=== PATIENT | female | born 1960 | race Caucasian/White ===

== ENCOUNTER 2018-08-01 09:07 | Outpatient (CLI) | payer OTHER, SELFPAY ==
--- NOTE | 2018-08-01 09:07 | W.PM.HP.N ---
Assessment and Plan (1) Degenerative joint disease of right knee: Current visit: Yes Status: Acute Reviewed surgery and relevant anatomy with patient in detail. Patient had opportunity to have questions answered to her satisfaction. Patient is planning on having her daughter live with her for several weeks post-operatively to assist her. Reviewed risks of surgery with patient in detail including but not limited to infection, damage to soft tissues, blood vessels and nerves. Patient will continue with her pre-operative visits for her scheduled right TKA on 08/07/18. Ms. Lowe is a 58 yo female who presents to clinic for her pre-operative visit for her scheduled right TKA on 08/07/[address] Blake. Patient was first seen in orthopedic clinic on 06/09/17 for bilateral knee pain. Since that appointment patient has had regular follow-up with orthopedic clinic for bilateral knee pain which has been diagnosed as bilateral knee DJD. Patient reports that her pain is aggravated by prolonged walking and with any stairs, especially downstairs. She has failed conservative treatments including OTC NSAIDs, Celebrix, ice and corticosteroid injections. Patient had her left knee injected in clinic on 06/09/17 and her right knee injected on 10/25/17 with minimal relief that lasted a few weeks. Patient reports that her right knee has been more painful than her left knee for the last several months. Her pain is now prohibiting her from activities like hiking and being able to walk her dogs daily. She denies any knee injury or instability. Patient reports she was diagnosed with chronic lymphocytic leukemia in 2014. She has scheduled follow up with Dr. Leticia Buckley at [facility] every 6 months. She states she has been stable since diagnosis and is not receiving any treatment at this time. PMH: Denies stroke, cardiac issues, angina, asthma, COPD, sleep apnea, renal/ issues, liver issues, hepatitis, GI issues, gastric ulcer, hyperlipidemia, bleeding disorder, seizures, migraines, diabetes or thyroid disease. History of Present Illness Chief Complaint: Here for my pre-operative visit for my right knee replacement Review of Systems Constitutional Denies fever(s) and Denies headache(s) Eyes Patient Denies change in vision, denies and Denies eye pain ENT Denies ear discharge, Denies otalgia, Denies headache(s), Denies nasal congestion, Denies nasal discharge, Denies nose pain and Denies sore throat Comments: Denies loose teeth Cardiovascular Denies chest pain, Denies rapid heart rate, Denies irregular heart rhythm, Denies dyspnea, Denies dyspnea on exertion, Denies orthopnea, Denies paroxysmal nocturnal dyspnea and Denies slow heart rate Respiratory Denies cough (Denies productive cough), Denies dyspnea, Denies dyspnea on exertion and Denies wheezing Gastrointestinal Denies abdominal pain, Denies melena, Denies hematochezia, Denies constipation, Denies diarrhea, Denies nausea and Denies vomiting Genitourinary Denies hematuria, Denies dysuria and Denies urinary urgency Musculoskeletal Denies joint swelling, Denies muscle weakness and Denies numbness Comments: Right knee aching sensation, right knee pain Neurologic Denies headache(s) and Denies numbness Psychiatric Reports depression (Well controlled on venlafaxine ER) Hematologic/Lymphatic Reports lymphadenopathy (Enlarged non-tender occipital - posterior cervical lymph node on right side - reports unchanged since diagnosis of CLL ) Allergic/Immunologic Denies wheezing PFSH Family History Mother Hypertension Osteoarthritis Father Alcohol abuse Brother Diabetes Other CAD (coronary artery disease) Myocardial infarction Medical History Depression (Chronic) Hypertension (Chronic) Chronic lymphocytic leukemia (Acute) Social History marital status: current occupation: - [employer] Smoking/Tobacco Use Status: Former Tobacco Use pack-years: 1 how long ago did patient quit smoking: Reports smoking in college; denies tobacco products since graduation alcohol intake: current alcohol intake frequency: a few times a week Alcohol type: wine substance use type: does not use Surgical History Cholecystectomy Meds Home Medications Medication Instructions Recorded Confirmed Type venlafaxine 150 mg PO DAILY tab-cap 06/09/17 08/01/18 History losartan-hydrochlorothiazide 1 tab PO DAILY 08/01/18 08/01/18 History Allergies Allergy/AdvReac Type Severity Reaction Status Date / Time No Known Drug Allergies Allergy Unverified 08/01/18 09:29 Exam Const General: cooperative, no acute distress and well developed Nutritional Appearance: well nourished [facility] Head: normal to inspection, normocephalic and atraumatic Ears: external ears normal (No tenderness) General nose exam: nares normal and no nasal discharge Face and sinus: face symmetric Mouth: lip normal, tongue normal and moist mucous membranes Teeth and gingiva: dentition normal Throat: uvula midline Eyes General: appearance normal, both eyes and all related structures Conjunctivae: conjunctivae normal Sclera: sclerae normal Pupils: PERRL EOM: EOM intact bilaterally Neck Neck: lymphadenopathy right occipital nontender Resp Effort & Inspection: normal respiratory effort and able to speak in complete sentences Auscultation: clear to auscultation bilaterally, no rales, no rhonchi and no wheezes Cardio Rate: regular rate Heart Sounds: S1 normal, S2 normal, no gallops, no murmurs and no rubs Pulses: radial pulses present on the left (HR 64) 2+ GI Palpation: soft and no hepatosplenomegaly Auscultation: normal bowel sounds Extrem General: normal to inspection Right lower extremity: normal to inspection and knee Details: normal to inspection, knee ligament exam normal Details: valgus stress test normal and varus stress test normal and other (Active ROM has flexion of 120 degrees and full extension without pain elicited. Passive ROM has flexion of 130 degrees with pain on the medial aspect of the joint line and full extension without pain. Muscle strength was 5/5. ); no tenderness Results Imaging Imaging Studies: Long leg x-ray from 06/08/18 - Bilateral Knee DJD noted, Decreased joint space bilaterally but is noted to be significantly worse on the on the medial aspect of the right knee. Osteophytes noted on both aspects of the right joint, left side has spurs noted specifically on the lateral aspect. Labs : 08/01/18 10:22 08/01/18 10:22
[2018-08-01 10:46] LABS: HCT 40.4 % (36.0-46.0); HGB 13.4 g/dL (12.0-15.5); Mean Corp. HGB Concentration 33.2 g/dL (32.0-36.0); Mean Corpuscular Hemoglobin 29.5 pg (27.0-33.0); Platelet Count 173 x1000/uL (130-400); RBC 4.54 m/cumm (4.00-5.20); RBC Distribution Width 13.5 % (11.7-14.6)
[2018-08-01 11:51] LABS: Anion Gap 4.8 mmol/L (3-11); BUN 16 mg/dL (7-18); CO2 27.2 mmol/L (21.0-32.0); CREATININE 0.84 mg/dL (0.55-1.02); Calcium 9.1 mg/dL (8.5-10.1); Chloride 105 mmol/L (98-107); Glucose 120 mg/dL (70-100); Potassium 4.1 mmol/L (3.5-5.1); Sodium 137 mmol/L (136-145)
== END 2018-08-01 09:27 ==
PROVIDERS: PCP Family Medicine; Visit Provider Student in an Organized Health Care Education/Training Program
DX: M25.561 Pain in right knee (principal); M17.11 Unilateral primary osteoarthritis, right knee; Z01.818 Encounter for other preprocedural examination
CPT/HCPCS: 36415; 80048; 85027; NC

== ENCOUNTER 2018-08-07 08:21 | Inpatient (IN) | payer OTHER, SELFPAY ==
--- NOTE | 2018-08-01 10:29 | PDOC.CMPRO ---
- If Service Date Differs Date of service: 08/01/18 Time of Service: 10:29 Care Management Progress Note Request by Day Surgery for CM to meet with Hilary prior to her right knee surgery with Dr. Blake on 08/07. Hilary resides alone in [facility] and reports that her adult daughter will be staying with her to assist following surgery. She has two steps up into her home and a bathroom on the first floor. 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 She is independent with her ADLS and transportation and utilizes no services in the community. Hilary will need a walker upon discharge. Hilary will transport via private vehicle with her daughter, Eun.
--- NOTE | 2018-08-01 10:38 | CMPROGNOTE_ITS ---
- If Service Date Differs Date of service: 08/01/18 Time of Service: 10:29 Care Management Progress Note Request by Day Surgery for CM to meet with Hilary prior to her right knee surgery with Dr. Blake on 08/07. Hilary resides alone in [facility] and reports that her adult daughter will be staying with her to assist following surgery. She has two steps up into her home and a bathroom on the first floor. 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 She is independent with her ADLS and transportation and utilizes no services in the community. Hilary will need a walker upon discharge. Hilary will transport via private vehicle with her daughter, uEn.
[2018-08-07] VITALS (9 sets, daily range): BP systolic 104–186; BP diastolic 65–110; PULSE 63–85; RESP 11–19; TEMP 36.4–37.4; O2SAT 95–98
[2018-08-07] MEDS: Lactated Ringers 1,000 ML 80 ML IV ×3 (09:13→13:42)
[2018-08-07] MEDS: Celecoxib 200 MG CAP 400 MG PO (09:20)
[2018-08-07] MEDS: oxyCODONE-CR 10 MG TABCR PO (09:20)
[2018-08-07] MEDS: Acetaminophen 500 MG TAB 1000 MG PO ×3 (09:20→19:49)
[2018-08-07] MEDS: Gabapentin 300 MG CAP PO ×2 (09:20→21:46)
[2018-08-07] MEDS: Ketorolac 30 MG/ML VIAL (11:46)
[2018-08-07] MEDS: Bupivacaine LIPOSOME/PF 133 MG/10 ML VIAL IJ (11:46)
[2018-08-07] MEDS: Bupivacaine 0.25% Pres-Free 30 ML VIAL 60 ML (11:46)
[2018-08-07] MEDS: oxyCODONE 5 MG TAB PO ×2 (13:41→22:29)
--- NOTE | 2018-08-07 15:37 | PT.INIE ---
PT Notes Inpatient Physical Therapy Evaluation Date: 08/07/18 Referring Doctor: Mark Blake PT Orders: PT CONSULT: s/p R TKA Precautions: WBAT R LE Patient Profile/Admitting Diagnosis: Pt is a 58yr old female s/p right total knee arthroplasty by Dr. Blake 08/07/18 PMHX: degenerative joint disease bilateral knees, depression, hypertension, lymphocytic leukemia Social History/Home Situation: Lives in 2 story house, 2 steps no railing to enter can hold post, flight of steps with railing to second floor bedrooms. She plans on staying on first level of home initially until she can use the stairs. Baseline mobility independent gait with no device, independent with ADLS Equipment Owned/DME: none Subjective: Pt lying in bed, agreeable to PT Consult. Objective: General Observation: IV R UE, matta catheter Mental Status: A&O x3 Pain: no c/o pain Bed Mobility/Transfers: Supine-sit: HOB 30 degrees, independent Sit-stand: SBA with FWW Stand-sit: SBA Sit-supine: HOB flat, independent Gait: SBA wtih FWW 30ftx2 WBAT R LE, slow step through gait pattern. Pt returned to bed after session completed. THEREX: Pt has issued home exercise program. Initiated ankle pumps, quad sets and glute sets x 20 reps Balance: Static Sitting: normal Dynamic Sitting: normal Static Standing: fair Dynamic Standing: fair Special Tests: Mobility Limitations Standardized Measure [facility] AM-PAC 6 clicks Basic Mobility Inpatient Short Form: Raw Score: 18 Standardized Score: 43.63 CMS Score: 46.58% CMS Modifier: CK Informed Consent/Education: Patient instructed in purpose of PT consult and plan of care. Assessment: Pt is a 58yr old female s/p right total knee arthroplasty by Dr. Blake 08/07/18 in setting of degenerative joint disease bilateral knees. Patient presents with clinical signs and symptoms consistent with post op TKA, as demonstrated by the following impairment level findings: weakness right quad, decreased ROM R knee, decreased strength and mobility with standing transfers, gait requiring FWW for stability to prevent falls due to decreased static and dynamic standing balance. Pt will benefit from short term therapy intervention prior to return to home setting. Impairments are contributing to the following functional limitations: AMPAC score CMS Score: 46.58% Patient is assessed as * Moderate 69828 complexity based on the following: History: see above Examination: see above Presentation: evolving Decision Making: AMPAC score CMS Score: 46.58% Goals: Goals X1 week 1. Supine-Sit independent 2. Sit-Supine independent 3. Sit-Stand supervision with FWW 4. Stand-Sit supervision with FWW 5. Bed-Chair supervision with FWW 6. Chair-Bed supervision with FWW 7. Gait supervision with FWW 75ftx2 WBAT R LE Plan of Care/Treatment Plan: 1-2x/day, 7 days/week x 1 week. Plan of care has been reviewed with the BLACK STUDIES PROFESSOR providing the service under Physical Therapy direction. Initiate Physical Therapy intervention for strengthening, bed mobility, transfers, gait, stairs, balance training, use of assistive device. DISCHARGE RECOMMENDATIONS: Home, will need FWW for gait stability post operatively TREATMENT CODE/TIME: 25min IE 1400 G Codes in the area mobility of walking and moving around: current status [id number] projected status GP [id number]. Discharge status (if discharging) GP [id number] CK based on AMPA score CMS Score: 46.58% Analy Márquez PT Intake Vital Signs 08/07/18 08:59 08/07/18 09:03 08/07/18 12:38 08/07/18 12:43 08/07/18 12:48 08/07/18 13:03 Height 5 ft 9 in 5 ft 9 in Weight 107.501 kg 107.501 kg BP 186/104 H 186/104 H 143/79 H 128/110 H 127/70 140/75 Respiration 18 18 16 14 11 L 12 Pulse 85 85 72 67 70 67 Temp 37.4 C 37.4 C 36.6 C 36.6 C 36.5 C 36.4 C L Pulse Oximetry (%) 97 97 96 95 98 98 Oxygen Flow Rate 0 0 0 0 0
--- NOTE | 2018-08-07 15:43 | IN_ITS ---
PT Notes Inpatient Physical Therapy Evaluation Date: 08/07/18 Referring Doctor: Mark Blake PT Orders: PT CONSULT: s/p R TKA Precautions: WBAT R LE Patient Profile/Admitting Diagnosis: Pt is a 58yr old female s/p right total knee arthroplasty by Dr. Blake 08/07/18 PMHX: degenerative joint disease bilateral knees, depression, hypertension, lymphocytic leukemia Social History/Home Situation: Lives in 2 story house, 2 steps no railing to enter can hold post, flight of steps with railing to second floor bedrooms. She plans on staying on first level of home initially until she can use the stairs. Baseline mobility independent gait with no device, independent with ADLS Equipment Owned/DME: none Subjective: Pt lying in bed, agreeable to PT Consult. Objective: General Observation: IV R UE, matta catheter Mental Status: A&O x3 Pain: no c/o pain Bed Mobility/Transfers: Supine-sit: HOB 30 degrees, independent Sit-stand: SBA with FWW Stand-sit: SBA Sit-supine: HOB flat, independent Gait: SBA wtih FWW 30ftx2 WBAT R LE, slow step through gait pattern. Pt returned to bed after session completed. THEREX: Pt has issued home exercise program. Initiated ankle pumps, quad sets and glute sets x 20 reps Balance: Static Sitting: normal Dynamic Sitting: normal Static Standing: fair Dynamic Standing: fair Special Tests: Mobility Limitations Standardized Measure [facility] AM-PAC 6 clicks Basic Mobility Inpatient Short Form: Raw Score: 18 Standardized Score: 43.63 CMS Score: 46.58% CMS Modifier: CK Informed Consent/Education: Patient instructed in purpose of PT consult and plan of care. Assessment: Pt is a 58yr old female s/p right total knee arthroplasty by Dr. Blake 08/07/18 in setting of degenerative joint disease bilateral knees. Patient presents with clinical signs and symptoms consistent with post op TKA, as demonstrated by the following impairment level findings: weakness right quad , decreased ROM R knee, decreased strength and mobility with standing transfers , gait requiring FWW for stability to prevent falls due to decreased static and dynamic standing balance. Pt will benefit from short term therapy intervention prior to return to home setting. Impairments are contributing to the following functional limitations: AMPAC score CMS Score: 46.58% Patient is assessed as * Moderate [id number] complexity based on the following: History: see above Examination: see above Presentation: evolving Decision Making: AMPAC score CMS Score: 46.58% Goals: Goals X1 week 1. Supine-Sit independent 2. Sit-Supine independent 3. Sit-Stand supervision with FWW 4. Stand-Sit supervision with FWW 5. Bed-Chair supervision with FWW 6. Chair-Bed supervision with FWW 7. Gait supervision with FWW 75ftx2 WBAT R LE Plan of Care/Treatment Plan: 1-2x/day, 7 days/week x 1 week. Plan of care has been reviewed with the TECHNOLOGY INFUSION SPECIALIST providing the service under Physical Therapy direction. Initiate Physical Therapy intervention for strengthening, bed mobility, transfers, gait, stairs, balance training, use of assistive device. DISCHARGE RECOMMENDATIONS: Home, will need FWW for gait stability post operatively TREATMENT CODE/TIME: 25min IE 1400 G Codes in the area mobility of walking and moving around: current status [id number] projected status GP [id number]. Discharge status (if discharging) GP [id number] CK based on AMPA score CMS Score: 46.58% Analy Márquez PT Intake Vital Signs 3 l l l l 08/07/18 08:59 l l 08/07/18 09:03 l l 08/07/18 12:38 l l 08/07/18 12:43 l l 08/07/18 12:48 l l 08/07/18 13:03 l l Height 5 ft 9 in 5 ft 9 in l l Weight 107.501 kg 107.501 kg l l BP 186/104 H 186/104 H 143/79 H 128/110 H 127/70 140/75 l l Respiration 18 18 16 14 11 L 12 l l Pulse 85 85 72 67 70 67 l l Temp 37.4 C 37.4 C 36.6 C 36.6 C 36.5 C 36.4 C L l l Pulse Oximetry (%) 97 97 96 95 98 98 l l Oxygen Flow Rate 0 0 0 0 0
--- NOTE | 2018-08-07 16:50 | ROE_ITS ---
Date of service: 08/07/18 Time of Service: 11:48 Operative Note Date of procedure: 08/07/18 Pre-op diagnosis: Right knee osteoarthritis Post-op diagnosis: same Procedure: Right Total Knee Replacement Surgeon: Mark Blake Bed And Breakfast Operator: Kiya Francois Anesthesia: regional and spinal Estimated blood loss (mL): 300 Pathology: none sent Tourniquet time (min): 31 Complications: None Patient was transported to: PACU Patient's condition: stable Implants: 1. Depuy Attune Posterior Stabilized Femoral Component, Size 6 narrow 2. Depuy Attune Fixed Platform Tibial Component, Size 4 3. Depuy Attune 6 x 6 mm fixed, Stabilized Poly 4. Depuy Attune Patellar Component, Size 35 mm Indications: I have seen Hilary in clinic for symptoms of RIGHT knee arthritis, confirmed with radiographic findings. Hilary has exhausted nonoperative methods and was having significant limitations in daily function and desired better function and less pain. I discussed the technical details of a knee replacement. I explained the risks of the procedure to include, but not limited to, bleeding, infection, pain, stiffness, fracture, damage to nerves and vessels, damage to muscles and tendons, loosening, need for repeat procedure , blood clot and cardiopulmonary demise. Despite these risks, she elected to proceed. Findings: There was significant signs of arthritis throughout the knee. This was focused medially but also seen in the patellofemoral joint as well as the lateral femur. Procedure Description: Hilary was greeted in the preoperative holding area where the correct side was identified and marked. The consent was reviewed with the patient and signed. The history and physical was updated. All questions were answered. Preoperative mediacations were administered: Acetaminophen 1000mg, Celebrex 400mg, Gabapentin 300mg, and Oxycontin 10mg. An adductor canal block was then administered by the anesthesia team in the PACU. Hilary was taken back to the operating room. A spinal anesthestic was then administered. The patient was placed into the supine position on the operating room table. A nonsterile tourniquet was placed high onto the leg but only used for cementing. Posts were placed for positioning during the procedure. All bony prominences were well padded. Prophylactic antibiotics in the form of Cefazolin were administered. 1g of Tranxemic Acid was given intravenously within 30 minutes of incision. The right leg was then prepped with Chloraprep and draped in a standard fashion with impervious stockinette and extremity drape with Iodine impregnated skin protection. A timeout to confirm correct identity, side and site, procedure, allergies, anesthesia, and medical concerns was performed. With the knee in some flexion, a midline incision was made overlying the knee. Full thickness skin flaps were raised once the extensor mechanism was encountered. These were raised medially and laterally. Any bleeding was controlled with electrocautery. Once the extensor mechanism was fully exposed, a medial parapatellar arthrotomy was performed in a flexed position. All bleeding from the arthrotomy and the geniculate arteries was coagulated. A medial subperiosteal peel was performed with electrocautery to the midcoronal plane. The fat pad was removed while keeping the patellar tendon protected. The anterior distal femur synovium was removed for later visualization. The ACL and PCL were resected and the anterior horn of the lateral meniscus was transected. The knee was then flexed with the patella everted. Large osteophytes from the tibia were removed. Using a step drill, and based on preoperative templating, the femoral canal was entered. This was done with a step drill without any difficulty. The intramedullary distal femoral cut guide was inserted, set to a 5 degree valgus cut and 9mm cut thickness. The distal femoral cut guide was then held in position and pinned. With the soft tissues protected, the distal cut was performed. This was passed over a few times to ensure a planar cut. I then turned attention to the tibia. The extramedullary guide was placed onto the leg. The distal aspect was slid medial to adjust for position of center of ankle and stay in line with shaft of the tibia. Approximately 3-5 degrees of posterior slope was kept in the proximal cutting guide. The center of the guide was aligned with the PCL. The stylus was used to assess cut thickness. The medial side, most involved side, was set for a 5mm cut. This was then held in position and pinned into place with 2 additional pins and a cross pin for stability. The medial and lateral collateral ligaments were protected and the cut was performed. With this completed, it was assessed and noted to be of appropriate dimensions. The guide was removed. A spacer block was inserted and the knee was brought into extension. The 6mm spacer block provided full extension, without hyperextension and with stability of both the medial and lateral collateral ligaments was assessed. The pins from the femur and the tibia were then removed. The distal femur was then sized. The anterior stylus was placed onto the lateral ridge of the anterior femur. This indicated a size 6 femur. The external rotation of the guide was adjusted to 3? to match the epicondylar axis , perpendicular to Monument?s line. The 4-in-1 cutting guide was the placed. The posterior medial femur cut was evaluated and appeared of good thickness. The spacer block was inserted underneath the cutting guide and stability was confirmed in 90 degrees of flexion. An asa wing was used to confirm appropriate position of the anterior cut to avoid notching. This cutting guide was ensured to be flush on the cut surface and then pinned into place with headed pins. While protecting the soft tissues, quad tendon, and collateral ligaments, the anterior and posterior cuts were performed with a saw. The central two pins were removed and the posterior and anterior chamfers were cut next. The notch-cutting guide was placed. This was pinned to lateralize the femoral component as much as possible while keeping it flush on the cut surface. This was then pinned into position. A reciprocating saw was used to make the notch cut. A rasp smoothed the cut surfaces. A trial posterior stabilized femoral component was then inserted, impacted down to the cut surfaces, and the lug holes were drilled. A provisional trial tibial component was placed and the knee was brought through range of motion. There was noted to be excellent extension and flexion. There was no significant instability. The patella was tracking without thumbs. The tibial cut surface was fully exposed. The medial and lateral menisci were removed. The tibia was then sized as a 4. The tibia had been previously marked during trialing to correspond to the center of the tibial component to help with rotation. The trial was aligned to this tramaine, approximately rotated to the medial 1/3rd of the tibial tubercle. The trial was pinned into place. The tibia was prepared with a reamer and a keel punch. The knee was then brought into extension and the patella was measured as 25 mm. Using the patellar clamp and cut guide, this was resected to a flat surface with at least 13mm of thickness remaining. The size 35 and patella fit the best. This was oriented and then clamped into position. The lugs were drilled. The trial components were removed. The final components, except for the polyethylene were opened on the back table. The periosteal and capsular tissues , especially posteriorly, around the knee were then systematically injected with a periarticular cocktail consisting of 50cc 0.25% Marcaine, 30mg Ketorolac , 20cc of Exparal and 50cc of injectable saline. The tourniquet was then inflated to 275mmHg. The knee was thoroughly irrigated with a pulse lavage and dried. On the back table, with the implants opened, the cement was mixed. 2 batches of antibiotic laden cement were prepared with vacuum assistance. After the cement was ready a small amount was placed on to the back side of the tibial component at the keel. A small amount was placed onto the posterior flange of the femur. Cement was manual pressurized and impregnated into the cut surface of the tibia. The tibial component was then inserted into the cut surface and impacted into position. Excess cement was removed and the component was reimpacted. Again, excess cement was removed and our attention was then turned to the femur. The femoral cut surface was once again dried and cement was manually impacted into the cut surface. The femoral component was lined with the lug holes and impacted. Excess cement was removed. It was ensured to be down against the cut surface. The trial polyethylene was then inserted and the leg was brought out into full extension for the duration of the cement curing process, approximately 15min. Cement was lastly manually impacted into the cut surface of the patella and the patellar button was clamped into position and held. During this process attention was turned to the gutters of the knee and for all interfaces for any excess cement. After the cement had finally cured, approximately 15min, the clamp was removed from the patella and the knee was taken through range of motion. A size 6mm polyethylene component provided the best range of motion and stability with less than 2mm gapping with medial and lateral stress and full extension without significant hyperextension. The patella was tracking with a no-thumbs technique. The trial poly was removed and once again the knee was checked for any loose, excess, or errant cement. The poly component was then inserted and impacted into position after cleaning and drying the tibial tray. The capsule was then reapproximated with a No. 1 Vicryl at multiple locations. The capsule was finally closed with a No. 2 Stratafix, barbed suture. The tourniquet was then released and the arthrotomy appeared watertight without significant bleeding. The second dosing of 1g TXA was started. Deep tissues were then reapproximated with 0 Vicryl and 2-0 Vicryl. The skin was closed with a running 3-0 Monocryl in a subcuticular fashion. This was reinforced with skin glue. A Mepilex silver dressing was applied along with a foot-to- thigh MIQUEL wrap. A CryoCuff was applied. Hilary was transferred to the hospital bed without difficulty an suffering no apparent complication. Hilary has a good prognosis. Physical therapy will start today and without restrictions, weight-bearing as tolerated. Aspirin 81mg BID will be used for DVT prophylaxis.
[2018-08-07] MEDS: Celecoxib 100 MG CAP 200 MG PO (19:49)
[2018-08-07] MEDS: Aspirin E.C. 81 MG TABEC PO (19:50)
[2018-08-08] MEDS: oxyCODONE 5 MG TAB PO ×2 (03:42→09:22)
[2018-08-08 04:07] VITALS: BP 143/82; PULSE 73; RESP 19; TEMP 36.7; O2SAT 98
--- NOTE | 2018-08-08 08:02 | PT.INDS ---
PT Notes Inpatient Physical Therapy Discharge Summary Date: 08/08/18 Dates of Service: 08/07/18-08/08/18 SUBJECTIVE: Pt lying in bed, states she was up several times last night to go to the bathroom, reports minimal pain. OBJECTIVE: Pain: 2/10 pain left quad Bed Mobility/Transfers: Supine-sit: independent Sit-stand: independent with FWW Bed-chair: independent with FWW Stand-sit: independent Gait: independent wtih FWW 200ft WBAT R LE, slow step through gait pattern. Pt reports some right knee buckling with loading when flexing right knee, pt instructed to maintain more extension in right knee at this time until post operative quad swelling reduces to allow for increased quad contraction and stability. Pt states this improved her gait stability. Pt returned to room and up in chair for breakfast. STAIRS Instructed in up/down 3 steps bilateral railings, independent Up/down 3 steps with left railing and single point cane, independent Pt plans to obtain a cane for 2 entry steps at home. THEREX: Pt has issued home exercise program. Performed ankle pumps, quad sets and glute sets x 20 reps Balance: Static Sitting: normal Dynamic Sitting: normal Static Standing: fair Dynamic Standing: fair Assessment: Pt is a 58yr old female s/p right total knee arthroplasty by Dr. Blake 08/07/18 in setting of degenerative joint disease bilateral knees. Patient has been seen for 2 PT visits. Progressed from SBA standing transfers to independent, from SBA gait with FWW 30ftx2 to independent gait with FWW 200ft, able to ascend/descend 3 steps with cane and railing independently. Pt has met therapy goals and is ready for discharge to home setting when medically cleared. Goals: Goals X1 week 1. Supine-Sit independent 2. Sit-Supine independent 3. Sit-Stand supervision with FWW 4. Stand-Sit supervision with FWW 5. Bed-Chair supervision with FWW 6. Chair-Bed supervision with FWW 7. Gait supervision with FWW 75ftx2 WBAT R LE Pt has met goals 1-7 DISCHARGE RECOMMENDATIONS: Home, will need FWW for gait stability post operatively TREATMENT CODE/TIME: 22min TAx1 TPx1 7:54 G Codes in the area mobility of walking and moving around: projected status GP [id number]. Discharge status (if discharging) GP [id number] CK Analy Márquez PT
--- NOTE | 2018-08-08 08:09 | INDS_ITS ---
PT Notes Inpatient Physical Therapy Discharge Summary Date: 08/08/18 Dates of Service: 08/07/18-08/08/18 SUBJECTIVE: Pt lying in bed, states she was up several times last night to go to the bathroom, reports minimal pain. OBJECTIVE: Pain: 2/10 pain left quad Bed Mobility/Transfers: Supine-sit: independent Sit-stand: independent with FWW Bed-chair: independent with FWW Stand-sit: independent Gait: independent wtih FWW 200ft WBAT R LE, slow step through gait pattern. Pt reports some right knee buckling with loading when flexing right knee, pt instructed to maintain more extension in right knee at this time until post operative quad swelling reduces to allow for increased quad contraction and stability. Pt states this improved her gait stability. Pt returned to room and up in chair for breakfast. STAIRS Instructed in up/down 3 steps bilateral railings, independent Up/down 3 steps with left railing and single point cane, independent Pt plans to obtain a cane for 2 entry steps at home. THEREX: Pt has issued home exercise program. Performed ankle pumps, quad sets and glute sets x 20 reps Balance: Static Sitting: normal Dynamic Sitting: normal Static Standing: fair Dynamic Standing: fair Assessment: Pt is a 58yr old female s/p right total knee arthroplasty by Dr. Blake 08/07/18 in setting of degenerative joint disease bilateral knees. Patient has been seen for 2 PT visits. Progressed from SBA standing transfers to independent, from SBA gait with FWW 30ftx2 to independent gait with FWW 200ft , able to ascend/descend 3 steps with cane and railing independently. Pt has met therapy goals and is ready for discharge to home setting when medically cleared. Goals: Goals X1 week 1. Supine-Sit independent 2. Sit-Supine independent 3. Sit-Stand supervision with FWW 4. Stand-Sit supervision with FWW 5. Bed-Chair supervision with FWW 6. Chair-Bed supervision with FWW 7. Gait supervision with FWW 75ftx2 WBAT R LE Pt has met goals 1-7 DISCHARGE RECOMMENDATIONS: Home, will need FWW for gait stability post operatively TREATMENT CODE/TIME: 22min TAx1 TPx1 7:54 G Codes in the area mobility of walking and moving around: projected status GP [id number]. Discharge status (if discharging) GP [id number] CK Analy Márquez PT
[2018-08-08 08:10] VITALS: BP 132/86; PULSE 70; RESP 16; TEMP 37.1; O2SAT 98
--- NOTE | 2018-08-08 08:22 | PDOC.CMIN ---
- If Service Date Differs Date of service: 08/08/18 Time of Service: 08:22 Care Management Initial Assess REASON FOR HOSPITALIZATION:: Right knee DJD. PAST MEDICAL HISTORY/PAST SURGICAL HISTORY:: Lymphocytic leukemia, depression, hypertension, degenerative joint disease (right knee). Surgical hx: cholecystectomy. 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 She is independent with her ADLS and transportation and utilizes no services in the community. CURRENT FUNCTIONAL STATUS:: Hilary is sitting up in her recliner when CM visits this morning. She is engaged in conversation, makes good eye contact and is talkative. Hilary reports that her pain is minimal and she feels ready for discharge. Hilary's daughter, Eun, will be staying with her for as long as she needs assistance. Pt will need a walker upon discharge. CM informed Hilary that [facility] utilizes [employer] and [employer] for walkers, and Hilary elected to purchase a walker from [employer]. CM will supply the walker prior to discharge. ADVANCE DIRECTIVES:: None on file at [facility]. Has patient been provided with information about the portal?: Yes Did the patient sign up for the portal?: Yes CODE STATUS:: Full Code INSURANCE COVERAGE / FINANCIAL ISSUES:: GISC/[employer]. CURRENT HOME/COMMUNITY SERVICES/EQUIPMENT:: No current home or community services. Hilary will discharge with a FWW. PRIMARY CARE PHYSICIAN:: Precious Nixon. POTENTIAL DISCHARGE NEEDS:: Follow up appointment with MD and possible outpatient PT. PATIENT/FAMILY EDUCATION NEEDS:: Discharge education, any limitations and follow up plan of care. Ask Me Three discussion. ANTICIPATED BARRIERS TO DISCHARGE:: No anticipated barriers to discharge. TRANSPORTATION:: Hilary will transport via private vehicle with daughterEun. PLAN:: Hilary will discharge when medically ready per MD. Anticipate pt will follow up with MD and have outpatient PT services. CM will continue to provide support to patient, family and care team regarding discharge planning and disposition.
[2018-08-08] MEDS: Acetaminophen 500 MG TAB 1000 MG PO (08:32)
[2018-08-08] MEDS: Losartan 50 MG TAB 100 MG PO (08:32)
[2018-08-08] MEDS: Celecoxib 100 MG CAP 200 MG PO (08:32)
[2018-08-08] MEDS: Venlafaxine 150 MG CAPCR PO (08:33)
[2018-08-08] MEDS: Normal Saline Flush 10 ML SYR IV (08:33)
[2018-08-08] MEDS: Aspirin E.C. 81 MG TABEC PO (08:33)
[2018-08-08] MEDS: Hydrochlorothiazide 25 MG TAB PO (08:33)
--- NOTE | 2018-08-08 08:38 | DSE_ITS ---
Date of service: 08/08/18 Time of Service: 08:37 DS: Diagnosis Discharge Diagnosis (1) Degenerative joint disease of right knee: Start date: 08/08/18 Start time: 08:38 Status: Acute Discharge Plan Disposition Patient Disposition: HOME Condition: Good Discharge Details Reason For Visit: (R) KNEE DJD Admit Date/Time: 08/07/18 08:21 Admit Provider: Mark Blake Attending Provider: Mark Blake Primary Care Provider: Precious Nixon [facility] Course Hospital Course: Patient was admitted to the medical/surgical floor following the procedure. It was tolerated well without any notable medical, surgical, or anesthetic complications. Mobilization began postoperatively. The matta catheter was removed and voiding spontaneously. Vitals were stable. Physical therapy worked with the patient and was cleared for discharge home. No acute medical issues. Home Meds and New Rx's Prescriptions: New polyethylene glycol 3350 17 gram Powder In Packet 17 g PO BID PRN PRN (Reason: Constipation) Qty: 0 RF: 0 aspirin 81 mg Tablet,Delayed Release (Dr/Ec) 81 mg PO BID Qty: 80 RF: 0 acetaminophen [Mapap Extra Strength] 500 mg Tablet 1,000 mg PO TID Qty: 90 RF: 0 docusate sodium [Colace] 100 mg Capsule 100 mg PO BID PRN PRN (Reason: Constipation) Qty: 0 RF: 0 gabapentin 300 mg Capsule 300 mg PO HS Qty: 7 RF: 0 celecoxib [Celebrex] 100 mg Capsule 200 mg PO BID Qty: 60 RF: 3 oxycodone 5 mg Tablet 5 mg PO Q6H PRN PRN (Reason: Pain) Qty: 12 RF: 0 pantoprazole 40 mg tablet,delayed release (DR/EC) 40 mg PO DAILY Qty: 30 RF: 1 Continue venlafaxine 150 MG capsule,extended release 24hr 150 mg PO DAILY RF: 0 losartan-hydrochlorothiazide 100-25 mg Tablet 1 tab PO DAILY RF: 0 Discharge Instructions Additional Instructions: Dr. Blake?s Total Knee Discharge Instructions Activity: The most important activity is to walk. You should try to take short walks a few times a day. It is important that when resting you work on keeping the knee straight. Avoid putting a pillow behind the knee as this will encourage flexion. Work on range of motion exercises as provided by Physical Therapy. - Start outpatient physical therapy within 2 weeks. - You should wear the CATINA hose on both legs for 4 weeks. Dressing: Keep the surgical dressing in place for at least one week. After the first week it may be removed and replace with light gauze and tape or nothing. It may get wet after 3 days but avoid soaking the dressing. If it gets wet, just lightly pat dry. Medications: - You should take Tylenol and anti-inflammatory (Celebrex or Meloxicam) as your primary pain control medications - You have been prescribed a stronger pain medication (Oxycodone or Dilaudid) for breakthrough pain, take as needed as prescribed. - You will be taking Aspirin 81mg twice a day for DVT prevention unless instructed otherwise. - If you have constipation you should take Colace or Miralax (both over-the- counter). It takes most people 3-4 days to have a bowel movement. Follow-up: 2 weeks Stand Alone Forms: Nursing Discharge Form Referrals: Mark Blake MD [ [facility] STAFF PHYSICIAN] - Activity:: Activity as Tolerated Equipment/Supplies:: Walker Diet:: Regular Discharge Orders Discharge Orders: Discharge Order (Routine); Ordered 08/08/18 Ordered By: Mark Blake DS: Data Vitals/I&O Vitals and I&O: Vital Signs Temp 37.1 C 08/08/18 08:10 Pulse 70 08/08/18 08:10 Resp 16 08/08/18 08:10 BP 132/86 08/08/18 08:10 Pulse Ox 98 08/08/18 08:10 Intake & Output 08/07/18 08/07/18 08/08/18 11:59 23:59 11:59 Intake Total 306 / 306 1314 / 1314 150 / 150 Output Total 300 / 300 1550 / 1550 900 / 900 Balance 6 / 6 -236 / -236 -750 / -750 Weight 107.501 kg Intake: IV 306 / 306 1074 / 1074 50 / 50 Oral 240 / 240 100 / 100 Output: Urine 1550 / 1550 900 / 900 Estimated Blood Loss 300 / 300 Other: Urine Color Yellow Yellow Straw Urine Appearance Clear Clear Clear Urine Odor Normal Emesis Description None Voiding Methods Toilet Toilet
--- NOTE | 2018-08-08 08:47 | PHARADMIT ---
Admission Pharmacy Clinical Review (R) KNEE DJD Code Status Full Code Current Weight Wgt- 107.5 kg Renally Cleared and Narrow Therapeutic Index Meds CrCl~ 74.4 mL/min Meds-OK QTc Value / Action Taken na BP Control, Fever BP-132/86 Tmax- 37.1C Electrolytes reviewed na DVT Prophylaxis ASA Opiate Usage / Scheduled Bowel Regimen Ordered Yes Yes Plt/SCr for Heparin / Enoxaparin na INR for Warfarin na H/H stable, WBC/Bands na Antibiotic appropriateness Ancef Cultures and Sensitivities none Surgical ABX d/c within 24 hr Yes DM control / Insulin Dosing na Heart Failure (Check EF%) (MIQUEL's, B-Block, Diuretics) Losartan/HCTZ IV to PO Switch No Home Meds Reviewed Yes Home Meds Not Ordered Protonix Comments
[2018-08-08 08:55] VITALS: O2SAT 96
--- NOTE | 2018-08-08 09:15 | INITIAL_ITS ---
- If Service Date Differs Date of service: 08/08/18 Time of Service: 08:22 Care Management Initial Assess REASON FOR HOSPITALIZATION:: Right knee DJD. PAST MEDICAL HISTORY/PAST SURGICAL HISTORY:: Lymphocytic leukemia, depression, hypertension, degenerative joint disease (right knee). Surgical hx: cholecystectomy. 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. She is independent with her ADLS and transportation and utilizes no services in the community. CURRENT FUNCTIONAL STATUS:: Hilary is sitting up in her recliner when CM visits this morning. She is engaged in conversation, makes good eye contact and is talkative. Hilary reports that her pain is minimal and she feels ready for discharge. Hilary's daughter, Eun, will be staying with her for as long as she needs assistance. Pt will need a walker upon discharge. CM informed Hilary that [facility] utilizes [employer] and [employer] for walkers, and Hilary elected to purchase a walker from [employer]. CM will supply the walker prior to discharge. ADVANCE DIRECTIVES:: None on file at [facility]. Has patient been provided with information about the portal?: Yes Did the patient sign up for the portal?: Yes CODE STATUS:: Full Code INSURANCE COVERAGE / FINANCIAL ISSUES:: GISC/[employer]. CURRENT HOME/COMMUNITY SERVICES/EQUIPMENT:: No current home or community services. Hilary will discharge with a FWW. PRIMARY CARE PHYSICIAN:: Precious Nixon. POTENTIAL DISCHARGE NEEDS:: Follow up appointment with MD and possible outpatient PT. PATIENT/FAMILY EDUCATION NEEDS:: Discharge education, any limitations and follow up plan of care. Ask Me Three discussion. ANTICIPATED BARRIERS TO DISCHARGE:: No anticipated barriers to discharge. TRANSPORTATION:: Hilary will transport via private vehicle with daughterEun. PLAN:: Hilary will discharge when medically ready per MD. Anticipate pt will follow up with MD and have outpatient PT services. CM will continue to provide support to patient, family and care team regarding discharge planning and disposition.
--- NOTE | 2018-08-08 09:15 | PDOC.CMDIS ---
- If Service Date Differs Date of service: 08/08/18 Time of Service: 09:15 LACE Index Scoring Tool - Questions: Length of Stay (in days): 2 (Surgical patient) Acuity (Admit via E.D.?): No E.D. Visits: 0 - Answers: Total Score: 2 Risk of Readmission: Low Risk Care Management Discharge Reason for Hospitalization: Right knee DJD. Discharge Plan: Hilary will discharge when medically ready per MD. Anticipate pt will follow up with MD and outpatient PT. Hilary will discharge with a FWW and transport via private vehicle with her daughter, Eun. Patient/Family Education Needs: Discharge education, any limitations and follow up plan of care. Ask Me Three discussion.
--- NOTE | 2018-08-09 13:29 | IN_ITS ---
Date of service: 08/07/18 Time of Service: 14:00 PT Notes Inpatient Physical Therapy Evaluation Date: 08/07/18 Referring Doctor: Mark Blake PT Orders: PT CONSULT: s/p R TKA Precautions: WBAT R LE Patient Profile/Admitting Diagnosis: Pt is a 58yr old female s/p right total knee arthroplasty by Dr. Blake 08/07/18 PMHX: degenerative joint disease bilateral knees, depression, hypertension, lymphocytic leukemia Social History/Home Situation: Lives in 2 story house, 2 steps no railing to enter can hold post, flight of steps with railing to second floor bedrooms. She plans on staying on first level of home initially until she can use the stairs. Baseline mobility independent gait with no device, independent with ADLS Equipment Owned/DME: none Subjective: Pt lying in bed, agreeable to PT Consult. Objective: General Observation: IV R UE, matta catheter Mental Status: A&O x3 Pain: no c/o pain Bed Mobility/Transfers: Supine-sit: HOB 30 degrees, independent Sit-stand: SBA with FWW Stand-sit: SBA Sit-supine: HOB flat, independent Gait: SBA wtih FWW 30ftx2 WBAT R LE, slow step through gait pattern. Pt returned to bed after session completed. THEREX: Pt has issued home exercise program. Initiated ankle pumps, quad sets and glute sets x 20 reps Balance: Static Sitting: normal Dynamic Sitting: normal Static Standing: fair Dynamic Standing: fair Special Tests: Mobility Limitations Standardized Measure [facility] AM-PAC 6 clicks Basic Mobility Inpatient Short Form: Raw Score: 18 Standardized Score: 43.63 CMS Score: 46.58% CMS Modifier: CK Informed Consent/Education: Patient instructed in purpose of PT consult and plan of care. Assessment: Pt is a 58yr old female s/p right total knee arthroplasty by Dr. Blake 08/07/18 in setting of degenerative joint disease bilateral knees. Patient presents with clinical signs and symptoms consistent with post op TKA, as demonstrated by the following impairment level findings: weakness right quad , decreased ROM R knee, decreased strength and mobility with standing transfers , gait requiring FWW for stability to prevent falls due to decreased static and dynamic standing balance. Pt will benefit from short term therapy intervention prior to return to home setting. Impairments are contributing to the following functional limitations: AMPAC score CMS Score: 46.58% Patient is assessed as * Moderate 83753 complexity based on the following: History: see above Examination: see above Presentation: evolving Decision Making: AMPAC score CMS Score: 46.58% Goals: Goals X1 week 1. Supine-Sit independent 2. Sit-Supine independent 3. Sit-Stand supervision with FWW 4. Stand-Sit supervision with FWW 5. Bed-Chair supervision with FWW 6. Chair-Bed supervision with FWW 7. Gait supervision with FWW 75ftx2 WBAT R LE Plan of Care/Treatment Plan: 1-2x/day, 7 days/week x 1 week. Plan of care has been reviewed with the [employer] providing the service under Physical Therapy direction. Initiate Physical Therapy intervention for strengthening, bed mobility, transfers, gait, stairs, balance training, use of assistive device. DISCHARGE RECOMMENDATIONS: Home, will need FWW for gait stability post operatively TREATMENT CODE/TIME: 25min IE 1400 G Codes in the area mobility of walking and moving around: current status [id number] CK projected status GP [id number]. Discharge status (if discharging) GP [id number] CK based on AMPAC score CMS Score: 46.58% Analy Márquez PT
== END 2018-08-08 11:38 | disposition home or self-care (01) | DRG 470 ==
LOC: PDS 09:51 → MS 13:41
PROVIDERS: Admitting Provider Student in an Organized Health Care Education/Training Program; PCP Family Medicine; Visit Provider Student in an Organized Health Care Education/Training Program
PROC: 0SRC0J9 Replacement of Right Knee Joint with Synthetic Substitute, Cemented, Open Approach (ICD-10-PCS; CPT 27447; principal; 2018-08-07 10:00)
DX: M17.11 Unilateral primary osteoarthritis, right knee (principal); C91.11 Chronic lymphocytic leukemia of B-cell type in remission; Z96.651 Presence of right artificial knee joint
CPT/HCPCS: 27447; 97110; 97162; 97530; NC; J0690; J1100; J1885; J2250; J2405; J3010

== ENCOUNTER 2019-11-28 22:28 | Outpatient (REF) | payer OTHER, SELFPAY ==
[2019-11-28 19:11] LABS: Abs Immature Grans 0.06 k/cumm (0.0-0.09); Absolute Basophil Count 0.05 k/cumm (0.0-0.2); Absolute Lymphocyte Count 20.37 k/cumm (1.2-3.4); Basophils % 0.2; Eosinophils % 0.6; HCT 38.8 % (36.0-46.0); HGB 12.8 g/dL (12.0-15.5); Immature Grans % 0.2 %; Lymphocytes % 77.4; Mean Corpuscular Hemoglobin 29.3 pg (27.0-33.0); Mean Corpuscular Volume 88.8 fL (80-95); Mean Platelet Volume 9.1 fL (8.0-11.0); Monocytes % 2.8; Neutrophils % 18.8; Platelet Count 236 x1000/uL (130-400); RBC 4.37 m/cumm (4.00-5.20); RBC Distribution Width 14.1 % (11.7-14.6)
[2019-11-28 19:20] LABS: ALT 57 U/L (14-59); AST 25 U/L (15-37); Albumin 4.2 g/dL (3.4-5.0); Alkaline Phosphatase 103 U/L (46-116); Anion Gap 11.9 mmol/L (3-11); BUN 20 mg/dL (7-18); Bilirubin, Total 0.3 mg/dL (0.2-1.0); CO2 28.1 mmol/L (21.0-32.0); CREATININE 0.82 mg/dL (0.55-1.02); Calcium 9.7 mg/dL (8.5-10.1); Chloride 104 mmol/L (98-107); Glucose 105 mg/dL (74-106); Potassium 3.8 mmol/L (3.5-5.1); Sodium 144 mmol/L (136-145); Total Protein 6.9 g/dL (6.4-8.2)
[2019-11-28 19:46] LABS: Absolute Eosinophil Count 0.16 k/cumm (0.0-0.7); Absolute Monocyte Count 0.74 k/cumm (0.11-0.7); Absolute Neutrophil Count 4.95 k/cumm (1.2-6.7); White Blood Cell Count 26.32 k/cumm (4.4-10.8)
[2019-11-28 20:31] LABS: Diff Comment Agrees w/ Instrument
== END 2019-11-28 22:48 ==
LOC: NCHCN 22:28
PROVIDERS: PCP Family Medicine; Visit Provider Family Medicine
DX: C91.00 Acute lymphoblastic leukemia not having achieved remission (principal)
CPT/HCPCS: 80053; 83605; 85025

== ENCOUNTER 2020-06-24 18:20 | Outpatient (REF) | payer OTHER, SELFPAY ==
[2020-06-25 08:54] LABS: LDH 165 U/L (81-234)
[2020-06-26 10:13] LABS: IgA 84 mg/dL (85-499); IgG 634 mg/dL (610-1,616); IgM 39 mg/dL (35-242)
== END 2020-06-24 18:40 ==
LOC: NCHCN 18:20
PROVIDERS: PCP Family Medicine; Visit Provider Family Medicine
DX: C91.00 Acute lymphoblastic leukemia not having achieved remission (principal)
CPT/HCPCS: 82784; 83615

== ENCOUNTER 2020-06-30 10:49 | Outpatient (CLI) | payer OTHER, SELFPAY ==
[2020-06-30 13:17] LABS: Abs Immature Grans 0.04 10^3/uL (0.0-0.06); HCT 43.7 % (36.0-46.0); HGB 14.5 g/dL (11.2-15.7); MCH 29.1 pg (27.0-33.0); MCHC 33.2 % (32.0-36.0); MCV 87.6 fL (80-95); MPV 8.8 fL (8.0-11.0); Nucleated RBC 0 %; Platelet Count 217 10^3/uL (130-400); RBC 4.99 10^6/uL (3.93-5.22); RDW 13.3 % (11.7-14.6); RDW-SD 42.7 fL; WBC 22.93 10^3/uL (4.4-10.8)
[2020-06-30 13:31] LABS: ALT 89 U/L (14-59); AST 43 U/L (15-37); Alkaline Phosphatase 104 U/L (46-116); Anion Gap 11.4 mmol/L (3-11); BUN 13 mg/dL (7-18); Bilirubin, Total 0.5 mg/dL (0.2-1.0); CO2 26.6 mmol/L (21.0-32.0); CREATININE 0.85 mg/dL (0.55-1.02); Calcium 9.4 mg/dL (8.5-10.1); Chloride 102 mmol/L (98-107); Glucose 120 mg/dL (74-106); Sodium 140 mmol/L (136-145); Total Protein 7.7 g/dL (6.4-8.2)
[2020-06-30 13:41] LABS: Absolute Lymphocyte Count 16.05 10^3/uL (1.2-3.4); Absolute Neutrophil Count 6.19 10^3/uL (1.2-6.7); Bands % 2
[2020-06-30 13:44] LABS: Absolute Monocyte Count 0.69 10^3/uL (0.1-0.8); Diff Comment Manual Differential; RBC Morphology Normal
== END 2020-06-30 11:09 ==
PROVIDERS: PCP Family Medicine; Visit Provider Internal Medicine Hematology & Oncology
DX: C91.10 Chronic lymphocytic leukemia of B-cell type not having achieved remission (principal)
CPT/HCPCS: 36415; 80053; 85025

== ENCOUNTER 2020-07-10 13:44 | Outpatient (REF) | payer SELFPAY ==
[2020-07-13 00:59] LABS: SARS-CoV-2 RNA Undetected (Undetected); SARS-CoV-2 Specimen Source Nasopharynx
== END 2020-07-10 14:04 ==
LOC: NCHCN 13:44
PROVIDERS: PCP Family Medicine; Visit Provider Family Medicine
DX: Z20.828 Contact with and (suspected) exposure to other viral communicable diseases (principal)
CPT/HCPCS: U0003

== ENCOUNTER 2021-01-11 02:08 | Outpatient (CLI) | payer OTHER, SELFPAY ==
[2021-01-11 13:15] LABS: Abs Immature Grans 0.05 10^3/uL (0.0-0.06); Absolute Basophil Count 0.08 10^3/uL (0.0-0.2); Absolute Eosinophil Count 0.25 10^3/uL (0.0-0.7); Absolute Lymphocyte Count 14.53 10^3/uL (1.2-3.4); Absolute Monocyte Count 0.47 10^3/uL (0.1-0.8); Absolute Neutrophil Count 4.17 10^3/uL (1.2-6.7); Basophils % 0.4; Eosinophils % 1.3; HCT 40.4 % (36.0-46.0); HGB 13.3 g/dL (11.2-15.7); Immature Grans % 0.3; Lymphocytes % 74.3; MCH 28.6 pg (27.0-33.0); MCHC 32.9 % (32.0-36.0); MCV 86.9 fL (80-95); MPV 8.8 fL (8.0-11.0); Monocytes % 2.4; Neutrophils % 21.3; Nucleated RBC 0 %; Platelet Count 197 10^3/uL (130-400); RBC 4.65 10^6/uL (3.93-5.22); RDW 13.8 % (11.7-14.6); RDW-SD 43.1 fL; WBC 19.56 10^3/uL (4.4-10.8)
[2021-01-11 13:35] LABS: ALT 42 U/L (14-59); AST 15 U/L (15-37); Alkaline Phosphatase 111 U/L (46-116); Anion Gap 12.4 mmol/L (3-11); BUN 23 mg/dL (7-18); Bilirubin, Total 0.4 mg/dL (0.2-1.0); CO2 27.6 mmol/L (21.0-32.0); CREATININE 0.8 mg/dL (0.55-1.02); Calcium 9.3 mg/dL (8.5-10.1); Chloride 104 mmol/L (98-107); Glucose 112 mg/dL (74-106); LDH 148 U/L (81-234); Sodium 144 mmol/L (136-145); Total Protein 7.4 g/dL (6.4-8.2)
[2021-01-11 13:40] LABS: RBC Morphology Normal
[2021-01-11 13:41] LABS: Diff Comment Diff Reviewed
[2021-01-12 11:45] LABS: IgA 74 mg/dL (85-499); IgG 652 mg/dL (610-1,616); IgM 36 mg/dL (35-242)
== END 2021-01-11 02:09 | disposition home or self-care (01) ==
LOC: LBO 02:09
PROVIDERS: PCP Family Medicine; Visit Provider Internal Medicine Hematology & Oncology
DX: C91.10 Chronic lymphocytic leukemia of B-cell type not having achieved remission (principal)
CPT/HCPCS: 36415; 80053; 82784; 83615; 85025

== ENCOUNTER 2021-07-05 14:33 | Outpatient (CLI) | payer OTHER, SELFPAY ==
[2021-07-05 13:35] LABS: HCT 40.5 % (36.0-46.0); HGB 13.4 g/dL (11.2-15.7); MCH 28.7 pg (27.0-33.0); MCHC 33.1 % (32.0-36.0); MCV 86.7 fL (80-95); MPV 8.5 fL (8.0-11.0); Nucleated RBC 0 %; Platelet Count 186 10^3/uL (130-400); RBC 4.67 10^6/uL (3.93-5.22); RDW 13.3 % (11.7-14.6); RDW-SD 41.7 fL; WBC 18.09 10^3/uL (4.4-10.8)
[2021-07-05 14:14] LABS: Absolute Lymphocyte Count 12.48 10^3/uL (1.2-3.4); Absolute Monocyte Count 0.36 10^3/uL (0.1-0.8); Absolute Neutrophil Count 5.25 10^3/uL (1.2-6.7); Atypical Lymphocytes % 14; Diff Comment Manual Differential; RBC Morphology Normal
[2021-07-05 14:17] LABS: ALT 36 U/L (14-59); AST 16 U/L (15-37); Alkaline Phosphatase 111 U/L (46-116); Anion Gap 9.8 mmol/L (3-11); BUN 21 mg/dL (7-18); Bilirubin, Total 0.4 mg/dL (0.2-1.0); CO2 26.2 mmol/L (21.0-32.0); CREATININE 0.9 mg/dL (0.55-1.02); Calcium 9.2 mg/dL (8.5-10.1); Chloride 104 mmol/L (98-107); Glucose 137 mg/dL (74-106); LDH 158 U/L (81-234); Potassium 3.5 mmol/L (3.5-5.1); Sodium 140 mmol/L (136-145); Total Protein 7.5 g/dL (6.4-8.2)
[2021-07-06 09:59] LABS: IgA 87 mg/dL (85-499); IgG 695 mg/dL (610-1,616); IgM 46 mg/dL (35-242)
== END 2021-07-05 14:34 | disposition home or self-care (01) ==
LOC: LBO 14:34
PROVIDERS: PCP Family Medicine; Visit Provider Internal Medicine Hematology & Oncology
DX: C91.10 Chronic lymphocytic leukemia of B-cell type not having achieved remission (principal)
CPT/HCPCS: 36415; 80053; 82784; 83615; 85025

== ENCOUNTER 2021-07-12 14:42 | Outpatient (CLI) | payer OTHER, SELFPAY ==
--- NOTE | 2021-07-12 10:56 | DI.RAD_ITS ---
Exam(s) XR KNEE LT 3V AP,LAT,JORGE EXAM: XR KNEE LT 3V AP,LAT,JORGE CLINICAL HISTORY: L knee pain. TECHNIQUE: 2D digital imaging was performed. COMPARISON: CR XR standing alignment from 08/24/2018 CR XR knee RT 1V from 08/24/2018 CR XR standing alignment from 08/24/2018 FINDINGS: Compared to October 28 [id number] there is been further increase in amount of degenerative change in the left knee all 3 compartments but most prominent in the medial patellofemoral compartments. There is also a loose intra-articular calcific body noted anteriorly which measures approximately 9 x 8 millim eters. No obvious joint effusion. No osseous lesions. IMPRESSION: DATA REPOSITORY: RADIATION DOSE DELIVERED:
== END 2021-07-12 14:43 | disposition home or self-care (01) ==
LOC: DIORS 14:42
PROVIDERS: PCP Family Medicine; Referring Provider Family Medicine; Visit Provider Physician Assistant
DX: M17.12 Unilateral primary osteoarthritis, left knee (principal); M23.42 Loose body in knee, left knee
CPT/HCPCS: 73562

== ENCOUNTER 2021-09-06 10:50 | Outpatient (CLI) | payer OTHER, SELFPAY ==
--- NOTE | 2021-09-06 10:15 | DI.RAD_ITS ---
Exam(s) XR KNEE LT 1V XR STANDING ALIGNMENT EXAM: XR STANDING ALIGNMENT CLINICAL HISTORY: PRE OP L TKA TECHNIQUE: COMPARISON: CR XR standing alignment from 08/24/2018 CR XR KNEE LT 1V from 09/06/2021 CR XR KNEE LT 1V from 09/06/2021 FINDINGS: Standing AP views of both lower extremities and a lateral view of the left knee are in interpreted in conjunction. The AP views of lower extremities were obtained for leg length determination. There a re mild hypertrophic degenerative changes of both acetabula E. There is a total knee joint replacemen t position on the right. There are moderate degenerative changes of the left knee with moderate narr owing of medial tibiofemoral cartilaginous joint space and patellofemoral cartilaginous joint space. There are prominent marginal osteophytes involving all 3 joints of the left knee. IMPRESSION: TKR right knee, moderate to severe DJD left knee. RADIATION DOSE DELIVERED: Total DLP
== END 2021-09-06 10:51 | disposition home or self-care (01) ==
LOC: DIORS 10:50
PROVIDERS: PCP Family Medicine; Referring Provider Family Medicine; Visit Provider Physician Assistant
DX: M25.562 Pain in left knee (principal); M17.12 Unilateral primary osteoarthritis, left knee; Z96.651 Presence of right artificial knee joint
CPT/HCPCS: 73560; 77073

== ENCOUNTER 2021-09-13 02:46 | Outpatient (CLI) | payer OTHER, SELFPAY ==
[2021-09-13 09:15] LABS: HCT 38.7 % (36.0-46.0); HGB 12.6 g/dL (11.2-15.7); MCH 27.8 pg (27.0-33.0); MCHC 32.6 % (32.0-36.0); MCV 85.2 fL (80-95); MPV 8.4 fL (8.0-11.0); Platelet Count 175 10^3/uL (130-400); RBC 4.54 10^6/uL (3.93-5.22); RDW 13.3 % (11.7-14.6); RDW-SD 41.6 fL; WBC 16.67 10^3/uL (4.4-10.8)
[2021-09-13 10:19] LABS: Anion Gap 9.8 mmol/L (3-11); BUN 15 mg/dL (7-18); CO2 30.2 mmol/L (21.0-32.0); CREATININE 0.9 mg/dL (0.55-1.02); Calcium 8.7 mg/dL (8.5-10.1); Chloride 99 mmol/L (98-107); Glucose 174 mg/dL (74-106); Potassium 3.5 mmol/L (3.5-5.1); Sodium 139 mmol/L (136-145)
[2021-09-13 11:16] LABS: Source Nasal/Nares
[2021-09-13 14:00] LABS: COVID-19 PCR Negative (Negative)
== END 2021-09-13 02:47 | disposition home or self-care (01) ==
LOC: LBO 02:47
PROVIDERS: PCP Family Medicine; Visit Provider Student in an Organized Health Care Education/Training Program
DX: M25.562 Pain in left knee (principal); M17.12 Unilateral primary osteoarthritis, left knee; Z20.822 Contact with and (suspected) exposure to COVID-19; Z01.818 Encounter for other preprocedural examination; Z01.812 Encounter for preprocedural laboratory examination
CPT/HCPCS: 36415; 80048; 85027; 87635

== ENCOUNTER 2021-09-15 08:28 | Day surgery (SDC) | payer OTHER, SELFPAY ==
[2021-09-15] VITALS (8 sets, daily range): BP systolic 117–158; BP diastolic 66–91; PULSE 57–85; RESP 14–21; TEMP 36–36.8; O2SAT 93–98; BMI 36.0
--- NOTE | 2021-09-15 06:28 | W.ANESPRE ---
General Info Height: 5 ft 9 in Weight: 111.584 kg Body Mass Index (BMI): 36.3 Surgical Procedure: Operation Date: 09/15/21 10:25 Proposed Procedures Side Surgeon p Knee Total Arthroplasty (L) Left Mark Blake MD Meds Allergies and Home Medications Allergies Allergy/AdvReac Type Severity Reaction Status Date / Time No Known Drug Allergies Allergy Unverified 09/15/21 08:54 Home Medication Medication Instructions Recorded venlafaxine 150 mg PO DAILY tab-cap 06/09/17 losartan-hydrochlorothiazide 1 tab PO DAILY 08/01/18 amlodipine 5 mg tablet 10 mg PO DAILY tab 07/12/21 acetaminophen [Tylenol Extra 500 mg PO Q6H PRN #90 tab 09/15/21 Strength] aspirin 81 mg PO BID #60 tab 09/15/21 celecoxib [Celebrex] 200 mg PO BID #60 cap 09/15/21 gabapentin 300 mg PO QHS #14 cap 09/15/21 oxycodone 5 mg PO Q4H PRN #18 tab 09/15/21 pantoprazole [Protonix] 40 mg PO DAILY #30 tab 09/15/21 Current Visit Medications: Current Medications Generic Name Dose Route Start Last Admin Trade Name Freq PRN Reason Stop Dose Admin Acetaminophen 1,000 mg 09/15/21 06:00 Acetaminophen 500 Mg Tab PO 09/15/21 16:00 PREOP PROMISE Celecoxib 400 mg 09/15/21 06:00 Celecoxib 200 Mg Cap PO 09/15/21 16:00 PREOP PROMISE Gabapentin 300 mg 09/15/21 06:00 Gabapentin 300 Mg Cap PO 09/15/21 16:00 PREOP PROMISE Tranexamic Acid 1,000 mg/ 60 mls @ 360 mls/hr 09/15/21 06:00 Sodium Chloride IVPB 09/15/21 16:00 PREOP PROMISE Tranexamic Acid 1,000 mg/ 60 mls @ 360 mls/hr 09/15/21 06:00 Sodium Chloride IVPB 09/15/21 16:00 DIRECTED PROMISE Ringer's Solution 1,000 mls @ 80 mls/hr 09/15/21 06:00 IV 10/14/21 23:59 INFUSION PROMISE Cefazolin Sodium/Dextrose 2 gm in 50 mls @ 100 mls/hr 09/15/21 06:00 Ancef Duplex IVPB 10/14/21 23:59 PREOP PROMISE IV Miscellaneous Supplies 1 each 09/15/21 06:00 Iv Access IV 10/14/21 23:59 DIRECTED PROMISE Sodium Chloride 0 ml 09/15/21 06:00 Normal Saline Flush 10 Ml Syr IV 10/14/21 23:59 PRN PRN Sodium Chloride 0 ml 09/15/21 06:00 Normal Saline 10 Ml Vial IJ 10/14/21 23:59 DIRECTED PRN Sterile Water 0 ml 09/15/21 06:00 Water,Injection,Sterile 10 Ml Vial IJ 10/14/21 23:59 DIRECTED PRN PFSH Active Problems Active Problems: Problem Status Onset Code Unilateral primary osteoarthritis, left knee M17.12 Hyperglycemia R73.9 Perimenopausal N95.1 H/O dysmenorrhea Z87.42 Uterine fibroid D25.9 Depression F32.9 Hypertension I10 Chronic lymphocytic leukemia C91.90 Medical History Medical History Chronic lymphocytic leukemia Stage 0, dx 5-6 years ago and per pt. has had no progression since that time. Colon cancer screening Depression H/O dysmenorrhea Hair loss Pt. denies this Hypertension Perimenopausal Preventative health care Screening for hyperlipidemia Uterine fibroid Pt. denies this. Surgical History Surgical History Cholecystectomy Denies complications from surgery or anesthesia History of total right knee replacement (TKR) Tobacco Smoking/Tobacco Use Status: Never Alcohol Alcohol Intake: current Alcohol intake frequency: 0-2 drinks per day Alcohol type: wine Substance Use Substance use: Never Substance use type: does not use Vital Signs and Lab Results Vital Signs Most Recent Vital Signs in EMR: Temp Pulse Resp BP Pulse Ox 36.5 C 85 20 158/91 H 98 09/15/21 08:47 09/15/21 08:47 09/15/21 08:47 09/15/21 08:47 09/15/21 08:47 Lab Results Blood Type / Crossmatch: No Data to Display Complete Blood Count: White Blood Count 16.67 10^3/uL (4.4-10.8) H 09/13/21 09:04 09/13/21 Red Blood Count 4.54 10^6/uL (3.93-5.22) 09/13/21 09:04 09/13/21 Hemoglobin 12.6 g/dL (11.2-15.7) 09/13/21 09:04 09/13/21 Hematocrit 38.7 % (36.0-46.0) 09/13/21 09:04 09/13/21 Platelet Count 175 10^3/uL (130-400) 09/13/21 09:04 09/13/21 Complete Metabolic Panel: Sodium Level 139 mmol/L (136-145) 09/13/21 09:04 09/13/21 Potassium Level 3.5 mmol/L (3.5-5.1) 09/13/21 09:04 09/13/21 Chloride Level 99 mmol/L (98-107) 09/13/21 09:04 09/13/21 Carbon Dioxide Level 30.2 mmol/L (21.0-32.0) 09/13/21 09:04 09/13/21 Blood Urea Nitrogen 15 mg/dL (7-18) 09/13/21 09:04 09/13/21 Creatinine 0.9 mg/dL (0.55-1.02) 09/13/21 09:04 09/13/21 Estimated GFR/1.73 m2 >= 60.00 (mL/min/1.73m2) 09/13/21 09:04 09/13/21 Calcium Level 8.7 mg/dL (8.5-10.1) 09/13/21 09:04 09/13/21 Glucose Level 174 mg/dL (74-106) H 09/13/21 09:04 09/13/21 Liver Function Panel: No Data to Display Coagulation Panel: No Data to Display Cardiac Panel: No Data to Display Arterial Blood Gas: No Data to Display Venous Blood Gas: No Data to Display Pancreas Panel: No Data to Display Thyroid Panel: No Data to Display Infectious Disease: Coronavirus (COVID-19)(PCR) Negative (Negative) 09/13/21 09:20 09/13/21 Coronavirus 2019 Source Nasal/Nares 09/13/21 09:20 09/13/21 Blood Cultures: No Data to Display Toxicology Panel: No Data to Display Anesthesia Assessment and Plan Anesthesia History Personal History: No History of Anesthesia Complications Family History: No Family History of Anesthesia Complications Exercise Tolerance Exercise Tolerance: Metabolic Equivalents>4 Anesthesia Plan Resuscitation Status: Full Code Anesthesia Technique: Spinal Anesthesia Airway Planned: Natural Airway Pain Management: Surgeon and patient request nerve block Monitors Used: Standard Monitors Preoperative Comments:: 61 yo female for left TKA. Sig PMHx: CLL (dx 2014, never needed treatment, stable), HTN (losartan/HCTZ/amlodopine). Previous Anes: last TKA 2 mg midaz/fent for block, spinal 1.7 mL 0.75% heavy, did require vasopressor up front.
--- NOTE | 2021-09-15 07:37 | PDOC.DSDIS_ITS ---
Documented by User: RAJAN Bhatti 09/15/21 07:41 Discharge Plan Disposition Patient Disposition: HOME Condition: Stable Discharge Details Reason For Visit: Left TKA Attending Provider: Mark Blake Primary Care Provider: Precious Nixon Home Meds and New Rx's Prescriptions: New celecoxib [Celebrex] 200 mg capsule 200 mg PO BID Qty: 60 RF: 0 aspirin 81 mg tablet,delayed release (DR/EC) 81 mg PO BID Qty: 60 RF: 0 acetaminophen [Tylenol Extra Strength] 500 mg tablet 500 mg PO Q6H PRNQty: 90 RF: 0 pantoprazole [Protonix] 40 mg tablet,delayed release (DR/EC) 40 mg PO DAILY Qty: 30 RF: 0 gabapentin 300 mg capsule 300 mg PO QHS Qty: 14 RF: 0 oxycodone 5 mg tablet 5 mg PO Q4H PRNQty: 18 RF: 0 doxycycline hyclate 100 mg tablet 100 mg PO BID Qty: 20 RF: 0 Continued amlodipine 5 mg tablet 10 mg PO DAILY RF: 0 venlafaxine 150 MG capsule,extended release 24hr 150 mg PO DAILY RF: 0 losartan-hydrochlorothiazide 100-25 mg Tablet 1 tab PO DAILY RF: 0 Discontinued acetaminophen [Mapap Extra Strength] 500 mg Tablet 1,000 mg PO TID Qty: 90 RF: 0 Discharge Instructions Additional Instructions: Total Knee Discharge Instructions Activity: The most important activity is to walk. You should try to take short walks a few times a day. It is important that when resting you work on keeping the knee straight. Avoid putting a pillow behind the knee as this will encourage flexion. Work on range of motion exercises as provided by Physical Therapy. If you have the [employer] bike coming, this will be your primary tool for exercise after the knee replacement. You should use it and follow the directions for the knee. Utilize the other exercises sparingly based on your symptoms. - Start outpatient physical therapy within 2 weeks. - You should wear the CATINA hose on both legs for 2 weeks. You may remove these at night. You may also use any compression sock in place of the CATINA hose. - Utilize [employer] to review exercises, see videos on exercises and obtain basic information pertaining to your surgery and your recovery. Dressing: Remove the Fidel wrap by 2 days after your surgery and put on the CATINA stocking given to you from the hospital. Keep the surgical dressing (underneath the FIDEL wrap) in place for at least one week. After the first week it may be removed and replaced with light gauze and tape or nothing. The wound and dressing may get wet after 3 days but avoid soaking the dressing or otherwise it will need to be changed. Many people prefer covering the dressing with cling wrap (saran wrap) to minimize it from getting soaked. If it gets wet, just pat dry. If it starts to peel off then it will need to be changed. Medications: - You should take Tylenol and anti-inflammatory Celebrex as your primary pain control medications. Take in place of Ibuprofen, do not take together. If the Celebrex is too expensive or not covered, please call the office for another alternative (Advil/Ibuprofen or Naproxen/Aleve) - You have been prescribed a stronger pain medication Oxycodone for breakthrough pain, take as needed as prescribed. - You have also been prescribed a stomach acid reduction agent Pantoprozole to help reduce stomach acid and reflux. - You have been prescribed Gabapentin to take at night for restlessness and nerve pain. - You will be taking Aspirin 81mg twice a day for DVT prevention unless instructed otherwise. - You have also been prescribed Doxycycline for treatment and prophylaxis of the tick bite. You will take 100mg for 10 days. - If you have constipation you should take Colace or Miralax (both [id number]-cab-ctracis). It takes most people 3-4 days to have a bowel movement. Follow-up: 2 weeks If you have any acute concerns or questions, please do not hesitate to contact the office at [phone]. You may contact Dr. Blake with any questions after hours through the hospital at [phone] or on his cell phone at [phone]. Referrals: Mark Blake MD [ [facility] STAFF PHYSICIAN] - Equipment/Supplies: Walker Activity:: Activity as Tolerated Remove Dressings/Wound Care:: Do Not Remove Shower/Bathe:: 72 hours Diet:: As Tolerated Discharge Orders Discharge Orders: Discharge Order (Routine); Ordered 09/15/21 Ordered By: Mark Blake DS: Diagnosis Discharge Diagnosis (1) Unilateral primary osteoarthritis, left knee: Status: Chronic Documented by User: Mark Blake MD 09/15/21 10:17 Discharge Plan Disposition Patient Disposition: HOME Condition: Stable Discharge Details Reason For Visit: Left TKA Attending Provider: Mark Blake Primary Care Provider: Precious Nixon Home Meds and New Rx's Prescriptions: New celecoxib [Celebrex] 200 mg capsule 200 mg PO BID Qty: 60 RF: 0 aspirin 81 mg tablet,delayed release (DR/EC) 81 mg PO BID Qty: 60 RF: 0 acetaminophen [Tylenol Extra Strength] 500 mg tablet 500 mg PO Q6H PRNQty: 90 RF: 0 pantoprazole [Protonix] 40 mg tablet,delayed release (DR/EC) 40 mg PO DAILY Qty: 30 RF: 0 gabapentin 300 mg capsule 300 mg PO QHS Qty: 14 RF: 0 oxycodone 5 mg tablet 5 mg PO Q4H PRNQty: 18 RF: 0 doxycycline hyclate 100 mg tablet 100 mg PO BID Qty: 20 RF: 0 Continued amlodipine 5 mg tablet 10 mg PO DAILY RF: 0 venlafaxine 150 MG capsule,extended release 24hr 150 mg PO DAILY RF: 0 losartan-hydrochlorothiazide 100-25 mg Tablet 1 tab PO DAILY RF: 0 Discontinued acetaminophen [Mapap Extra Strength] 500 mg Tablet 1,000 mg PO TID Qty: 90 RF: 0 Discharge Instructions Additional Instructions: Total Knee Discharge Instructions Activity: The most important activity is to walk. You should try to take short walks a few times a day. It is important that when resting you work on keeping the knee straight. Avoid putting a pillow behind the knee as this will encourage flexion. Work on range of motion exercises as provided by Physical Therapy. If you have the [employer] bike coming, this will be your primary tool for exercise after the knee replacement. You should use it and follow the directions for the knee. Utilize the other exercises sparingly based on your symptoms. - Start outpatient physical therapy within 2 weeks. - You should wear the CATINA hose on both legs for 2 weeks. You may remove these at night. You may also use any compression sock in place of the CATINA hose. - Utilize [employer] to review exercises, see videos on exercises and obtain basic information pertaining to your surgery and your recovery. Dressing: Remove the Fidel wrap by 2 days after your surgery and put on the CATINA stocking given to you from the hospital. Keep the surgical dressing (underneath the FIDEL wrap) in place for at least one week. After the first week it may be removed and replaced with light gauze and tape or nothing. The wound and dressing may get wet after 3 days but avoid soaking the dressing or otherwise it will need to be changed. Many people prefer covering the dressing with cling wrap (saran wrap) to minimize it from getting soaked. If it gets wet, just pat dry. If it starts to peel off then it will need to be changed. Medications: - You should take Tylenol and anti-inflammatory Celebrex as your primary pain control medications. Take in place of Ibuprofen, do not take together. If the Celebrex is too expensive or not covered, please call the office for another alternative (Advil/Ibuprofen or Naproxen/Aleve) - You have been prescribed a stronger pain medication Oxycodone for breakthrough pain, take as needed as prescribed. - You have also been prescribed a stomach acid reduction agent Pantoprozole to help reduce stomach acid and reflux. - You have been prescribed Gabapentin to take at night for restlessness and nerve pain. - You will be taking Aspirin 81mg twice a day for DVT prevention unless instructed otherwise. - You have also been prescribed Doxycycline for treatment and prophylaxis of the tick bite. You will take 100mg for 10 days. - If you have constipation you should take Colace or Miralax (both [id number]-gib-[id number]). It takes most people 3-4 days to have a bowel movement. Follow-up: 2 weeks If you have any acute concerns or questions, please do not hesitate to contact the office at [phone]. You may contact Dr. Blake with any questions after hours through the hospital at [phone] or on his cell phone at [phone]. Referrals: Mark Blake MD [ [facility] STAFF PHYSICIAN] - Equipment/Supplies: Walker Activity:: Activity as Tolerated Remove Dressings/Wound Care:: Do Not Remove Shower/Bathe:: 72 hours Diet:: As Tolerated Discharge Orders Discharge Orders: Discharge Order (Routine); Ordered 09/15/21 Ordered By: Mark Blake
[2021-09-15] MEDS: Gabapentin 300 MG CAP PO (09:20)
[2021-09-15] MEDS: Acetaminophen 500 MG TAB 1000 MG PO (09:20)
[2021-09-15] MEDS: Celecoxib 200 MG CAP 400 MG PO (09:20)
[2021-09-15] MEDS: Lactated Ringers 1,000 ML 80 ML IV (09:30)
--- NOTE | 2021-09-15 09:39 | W.ANESPRE ---
General Info Date of Service Date Performed: 09/15/21 Height: 5 ft 9 in Weight: 110.7 kg Body Mass Index (BMI): 36.0 Surgical Procedure: Operation Date: 09/15/21 10:25 Proposed Procedures Side Surgeon p Knee Total Arthroplasty (L) Left Mark Blake MD Meds Allergies and Home Medications Allergies Allergy/AdvReac Type Severity Reaction Status Date / Time No Known Drug Allergies Allergy Unverified 09/15/21 08:54 Home Medication Medication Instructions Recorded venlafaxine 150 mg PO DAILY tab-cap 06/09/17 losartan-hydrochlorothiazide 1 tab PO DAILY 08/01/18 amlodipine 5 mg tablet 10 mg PO DAILY tab 07/12/21 acetaminophen [Tylenol Extra 500 mg PO Q6H PRN #90 tab 09/15/21 Strength] aspirin 81 mg PO BID #60 tab 09/15/21 celecoxib [Celebrex] 200 mg PO BID #60 cap 09/15/21 gabapentin 300 mg PO QHS #14 cap 09/15/21 oxycodone 5 mg PO Q4H PRN #18 tab 09/15/21 pantoprazole [Protonix] 40 mg PO DAILY #30 tab 09/15/21 Current Visit Medications: Current Medications Generic Name Dose Route Start Last Admin Trade Name Freq PRN Reason Stop Dose Admin Acetaminophen 1,000 mg 09/15/21 06:00 09/15/21 09:20 Acetaminophen 500 Mg Tab PO 09/15/21 16:00 1,000 mg PREOP PROMISE Administration Acetaminophen 1,000 mg 09/15/21 14:00 Acetaminophen 500 Mg Tab PO TID PROMISE Aspirin 81 mg 09/15/21 20:00 Aspirin E.C. 81 Mg Tabec PO BID PROMISE Celecoxib 400 mg 09/15/21 06:00 09/15/21 09:20 Celecoxib 200 Mg Cap PO 09/15/21 16:00 400 mg PREOP PROMISE Administration Celecoxib 200 mg 09/15/21 20:00 Celecoxib 200 Mg Cap PO BID PROMISE Docusate Sodium 100 mg 09/15/21 07:36 Docusate Sodium 100 Mg Cap PO BID PRN PRN Constipation Gabapentin 300 mg 09/15/21 06:00 09/15/21 09:20 Gabapentin 300 Mg Cap PO 09/15/21 16:00 300 mg PREOP PROMISE Administration Gabapentin 300 mg 09/15/21 22:00 Gabapentin 300 Mg Cap PO HS PROMISE Hydromorphone HCl 0.5 mg 09/15/21 07:36 Hydromorphone 2 Mg/Ml Vial IVP Q2H PRN PRN Tranexamic Acid 1,000 mg/ 60 mls @ 360 mls/hr 09/15/21 06:00 Sodium Chloride IVPB 09/15/21 16:00 PREOP PROMISE Tranexamic Acid 1,000 mg/ 60 mls @ 360 mls/hr 09/15/21 06:00 Sodium Chloride IVPB 09/15/21 16:00 DIRECTED PROMISE Ringer's Solution 1,000 mls @ 80 mls/hr 09/15/21 06:00 09/15/21 09:30 IV 10/14/21 23:59 80 mls/hr INFUSION PROMISE Administration Cefazolin Sodium/Dextrose 2 gm in 50 mls @ 100 mls/hr 09/15/21 06:00 Ancef Duplex IVPB 10/14/21 23:59 PREOP PROMISE Cefazolin Sodium/Dextrose 1 gm in 50 mls @ 100 mls/hr 09/15/21 20:00 Ancef Duplex IVPB 09/16/21 12:29 Q8H PROMISE IV Miscellaneous Supplies 1 each 09/15/21 06:00 Iv Access IV 10/14/21 23:59 DIRECTED PROMISE Ondansetron HCl 4 mg 09/15/21 07:36 Ondansetron 4 Mg/2 Ml Vial IVP Q6H PRN PRN Nausea Oxycodone HCl 0 mg 09/15/21 07:36 Oxycodone 5 Mg Tab PO Q3H PRN PRN Pain Pantoprazole Sodium 40 mg 09/16/21 07:30 Pantoprazole 40 Mg Tabcr PO DAILY@0730 PROMISE Sodium Chloride 0 ml 09/15/21 06:00 Normal Saline Flush 10 Ml Syr IV 10/14/21 23:59 PRN PRN Sodium Chloride 0 ml 09/15/21 06:00 Normal Saline 10 Ml Vial IJ 10/14/21 23:59 DIRECTED PRN Sterile Water 0 ml 09/15/21 06:00 Water,Injection,Sterile 10 Ml Vial IJ 10/14/21 23:59 DIRECTED PRN PFSH Active Problems Active Problems: Problem Status Onset Code Unilateral primary osteoarthritis, left knee M17.12 Hyperglycemia R73.9 Perimenopausal N95.1 H/O dysmenorrhea Z87.42 Uterine fibroid D25.9 Depression F32.9 Hypertension I10 Chronic lymphocytic leukemia C91.90 Medical History Medical History Chronic lymphocytic leukemia Stage 0, dx 5-6 years ago and per pt. has had no progression since that time. Colon cancer screening Depression H/O dysmenorrhea Hair loss Pt. denies this Hypertension Perimenopausal Preventative health care Screening for hyperlipidemia Uterine fibroid Pt. denies this. Surgical History Surgical History Cholecystectomy Denies complications from surgery or anesthesia History of total right knee replacement (TKR) Tobacco Smoking/Tobacco Use Status: Never Alcohol Alcohol Intake: current Alcohol intake frequency: 0-2 drinks per day Alcohol type: wine Substance Use Substance use: Occasionally Substance use type: marijuana Vital Signs and Lab Results Vital Signs Most Recent Vital Signs in EMR: Most Recent Vital Signs Temp Pulse Resp BP Pulse Ox 36.5 C 85 20 158/91 H 98 09/15/21 08:47 09/15/21 08:47 09/15/21 08:47 09/15/21 08:47 09/15/21 08:47 Lab Results Blood Type / Crossmatch: No Data to Display Complete Blood Count: White Blood Count 16.67 10^3/uL (4.4-10.8) H 09/13/21 09:04 09/13/21 Red Blood Count 4.54 10^6/uL (3.93-5.22) 09/13/21 09:04 09/13/21 Hemoglobin 12.6 g/dL (11.2-15.7) 09/13/21 09:04 09/13/21 Hematocrit 38.7 % (36.0-46.0) 09/13/21 09:04 09/13/21 Platelet Count 175 10^3/uL (130-400) 09/13/21 09:04 09/13/21 Complete Metabolic Panel: Sodium Level 139 mmol/L (136-145) 09/13/21 09:04 09/13/21 Potassium Level 3.5 mmol/L (3.5-5.1) 09/13/21 09:04 09/13/21 Chloride Level 99 mmol/L (98-107) 09/13/21 09:04 09/13/21 Carbon Dioxide Level 30.2 mmol/L (21.0-32.0) 09/13/21 09:04 09/13/21 Blood Urea Nitrogen 15 mg/dL (7-18) 09/13/21 09:04 09/13/21 Creatinine 0.9 mg/dL (0.55-1.02) 09/13/21 09:04 09/13/21 Estimated GFR/1.73 m2 >= 60.00 (mL/min/1.73m2) 09/13/21 09:04 09/13/21 Calcium Level 8.7 mg/dL (8.5-10.1) 09/13/21 09:04 09/13/21 Glucose Level 174 mg/dL (74-106) H 09/13/21 09:04 09/13/21 Liver Function Panel: No Data to Display Coagulation Panel: No Data to Display Cardiac Panel: No Data to Display Arterial Blood Gas: No Data to Display Venous Blood Gas: No Data to Display Pancreas Panel: No Data to Display Thyroid Panel: No Data to Display Infectious Disease: Coronavirus (COVID-19)(PCR) Negative (Negative) 09/13/21 09:20 09/13/21 Coronavirus 2019 Source Nasal/Nares 09/13/21 09:20 09/13/21 Blood Cultures: No Data to Display Toxicology Panel: No Data to Display Anesthesia Assessment and Plan Anesthesia History Personal History: No History of Anesthesia Complications Family History: No Family History of Anesthesia Complications Exercise Tolerance Exercise Tolerance: Metabolic Equivalents>4 Pertinent Negatives Pertinent Negatives: No Symptoms of GERD, No Major Cardiovascular Symptoms or Complaints, No Major Pulmonary Symptoms or Complaints and No History of CVA/TIA Cardiac & Pulmonary Exam Cardiac Exam: Normal S1/S2 Heart Sounds Pulmonary Exam: Clear Bilateral Breath Sounds Airway Exam Known Difficult Airway: No Mallampati Class: 1 Mouth Opening: Normal (> 3cm) Thyromental Distance: Greater than 3 cm Neck Range of Motion: Full ROM Neck Circumference: Normal Teeth Condition: Normal Dentition ASA Classification ASA Score: ASA 2 Emergency Case?: No NPO Status NPO Status: NPO Clears >2 hours, Solids >8 hours Anesthesia Plan Resuscitation Status: Full Code Anesthesia Technique: Spinal Anesthesia Airway Planned: Natural Airway Pain Management: Surgeon and patient request nerve block Monitors Used: Standard Monitors Preoperative Comments:: 61 yo female for left TKA. Sig PMHx: CLL (dx 2014, never needed treatment, stable), HTN (losartan/HCTZ/amlodopine). Previous Anes: last TKA 2 mg midaz/fent for block, spinal 1.7 mL 0.75% heavy, did require vasopressor up front. Plan: spinal/ACB
--- NOTE | 2021-09-15 10:20 | W.ANESNERVE ---
Nerve Block Single Injection Procedure Date and Time Date Performed: 09/15/21 Procedure Start: 10:02 Location Where Procedure Performed Procedure Location: Day Surgery Unit Reason Performed: Postoperative Analgesia Requesting Provider: Mark Blake Timeout Performed Timeout Performed: Yes Monitoring Used ECG, Blood Pressure, SpO2 and See EMR for corresponding vital signs Sterility Sterility: Hand Hygiene, Surgical Cap, Surgical Mask and Chlorhexidine Sedation Given During Procedure Sedation Given (Indicate Dose Given): No Sedation given Patient Mental Status Patient Mental Status: Awake Nerve Block 1st Nerve Block: Laterality: Left Block Type: Adductor Canal Needle / Catheter Used: 100mm SonoPlex II Local Anesthetic Bolus (Indicate Dose Given): Lidocaine used for local infiltration of skin, Injected in 3-5ml increments after negative blood aspiration and Bupivacaine 0.375% Dose:: 10 ml Additives (Indicate Dose Given): None Ultrasound: Sterile probe cover and gel used Ultrasound Image Saved?: Yes Nerve Stimulator: Not Used Paresthesia: None Procedure Tolerated: No Complications Procedure Outcome: Successful Performed By: Shawn Gagnon Supervised By: Mannie Rosales
--- NOTE | 2021-09-15 10:21 | NUR.NOTE ---
Nursing Note: Block observed by this RN and Galina Hoover RN. VSS: 1018a: HR77, SPO2: 98% on RA, R18, BP130/88, T36.5. Pt tolerated well.HE
[2021-09-15] MEDS: ceFAZolin 2 GM/50 ML BAG IVPB (10:40)
[2021-09-15] MEDS: Bupivacaine 0.25% Pres-Free 30 ML VIAL (11:38)
[2021-09-15] MEDS: Normal Saline 20 ML VIAL (11:38)
[2021-09-15] MEDS: Ketorolac 30 MG/ML VIAL (11:38)
--- NOTE | 2021-09-15 12:16 | ROE_ITS ---
Date of service: 09/15/21 Time of Service: 12:16 Operative Note Operative Note DATE OF PROCEDURE: 09/15/21 PRE-OP DIAGNOSIS: Left Knee Osteoarthritis POST-OP DIAGNOSIS: same PROCEDURE: Left Total Knee Replacement SURGEON: Mark Blake [employer] BUSINESS ANALYST: Marika López ANESTHESIA TYPE: Spinal Refer to Anesthesia Record ESTIMATED BLOOD LOSS: 200 PATHOLOGY: none sent TOURNIQUET TIME: 0 COMPLICATIONS: None Patient was transported to: PACU Patient's condition: stable Implants: 1. Depuy Attune Cementless Cruciate Retaining Femoral Component, Size 6 Narrow 2. Depuy Attune Cementless Rotating Platform Tibial Component, Size 4 3. Depuy Attune 6x6 CR/RP Poly 4. Depuy Attune Patellar Component, Size 35 Indications: I have seen Hilary in clinic for symptoms of knee arthritis, confirmed with radiographic findings. She has exhausted nonoperative methods and was having significant limitations in daily function and desired better function and less pain. She had a successful knee replacement on the right side. I discussed the technical details of a knee replacement. I explained the risks of the procedure to include, but not limited to, bleeding, infection, pain, stiffness, fracture, damage to nerves and vessels, damage to muscles and tendons, loosening, need for repeat procedure, blood clot and cardiopulmonary demise. Despite these risks, [NAME] elected to proceed. Findings: There was significant signs of arthritis throughout the knee involving all three compartments. Procedure Description: Hilary was greeted in the preoperative holding area where the correct side was identified and marked. The consent was reviewed with the patient and signed. The history and physical was updated. All questions were answered. Preoperative medications were administered: Acetaminophen 1000mg, Celebrex 400mg, and Gabapentin 300mg. An adductor canal block was then administered by the anesthesia team in the PACU. Hilary was taken back to the operating room. A spinal anesthestic was then administered. The patient was placed into the supine position on the operating room table. A nonsterile tourniquet was placed high onto the leg but only used for cementing. Posts were placed for positioning during the procedure. All bony prominences were well padded. Prophylactic antibiotics in the form of Cefazolin were administered. 1g of Tranxemic Acid was given intravenously within 30 minutes of incision. The left leg was then prepped with Chloraprep and draped in a standard fashion with impervious stockinette. A second prep with Chloraprep was performed prior to application of Iodine impregnated skin protection. A timeout to confirm correct identity, side and site, procedure, allergies, anesthesia, and medical concerns was performed. With the knee in some flexion, a midline incision was made overlying the knee. Full thickness skin flaps were raised once the extensor mechanism was encountered. These were raised medially and laterally. Any bleeding was controlled with electrocautery. Once the extensor mechanism was fully exposed, a medial parapatellar arthrotomy was performed in a flexed position. All bleeding from the arthrotomy and the geniculate arteries was coagulated. A medial subperiosteal peel was performed with electrocautery to the midcoronal plane. The fat pad was removed while keeping the patellar tendon protected. The anterior distal femur synovium was removed for later visualization. The ACL and PCL were resected and the anterior horn of the lateral meniscus was transected. The knee was then flexed with the patella everted. Large osteophytes from the tibia were removed. Large osteophytes from the femur were removed. Using a step drill, and based on preoperative templating, the femoral canal was entered. This was done with a step drill without any difficulty. The intramedullary distal femoral cut guide was inserted, set to a 5 degree valgus cut and 9mm cut thickness. There was some hypoplasia of the lateral femoral condyle and any remnant cartilage of the medial femoral condyle was removed for appropriate thickness. The distal femoral cut guide was then held in position and pinned. With the soft tissues protected, the distal cut was performed. This was passed over a few times to ensure a planar cut. I then turned attention to the tibia. The extramedullary guide was placed onto the leg. The distal aspect was slid medial to adjust for position of center of ankle and stay in line with shaft of the tibia. Approximately 3-5 degrees of posterior slope was kept in the pr oximal cutting guide. The center of the guide was aligned with the PCL. The stylus was used to assess cut thickness. The medial side, most involved side, was set for a 5mm cut, corresponding to 7mm laterally. This was then held in position and pinned into place with 2 additional pins and a cross pin for stability. The medial and lateral collateral ligaments were protected and the cut was performed. With this completed, it was assessed and noted to be of appropriate dimensions. The guide was removed. A spacer block was inserted and the knee was brought into extension. The 6mm spacer block provided full extension, without hyperextension and with stability of both the medial and lateral collateral ligaments was assessed. The pins from the femur and the tibia were then removed. The distal femur was then sized. The anterior stylus was placed onto the lateral ridge of the anterior femur. This indicated a size 6 narrow femur. The external rotation of the guide was adjusted to 0 degrees to match the epicondylar axis, perpendicular to Sal?s line. The 4-in-1 cutting guide was the placed. The posterior medial femur cut was evaluated and appeared of good thickness. The spacer block was inserted underneath the cutting guide and stability was confirmed in 90 degrees of flexion. An asa wing was used to confirm appropriate position of the anterior cut to avoid notching. This cutting guide was ensured to be flush on the cut surface and then pinned into place with headed pins. While protecting the soft tissues, quad tendon, and collateral ligaments, the anterior and posterior cuts were performed with a saw. The central two pins were removed and the posterior and anterior chamfers were cut next. The notch-cutting guide was placed. This was pinned to lateralize the femoral component as much as possible while keeping it flush on the cut surface. This was then pinned into position. A reciprocating saw was used to make the notch cut. A rasp smoothed the cut surfaces. The medial and lateral menisci were removed. A trial femoral component was then inserted, impacted down to the cut surfaces, and the lug holes were drilled. A provisional trial tibial component was placed and the knee was brought through range of motion. There was noted to be excellent extension and flexion. There was no significant instability. The patella was tracking without thumbs. A size 6mm polyethylene component provided the best range of motion and stability with less than 2mm gapping with medial and lateral stress and full extension without significant hyperextension. The tibial cut surface was fully exposed. The tibia was then sized as a 4. The tibia had been previously marked during trialing to correspond to the center of the tibial component to help with rotation. The trial was aligned to this tramaine, approximately rotated to the medial 1/3rd of the tibial tubercle. The trial was pinned into place. The tibia was prepared with a reamer and a keel pu nch and lug holes. The knee was then brought into extension and the patella was measured as 25mm. Using the patellar clamp and cut guide, this was resected to a flat surface with at least 13mm of thickness remaining. The size 35 patella fit the best. This was oriented and then clamped into position. The lugs were drilled. The trial components were removed. The final components were opened on the back table. The periosteal and capsular tissues, especially posteriorly, around the knee were then systematically injected with a periarticular cocktail consisting of 50cc 0.25% Marcaine, 30mg Ketorolac, 20cc of Exparal and 50cc of injectable saline. The knee was thoroughly irrigated with a pulse lavage and dried. Irrisept was also used to irrigate the tissues. On the back table, with the implants opened, the cement was mixed. One batch of high viscosity cement was prepared with vacuum assistance. After the cement was ready a small amount was placed on the cut surface of the patella and the patellar button was clamped into position and held. While the cement was hardening, the cementless knee components were placed. Starting with the tibial component, the tibia was subluxed anteriorly and the lug holes of the component were lined up. The tibia was then impacted with an impactor and mallet until the tibial component was in contact with the tibia. The final polyethylene component was inserted. Then, the femoral component was inserted. The lug holes were aligned and the component was impacted into position. The knee was irrigated with Irrisept chlorhexadine solution. This was allowed to sit in the knee for 3 minutes. After the cement had finally cured, approximately 15min, the clamp was removed from the patella and the knee was taken through range of motion. The patella was tracking with a no-thumbs technique. The capsule was then reapproximated with a No. 1 Vicryl at multiple locations. The capsule was finally closed with a No. 2 Stratafix, barbed suture. The second dosing of 1g TXA was started. Deep tissues were then reapproximated with 0 Vicryl and 2-0 Vicryl. The skin was closed with a running 3-0 Monocryl in a subcuticular fashion. This was reinforced with skin glue. A Mepilex silver dressing was applied along with a [id number] MIQUEL wrap. A CryoCuff was applied. Hilary was transferred to the hospital bed without difficulty an ely ffering no apparent complication. Hilary has a good prognosis. Physical therapy will start today and without restrictions, weight-bearing as tolerated. Aspirin 81mg BID will be used for DVT prophylaxis.
[2021-09-15] MEDS: oxyCODONE 5 MG TAB PO (13:35)
--- NOTE | 2021-09-15 13:55 | IN_ITS ---
Date of service: 09/15/21 Time of Service: 13:55 PT Notes Visit Reasons: Left TKA Physical Therapy Day Surgery Initial Evaluation Date: 09/15/2021 Referring Doctor: RAJAN Bhatti PT Orders: PT CONSULT: Status post Ortho surgery Precautions: WBAT on left LE with AD. Patient Profile/Admitting Diagnosis: Hilary is a 61-year-old female with primary unilateral osteoarthritis of the left knee and is status post left total knee arthroplasty in postoperative day 0. PMHX: Medical History (Updated 09/06/21 @ 12:59 by Kiya Francois) Chronic lymphocytic leukemia Colon cancer screening Depression H/O dysmenorrhea Hair loss Hypertension Perimenopausal Preventative health care Screening for hyperlipidemia Uterine fibroid Surgical History (Updated 09/06/21 @ 10:25 by Kiya Francois) Cholecystectomy Denies complications from surgery or anesthesia History of total right knee replacement (TKR) Social History/Home Situation: Independent with all aspects of ADLs prior to surgery. 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. Equipment Owned/DME: [employer] Subjective: Agreeable to PT consult. Denies headache, chest pain, and dizziness throughout session. Hopeful that she able to as well as she did when she had her right knee done. Very satisfied with how much she is able to do hours after her surgery Objective: General Observation: MIQUEL wraps to the left LE. Cryo/Cuff to left knee. TEDS in R leg. Mental Status: Alert and oriented x4 Pain: 1/10 in the left knee ROM: Right Lower Extremity: Hip flexion WFL. Hip abduction WFL. Knee flexion WFL. Ankle dorsiflexion WFL. Ankle plantarflexion WFL. Left Lower Extremity: Hip flexion WFL. Hip abduction WFL. Knee flexion zero to about 95 degrees. Knee extension 95 degrees to zero. Ankle dorsiflexion WFL. Ankle plantarflexion WFL. Strength: Right Lower Extremity: Hip flexors 5/5. Hip abductors 5/5. Knee flexors 5/5. Knee extensors 5/5. Ankle dorsiflexors 5/5. Ankle plantarflexors 5/5. Left Lower Extremity:Hip flexors 5/5. Hip abductors 5/5. Knee flexors 3-/5. Knee extensors 3-/5. Ankle dorsiflexors 5/5. Ankle plantarflexors 5/5. Sensation: Intact as to pain and light pressure in bilateral lower extremities. Bed Mobility/Transfers: Supine to sit standby assist Sit to stand standby assist Stand to sit standby assist standby assist Bed to chair Gait: Instructed with level surface ambulation of up to 150 feet using front wh eeled walker with step-through gait pattern requiring only standby assist. Good left quad activation observed. No LOB. Denies headache, chest pain, and dizziness. Stairs: Up and down six 4 inch steps and four 6 inch steps while holding onto one rail with step to gait pattern without report of increased pain in the left knee. Minimal verbal cues required for correct technique. Standby assist only. Balance: Static Sitting: Normal Dynamic Sitting: Normal Static Standing: Fair Dynamic Standing: Fair Special Tests: Mobility Limitations Standardized Measure [facility] AM-PAC 6 clicks Basic Mobility Inpatient Short Form: Raw Score: 24 CMS Score: 0% deficit Informed Consent/Education: Patient instructed in purpose of PT consult. Packet containing TKA exercise protocol has been given to patient. Education and training on initial set of exercises that can be done at home have been completed with patient. Assessment: Hilary requires the use of front wheel walker to maximize independence and reduce fall risk at home. Good quad activation on the left knee. Patient presents with clinical signs and symptoms consistent with current/admitting diagnoses that have resulted to mobility limitations, gait instability, generalized weakness, and impairment of motor control as demonstrated by the following impairment level findings: 1. Decreased strength to left knee major muscle groups 2. Impaired standing balance 3. Limitation of joint range of motion in left knee Impairments are contributing to the following functional limitations: 1. Inability to safely ambulate without assistive device 2. Increase completion time for mobility ADL performance 3. Increased fall risk Patient is assessed as a 01786 moderate complexity based on the following: History: 61-year-old female with impairment level findings, functional limitations, and past medical history as indicated above Examination: Demonstrable impairment in strength, balance, and mobility level with underlying impairments and functional limitations as documented above Presentation: Evolving Decision Makin moderate complexity Goals: N/A. PT evaluation and 1-2 treatment sessions only for functional mobility training using recommended AD and for HEP instruction. Plan of Care/Treatment Plan: N/A. PT evaluation and 1-2 treatment session only for functional mobility training using recommended AD and for HEP instruction. DISCHARGE RECOMMENDATIONS: Home when medically cleared by orthopedic surgeon. Outpatient PT services in order to facilitate return to independent community ambulation without an assistive device and to vocational activities TREATMENT CODE/TIME: 87567 x 25 minutes, 22890 x 16 minutes beginning at 13:55 PM. Thank you for the opportunity to participate in the care of this patient. Kinjal Dominguez PT, DPT, CLT [facility] [place], [place]
--- NOTE | 2021-09-15 14:04 | W.ANESPOSTOP ---
Postoperative Evaluation Date, Time and Location Date Performed: 09/15/21 Time Performed: 14:04 Patient Location: Day Surgery Unit Vital Signs Most Recent Imported Vital Signs: Most Recent Vital Signs Temp Pulse Resp BP Pulse Ox 36.8 C 64 16 123/78 95 09/15/21 13:50 09/15/21 13:50 09/15/21 13:50 09/15/21 13:50 09/15/21 13:50 Pain Score Most Recent Pain Score: Most Recent Pain Score Pain Level 3 09/15/21 13:50 Assessment Mental Status: Awake (Alert & Oriented to Patient Baseline) Airway and Respiratory Function: Patent airway with normal (patient baseline) respiratory exam Cardiovascular Function: Hemodynamically Stable Hydration Status: Adequately Hydrated Nausea & Vomiting: No Nausea or Vomiting Pain: Pain is tolerable per patient Peripheral Nerve Block: Regional nerve block not resolved at time of post operative discharge
== END 2021-09-15 15:00 | disposition home or self-care (01) ==
LOC: SUR 08:28
PROVIDERS: PCP Family Medicine; Visit Provider Student in an Organized Health Care Education/Training Program
PROC: (CPT 27447; principal; 2021-09-15 10:15)
DX: M17.12 Unilateral primary osteoarthritis, left knee (principal); C91.90 Lymphoid leukemia, unspecified not having achieved remission; Z79.899 Other long term (current) drug therapy; I10 Essential (primary) hypertension
CPT/HCPCS: 27447; 97162; 97530; J0690; J1100; J1885; J2250; J2370; J2405

== ENCOUNTER 2021-09-30 15:11 | Outpatient (CLI) | payer OTHER, SELFPAY ==
--- NOTE | 2021-09-30 10:00 | DI.RAD_ITS ---
Exam(s) XR STANDING ALIGNMENT EXAM: XR STANDING ALIGNMENT CLINICAL HISTORY: 1ST POST OP L TKA. TECHNIQUE: 2D digital imaging was performed. COMPARISON: CR XR STANDING ALIGNMENT from 09/06/2021 FINDINGS: Been interval placement of a left knee prosthesis which appears in satisfactory position alignment. The prosthesis in the opposite-right knee also appears to be satisfactory position alignment. Hips appear unremarkable as do the ankles. No osseous lesions. Sacroiliac joints appear unremarkabl e. IMPRESSION: DATA REPOSITORY: RADIATION DOSE DELIVERED:
--- NOTE | 2021-09-30 10:00 | DI.RAD_ITS ---
Exam(s) XR KNEE LT 1V EXAM: XR KNEE LT 1V CLINICAL HISTORY: 1ST POST OP L TKA. TECHNIQUE: 2D digital imaging was performed. COMPARISON: CR XR KNEE LT 1V from 09/06/2021 FINDINGS: Single lateral view reveals satisfactory position alignment the components of recently placed prosthe sis. No fracture or loosening. IMPRESSION: DATA REPOSITORY: RADIATION DOSE DELIVERED:
== END 2021-09-30 15:12 | disposition home or self-care (01) ==
LOC: DIORS 15:11
PROVIDERS: PCP Family Medicine; Referring Provider Family Medicine; Visit Provider Physician Assistant Surgical
DX: Z96.652 Presence of left artificial knee joint (principal); Z47.1 Aftercare following joint replacement surgery
CPT/HCPCS: 73560; 77073

== ENCOUNTER 2021-10-11 12:45 | Outpatient (REF) | payer SELFPAY ==
--- NOTE | 2021-10-11 11:30 | ENDOMET_PTH ---
PATIENT: Hilary Lowe LOC: [facility] U#:[id number] AGE/SX: 61/F ROOM: RE10/11/[address]: Sonya Cuba MD : 1960 BED: DIS: 10/11/2021 SPEC #: [id number] RECD: 10/11/21 13:10 STATUS: SUMMER REQ #: [id number] FRANCISCO: 10/11/21 11:[address]: Sonya Cuba DEPT: Surgical Specimen RECD BY: Kim Costello ENTERED: 10/11/21 13:10 SP TYPE: Endomet OTHR DR: Precious Nixon Tissues: 1 - ENDOMETRIUM BX/ROBER Procedures: GROSS AND MICRO LEVEL 4 IMMUNOPEROXIDASE STAIN Comments: [id number] (PLEASE FOLEY)
== END 2021-10-11 12:46 | disposition home or self-care (01) ==
LOC: LBN 12:45
PROVIDERS: PCP Family Medicine; Visit Provider Obstetrics & Gynecology
DX: C54.1 Malignant neoplasm of endometrium (principal); N84.0 Polyp of corpus uteri
CPT/HCPCS: 88305; 88361

== ENCOUNTER 2022-03-09 03:03 | Outpatient (CLI) | payer OTHER, SELFPAY ==
[2022-03-09 13:21] LABS: Abs Immature Grans 0.02 10^3/uL (0.0-0.06); Absolute Basophil Count 0.04 10^3/uL (0.0-0.2); Absolute Lymphocyte Count 6.56 10^3/uL (1.2-3.4); Absolute Monocyte Count 0.29 10^3/uL (0.1-0.8); Absolute Neutrophil Count 3.95 10^3/uL (1.2-6.7); Basophils % 0.4; Eosinophils % 1.8; HCT 37.9 % (36.0-46.0); HGB 12.6 g/dL (11.2-15.7); Immature Grans % 0.2; Lymphocytes % 59.3; MCH 28.1 pg (27.0-33.0); MCHC 33.2 % (32.0-36.0); MCV 84.6 fL (80-95); MPV 8.6 fL (8.0-11.0); Monocytes % 2.6; Neutrophils % 35.7; Nucleated RBC 0 %; Platelet Count 191 10^3/uL (130-400); RBC 4.48 10^6/uL (3.93-5.22); RDW 14.2 % (11.7-14.6); RDW-SD 43.7 fL; WBC 11.06 10^3/uL (4.4-10.8)
[2022-03-09 13:35] LABS: Diff Comment Diff Reviewed; RBC Morphology Normal
[2022-03-09 13:36] LABS: ALT 53 U/L (14-59); AST 25 U/L (15-37); Albumin 3.9 g/dL (3.4-5.0); Alkaline Phosphatase 122 U/L (46-116); Anion Gap 11.1 mmol/L (3-11); BUN 18 mg/dL (7-18); Bilirubin, Total 0.4 mg/dL (0.2-1.0); CO2 26.9 mmol/L (21.0-32.0); Calcium 9.2 mg/dL (8.5-10.1); Chloride 103 mmol/L (98-107); Estimated GFR 55.82 (mL/min/1.73m2); Glucose 180 mg/dL (74-106); LDH 167 U/L (81-234); Potassium 3.1 mmol/L (3.5-5.1); Sodium 141 mmol/L (136-145); Total Protein 7.5 g/dL (6.4-8.2)
== END 2022-03-09 03:04 | disposition home or self-care (01) ==
LOC: LBO 03:03
PROVIDERS: PCP Family Medicine; Visit Provider Internal Medicine Hematology & Oncology
DX: C91.10 Chronic lymphocytic leukemia of B-cell type not having achieved remission (principal)
CPT/HCPCS: 36415; 80053; 83615; 85025

== ENCOUNTER 2022-03-18 09:00 | Outpatient (REF) | payer OTHER, SELFPAY ==
[2022-03-18 10:32] LABS: Bilirubin Negative (Negative); Blood Negative (Negative); Clarity Clear (Clear); Glucose Negative (Negative); Ketones Negative (Negative); Leukocyte Esterase Negative (Negative); Nitrite Negative (Negative); Urobilinogen 0.2 EU/dL (Up TO 0.2)
== END 2022-03-18 09:01 | disposition home or self-care (01) ==
LOC: LBN 09:00
PROVIDERS: PCP Family Medicine; Visit Provider Radiology Radiation Oncology
DX: N39.3 Stress incontinence (female) (male) (principal)
CPT/HCPCS: 81003

== ENCOUNTER 2022-09-14 02:25 | Outpatient (CLI) | payer OTHER, SELFPAY ==
[2022-09-14 12:14] LABS: HCT 40.1 % (36.0-46.0); HGB 13.4 g/dL (11.2-15.7); MCH 28.5 pg (27.0-33.0); MCHC 33.4 % (32.0-36.0); MCV 85 fL (80-95); MPV 8.4 fL (8.0-11.0); Platelet Count 171 10^3/uL (130-400); RDW 13.8 % (11.7-14.6); RDW-SD 42.7 fL; WBC 10.87 10^3/uL (4.4-10.8)
[2022-09-14 12:38] LABS: Absolute Neutrophil Count 5.65 10^3/uL (1.2-6.7)
[2022-09-14 12:39] LABS: Absolute Eosinophil Count 0.33 10^3/uL (0.0-0.7); Absolute Lymphocyte Count 4.24 10^3/uL (1.2-3.4); Absolute Monocyte Count 0.65 10^3/uL (0.1-0.8); Atypical Lymphocytes % 6; Diff Comment Manual Differential; RBC Morphology Normal
[2022-09-14 12:47] LABS: ALT 46 U/L (14-59); AST 27 U/L (15-37); Albumin 4.1 g/dL (3.4-5.0); Alkaline Phosphatase 115 U/L (46-116); Anion Gap 9.5 mmol/L (3-11); BUN 17 mg/dL (7-18); Bilirubin, Total 0.5 mg/dL (0.2-1.0); CO2 28.5 mmol/L (21.0-32.0); CREATININE 0.9 mg/dL (0.55-1.02); Calcium 9.4 mg/dL (8.5-10.1); Chloride 104 mmol/L (98-107); Estimated GFR 71.39 (mL/min/1.73m2); Glucose 129 mg/dL (74-106); LDH 152 U/L (81-234); Potassium 3.6 mmol/L (3.5-5.1); Sodium 142 mmol/L (136-145); Total Protein 7.8 g/dL (6.4-8.2)
== END 2022-09-14 02:26 | disposition home or self-care (01) ==
LOC: LBO 02:25
PROVIDERS: PCP Family Medicine; Visit Provider Internal Medicine Hematology & Oncology
DX: C91.10 Chronic lymphocytic leukemia of B-cell type not having achieved remission (principal); C54.1 Malignant neoplasm of endometrium
CPT/HCPCS: 36415; 80053; 83615; 85025

== ENCOUNTER 2022-12-28 12:18 | Outpatient (CLI) | payer BC, SELFPAY ==
--- NOTE | 2022-12-28 15:20 | DI.MAMMO_ITS ---
Exam(s) MAMMO SCREENING EXAM: MAMMO SCREENING CLINICAL HISTORY: SCREENING, Z12.31,WELL ADULT PREVENTATIVE CARE,Z00.00 TECHNIQUE: Mammograms were interpreted according to the usual protocol including computer analysis w [employer] CAD system, tomosynthesis and C-view imaging. COMPARISON: 2017 FINDINGS: The breasts are composed of mainly fatty density , Breast Density category A. No suspicious masses or suspicious microcalcifications are seen. No skin thickening or abnormal axillary lymph nodes are seen. There has been no significant change from prior exams. IMPRESSION: BI-RADS Category 1, Negative mammogram Yearly screening mammography is recommended. Breast Density - Category A, fatty density. A negative radiographic report should not delay biopsy if a dominant or clinically suspicious mass is present. Up to ten percent of cancers are not identified on mammography. A negative report may reinforce clinical impression. Adenosis and dense breasts may obscure an underlying neoplasm. False positive reports average 6 to 10%. Patient will receive a letter notifying them of these results.
== END 2022-12-28 12:38 ==
PROVIDERS: PCP Family Medicine; Visit Provider Family Medicine
DX: Z12.31 Encounter for screening mammogram for malignant neoplasm of breast (principal)
CPT/HCPCS: 77063; 77067

== ENCOUNTER 2023-04-26 11:19 | Outpatient (CLI) | payer BC, SELFPAY ==
[2023-04-26 11:46] LABS: Abs Immature Grans 0.03 10^3/uL (0.0-0.06); HCT 41.8 % (36.0-46.0); HGB 13.8 g/dL (11.2-15.7); MCH 28.7 pg (27.0-33.0); MCV 87 fL (80-95); MPV 8.5 fL (8.0-11.0); Platelet Count 173 10^3/uL (130-400); RBC 4.81 10^6/uL (3.93-5.22); RDW 14.9 % (11.7-14.6); RDW-SD 47.8 fL; WBC 17.45 10^3/uL (4.4-10.8)
[2023-04-26 12:02] LABS: Absolute Eosinophil Count 0.52 10^3/uL (0.0-0.7); Absolute Lymphocyte Count 12.22 10^3/uL (1.2-3.4); Absolute Neutrophil Count 4.01 10^3/uL (1.2-6.7); Atypical Lymphocytes % 1; Diff Comment Manual Differential; RBC Morphology Normal
[2023-04-26 12:10] LABS: ALT 53 U/L (14-59); AST 24 U/L (15-37); Albumin 3.8 g/dL (3.4-5.0); Alkaline Phosphatase 113 U/L (46-116); Anion Gap 10.5 mmol/L (3-11); BUN 18 mg/dL (7-18); Bilirubin, Total 0.5 mg/dL (0.2-1.0); CO2 27.5 mmol/L (21.0-32.0); Calcium 9.3 mg/dL (8.5-10.1); Chloride 104 mmol/L (98-107); Estimated GFR 62.52 (mL/min/1.73m2); Glucose 138 mg/dL (74-106); LDH 181 U/L (81-234); Potassium 3.7 mmol/L (3.5-5.1); Sodium 142 mmol/L (136-145); Total Protein 7.7 g/dL (6.4-8.2)
== END 2023-04-26 11:20 | disposition home or self-care (01) ==
LOC: LBO 11:20
PROVIDERS: PCP Family Medicine; Visit Provider Internal Medicine Hematology & Oncology
DX: C91.10 Chronic lymphocytic leukemia of B-cell type not having achieved remission (principal)
CPT/HCPCS: 36415; 80053; 83615; 85025

== ENCOUNTER 2023-11-15 11:29 | Outpatient (CLI) | payer MEDICARE, SELFPAY ==
[2023-11-15 11:41] LABS: Abs Immature Grans 0.02 10^3/uL (0.0-0.06); Absolute Eosinophil Count 0.15 10^3/uL (0.0-0.7); HCT 39.7 % (36.0-46.0); HGB 13.6 g/dL (11.2-15.7); MCHC 34.3 % (32.0-36.0); MCV 85 fL (80-95); MPV 8.2 fL (8.0-11.0); Platelet Count 185 10^3/uL (130-400); RBC 4.69 10^6/uL (3.93-5.22); RDW 13.2 % (11.7-14.6); RDW-SD 40.8 fL; WBC 14.83 10^3/uL (4.4-10.8)
[2023-11-15 12:01] LABS: ALT 73 U/L (14-59); AST 23 U/L (15-37); Alkaline Phosphatase 103 U/L (46-116); Anion Gap 10.1 mmol/L (3-11); BUN 19 mg/dL (7-18); Bilirubin, Total 0.4 mg/dL (0.2-1.0); CO2 27.9 mmol/L (21.0-32.0); CREATININE 1.1 mg/dL (0.55-1.02); Calcium 9.6 mg/dL (8.5-10.1); Chloride 102 mmol/L (98-107); Estimated GFR 55.76 (mL/min/1.73m2); Glucose 127 mg/dL (74-106); LDH 147 U/L (81-234); Potassium 3.5 mmol/L (3.5-5.1); Sodium 140 mmol/L (136-145); Total Protein 7.5 g/dL (6.4-8.2)
[2023-11-15 12:10] LABS: Absolute Basophil Count 0.15 10^3/uL (0.0-0.2); Absolute Lymphocyte Count 8.01 10^3/uL (1.2-3.4); Absolute Neutrophil Count 6.23 10^3/uL (1.2-6.7); Atypical Lymphocytes % 3; Bands % 0
[2023-11-15 12:11] LABS: Diff Comment Manual Differential; RBC Morphology Normal
== END 2023-11-15 11:30 | disposition home or self-care (01) ==
PROVIDERS: PCP Family Medicine; Visit Provider Nurse Practitioner Adult Health
DX: C91.10 Chronic lymphocytic leukemia of B-cell type not having achieved remission (principal)
CPT/HCPCS: 36415; 80053; 83615; 85025

== ENCOUNTER 2024-05-14 05:04 | Outpatient (CLI) | payer MEDICARE, SELFPAY ==
[2024-05-14 11:13] LABS: HCT 41.7 % (36.0-46.0); HGB 13.7 g/dL (11.2-15.7); MCH 30.2 pg (27.0-33.0); MCHC 32.9 % (32.0-36.0); MCV 92 fL (80-95); MPV 8.8 fL (8.0-11.0); Platelet Count 164 10^3/uL (130-400); RBC 4.54 10^6/uL (3.93-5.22); RDW 13.3 % (11.7-14.6); RDW-SD 45.3 fL; WBC 15.03 10^3/uL (4.4-10.8)
[2024-05-14 11:57] LABS: ALT 77 U/L (14-59); AST 40 U/L (15-37); Albumin 4.1 g/dL (3.4-5.0); Alkaline Phosphatase 103 U/L (46-116); BUN 16 mg/dL (7-18); Bilirubin, Total 0.5 mg/dL (0.2-1.0); CREATININE 0.9 mg/dL (0.55-1.02); Calcium 8.9 mg/dL (8.5-10.1); Chloride 102 mmol/L (98-107); Estimated GFR 70.51 (mL/min/1.73m2); Glucose 160 mg/dL (74-106); LDH 190 U/L (81-234); Potassium 3.8 mmol/L (3.5-5.1); Sodium 139 mmol/L (136-145); Total Protein 7.5 g/dL (6.4-8.2)
[2024-05-14 12:18] LABS: Absolute Eosinophil Count 0.15 10^3/uL (0.0-0.7); Absolute Lymphocyte Count 10.37 10^3/uL (1.2-3.4); Absolute Monocyte Count 0.15 10^3/uL (0.1-0.8); Absolute Neutrophil Count 4.36 10^3/uL (1.2-6.7); Atypical Lymphocytes % 3 %
[2024-05-14 12:19] LABS: Diff Comment Manual Differential; RBC Morphology Normal
[2024-05-15 08:19] LABS: IgG 670 mg/dL (610-1616)
== END 2024-05-14 05:05 | disposition home or self-care (01) ==
LOC: LBO 05:05
PROVIDERS: PCP Family Medicine; Visit Provider Nurse Practitioner Adult Health
DX: C91.10 Chronic lymphocytic leukemia of B-cell type not having achieved remission (principal)
CPT/HCPCS: 36415; 80053; 82784; 83615; 85025

== ENCOUNTER 2024-10-12 11:58 | Outpatient (CLI) | payer MEDICARE, SELFPAY ==
--- OUTSIDE RECORDS SUMMARY | 2024-10-12 12:01 | XMS_ITS | Encounter Summary ---
Author Organization [facility] [place] [address] Care Team Providers Care Rubber Tubing Backer Name Role Phone Precious Nixon MD Primary Care Provider [phone] Encounter Details Date Type Department Care Team (Late st Contact Info) Description 11/15/2023 12:00 PM EST Office Visit Hematology/Oncology at [address] [phone] Leticia Buckley MD [facility] [address] [place] [address] Mili Klein APRN [facility] [address] [place] [address] CLL (chronic lymphocytic leukemia) Social History Tobacco Use Types Packs/Day Years Used Date Smoking Tobacco: Never Smokeless Tobacco: Never Alcohol Use Standard Drinks/Week Comments Yes 0 (1 standard drink = 0.6 oz pur e alcohol) 7-10 per week Sex and Gender Information Value Date Recorded Sex Assigned at Not on file Gender Identity Not on file Sexual Orientation Not on file documented as of this encounter Last Filed Vital Signs Vital Sign Reading Time Taken Comments Blood Pressure 169/82 11/15/2023 11:57 AM EST Pulse 90 11/15/2023 11:57 AM EST Temperature 36.4 ??C (97.5 ??F) 11/15/2023 1 1:57 AM EST Respiratory Rate 16 11/15/2023 11:5 7 AM EST Oxygen Saturation 99% 11/15/2023 11: 57 AM EST Inhaled Oxygen Concentration - - Weight 111.4 kg (245 lb 9.6 oz) 023 11:57 AM EST Height 175.3 cm (5' 9.02) 11/15/2023 1 1:57 AM EST Body Mass Index 36.25 11/15/2023 11:57 AM EST documented in this encounter Progress Notes * Latoya Mili M, PASTER SUPERVISOR - 11/15/2023 12:00 PM EST Hematology Clinic [facility] [place] [address] HEMATOLOGY PATIENT EVALUATION PROBLEM LIST: Patient Active Problem List Diagnosis Endometrial cancer, grade I Obesity (BMI 35.0-39.9 without comorbidity) Hypertension Depression Anxiety disorder CLL (chronic lymphocytic leukemia) Diagnosed 2014, never needed treatment, currently being monitored No cytopenias. WBC about 20-25k. HISTORY OF PRESENT ILLNESS: Hilary Lowe is a 63 y.o. female being seen for evaluation of CLL. She was referred in consultaion from Dr. Elba Chi. 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 She previously received her carefor CLL by Dr. Alycia Rodriguez from [facility]. According to the patient, she has been in stable condition and denied any B-symptoms of fever, night sweats, or weight loss. The patient states she was diagnosed in 2014 with CLL after being noted to have a WBC count around 19,000 with lymphocytosis. Infection workup was negative and workup for CLL was positive. She did not require any therapyand has just been monitored every 6 months with blood work. Hilary developed abnormal vaginal bleeding and was ultimately diagnosed with endometrial cancer. She is status post hysterectomy and brachytherapy radiation completed January 2022. INTERIM HISTORY OF PRESENT ILLNESS: Hilary returns to clinic today in routine follow-up for her CLL. She was last seen in clinic ~ 6 months ago. Since last seen, Hilary denies changes to her baseline health. No fevers, chills, recurrent infections or intercurrent illnesses. She is up-to-date with COVID and influenza vaccinations. She denies drenching sweats, unintentional weight loss or palpable adenopathy. No new health-related concerns. She is looking forward to spending time with her granddaughter making holiday traditions. PMHX: Past Medical History: Diagnosis Date Anxiety disorder CLL (chronic lymphocytic leukemia) 2015 Diagnosed 2 years ago, never needed treatment, currently being monitored Depression Endometrial cancer, grade I 10/26/2021 Hypertension Obesity (BMI 35.0-39.9 without comorbidity) ROS Energy level: good, remains active Pain: No Appetite: good Fevers/chills/sweats: No Bruising/bleeding/melena: No Recent infections: No Headaches: No Vision: No visual changes Hearing: No hearing impairment Sinus: No sinus pain or congestion Seasonal Allergies: No Mouth sores: No mucositis, ulcerations Dentition: Good Swallowing: No dysphagia GERD: No Nausea/vomiting: No Diarrhea/constipation: No SOB/MINER/pulmonary sx: no chest pain:No sx: No hematuria, dysuria, no vaginal bleeding Change in adenopathy or other masses: No Unexpected weight loss or gain: No Skin rashes or petechiae: No Musculoskeletal complaints: chronic knee pain [unchanged] Extremities: Negative upper and lower bilaterally Neurologic symptoms: No Mental Status changes: No Mood: Normal Sleep: No difficulty sleeping MEDS: Current Outpatient Medications Medication Instructions amLODIPine (NORVASC) 10 mg, Oral, DAILY losartan-hydrochlorothiazide (HYZAAR) 100-25 mg Tablet 1 tablet, Oral, DAILY naproxen sodium (ANAPROX) 440 mg, Oral, DAILY PRN venlafaxine (EFFEXOR-XR) 150 mg Capsule, Sust. Release 24 hr TAKE ONE CAPSULE BY MOUTH EVERY DAY ALLERGIES: No Known Allergies FAMILY HISTORY: No changes Notable for heart disease in both paternal and maternal grandparents. Denies any family history of cancers. SOCIAL HISTORY: No changes Personal: live at home, by herself, has 4 children. 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 Emmanule, son, of OD. Daughters were in [facility] and [facility] - now all in [place]. Marion in [place] is expecting a child - this is Hilary's first grandchild. her from [facility] in 2018. He has not been able to get a visa here yet. 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 Has taken courses on the history of culture in [place] and loves it there. ETOH: 1-2 glasses of wine, 5 times a week Smoking: Never PHYSICAL EXAM BP 169/82 (Patient Position: Sitting) Pulse 90 Temp 36.4 ??C (97.5 ??F) (Temporal) Resp 16 Ht 175.3 cm (5' 9.02) Wt 111.4 kg (245 lb 9.6 oz) SpO2 99% BMI 36.25 kg/m?? GENERAL: Hilary Lowe is a well-developed, well-nourished, well-appearing 63 year old female in [facility] ENT: oropharynx clear without hyperemia, exudative plaques or lesions EYES: DELANO NECK: Supple without palpable masses or adenopathy AXILLARY: no adenopathy OTHER LYMPH: no adenopathy CARDIAC: sinus tachycardia without S3,S4 or murmurs. LUNGS: Clear to auscultation bilaterally ABDOMEN: Soft and non-tender without hepatosplenomegaly or palpable masses. NABS EXTREMITIES: No cyanosis, clubbing, edema or calf tenderness. SKIN: No bruises or petechiae. NEUROLOGICAL: Alert and oriented to person, place and time. MUSCULOSKELETAL: No spinal or chest wall tenderness. LABORATORY STUDIES Recent Results (from the past 72 hour(s)) Comprehensive metabolic panel (non-fasting) Result Value Ref Range Glucose Lvl 127 (H) BUN 19 (H) Creatinine 1.1 (H) Sodium 140 Potassium 3.5 Calcium 9.6 Total Protein 7.5 Albumin 4.0 Total Bilirubin 0.4 Alk Phos 103 AST 23 ALT 73 (H) LDH 147 CBC (with Diff) Result Value Ref Range WBC 14.83 (H) RBC 4.69 Hemoglobin 13.6 Hematocrit 39.7 Platelets 185 Neutr Abs (ANC) 6.23 RADIOLOGY STUDIES REVIEWED: No new images reviewed today ASSESSMENT/PLAN: Ms. Lowe is a pleasant 63 y.o. female w/ hx of stage 0 CLL, untreated to date. At the time of her diagnosis of endometrial cancer in 2020, abdominal adenopathy was noted the largest lymph node being about 4 cm. Lymph nodes excised at the time of [facility], showed no evidence of endometrial cancer. She did show signs of CLL, which is not surprising. The largest lymph node was 4 cm. I explained to her that this is not surprising in CLL, as most cases involve bone marrow, peripheral blood, and adenopathy. Current recommendations are to initiate treatment for CLL if the lymph nodes get greater than10 cm. However, now that we know she does have adenopathy, we will follow-up with repeat imaging for surveillance on an intermittent basis. No clinical or laboratory suggestion of disease progressionor indication for treatment. Given the indolent nature of her disease, we will continue to follow her every 6 months with labs and a visit. Endometrial cancer - cared for by Drs. Johnson and Esa. Status post hysterectomy and brachytherapy radiation completed January 2022. Minimal residual side effects of therapy Hypertension - . She reports some white coat syndrome but this is high. She will check at home. Sheis working with her PCP on this. Knee pain -status post right knee replacement. Needs left knee replacement Plan: RTC in 6 months with labs [cbc, cmp, ldh, IgG] and a visit Hilary Lowe knows that she can call us any time with questions or concerns. I discussed all of the above with the patient and all of her questions were answered. Support and counseling given as appropriate. Hilary Lowe knows that she can call us any time with questions or concerns. Mili Klein, MSN, PASTER SUPERVISOR Nurse Practitioner Section of Hematology [facility] Copy Precious Nixon MD . documented in this encounter Plan of Treatment Upcoming Encounters Date Type Department Care Team (Late st Contact Info) Description 12/18/2024 11:30 AM EST Office Visit Hematology/Oncology at [address] [phone] Leticia Buckley MD [facility] [place] [address] Mili Klein APRN [facility] HEMATOLOGY [place] [address] Scheduled Orders Name Type Priority Associated Diagnoses Orde r Schedule Lactate Dehydrogenase Lab STAT CLL (chronic lymphocytic leukemia) As Needed for 6 Occurrences starting 11/16/2023 until 11/16/2024 Comprehensive metabolic panel (non-fasting) Lab STAT CLL (chronic lymphocytic leukemia) As Needed for 6 Occurrences starting 11/16/2023 until 11/16/2024 CBC (with Diff) Lab STAT CLL (chronic lymphocytic leukemia) As Needed for 6 Occurrences starting 11/16/2023 until 11/16/2024 documented as of this encounter Procedures Procedure Name Priority Date/Time Associated Diagnosis Comments CBC (WITH DIFF) Routine 11/15/2023 COMPREHENSIVE METABOLIC PANEL Routine 11/15/2023 documented in this encounter Results * (ABNORMAL) CBC (with Diff) (11/15/2023) White Blood Cell 14.83(H) Red Blood Cell 4.69 Hemoglobin 13.6 Hematocrit 39.7 Platelet 185 Neutrophil Absolute (ANC) - Automated 6.23 Blood 11/15/2023 Historical Provider HEMATOLOGY ORDERA BLES * (ABNORMAL) Comprehensive metabolic panel (non-fasting) (11/15/2023) Glucose 127(H) Blood Urea Nitrogen 19(H) Creatinine 1.1(H) Sodium 140 Potassium 3.5 Calcium 9.6 Protein, Total 7.5 Albumin 4.0 Bilirubin, Total 0.4 Alkaline Phosphatase 103 Aspartate Aminotransferase 23 Alanine Aminotransferase 73(H) Lactate Dehydrogenase 147 Blood 11/15/2023 Historical Provider CHEMISTRY ORDERAB LES documented in this encounter Visit Diagnoses Diagnosis CLL (chronic lymphocytic leukemia) Chronic lymphoid leukemia, without mention of having achieved remission documented in this encounter Care Teams Rubber Tubing Backer Relationship Specialty Start Date End Date Precious Nixon MD [address] [place] [address] PCP - General Family Medicine 06/07/17 documented as of this encounter
--- OUTSIDE RECORDS SUMMARY | 2024-10-12 12:01 | XMS_ITS | Encounter Summary ---
Author Organization [facility] [place] [address] Care Team Providers Care Coremaker Bench Name Role Phone Precious Nixon MD Primary Care Provider [phone] Encounter Details Date Type Department Care Team (Latest Contact Info) Description 08/14/2023 Travel Social History Tobacco Use Types Packs/Day Years Used Date Smoking Tobacco: Never Smokeless Tobacco: Never Alcohol Use Standard Drinks/Week Comments Yes 0 (1 standard drink = 0.6 oz pur e alcohol) 7-10 per week Sex and Gender Information Value Date Recorded Sex Assigned at Not on file Gender Identity Not on file Sexual Orientation Not on file documented as of this encounter Plan of Treatment Upcoming Encounters Date Type Department Care Team (Late st Contact Info) Description 12/18/2024 11:30 AM EST Office Visit Hematology/Oncology at [address] [phone] Leticia Bucklye MD [facility] DR HEMATOLOGY [place] [address] Mili Klein, MANAGER FINE DINING [facility] HEMATOLOGY [place] [address] documented as of this encounter Visit Diagnoses Not on filedocumented in this encounter Care Teams Coremaker Bench Relationship Specialty Start Date End Date Precious Nixon MD [address] [place] [address] PCP - General Family Medicine 06/07/17 documented as of this encounter
--- OUTSIDE RECORDS SUMMARY | 2024-10-12 12:01 | XMS_ITS | Clinical Summary ---
Author Organization [facility] Address [facility] [place] [address] Care Team Providers Care Oil Pipe Inspector Helper Name Role Phone Precious Nixon MD Primary Care Provider [phone] Allergies No known active allergies Medications Medication Sig Dispensed Refills Start Date End Date Status venlafaxine (EFFEXOR-XR) 150 mg Capsule, Sust. Release 24 hrIndications:CLL (chronic lymphocytic leukemia) TAKE ONE CAPSULE BY MOUTH EVERY DAY 1 07/02/2017 Active losartan-hydrochloroth iazide (HYZAAR) 100-25 mg Tablet Take 1 tablet by mouth daily. Active naproxen sodium (ANAPROX) 220 mg Tablet Take 440 mg by mouth daily as needed. Active amLODIPine (NORVASC) 10 mg Tablet Take 10 mg by mouth daily. Active metoprolol succinate XL (Toprol-XL) 50 mg ER 24 hr tablet Take 50 mg by mouth daily. Active Active Problems Problem Noted Date Diagnosed Date Endometrial cancer, grade I 10/26/2021 Hypertension 07/17/2017 Depression 07/17/2017 Anxiety disorder 07/17/2017 CLL (chronic lymphocytic leukemia) 11/27/2014 Overview (12/04/2019): Diagnosed 2014, never needed treatment, currently being monitored No cytopenias. WBC about 20-25k. Obesity (BMI 35.0-39.9 without comorbidity) Family History Medical History Relation Comments Heart Disease Maternal Grandfather Heart Disease Maternal Grandmother Heart Disease Paternal Grandfather Heart Disease Paternal Grandmother Relation Status Comments Maternal Grandfather Maternal Grandmother Paternal Grandfather Paternal Grandmother Social History Tobacco Use Types Packs/Day Years Used Date Smoking Tobacco: Never Smokeless Tobacco: Never Alcohol Use Standard Drinks/Week Comments Yes 0 (1 standard drink = 0.6 oz pur e alcohol) 7-10 per week Sex and Gender Information Value Date Recorded Sex Assigned at Not on file Gender Identity Not on file Sexual Orientation Not on file Last Filed Vital Signs Vital Sign Reading Time Taken Comments Blood Pressure 169/72 05/15/2024 11:29 AM EDT Pulse 77 05/15/2024 11:29 AM EDT Temperature 36 ??C (96.8 ??F) 05/15/2024 11:29 AM EDT Respiratory Rate 16 05/15/2024 11:29 AM EDT Oxygen Saturation 98% 05/15/2024 11:29 AM EDT Inhaled Oxygen Concentration - - Weight 113.4 kg (250 lb) 05/15/2024 11:29 AM EDT Height 175.3 cm (5' 9.02) 11/15/2023 11:[address] Body Mass Index 36.9 11/15/2023 11:57 AM EST Plan of Treatment Upcoming Encounters Date Type Department Care Team (Late st Contact Info) Description 12/18/2024 11:30 AM EST Office Visit Hematology/Oncology at [address] [phone] Leticia Buckley MD [facility] DR HEMATOLOGY [place] [address] Mili Klein APRN [facility] [place] [address] Health Maintenance Due Date Last Done Comments CT Colonography 1958 Colonoscopy 1958 Colorectal Cancer Screening 1960 FIT DNA 1958 FIT 1958 Sigmoidoscopy (10 year) with FIT yearly 1958 Sigmoidoscopy 1960 Pneumoccocal Vaccine: 65+ (1 of 2 - PCV) 1964 Hepatitis C Screening 1976 Lipid Screening 1976 Tetanus/Diphtheria/Pertussis Vaccines (1 - Tdap) 1977 Zoster vaccine (1 of 2) 1977 HPV test 1988 PAP Smear 1988 Breast Cancer Share Decision Needed 1998 Breast Cancer screening 1998 Advance Directive 2013 Bone Density Scan 2023 Covid-19 Vaccine (1 - season) 2024 Influenza (Flu) vaccine (1 o f 1 - Influenza standard series) 07/28/2024 Diabetes Screening (HgbA1C o r Glucose) 11/15/2026 11/15/2023, 05/01/2018, 07/17/2017 Procedures Procedure Name Priority Date/Time Associated Diagnosis Comments COMPREHENSIVE METABOLIC PANEL Routine 11/15/2023 from Last 3 Months or Most Recently Relevant to Health Maintenance Results * (ABNORMAL) Comprehensive metabolic panel (non-fasting) (11/15/2023) Glucose 127(H) Blood Urea Nitrogen 19(H) Creatinine 1.1(H) Sodium 140 Potassium 3.5 Calcium 9.6 Protein, Total 7.5 Albumin 4.0 Bilirubin, Total 0.4 Alkaline Phosphatase 103 Aspartate Aminotransferase 23 Alanine Aminotransferase 73(H) Lactate Dehydrogenase 147 Blood 11/15/2023 Historical Provider CHEMISTRY ORDERAB LES from Last 3 Months or Most Recently Relevant to Health Maintenance Care Teams Oil Pipe Inspector Helper Relationship Specialty Start Date End Date Precious Nixon MD [address] [place] [address] PCP - General Family Medicine 06/07/17
--- OUTSIDE RECORDS SUMMARY | 2024-10-12 12:01 | XMS_ITS | Encounter Summary ---
Author Organization [facility] [place] [address] Care Team Providers Care Smog Technician Name Role Phone Precious Nixon MD Primary Care Provider [phone] Encounter Details Date Type Department Care Team (Late st Contact Info) Description 05/15/2024 11:30 AM EDT Office Visit Hematology/Oncology at [address] [phone] Leticia Buckley MD [facility] [address] [place] [address] Mili Klein, OVERHEAD CLEANER [facility] [address] [place] [address] CLL (chronic lymphocytic leukemia) Social History Tobacco [...] (250 lb) 05/15/2024 11:29 AM EDT Height - - Body Mass Index 36.9 11/15/2023 11:57 AM EST documented in this encounter Progress Notes * Leticia Buckley MD - 05/15/2024 11:30 AM EDT Hematology Clinic [place] [id number] HEMATOLOGY PATIENT EVALUATION PROBLEM LIST: Patient Active Problem List Diagnosis Endometrial cancer, grade I Obesity (BMI 35.0-39.9 without comorbidity) Hypertension Depression Anxiety disorder CLL (chronic lymphocytic leukemia) Diagnosed 2014, never needed treatment, currently being monitored No cytopenias. WBC about 20-25k. Patient prefers to be called: bong Spouse/Partner: Other support: children Enid, Eun, and Carolyn. HISTORY OF PRESENT ILLNESS: Bong Lowe is a 64 y.o. female being seen for evaluation of CLL. She was referred in consultaion from Dr. Elba Chi. 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 She previously received her carefor CLL by Dr. Alycia Rodriguez from [facility]. According to the patient, she has [...] monitored every 6 months with blood work. Bong developed abnormal vaginal bleeding and was ultimately diagnosed with endometrial cancer. She is status post hysterectomy and brachytherapy radiation completed January 2022. INTERIM HISTORY OF PRESENT ILLNESS: Bong returns to clinic today in routine follow-up for her CLL. She was last seen March 2023 - we intended q 6 mo follow up appts. She rescheduled a few times. Since last seen, Bong denies changes to her baseline health. No fevers, chills, recurrent infections or intercurrent illnesses. She is up-to-date with COVID and influenza vaccinations. No drenching sweats, unintentional weight loss or palpable adenopathy. s/p completion of brachytherapy for her endometrial cancer in 2020. No late effects oftherapy or recurrent bleeding. No new health-related concerns. Retired. Not doing much weaving. Knitting for grandchildren. Visited in [facility] for 10 weeks.She has one granddaughter Ana 4yo and expecting a grandson in Jun. Her youngest daughter Enid lives w/ her since Emmanuel . PMHX: Past Medical History: Diagnosis Date Anxiety disorder CLL (chronic lymphocytic leukemia) 2014 Diagnosed 2 years ago, never needed treatment, currently being monitored Depression Endometrial cancer, grade I 10/26/2021 Hypertension Obesity (BMI 35.0-39.9 without comorbidity) ROS Energy level: improved since assisted Pain: No Appetite: good Fevers/chills/sweats: No Bruising/bleeding/melena: No Recent infections: No Headaches: No Vision: No visual changes Hearing: No hearing impairment Sinus: No sinus pain or congestion Seasonal Allergies: No Mouth sores: No mucositis, ulcerations Dentition: Good Swallowing: No dysphagia GERD: No Nausea/vomiting: No Diarrhea/constipation: No SOB/MINER/pulmonary sx: no chest pain:No sx: No hematuria, dysuria Change in adenopathy or other masses: No Unexpected weight loss or gain: No Skin rashes or petechiae: No Musculoskeletal complaints: chronic knee pain Extremities: Negative upper and lower bilaterally Neurologic symptoms: No Mental Status changes: No Mood: Normal Sleep: No difficulty sleeping MEDS: Current Outpatient Medications Medication Instructions amLODIPine (NORVASC) 10 mg, Oral, DAILY losartan-hydrochlorothiazide (HYZAAR) 100-25 mg Tablet 1 tablet, Oral, DAILY metoprolol succinate XL (TOPROL-XL) 50 mg, Oral, DAILY naproxen sodium (ANAPROX) 440 mg, Oral, DAILY PRN venlafaxine (EFFEXOR-XR) 150 mg Capsule, Sust. Release 24 hr TAKE ONE CAPSULE BY MOUTH EVERY DAY Allergies: No Known Allergies FAMILY HISTORY: No changes Notable for heart disease in both paternal and maternal grandparents. Denies any family history of cancers. SOCIAL HISTORY: No changes Personal: live at home, by herself, has 4 children. 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 Emmanuel, son, of OD. Daughters were in [facility] and [facility] - now all in [place]. [place] in [place] is expecting a child - this is Bong's first grandchild. her from [facility] in 2018. He has not been able to get a visa here yet. 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 Has taken courses on the history of culture in [place] and loves it there. ETOH: 1-2 glasses of wine, 5 times a week Smoking: Never PHYSICAL EXAM BP 169/72 (Patient Position: Sitting) Pulse 77 Temp 36 ??C (96.8 ??F) (Temporal) Resp 16 Wt113.4 kg (250 lb) SpO2 98% BMI 36.90 kg/m?? GENERAL: Bong Lowe is a well-developed, well-nourished, well-appearing 62 year old female in [facility] E[facility]: oropharynx clear without hyperemia, exudative plaques or lesions EYES: DELANO NECK: Supple without palpable masses or adenopathy AXILLARY: no adenopathy OTHER LYMPH: no adenopathy CARDIAC: sinus tachycardia without S3,S4 or murmurs. LUNGS: Clear to auscultation/percussion ABDOMEN: Soft and non-tender without hepatosplenomegaly or palpable masses. NABS EXTREMITIES: No cyanosis, clubbing, edema or calf tenderness. SKIN: No bruises or petechiae. NEUROLOGICAL: Alert and oriented to person, place and time. MUSCULOSKELETAL: No spinal or chest wall tenderness. LABORATORY STUDIES Recent Results (from the past 72 hour(s)) CBC (with Diff) Result Value Ref Range WBC 15.03 Hemoglobin 13.7 Hematocrit 41.7 Platelets 164 Neutr Abs (ANC) 4.36 Comprehensive metabolic panel (non-fasting) Result Value Ref Range Creatinine 0.9 Potassium 3.8 Total Bilirubin 0.5 AST 40 ALT 77 LDH 190 RADIOLOGY STUDIES REVIEWED: No new images reviewed today ASSESSMENT/PLAN: Ms. Lowe is a pleasant 64 y.o. female w/ hx of stage 0 CLL, untreated today, who presents in routine follow-up. At the time of her diagnosis of endometrial cancer in 2020, abdominal adenopathy was noted the largest lymph node being about 4 cm. Lymph nodes excised at the time of [facility], showed no evidence of endometrial cancer. She did show signs of CLL, which is not surprising. The largest lymphnode was 4 cm. I explained to her that this is not surprising in CLL, as most cases involve bone marrow, peripheral blood, and adenopathy. Recommendations are to initiate treatment for CLL if the lymph nodes get greater than 10 cm. However, now that we know she does have adenopathy, we will follow-u p with repeat imaging for surveillance on an intermittent basis. No clinical or laboratory suggestion of disease progression or indication for treatment. Given the indolent nature of her disease, we will continue to follow her every 6 months with labs and a visit. Endometrial cancer - cared for by Drs. Johnson and Esa. Status post hysterectomy and brachytherapy radiation completed January 2022. Mild SFX. Some urinary leaking. Hypertension - . She reports some white coat syndrome but this is high. She will check at home. Sheis working with her PCP on this. Knee pain -status post right knee replacement. Needs left knee replacement Plan: RTC in 6 mos with cbc, cmp, ldh Bong Lowe knows that she can call us any time with questions or concerns. I discussed all of the above with the patient and all of her questions were answered. Support and counseling given as appropriate. Bong Lowe knows that she can call us any time with questions or concerns. Copy Precious Nixon MD . documented in this encounter Plan of Treatment Upcoming Encounters Date Type Department Care Team (Late st Contact Info) Description 12/18/2024 11:30 AM EST Office Visit Hematology/Oncology at [address] [phone] Leticia Buckley MD [facility] HEMATOLOGY [place] [address] Mili Klein APRN [facility] HEMATOLOGY [place] [address] Scheduled Orders Name Type Priority Associated Diagnoses Orde r Schedule CBC (with Diff) Lab STAT CLL (chronic lymphocytic leukemia) Every 12 Weeks for 4 Occurrences starting 05/15/2024 until 05/15/2025 Comprehensive metabolic panel (non-fasting) Lab STAT CLL (chronic lymphocytic leukemia) Every 12 Weeks for 4 Occurrences starting 05/15/2024 until 05/15/2025 Lactate Dehydrogenase Lab STAT CLL (chronic lymphocytic leukemia) Every 12 Weeks for 4 Occurrences starting 05/15/2024 until 05/15/2025 documented as of this encounter Procedures Procedure Name Priority Date/Time Associated Diagnosis Comments CBC (WITH DIFF) Routine 05/14/2024 COMPREHENSIVE METABOLIC PANEL Routine 05/14/2024 documented in this encounter Results * Comprehensive metabolic panel (non-fasting) (05/14/2024) Creatinine 0.9 Potassium 3.8 Bilirubin, Total 0.5 Aspartate Aminotransferase 40 Alanine Aminotransferase 77 Lactate Dehydrogenase 190 Blood 05/14/2024 Historical Provider CHEMISTRY ORDERAB LES * CBC (with Diff) (05/14/2024) White Blood Cell 15.03 Hemoglobin 13.7 Hematocrit 41.7 Platelet 164 Neutrophil Absolute (ANC) - Automated 4.36 Blood 05/14/2024 Historical Provider HEMATOLOGY ORDERA BLES documented in this encounter Visit Diagnoses Diagnosis CLL (chronic lymphocytic leukemia) Chronic lymphoid leukemia, without mention of having achieved remission documented in this encounter Care Teams Smog Technician Relationship Specialty Start Date End Date Precious Nixon MD [address] [place] [address] PCP - General Family Medicine 06/07/17 documented as of this encounter
--- OUTSIDE RECORDS SUMMARY | 2024-10-12 12:01 | XMS_ITS | Encounter Summary ---
Author Organization [facility] [place] [address] Care Team Providers Care Television Newscast Director Name Role Phone Precious Nixon MD Primary Care Provider [phone] Encounter Details Date Type Department Care Team (Late Contact Info) Description 08/09/2023 Telephone Radiation Oncology at [address] [phone] Neena Kruse Social History Tobacco Use Types Packs/Day Years Used Date Smoking Tobacco: Never Smokeless Tobacco: Never Alcohol Use Standard Drinks/Week Comments Yes 0 (1 standard drink = 0.6 oz pur e alcohol) 7-10 per week Sex and Gender Information Value Date Recorded Sex Assigned at Not on file Gender Identity Not on file Sexual Orientation Not on file documented as of this encounter Miscellaneous Notes * Telephone Encounter - Neena Kruse - 08/09/2023 9:46 AM EDT Called Hilary at number listed on chart and left message in response to her message about getting rescheduled to see Dr. Flores. I asked that she call back to reschedule with the two dates that I offered documented in this encounter Plan of Treatment Upcoming Encounters Date Type Department Care Team (Late Contact Info) Description 12/18/2024 11:30 AM EST Office Visit Hematology/Oncology at [address] [phone] Leticia Buckley MD [facility] [address] [place] [address] Mili Klein APRN [facility] [place] [address] documented as of this encounter Visit Diagnoses Not on filedocumented in this encounter Care Teams Television Newscast Director Relationship Specialty Start Date End Date Precious Nixon MD [address] [place] [address] PCP - General Family Medicine 06/07/17 documented as of this encounter
--- OUTSIDE RECORDS SUMMARY | 2024-10-12 12:01 | XMS_ITS | Encounter Summary ---
Author Organization [facility] [place] [address] Care Team Providers Care Lay Out Helper Name Role Phone Precious Nixon MD Primary Care Provider [phone] Reason for Visit * Reason Onset Date Comments Follow-up 03/23/2022 Encounter Details Date Type Department Care Team (Late st Contact Info) Description 03/23/2022 Telephone Hematology/Oncology at [address] [phone] Danielle Rendon RN Follow-up Social History Tobacco Use Types Packs/Day Years [...] encounter Miscellaneous Notes * Telephone Encounter - Danielle Rendon RN - 03/23/2022 9:16 AM EDT Called pt and left message to let her know covid antibody spike from 03/[address] Buckley. Pt does not need evushuld. If she still wants it she can call clinic and Dr. Buckley will order it . documented in this encounter Plan of Treatment Upcoming Encounters Date Type Department Care Team (Late st Contact Info) Description 12/18/2024 11:30 AM EST Office Visit Hematology/Oncology at [address] [phone] Leticia Buckley MD [facility] [place] [address] Mili Klein APRN [facility] [place] [address] documented as of this encounter Visit Diagnoses Not on filedocumented in this encounter Care Teams Lay Out Helper Relationship Specialty Start Date End Date Precious Nixon MD [address] [place] [address] PCP - General Family Medicine 06/07/17 documented as of this encounter
--- OUTSIDE RECORDS SUMMARY | 2024-10-12 12:01 | XMS_ITS | Encounter Summary ---
Author Organization [facility] [place] [address] Care Team Providers Care Boat Motor Mechanic Name Role Phone Precious Nixon MD Primary Care Provider [phone] Reason for Visit * Reason Comments Follow-up Encounter Details Date Type Department Care Team (Late st Contact Info) Description 08/14/2023 3:30 PM EDT Office Visit Radiation Oncology at [address] [phone] Brianna Flores MD [facility] [address] S/P radiotherapy Social History Tobacco Use Types Packs/Day Years [...] Sign Reading Time Taken Comments Blood Pressure 169/85 08/14/2023 3:44 PM EDT Pulse 93 08/14/2023 3:44 PM EDT Temperature 37 ??C (98.6 ??F) 08/14/2023 3:4 4 PM EDT Respiratory Rate 20 08/14/2023 3:44 PM EDT Oxygen Saturation 99% 08/14/2023 3:4 4 PM EDT Inhaled Oxygen Concentration - - Weight 114.2 kg (251 lb 12. 8 oz) 08/14/2023 3:44 PM EDT with shoes Height - - Body Mass Index 37.17 04/26/2023 1:00 PM EDT documented in this encounter Patient Instructions * Patient Instructions* Brianna Flores MD - 08/14/2023 3:30 PM EDT Your exam is without worrisome finding. Someone will contact you to schedule followup in 6 months. documented in this encounter Progress Notes * Brianna Flores MD - 08/14/2023 3:30 PM EDT Images from the original note were not included. CC: Sched'd followup s/p xrt completion. HPI: Hilary is a 63 y/o f who completed postop brachytherapy xrt to vaginal apex 1 yr., 6 mos ago (02/04/22) for endometrial ca, endometrioid type, FIGO gr1, s/p robotic assisted total laparoscopic hys-BSO w/SNB & pelvic lymphadenectomy, pT1b pN0(i+), tumor 5.2 cm, involves lower uterine segment. CLL dx'd 2014, not tx'd, followed. Subjective: No pain. No vag disch/bleeding. Less urinary incontinence compared to a yr ago; now characterized by urge urinary incontinence. Bowels a little loose this AM, but generally no bowel problem. Occasional swelling lower exts if on feet for prolonged time; goes down overnight. Not working @present. Energy level good; has been travelling to [facility] to see & to [place] to visit family. Not using vag dilator; no problem w/sexual intercourse w/. Past Medical History: Diagnosis Date Anxiety disorder CLL (chronic lymphocytic leukemia) 2014 Diagnosed 2 years ago, never needed treatment, currently being monitored Depression Endometrial cancer, grade I 10/26/2021 Hypertension Obesity (BMI 35.0-39.9 without comorbidity) No lupus/scleroderma. Past Surgical History: Procedure Laterality Date CHOLECYSTECTOMY PRO INTRAOP SENTINEL LYMPH ID W/DYE INJECTION N/A 11/09/2021 INTRAOPERATIVE ID (MAPPING) SENTINEL LYMPH NODE,INCLUDES INJECTION (WRVU 2.5) performed by Jazz Johnson MD at [facility] MAIN OR PRO LAP, PELVIC LYMPHADENECTOMY/BX N/A 11/09/2021 LAPAROSCOPY,W\BILATERAL TOTAL PELVIC LYMPHADENECTOMY, PERIAORTIC LYMPH NODE SAMPLING, ROBOTIC (WRVU15.6) performed by Jazz Johnson MD at [facility] MAIN OR PRO LAPAROSCOPY W TOT HYSTERECTUTERUS <=250 GRAM W TUBE/OVARY N/A 11/09/2021 LAPAROSCOPY,TOTAL HYST, UTERUS<250GM, REM TUBE &/OR OVARY, ROBOTIC ASSIST (WRVU 15) performed by Jazz Johnson MD at [facility] MAIN OR TOTAL KNEE ARTHROPLASTY Bilateral left was done 09/15/21 Your Medications Accurate as of August 14, 2023 4:08 PM. If you have any questions, ask your nurse or doctor. Continued medications, unchanged Dose Details amLODIPine 10 mg tablet Commonly known as: Norvasc Take 10 mg by mouth daily. 10 mg Refills: 0 losartan-hydroCHLOROthiazide 100-25 mg tablet Commonly known as: Hyzaar Take 1 tablet by mouth daily. 1 tablet Refills: 0 naproxen sodium 220 mg tablet Commonly known as: Anaprox Take 440 mg by mouth daily as needed. 440 mg Refills: 0 venlafaxine 150 mg ER 24 hr capsule Commonly known as: Effexor-XR TAKE ONE CAPSULE BY MOUTH EVERY DAY Refills: 1 Physical Exam Constitutional: General: She is not in acute distress. Comments: HENT: Head: Normocephalic. Eyes: General: No scleral icterus. Right eye: No discharge. Left eye: No discharge. Extraocular Movements: Extraocular movements intact. Conjunctiva/sclera: Conjunctivae normal. Pulmonary: Effort: Pulmonary effort is normal. No respiratory distress. Breath sounds: Normal breath sounds. No stridor. No wheezing, rhonchi or rales. Abdominal: General: There is no distension. Palpations: Abdomen is soft. There is no mass. Tenderness: There is no abdominal tenderness. There is no guarding or rebound. Genitourinary: General: Normal vulva. Vagina: No vaginal discharge. Rectum: Normal. Comments: Pelvic exam in dorsolithotomy position showed nl external genitalia. Speculum exam showednl urethra & vag vault well healed, w/o lesion/mass. Bimanual & rectovag exams w/o worrisome finding. Musculoskeletal: Cervical back: Normal range of motion and neck supple. No tenderness. Right lower leg: No edema. Left lower leg: No edema. Lymphadenopathy: Head: Right side of head: No submental, submandibular, preauricular, posterior auricular or occipital adenopathy. Left side of head: No submental, submandibular, preauricular, posterior auricular or occipital adenopathy. Cervical: No cervical adenopathy. Upper Body: Right upper body: No supraclavicular adenopathy. Left upper body: No supraclavicular adenopathy. Lower Body: No right inguinal adenopathy. No left inguinal adenopathy. Skin: General: Skin is warm and dry. Neurological: Mental Status: She is alert and oriented to person, place, and time. Coordination: Coordination normal. Gait: Gait normal. Psychiatric: Mood and Affect: Mood normal. Behavior: Behavior normal. Thought Content: Thought content normal. Judgment: Judgment normal. A: [place]. P: Rtc 6 mos. 20 mins encounter documented in this encounter Plan of Treatment Upcoming Encounters Date Type Department Care Team (Late st Contact Info) Description 12/18/2024 11:30 AM EST Office Visit Hematology/Oncology at [address] [phone] Leticia Buckley MD [facility] [address] [place] [address] Mili Klein APRN [facility] [place] [address] documented as of this encounter Visit Diagnoses Diagnosis S/P radiotherapy Convalescence following radiotherapy documented in this encounter Care Teams Boat Motor Mechanic Relationship Specialty Start Date End Date Precious Nixon MD [address] [place] [address] PCP - General Family Medicine 06/07/17 documented as of this encounter
--- OUTSIDE RECORDS SUMMARY | 2024-10-12 12:01 | XMS_ITS | Encounter Summary ---
Author Organization [facility] [place] [address] Care Team Providers Care Extension Educator Name Role Phone Precious Nixon MD Primary Care Provider [phone] Encounter Details Date Type Department Care Team (Latest Contact Info) Description 04/08/2024 Travel Social History Tobacco Use Types Packs/Day [...] 11:30 AM EST Office Visit Hematology/Oncology at [address] [phone] Leticia Buckley MD [facility] DR HEMATOLOGY [place] [address] Mili Klein, [employer]OVING [employer] [facility] [place]ATOLOG[place] [address] documented as of this encounter Visit Diagnoses Not on filedocumented in this encounter Care Teams Extension Educator Relationship Specialty Start Date End Date Precious Nixon MD [address] [place] [address] PCP - General Family Medicine 06/07/17 documented as of this encounter
--- OUTSIDE RECORDS SUMMARY | 2024-10-12 12:01 | XMS_ITS | Encounter Summary ---
Author Organization [facility] [place] [address] Care Team Providers Care Rat Culturist Name Role Phone Precious Nixon MD Primary Care Provider [phone] Encounter Details Date Type Department Care Team (Latest Contact Info) Description 05/15/2024 Travel Social History Tobacco Use Types Packs/Day [...] 11:30 AM EST Office Visit Hematology/Oncology at [address] [phone] Leticia Buckley MD [facility] DR HEMATOLOGY [place] [address] Mili Klein, [employer] [facility] HEMATOLOGY [place] [address] documented as of this encounter Visit Diagnoses Not on filedocumented in this encounter Care Teams Rat Culturist Relationship Specialty Start Date End Date Precious Nixon MD [address] [place] [address] PCP - General Family Medicine 06/07/17 documented as of this encounter
--- OUTSIDE RECORDS SUMMARY | 2024-10-12 12:01 | XMS_ITS | Encounter Summary ---
Author Organization [facility] [place] [address] Care Team Providers Care Railroad Detective Name Role Phone Precious Nixon MD Primary Care Provider [phone] Encounter Details Date Type Department Care Team (Late Contact Info) Description 03/28/2024 Orders Only Hematology [place] [phone] Mili Klein APRN [facility] [address] [place] [address] CLL (chronic lymphocytic leukemia) Social History Tobacco [...] 11:30 AM EST Office Visit Hematology/Oncology at [address] [phone] Leticia Buckley MD [facility] [address] [place] [address] Mili Klein APRN [facility] [address] [place] [address] Scheduled Orders Name Type Priority Associated Diagnoses Orde r Schedule IgG Lab STAT CLL (chronic lymphocytic leukemia) As Needed for 6 Occurrences starting 03/28/2024 until 03/28/2025 documented as of this encounter Visit Diagnoses Diagnosis CLL (chronic lymphocytic leukemia) Chronic lymphoid leukemia, without mention of having achieved remission documented in this encounter Care Teams Railroad Detective Relationship Specialty Start Date End Date Precious Nixon MD [address] [place] [address] PCP - General Family Medicine 06/07/17 documented as of this encounter
--- OUTSIDE RECORDS SUMMARY | 2024-10-12 12:01 | XMS_ITS | Encounter Summary ---
Author Organization [facility] [place] [address] Care Team Providers Care Hat Measurer Name Role Phone Precious Nixon MD Primary Care Provider [phone] Encounter Details Date Type Department Care Team (Late Contact Info) Description 04/25/2023 Orders Only Hematology/Oncology at [address] [phone] Mili Klein APRN [facility] [place] [address] CLL (chronic lymphocytic leukemia) Social History Tobacco [...] 11:30 AM EST Office Visit Hematology/Oncology at [address] [phone] Leticia Buckley MD [facility] [place] [address] Mili Klein APRN [facility] DR [place] [address] documented as of this encounter Visit Diagnoses Diagnosis CLL (chronic lymphocytic leukemia) Chronic lymphoid leukemia, without mention of having achieved remission documented in this encounter Care Teams Hat Measurer Relationship Specialty Start Date End Date Precious Nixon MD [address] [place] [id number] PCP - General Family Medicine 06/07/17 documented as of this encounter
--- OUTSIDE RECORDS SUMMARY | 2024-10-12 12:01 | XMS_ITS | Encounter Summary ---
Author Organization [facility] [place] [address] Care Team Providers Care Adventure Education Teacher Name Role Phone Precious Nixon MD Primary Care Provider [phone] Encounter Details Date Type Department Care Team (Latest Contact Info) Description 11/15/2023 Travel Social History Tobacco Use Types Packs/Day [...] 11:30 AM EST Office Visit Hematology/Oncology at [address] [phone] Leticia Buckley MD [facility] DR [place] [address] Mili Klein, TOOL PUSHER [facility] [place] [address] documented as of this encounter Visit Diagnoses Not on filedocumented in this encounter Care Teams Adventure Education Teacher Relationship Specialty Start Date End Date Precious Nixon MD [address] [place] [address] PCP - General Family Medicine 06/07/17 documented as of this encounter
--- OUTSIDE RECORDS SUMMARY | 2024-10-12 12:01 | XMS_ITS | Encounter Summary ---
Author Organization [facility] [place] [address] Care Team Providers Care Teaching Associate Name Role Phone Precious Nixon MD Primary Care Provider [phone] Encounter Details Date Type Department Care Team (Late st Contact Info) Description 09/15/2022 3:15 PM EDT Office Visit [place] [phone] Nury Regalado, [address] HEMATOLOGY AND ONCOLOGY [place], [place] [id number] S/P radiotherapy; Endometrial ca Social History Tobacco Use Types Packs/Day Years [...] Sign Reading Time Taken Comments Blood Pressure 167/84 09/15/2022 3:24 PM EDT Pulse 74 09/15/2022 3:24 PM EDT Temperature 35.9 ??C (96.6 ??F) 09/15/2022 3:24 PM ED T Respiratory Rate - - Oxygen Saturation 100% 09/15/2022 3:24 PM EDT Inhaled Oxygen Concentration - - Weight 117.4 kg (258 lb 13.1 oz) 09/15/2022 3:24 PM EDT Height - - Body Mass Index 38.2 09/14/2022 1:26 PM EDT documented in this encounter Progress Notes * Nury Regalado Mando, ORAL SURGERY PHYSICIAN - 09/15/2022 3:15 PM EDT Images from the original note were not included. CC: Sched'd followup s/p xrt completion. HPI: Hilary is a 62 y.o. f who completed postop brachytherapy xrt to vaginal apex 7 mos ago (02/04/22)for endometrial ca, endometrioid type, FIGO gr1, s/p robotic assisted total laparoscopic hys-BSO w/SNB & pelvic lymphadenectomy, pT1b pN0(i+), tumor 5.2 cm, involves lower uterine segment. CLL dx'd 2014, not tx'd, followed. Subjective: Feels well. Energy level improving over time since treatment. Urinary incontinence has improved notably (had been having some incontinence after surgery, lavelle at night, was wearing pads). No bleeding. Hasn't used dilator on a very regular basis, but had intercourse w/ a few monthsago when he was [place] ([place]) and while she was anxious re how it might feel, was pleasantly surprised that it felt fine, no pain/problems. No bowel issues. Stable mood, sees therapist. Nothoughts of self harm/SI. 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 4 children - 3 grown daughters, son ~ 2 yrs ago. 1 dtr and her family (incl 2.5 yr grandchild) live with Hilary. is from [place]; immigration issues have been challenging; hoping to see one another before Bul[place]. Past Medical History: Diagnosis Date ??? Anxiety disorder ??? CLL (chronic lymphocytic leukemia) 2014 Diagnosed 2 years ago, never needed treatment, currently being monitored ??? Depression ??? Endometrial cancer, grade I 10/26/2021 ??? Hypertension ??? Obesity (BMI 35.0-39.9 without comorbidity) No lupus/scleroderma. Past Surgical History: Procedure Laterality Date ??? CHOLECYSTECTOMY ??? PRO INTRAOP SENTINEL LYMPH ID W/DYE INJECTION N/A 11/09/2021 INTRAOPERATIVE ID (MAPPING) SENTINEL LYMPH NODE,INCLUDES INJECTION (WRVU 2.5) performed by Jazz Johnson MD at [facility] MAIN OR ??? PRO LAP, PELVIC LYMPHADENECTOMY/BX N/A 11/09/2021 LAPAROSCOPY,W\BILATERAL TOTAL PELVIC LYMPHADENECTOMY, PERIAORTIC LYMPH NODE SAMPLING, ROBOTIC (WRVU15.6) performed by Jazz Johnson MD at [facility] MAIN OR ? ? PRO LAPAROSCOPY W TOT HYSTERECTUTERUS <=250 GRAM W TUBE/OVARY N/A 11/09/2021 LAPAROSCOPY,TOTAL HYST, UTERUS<250GM, REM TUBE &/OR OVARY, ROBOTIC ASSIST (WRVU 15) performed by Jazz Johnson MD at [facility] MAIN OR ??? TOTAL KNEE ARTHROPLASTY Bilateral left was done 09/15/21 Your Medications Accurate as of September 15, 2022 4:48 PM. If you have any questions, ask your nurse or doctor. Continued medications, unchanged Dose Details amLODIPine 10 mg Tab Commonly known as: Norvasc Take 10 mg by mouth daily. 10 mg Refills: 0 ibuprofen 600 mg Tab Commonly known as: Advil Take 1 tablet by mouth every 6 hours as needed for Pain. 600 mg Quantity: 30 tablet Refills: 12 losartan-hydrochlorothiazide 100-25 mg Tab Commonly known as: HYZAAR Take 1 tablet by mouth daily. 1 tablet Refills: 0 naproxen sodium 220 mg Tab Commonly known as: ANAPROX Take 440 mg by mouth daily as needed. 440 mg Refills: 0 venlafaxine 150 mg Cp24 Commonly known as: EFFEXOR-XR TAKE ONE CAPSULE BY MOUTH EVERY DAY Refills: 1 Physical Exam Vitals reviewed. Constitutional: General: She is not in acute distress. Appearance: Normal appearance. Comments: BP 167/84 (Patient Position: Sitting) Pulse 74 Temp 35.9 ??C (96.6 ??F) (Tympanic) Wt 117.4 kg (258 lb 13.1 oz) SpO2 100% BMI 38.20 kg/m?? Wt Readings from Last 3 Encounters: 09/15/22 : 117.4 kg (258 lb 13.1 oz) 09/14/22 : 117.4 kg (258 lb 12.8 oz) 03/14/22 : 110 kg (242 lb 6.4 oz) HENT: Head: Normocephalic and atraumatic. Eyes: General: No scleral icterus. Conjunctiva/sclera: Conjunctivae normal. Pulmonary: Effort: Pulmonary effort is normal. Breath sounds: Normal breath sounds. Chest: Breasts: Right: No supraclavicular adenopathy. Left: No supraclavicular adenopathy. Abdominal: General: There is no distension. Palpations: Abdomen is soft. There is no mass. Tenderness: There is no abdominal tenderness. There is no guarding or rebound. Genitourinary: General: Normal vulva. Vagina: No vaginal discharge. Rectum: Normal. Comments: Pelvic exam in dorsolithotomy position showed nl external genitalia. Speculum exam showednl urethra & vag vault well healed, w/o lesion/mass. Bimanual exam w/o worrisome finding. Musculoskeletal: Cervical back: Normal [...] General: Skin is warm and dry. Neurological: General: No focal deficit present. Mental Status: She is alert and oriented to person, place, and time. Coordination: Coordination normal. Gait: Gait normal. Psychiatric: Mood and Affect: Mood normal. Behavior: Behavior normal. Thought Content: Thought content normal. Judgment: Judgment normal. A: Hilary has healed well s/p surgery and brachytherapy. No concerning symptoms or exam findings today. Encouraged regular use of dilator (2 x/week) to help prevent tightening r/t fibrosis. Follow-up: She is not currently scheduled for any bulk cooler installer f/u at this time (did not receive any f/u guidelines from bulk cooler installer/surgical/onc s/p surgery). I discussed with Dr. Flores who recommends f/u visits with our team every [address] Flores in [facility] and me here in [place]. Next visit: [address] Flores in [facility] Hilary knows to call in the interim with any new concerns. Nury Regalado APRN Radiation Oncology documented in this encounter Plan of Treatment Upcoming Encounters Date Type Department Care Team (Late st Contact Info) Description 12/18/2024 11:30 AM EST Office Visit Hematology/Oncology at [address] [phone] Leticia Buckley MD [facility] DR HEMATOLOGY [place] [address] Mili Klein APRN [facility] [address] HEMATOLOGY [place] [address] documented as of this encounter Visit Diagnoses Diagnosis S/P radiotherapy Convalescence following radiotherapy Endometrial ca Malignant neoplasm of corpus uteri, except isthmus documented in this encounter Care Teams Teaching Associate Relationship Specialty Start Date End Date Precious Nixon MD [address] [place] [address] PCP - General Family Medicine 06/07/17 documented as of this encounter
--- OUTSIDE RECORDS SUMMARY | 2024-10-12 12:01 | XMS_ITS | Encounter Summary ---
Author Organization [facility] [place] [address] Care Team Providers Care Aerial Sprayer Name Role Phone Precious Nixon MD Primary Care Provider Encounter Details Date Type Department Care Team (Latest Contact Info) Description 04/24/2023 Travel Social History Tobacco Use Types Packs/Day [...] AM EST Office Visit Hematology/Oncology at [address] [phone] Leticia Buckley MD [facility] DR [place] [address] Mili Klein, SPRAY DRY OPERATOR [facility] [place] [address] documented as of this encounter Visit Diagnoses Not on filedocumented in this encounter Care Teams Aerial Sprayer Relationship Specialty Start Date End Date Precious Nixon MD [address] [place] [address] PCP - General Family Medicine 06/07/17 documented as of this encounter
--- OUTSIDE RECORDS SUMMARY | 2024-10-12 12:01 | XMS_ITS | Encounter Summary ---
Author Organization [facility] [place] [address] Care Team Providers Care Therapy Site Coordinator Name Role Phone Precious Nixon MD Primary Care Provider [phone] Encounter Details Date Type Department Care Team (Late Contact Info) Description 04/08/2024 Telephone Radiation Oncology at [address] [phone] Francisca Stevens Social History Tobacco Use Types Packs/Day Years [...] encounter Miscellaneous Notes * Telephone Encounter - Francisca Stevens - 04/08/2024 12:11 PM EDT Hilary called because she is scheduled for an appointment today with Dr. Flores. She is currently outof state. Will be returning tomorrow and will call to reschedule then. documented in this encounter Plan of Treatment Upcoming Encounters Date Type Department Care Team (Late Contact Info) Description 12/18/2024 11:30 AM EST Office Visit Hematology/Oncology at [address] [phone] Leticia Buckley MD [facility] DR [place] [address] Mili Klein APRN [facility] [place] [address] documented as of this encounter Visit Diagnoses Not on filedocumented in this encounter Care Teams Therapy Site Coordinator Relationship Specialty Start Date End Date Precious Nixon MD [address] [place] [address] PCP - General Family Medicine 06/07/17 documented as of this encounter
--- OUTSIDE RECORDS SUMMARY | 2024-10-12 12:01 | XMS_ITS | Encounter Summary ---
Author Organization [facility] [place] [address] Care Team Providers Care Car Spotter Name Role Phone Precious Nixon MD Primary Care Provider [phone] Reason for Visit * Reason Comments Follow-up Encounter Details Date Type Department Care Team (Late st Contact Info) Description 09/14/2022 1:00 PM EDT Office Visit Hematology/Oncology at [address] [phone] Leticia Buckley MD [facility] [address] [place] [address] Mili Klein, KIMBERLI [facility] [place] [address] CLL (chronic lymphocytic leukemia); Endometrial cancer, grade I Social History Tobacco Use Types Packs/Day Years [...] Sign Reading Time Taken Comments Blood Pressure 155/77 09/14/2022 1:26 PM EDT Pulse 97 09/14/2022 1:26 PM EDT Temperature 36.4 ??C (97.5 ??F) 09/14/2022 1:26 PM ED T Respiratory Rate 18 09/14/2022 1:26 PM EDT Oxygen Saturation 99% 09/14/2022 1:26 PM EDT Inhaled Oxygen Concentration - - Weight 117.4 kg (258 lb 12.8 oz) 09/14/2022 1:26 PM EDT Height 175.3 cm (5' 9.02) 09/14/2022 1:26 PM ED T Body Mass Index 38.2 09/14/2022 1:26 PM EDT documented in this encounter Progress Notes * Mili Klein, WASTE MANAGEMENT ENGINEER - 09/14/2022 1:00 PM [place] [address] HEMATOLOGY PATIENT EVALUATION PROBLEM LIST: Patient Active Problem List Diagnosis ??? Endometrial cancer, grade I ??? Obesity (BMI 35.0-39.9 without comorbidity) ??? Hypertension ??? Depression ??? Anxiety disorder ??? CLL (chronic lymphocytic leukemia) Diagnosed 2014, never needed treatment, currently being monitored No cytopenias. WBC about 20-25k. HISTORY OF PRESENT ILLNESS: Hilary Lowe is a 62 y.o. female being seen for evaluation of CLL. She was referred in consultaion from Dr. Elba Chi. 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 She previously received her carefor CLL by Dr. Alycia Rodriguez from [facility]. According to the patient, she has [...] sweats, unintentional weight loss or palpable adenopathy. She continues to recover strength and stamina now ~ 6 months s/p completion of brachytherapy for her endometrial cancer. No late effectsof therapy or recurrent bleeding. No new health-related concerns. PMHX: Past Medical History: Diagnosis Date ??? Anxiety disorder ??? CLL (chronic lymphocytic leukemia) 2015 Diagnosed 2 years ago, never needed treatment, currently being monitored ??? Depression ??? Endometrial cancer, grade I 10/26/2021 ??? Hypertension ??? Obesity (BMI 35.0-39.9 without comorbidity) ROS Energy level: slowly improving though looking to reduce work hours slightly for better balance Pain: No Appetite: good Fevers/chills/sweats: No Bruising/bleeding/melena: [...] sleeping MEDS: Current Outpatient Medications Medication Instructions ??? amLODIPine (NORVASC) 10 mg, Oral, DAILY ??? ibuprofen (ADVIL) 600 mg, Oral, EVERY 6 HOURS PRN ??? losartan-hydrochlorothiazide (HYZAAR) 100-25 mg Tablet 1 tablet, Oral, DAILY ??? naproxen sodium (ANAPROX) 440 mg, Oral, DAILY PRN ??? venlafaxine (EFFEXOR-XR) 150 mg Capsule, Sust. Release [...] Emmanuel, son, of OD. Daughters were in [facility] and [facility] - now all in [place]. Marion in [place] is expecting a child - this is Hilary's first grandchild. 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 Has taken courses on the history of culture in [place] and loves it there. ETOH: 1-2 glasses of wine, 5 times a week Smoking: Never PHYSICAL EXAM BP 155/77 (Patient Position: Sitting) Pulse 97 Temp 36.4 ??C (97.5 ??F) (Temporal) Resp 18 Ht 175.3 cm (5' 9.02) Wt 117.4 kg (258 lb 12.8 oz) SpO2 99% BMI 38.20 kg/m?? GENERAL: Hilary Lowe is a well-developed, well-nourished, well-appearing 62 year old female in [facility] ENT: oropharynx clear without hyperemia, exudative plaques [...] spinal or chest wall tenderness. LABORATORY STUDIES 03/09/22 00:00 03/19/22 11:47 09/14/22 00:00 WBC 11.06 (E) 10.87 (E) Hemoglobin 12.6 (E) 13.4 (E) Hematocrit 37.9 (E) 40.1 (E) Platelets 191 (E) 171 (E) Neutr Abs (ANC) 3.95 (E) 5.65 (E) Sodium 142 (E) Potassium 3.6 (E) Chloride 104 (E) BUN 17 (E) Creatinine 1 (E) 0.9 (E) Calcium 9.4 (E) Total Protein 7.8 (E) Albumin 4.1 (E) Total Bilirubin 0.5 (E) Alk Phos 115 (E) AST 27 (E) ALT 46 (E) LDH 167 (E) 152 (E) SARS-CoV-2 Terence Ab Detected (E): External lab result RADIOLOGY STUDIES REVIEWED: No new images reviewed today ASSESSMENT/PLAN: Ms. Lowe is a pleasant 62 y.o. female w/ hx of stage 0 CLL, untreated today, who presents in routine follow-up. At the time of her diagnosis of endometrial cancer in 2020, abdominal adenopathy was noted the largest lymph node being about 4 cm. Lymph nodes excised at the time of [facility], showed no evidence of endometrial cancer. [...] knee replacement. Needs left knee replacement Plan: ?? Check covid spike ab at [facility] - if neg - recommend Evusheld and then 4th vaccine after evusheld ?? If covid spike ab is Positive then just 4th vaccine (no Evusheld) ?? RTC in 6 mos with cbc, cmp, ldh ?? Hilary Lowe knows that she can call us any time with questions or concerns. I discussed all of the above with the patient and all of her questions were answered. Support and counseling given as appropriate. Hilary Lowe knows that she can call us any time with questions or concerns. Mili Klein, MSN, WASTE MANAGEMENT ENGINEER Nurse practitioner Section of Hematology Copy Precious Nixon MD . documented in this encounter Plan of Treatment Upcoming Encounters Date Type Department Care Team (Late st Contact Info) Description 12/18/2024 11:30 AM EST Office Visit Hematology/Oncology at [address] [phone] Leticia Buckley MD [facility] [place] [address] Mili Klein APRN [facility] [place] [address] documented as of this encounter Procedures Procedure Name Priority Date/Time Associated Diagnosis Comments CBC (WITH DIFF) Routine 09/14/2022 LACTATE DEHYDROGENASE Routine 09/14/2022 COMPREHENSIVE METABOLIC PANEL Routine 09/14/2022 documented in this encounter Results * CBC (with Diff) (09/14/2022) White Blood Cell 10.87 [facility] Hemoglobin 13.4 [facility] Hematocrit 40.1 [facility] Platelet 171 [facility] Neutrophil Absolute (ANC) - Automated 5.65 [facility] Blood 09/14/2022 Historical Provider HEMATOLOGY ORDERPaula BLES [facility] [address] [place], [place] [address] [phone] * Comprehensive metabolic panel (non-fasting) (09/14/2022) Pathologist [facility] Blood Urea Nitrogen 17 [facility] Creatinine 0.9 [facility] Sodium 142 [facility] Potassium 3.6 [facility] Chloride 104 [facility] Calcium 9.4 [facility] Protein, Total 7.8 [facility] Albumin 4.1 [facility] Bilirubin, Total 0.5 [facility] Alkaline Phosphatase 115 [facility] Aspartate Aminotransferase [address] [facility] Alanine Aminotransferase [address] [facility] Blood 09/14/2022 Historical Provider CHEMISTRY ORDERAB LES [facility] [address] [facility] [address] [phone] * Lactate Dehydrogenase (09/14/2022) Lactate Dehydrogenase 152 Blood 09/14/2022 Historical Provider CHEMISTRY ORDERAB LES documented in this encounter Visit Diagnoses Diagnosis CLL (chronic lymphocytic leukemia) Chronic lymphoid leukemia, without mention of having achieved remission Endometrial cancer, grade I documented in this encounter Care Teams Car Spotter Relationship Specialty Start Date End Date Precious Nixon MD [address] [place] [address] PCP - General Family Medicine 06/07/17 documented as of this encounter
--- OUTSIDE RECORDS SUMMARY | 2024-10-12 12:01 | XMS_ITS | Encounter Summary ---
Author Organization [facility] [place] [address] Care Team Providers Care Lead Project Engineer Name Role Phone Precious Nixon MD Primary Care Provider [phone] Encounter Details Date Type Department Care Team (Late st Contact Info) Description 03/18/2022 Telephone Radiation Oncology at [address] [phone] Tessie Paiz, RN Social History Tobacco Use Types Packs/Day Years [...] encounter Miscellaneous Notes * Telephone Encounter - Tessie Paiz RN - 03/18/2022 3:30 PM EDT Radiation Oncology Nurse Telephone Note [facility] [place], [place] Thanks! Can you ask front office to scan? Can you let Hilary know no indication for C&S? Brianna -----Original Message----- From: Tessie Paiz Sent: Friday, March 18, 2022 3:20 PM To: Brianna Flores Subject: FW: UA results Hi Dr Flores, Here is the UA report you have requested. Tessie 03/18/22 3:32 telephone call to [phone] left brief with informations that recent test was negative that had no indication for culture or sensitivity. I left my name and contact information incase she has any questions. documented in this encounter Plan of Treatment Upcoming Encounters Date Type Department Care Team (Late st Contact Info) Description 12/18/2024 11:30 AM EST Office Visit Hematology/Oncology at [address] [phone] Leticia Buckley MD [facility] DR H[place]AT[place] [address] Mili Klein APRN [facility] DR [place] [address] documented as of this encounter Visit Diagnoses Not on filedocumented in this encounter Care Teams Lead Project Engineer Relationship Specialty Start Date End Date Precious Nixon MD [address] [place] [address] PCP - General Family Medicine 06/07/17 documented as of this encounter
--- OUTSIDE RECORDS SUMMARY | 2024-10-12 12:01 | XMS_ITS | Encounter Summary ---
Author Organization [facility] [place] [address] Care Team Providers Care Mannequin Coloring Artist Name Role Phone Precious Nixon MD Primary Care Provider [phone] Encounter Details Date Type Department Care Team (Latest Contact Info) Description 04/26/2023 Travel Social History Tobacco Use Types Packs/Day [...] 11:30 AM EST Office Visit Hematology/Oncology at [address] [phone] Leticia Buckley MD [facility] DR HEMATOLOGY [place] [address] Mili Klein, SUBSTATION ELECTRICIAN [facility] HEMATOLOGY [place] [address] documented as of this encounter Visit Diagnoses Not on filedocumented in this encounter Care Teams Mannequin Coloring Artist Relationship Specialty Start Date End Date Precious Nixon MD [address] [place] [address] PCP - General Family Medicine 06/07/17 documented as of this encounter
--- OUTSIDE RECORDS SUMMARY | 2024-10-12 12:01 | XMS_ITS | Encounter Summary ---
Author Organization [facility] [place] [address] Care Team Providers Care Human Resources Benefits Specialist Name Role Phone Precious Nixon MD Primary Care Provider [phone] Encounter Details Date Type Department Care Team (Late st Contact Info) Description 04/26/2023 12:30 PM EDT Office Visit Hematology/Oncology at [address] [phone] Leticia Buckley MD [facility] [address] [place] [address] Mili Klein, KIMBERLI [facility] [address] [place] [address] CLL (chronic lymphocytic leukemia) Social History Tobacco [...] Sign Reading Time Taken Comments Blood Pressure 138/81 04/26/2023 1:00 PM EDT Pulse 90 04/26/2023 1:00 PM EDT Temperature 36.9 ??C (98.4 ??F) 04/26/2023 1:00 PM ED T Respiratory Rate 16 04/26/2023 1:00 PM EDT Oxygen Saturation 99% 04/26/2023 1:00 PM EDT Inhaled Oxygen Concentration - - Weight 112.9 kg (249 lb) 04/26/2023 1:00 PM EDT Height 175.3 cm (5' 9.02) 04/26/2023 1:00 PM ED T Body Mass Index 36.75 04/26/2023 1:00 PM EDT documented in this encounter Progress Notes * Leticia Buckley MD - 04/26/2023 12:30 [place] [address] HEMATOLOGY PATIENT EVALUATION PROBLEM LIST: Patient Active [...] carefor CLL by Dr. Alycia Rodriguez from [facility]. According to the patient, she has been [...] She was last seen in clinic ~ 7 months ago. She rescheduled a few times. Since last seen, Hilary denies changes to her baseline health. Nofevers, chills, recurrent infections or intercurrent illnesses. She is up-to-date with COVID and influenza vaccinations. No drenching sweats, unintentional weight loss or palpable adenopathy. ~ 12 mon ths s/p completion of brachytherapy for her endometrial cancer. No late effects of therapy or recurrent bleeding. No new health-related concerns. Recently retired. Looking forward to [employer]. Visited in [place] for an extended time. PMHX: Past Medical History: Diagnosis Date ??? [...] Emmanuel, son, of OD. Daughters were in [facility] and [facility] - now all in [place]. [place] in [place] is expecting a child - this is Hilary's first grandchild. her from [facility] in 2018. He has not been able to get a visa here yet. 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 Has taken courses on the history of culture in [place] and loves it there. ETOH: 1-2 glasses of wine, 5 times a week Smoking: Never PHYSICAL EXAM BP 138/81 (Patient Position: Sitting) Pulse 90 Temp 36.9 ??C (98.4 ??F) (Temporal) Resp 16 Wt 112.9 kg (249 lb) SpO2 99% BMI 36.75 kg/m?? GENERAL: Hilary Lowe is a well-developed, well-nourished, well-appearing 62 year old female in [facility] ENT: oropharynx clear without hyperemia, exudative plaques [...] (with Diff) Result Value Ref Range WBC 17.45 Hemoglobin 13.8 Hematocrit 41.8 Platelets 173 Neutr Abs (ANC) 4.01 RADIOLOGY STUDIES REVIEWED: No new images reviewed today ASSESSMENT/PLAN: Ms. Lowe is a pleasant 63 y.o. female w/ hx of stage 0 CLL, untreated today, who presents in routine follow-up. At the time of her diagnosis of endometrial cancer in 2020, abdominal adenopathy was noted the largest lymph node being about 4 cm. Lymph nodes excised at the time of DORCAS, showed no evidence of endometrial cancer. She [...] replacement. Needs left knee replacement Plan: ?? RTC in 6 mos with cbc, [...] AM EST Office Visit Hematology/Oncology at [address] [phone] Leticia Buckley MD [facility] [place] [address] Mili Klein APRN [facility] [place] [address] documented as of this encounter Procedures Procedure Name Priority Date/Time Associated Diagnosis Comments CBC (WITH DIFF) Routine 04/26/2023 COMPREHENSIVE METABOLIC PANEL Routine 04/26/2023 documented in this encounter Results * Comprehensive metabolic panel (non-fasting) (04/26/2023) Creatinine 1 Potassium 3.7 Bilirubin, Total 0.5 Aspartate Aminotransferase 24 Alanine Aminotransferase 53 Lactate Dehydrogenase 181 Blood 04/26/2023 Historical Provider CHEMISTRY ORDERAB LES * CBC (with Diff) (04/26/2023) White Blood Cell 17.45 Hemoglobin 13.8 Hematocrit 41.8 Platelet 173 Neutrophil Absolute (ANC) - Automated 4.01 Blood 04/26/2023 Historical Provider HEMATOLOGY ORDERA BLES documented in this encounter Visit Diagnoses Diagnosis CLL (chronic lymphocytic leukemia) Chronic lymphoid leukemia, without mention of having achieved remission documented in this encounter Care Teams Human Resources Benefits Specialist Relationship Specialty Start Date End Date Precious Nixon MD [address] [place] [address] PCP - General Family Medicine 06/07/17 documented as of this encounter
--- OUTSIDE RECORDS SUMMARY | 2024-10-12 12:01 | XMS_ITS | Encounter Summary ---
Author Organization [facility] [place] [address] Care Team Providers Care Secondary Set Up Man Name Role Phone Precious Nixon MD Primary Care Provider [phone] Encounter Details Date Type Department Care Team (Latest Contact Info) Description 03/19/2022 11:35 AM EDT Laboratory Appointment Lab at [address] [place] [phone] CLL (chronic lymphocytic leukemia) Social History Tobacco [...] 11:30 AM EST Office Visit Hematology/Oncology at [address] [phone] Leticia Buckley MD [facility] DR [place] [address] Mili Klein, DIRECTOR AGENCY [employer] STRATE[employer]IC [employer] [facility] [place] [address] (work) documented as of this encounter Procedures Procedure Name Priority Date/Time Associated Diagnosis Comments HC SARS-COV-2 SPIKE ANTIBODY Routine 03/19/2022 11:47 AM EDT CLL (chronic lymphocytic leukemia) documented in this encounter Results * COVID-19 Terence Antibody (03/19/2022 11:47 AM EDT) SARS-CoV-[address] [facility] Comment: This is a total antibody assay to the spike protein of SARS-CoV-2. It does not distinguish between IgG and IgM antibodies to SARS-CoV-2. This test will detect antibodies made against the spike protein due to vaccination or from a previous infection. Results cannot be used to diagnose acute SARS-CoV-2 (Severe acute respiratory syndrome coronavirus 2, also known as 2019 novel coronavirus or 2019-nCoV) infection. A 'Not Detected' result does not rule out SARS-CoV-2 infection, particularly in those who have been in contact with the virus. Follow-up testing with a molecular diagnostic test to SARS-CoV-2 should be considered for individuals with symptoms of active SARS-CoV-2 infection. A 'Detected' result cannot be interpreted as conclusive evidence of protective immunity to the SARS-CoV-2 virus. Detection may be due to a past infection with qda-VSEK-TjS-2 coronavirus strains, such as coronavirus HKU1, NL63, OC43, or 229E. This test was performed using the Elecsys Sods-ZVPS-LpI-2 S total antibody assay on the Rebecca Aidan e801 analyzer. This serology test is available following FDA Emergency Use Authorization, however it has not been reviewed by the FDA, nor is it FDA cleared or approved. The performance characteristics of this test were determined by the Department of Pathology and Laboratory Medicine at [facility]. The laboratory is certified under the Clinical Laboratory Improvement Amendments of 1988 (CLIA), 42 U.S.C. section 263a, to perform high complexity tests. Results should not be used as the sole basis to diagnose or exclude SARS-CoV-2 infection, to inform infection status, or to screen donated blood. CDC COVID-19 criteria for testing on human specimens and clinical management guidance information are available at the CDC Coronavirus Disease 2019 (COVID-19) webpage under Information for Healthcare Professionals (https://www.cdc.gov/coronavirus/2019-ncov/hcp/index.html) Additional information about this and other EUA tests can be found in provider and patient fact sheets at the following FDA website: https://www.fda.gov/medical-devices/cveqbegehqs-yottgyn-9195-oqgpo-93-cruvqgyrj- use-a elebeatmevxwb-klcmnvw-crvfpri/bcdvk-axvvfjkdnrr-zkpu Blood 03/19/2022 11:4 7 AM EDT 03/19/2022 12:55 PM EDT Leticia Buckley MD CHEMISTRY ORDERA [facility] Organization Address City/State/[place] [address] documented in this encounter Visit Diagnoses Diagnosis CLL (chronic lymphocytic leukemia) Chronic lymphoid leukemia, without mention of having achieved remission documented in this encounter Care Teams Secondary Set Up Man Relationship Specialty Start Date End Date Precious Nixon MD [address] [place] [id number] PCP - General Family Medicine 06/07/17 documented as of this encounter
--- OUTSIDE RECORDS SUMMARY | 2024-10-12 12:01 | XMS_ITS ---
Author Organization Unknown ALLERGIES AND ADVERSE REACTIONS No information ASSESSMENT No information CHIEF COMPLAINT No information MEDICATIONS No information OBJECTIVE DATA No information PHYSICAL EXAMINATION No information TREATMENT PLAN Planned Care Start Date Provider Encounter for Check-up [id number] PROBLEMS No information RESULTS No information REVIEW OF SYSTEMS No information SUBJECTIVE DATA No information VITAL SIGNS No information
--- OUTSIDE RECORDS SUMMARY | 2024-10-12 12:02 | XMS_ITS | Encounter Summary ---
[place] [address] Care Team Providers Care Deputy Chief Magistrate Name Role Phone Precious Nixon MD Primary Care Provider [phone] Reason for Referral * Consultation (Routine) - Closed Specialty Diagnoses / Procedures Referred By Neil pate Referred To Contact Radiation Oncology Diagnoses Endometrial cancer Jazz Johnson MD [facility] [place] [address] [place] [address] Referral ID Status Reason Start Date Expiration Date V isits Requested Visits Authorized [id number] Closed Consult, Test & Treat 12/06/2021 12/06/2022 1 1 Encounter Details Date Type Department Care Team (Late st Contact Info) Description 12/06/2021 Orders Only [place] [phone] Rose Reyes, KITA Endometrial cancer Social History Tobacco Use Types Packs/Day Years [...] 11:30 AM EST Office Visit Hematology/Oncology at [address] [phone] Leticia Buckley MD [facility] [address] [place] [address] Mili Klein APRN [facility] [place] [address] Scheduled Referrals Name Type Priority Associated Diagnoses Orde r Schedule Referral to Radiation Oncology Outpatient Referral Routine Endometrial cancer Ordered: 12/06/2021 documented as of this encounter Visit Diagnoses Diagnosis Endometrial cancer Malignant neoplasm of corpus uteri, except isthmus documented in this encounter Care Teams Deputy Chief Magistrate Relationship Specialty Start Date End Date Precious Nixon MD [address] [place] [address] PCP - General Family Medicine 06/07/17 documented as of this encounter
--- OUTSIDE RECORDS SUMMARY | 2024-10-12 12:02 | XMS_ITS | Encounter Summary ---
Author Organization [facility] [place] [address] Care Team Providers Care Structurer Name Role Phone Precious Nixon MD Primary Care Provider [phone] Encounter Details Date Type Department Care Team (Late st Contact Info) Description 06/30/2020 2:00 PM EDT Office Visit Hematology/Oncology at [address] [phone] Leticia Buckley MD [facility] DR HEMATOLOGY [place] [address] CLL (chronic lymphocytic leukemia) Social History Tobacco Use Types Packs/Day Years Used Date Smoking Tobacco: Never Smokeless Tobacco: Never Alcohol Use Standard Drinks/Week Comments Yes 1 (1 standard drink = 0.6 oz pur e alcohol) 5 days per week Sex and Gender Information Value Date Recorded Sex Assigned at Not on file Gender Identity Not on file Sexual Orientation Not on file documented as of this encounter Last Filed Vital Signs Vital Sign Reading Time Taken Comments Blood Pressure 159/89 06/30/2020 2:07 PM EDT Pulse 97 06/30/2020 2:07 PM EDT Temperature 36.4 ??C (97.5 ??F) 06/30/2020 2:07 PM ED T Respiratory Rate 16 06/30/2020 2:07 PM EDT Oxygen Saturation 100% 06/30/2020 2:07 PM EDT Inhaled Oxygen Concentration - - Weight 104.3 kg (230 lb) 06/30/2020 2:07 PM EDT Height 177 cm (5' 9.69) 06/30/2020 2:07 PM EDT Body Mass Index 33.3 06/30/2020 2:07 PM EDT documented in this encounter Progress Notes * Leticia Buckley MD - 06/30/2020 2:00 PM EDT [facility] [place] [address] HEMATOLOGY PATIENT EVALUATION PROBLEM LIST: Patient Active Problem List Diagnosis ??? Hypertension ??? Depression ??? Anxiety disorder ??? CLL (chronic lymphocytic leukemia) Diagnosed 2014, never needed treatment, currently being monitored No cytopenias. WBC about 20-25k. HISTORY OF PRESENT ILLNESS: Jatin Lowe is a 60 y.o. year old female being seen for evaluation of CLL. she was referred in consultaion from Dr. Elba hCi. 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 . She previously received her care for CLL by Dr. Alycia Rodriguez from [facility]. According to the patient, she has been in stable condition and denied any B symptoms of fever, night sweats, or weight loss. The patient states she was diagnosed about 2014 with CLL after being noted to have a WBC count around 19,000 with lymphocytosis. Infection workup was negative and workup for CLL was positive. She did not require any therapy and has just been monitored every 6 months with blood work. Today, she is tearful as she shares that her son of OD this spring. So very sad. Had R knee replacement; needs L TKR. No B symptoms. Unfortunately she was lost to f/u for a year. Doing fine overal. PMHX: Past Medical History: Diagnosis Date ??? Anxiety disorder ??? CLL (chronic lymphocytic leukemia) 2014 Diagnosed 2 years ago, never needed treatment, currently being monitored ??? Depression ??? Hypertension ROS Energy level:stable Pain: knee Appetite:good Fevers/chills/sweats:No Bruising/bleeding/melena:No Recent infections:No Headaches:neg Vision:neg Hearing:neg Sinus: neg Seasonal Allergies: neg Mouth sores:neg Dentition: Good Swallowing: neg GERD : neg Nausea/vomiting: neg diarrhea/constipation:No SOB/MINER/pulmonary sx: no chest pain:No sx: negative Change in adenopathy or other masses:No Unexpected weight loss or gain:No Skin rashes or petechiae: some bruises over right and left forearm Musculoskeletal complaints:No Extremities: Negative upper and lower bilaterally Neurologic symptoms:No Mental Status changes: neg Mood: Normal Sleep: Difficulty sleeping MEDS: Outpatient Medications Marked as Taking for the 06/30/20 encounter (Office Visit) with Leticia Buckley MD Medication Sig Dispense Refill ??? naproxen sodium (ANAPROX) 220 mg Tablet Take 440 mg by mouth daily as needed. ??? amLODIPine (NORVASC) 10 mg Tablet Take 10 mg by mouth daily. ??? losartan-hydrochlorothiazide (HYZAAR) 100-25 mg Tablet Take 1 tablet by mouth daily. ??? venlafaxine (EFFEXOR-XR) 150 mg Capsule, Sust. Release 24 hr TAKE ONE CAPSULE BY MOUTH EVERY DAY 1 Allergies: No Known Allergies FAMILY HISTORY: Notable for heart disease in both paternal and maternal grandparents. Denies any family history of cancers. SOCIAL HISTORY Personal: live at home, by herself, has 4 children. 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 Emmanuel in recovery - doing OK right now. . Daughters in [facility].[place] in [place] is expecting a child - this is Jatin's first grandchild. 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 Has taken courses on the history of culture in [place] and loves it there. ETOH: 1-2 glasses of wine, 5 times a week Smoking: Never PHYSICAL EXAM BP 159/89 (Patient Position: Sitting) Pulse 97 Temp 36.4 ??C (97.5 ??F) Resp 16 Ht 177 cm (5' 9.69) Wt 104.3 kg (230 lb) SpO2 100% BMI 33.30 kg/m?? Body surface area is 2.26 meters squared. GENERAL: Jatin Lowe appears well and is in no acute distress. ENT: Patient asymptomatic; OP not examined due to COVID. EYES: DELANO NECK: Supple, positive right posterior cervical/occipital LN about 2cm in diameter, mobile, non-tender, chronic, no changes. AXILLARY: no adenopathy OTHER LYMPH: no adenopathy CARDIAC: Regular rate and rhythm without S3,S4 or murmurs. LUNGS: Clear to auscultation./percussion ABDOMEN: Soft and non-tender without hepatosplenomegaly or masses. EXTREMITIES: No cyanosis, clubbing, edema or calf tenderness. SKIN: No bruises or petechiae. NEUROLOGICAL: Alert and oriented to person, place and time. MUSCULOSKELETAL: No spinal or chest wall tenderness. LABORATORY STUDIES Recent Results (from the past 72 hour(s)) CBC (with Diff) Result Value Ref Range WBC 22.93 Hemoglobin 14.5 Hematocrit 43.7 Platelets 217 Neutr Abs (ANC) 6.19 AST 43 ALT 89 Potassium 3.0 Results for JATIN LOWE ( ) as of 06/30/2020 14:19 Ref. Range 06/24/2020 00:00 LDH Unknown 165 IgG Unknown 634 IgA Unknown 84 IgM Unknown 39 RADIOLOGY STUDIES REVIEWED: None ASSESSMENT/PLAN: Ms. Lowe is a pleasant 60 y.o. F w/ hx of CLL who presents for ongoing care with our Hematologyclinic for continued monitoring of her CLL. At this time, she has no B symptoms and no physical exam findings of hepatosplenomegaly. She was diagnosed with stage [address] Alcyia Rodriguez from [facility] with follow up every 6 months with blood work. At this time we recommend the followin g: - labs are all stable. No cytopenias. No B symptoms. -given indolent nature of her disease, we will continue to follow her with next visit in 6 months with routine blood work unless she develops B symptoms or lab abnormalities (such as anemia or thrombocytopenia) that warrant closer follow up -Jatin has never had a staging CT. She has minimal adenopathy on exam (only right posterior cervical) but we may want to do a staging CT of chest abdomen and pelvis sometime in 2020 or 2021, or as symptoms warrant. 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 Because of COVID, as well as the recent loss of her son, she has beenworking from home. But she is now starting to work in the office more. She has an adequate althoughslightly low IgG in the 600s. It is always hard to say what kind of risk of patient with CLL would run with COVID, but I doubt that she has much more risk than the average patient in her 60s. However, given that she has the option, it is definitely reasonable to have her blood work with telehealth and telemedicine rather than seeing patients in person. She would like to continue this for at least2 more months. I am happy to fill out paperwork recommending telephone/telehealth only for at least2 more months. Hypertension - . She reports some white coat syndrome but this is high. She will check at home. Sheis working with her PCP on this. Knee pain -status post right knee replacement. Needs left knee replacement RTC 6 mos with cbc, cmp, ldh and quant ig. I discussed all of the above with the patient and all of her questions were answered. Support and counseling given as appropriate. Jatin Lowe knows that she can call us any time with questions or concerns. Copy Elba Chi MD . documented in this encounter Plan of Treatment Upcoming Encounters Date Type Department Care Team (Late st Contact Info) Description 12/18/2024 11:30 AM EST Office Visit Hematology/Oncology at [address] [phone] Leticia Buckley MD [facility] DR HEMATOLOGY [place] [address] Mili Klein APRN [facility] [place] [address] documented as of this encounter Procedures Procedure Name Priority Date/Time Associated Diagnosis Comments CBC (WITH DIFF) Routine 06/30/2020 LACTATE DEHYDROGENASE Routine 06/24/2020 IGG Routine 06/24/2020 documented in this encounter Results * CBC (with Diff) (06/30/2020) White Blood Cell 22.93 Hemoglobin 14.5 Hematocrit 43.7 Platelet 217 Neutrophil Absolute (ANC) - Automated 6.19 Aspartate Aminotransferase 43 Alanine Aminotransferase 89 Potassium 3.0 Blood specimen (specimen) 06/30/2020 Historical Provider HEMATOLOGY ORDERA BLES * IgG (06/24/2020) Pathologist [facility] Immunoglobulin G 634 IgA 84 IgM 39 Blood specimen (specimen) 06/24/2020 Historical Provider CHEMISTRY ORDERAB LES * Lactate Dehydrogenase (06/24/2020) Pathologist [facility] Lactate Dehydrogenase 165 Blood specimen (specimen) 06/24/2020 Historical Provider CHEMISTRY ORDERAB LES documented in this encounter Visit Diagnoses Diagnosis CLL (chronic lymphocytic leukemia) Chronic lymphoid leukemia, without mention of having achieved remission documented in this encounter Care Teams Structurer Relationship Specialty Start Date End Date Precious Nixon MD [address] [place] [id number] PCP - General Family Medicine 06/07/17 documented as of this encounter
--- OUTSIDE RECORDS SUMMARY | 2024-10-12 12:02 | XMS_ITS | Encounter Summary ---
Author Organization [facility] [place] [address] Care Team Providers Care Tool Specialist Name Role Phone Precious Nixon MD Primary Care Provider [phone] Reason for Visit * Reason Comments Procedure Encounter Details Date Type Department Care Team (Late st Contact Info) Description 01/21/2022 11:30 AM EST Procedure visit [place] [address] Brianna Flores MD [facility] [place] [address] Endometrial ca Social History Tobacco Use Types [...] Sign Reading Time Taken Comments Blood Pressure 134/83 01/21/2022 10:47 AM EST Pulse 82 01/21/2022 10:47 AM EST Temperature 36.5 ??C (97.7 ??F) 01/21/2022 10:[address] Respiratory Rate 18 01/21/2022 10:47 AM EST Oxygen Saturation 98% 01/21/2022 10:47 AM EST Inhaled Oxygen Concentration - - Weight - - Height - - Body Mass Index - - documented in this encounter Patient Instructions * Patient Instructions* Brianna Floers MD - 01/21/2022 10:57 AM EST Drink lots of water over the next 2 days. If you have dysuria, try drinking cranberry juice. You can also use AZO. If you develop diarrhea, decrease intake of high fiber food. Imodium can also be used. For any questions/concerns, call Radiation Oncology clinic during normal working hours @ [phone]. At night or on weekend, call [facility] grinder operator tool @ [phone] & ask for radiation oncologist carton catcher. documented in this encounter Progress Notes * Brianna Flores MD - 01/21/2022 11:30 AM EST Images from the original note were not included. DIAGNOSIS: Endometrial ca, endometrioid type, FIGO gr1, s/p robotic assisted total laparoscopic hys-BSO w/SNB & pelvic lymphadenectomy, pT1b pN0(i+), tumor 5.2 cm, involves lower uterine segment.CLL dx'd 2014, not tx'd, followed. Here to start intravag brachy. CURRENT TREATMENT DOSE: 0 Gy (seen prior to brachy) ANTICIPATED TOTAL DOSE: 21 Gy Current # of xrt received: 0 (seen prior to brachy) Anticipated total # of xrt txs: 3 Evaluation of port verification films: Fluoro used to check cylinder position prior to today's brachy. For details, see electronic film record in [facility]. Changes in Medical Condition: None. Pain?: No Your Medications Accurate as of January 21, 2022 1:03 PM. If you have any questions, ask your nurse or doctor. Continued medications, unchanged Dose Details acetaminophen 325 mg Tab Commonly known as: Tylenol Take 2 tablets by mouth every 6 hours as needed for Pain. 650 mg Quantity: 30 tablet Refills: 1 amLODIPine 10 mg Tab Commonly known as: [...] BY MOUTH EVERY DAY Refills: 1 Physical Exam: BP 134/83 Pulse 82 Temp 36.5 ??C (97.7 ??F) Resp 18 SpO2 98% A&Ox3, NAD.No vulvovag abnlty. Imagin01/18/22 Dx'ic Rad Interp CTsim: Multifocal pelvic adenopathy. Performance Status: KPS 100% Response to xrt: As expected. Irradiation Related Symptoms: None. Treatment for Symptom Control: None needed. Pain Management: Not needed. Recommendation on Continuing Course of xrt: Start intravag brachy today. After drinking water to fill bladder, Hilary was brought to brachytherapy suite and she was positioned supine on brachytherapy stretcher wearing fancy pants. Timeout by physician & nurse with patient confirmed patient identity, allergies, medications & procedure to be performed. Lubricated 25mm universal stump cylinder then inserted into patient's vagina until resistance from vaginal apex encountered. Cylinder secured in place with velcro flap. Patient's ankles placed on triangle cushion. Dummy seeded catheter then threaded into hollow tube in cylinder. Fluoro used to confirm correct cylinder position. Dummy seeded catheter then removed & cylinder connected to vault with connecting tube. Physicist, physician & nurse then exited room, maintaining audio & visual contact with Hilary. Timeout by physicist, physician & nurse confirmed patient name, cylinder size & radiotherapy dose to be given. Patient then treated with afterloading Ir-192 HDR, delivering 7 Gy @ 0.5 cm depth. After treatment completed, physicist surveyed brachytherapy suite with [employer] co nfirming return of Ir-192 source into vault. Physician & nurse then re-entered treatment room. Cylinder removed. Patient informed of possible side effects from the treatment & given printout with instructions for managing side effects, contact information and appointment for next brachytherapy. She tolerated procedure well, without adverse effect. documented in this encounter Plan of Treatment Upcoming Encounters Date Type Department Care Team (Late st Contact Info) Description 12/18/2024 11:30 AM EST Office Visit Hematology/Oncology at [address] [phone] Leticia Buckley MD [facility] [address] [place] [address] Mili Klein APRN [facility] [place] [address] documented as of this encounter Visit Diagnoses Diagnosis Endometrial ca Malignant neoplasm of corpus uteri, except isthmus documented in this encounter Care Teams Tool Specialist Relationship Specialty Start Date End Date Precious Nixon MD [address] [place] [address] PCP - General Family Medicine 06/07/17 documented as of this encounter
--- OUTSIDE RECORDS SUMMARY | 2024-10-12 12:02 | XMS_ITS | Encounter Summary ---
Author Organization [facility] [place] [address] Care Team Providers Care Reception Interviewer Name Role Phone Precious Nixon MD Primary Care Provider [phone] Encounter Details Date Type Department Care Team (Late Contact Info) Description 07/05/2021 Orders Only Hematology/Oncology at [address] [phone] Tana Quevedo, RN CLL (chronic lymphocytic leukemia) (Primary Dx) Social History Tobacco Use Types Packs/Day Years [...] AM EST Office Visit Hematology/Oncology at [address] [phone] Leticia Buckley MD [facility] [place] [address] Mili Klein, GRINDING MILL OPERATOR [facility] [place] [address] documented as of this encounter Visit Diagnoses Diagnosis CLL (chronic lymphocytic leukemia)- Primary Chronic lymphoid leukemia, without mention of having achieved remission documented in this encounter Care Teams Reception Interviewer Relationship Specialty Start Date End Date Precious Nixon MD [address] [place] [address] PCP - General Family Medicine 06/07/17 documented as of this encounter
--- OUTSIDE RECORDS SUMMARY | 2024-10-12 12:02 | XMS_ITS | Encounter Summary ---
[place] [address] Care Team Providers Care Blacksmith Helper Name Role Phone Precious Nixon MD Primary Care Provider [phone] Encounter Details Date Type Department Care Team (Latest Contact Info) Description 12/08/2021 Multidisciplinary Ca re Committee [place] [address] Janee Maya, RN Social History Tobacco Use Types Packs/Day Years Used Date Smoking Tobacco: Never Smokeless Tobacco: Never Alcohol Use Standard Drinks/Week Comments Yes 0 (1 standard drink = 0.6 oz pur e alcohol) 7-10 per week Sex and Gender Information Value Date Recorded Sex Assigned at Not on file Gender Identity Not on file Sexual Orientation Not on file documented as of this encounter Progress Notes * Janee Maya RN - 12/08/2021 4:10 PM EST Path: Pending Preop: grade I endometrioid Presenting symptoms: post-menopausal bleeding Labs: None Imaging: TVUS: Endometrial thickness 24.5mm, heterogenous, vascular Preop-path: EMB: Grade 1 endometrioid with minor mucinous features Surgery: RA-TLH, BSLND, PALND, PLND. No abnormal findings, no complications Path: Stage 1B, Grade 1 endometrioid endometrial carcinoma, ER [place] +, intact nuclear staining Recommendations: Per NCCN, vaginal brachytherapy is preferred. documented in this encounter Plan of Treatment Upcoming Encounters Date Type Department Care Team (Late st Contact Info) Description 12/18/2024 11:30 AM EST Office Visit Hematology/Oncology at [address] [phone] Leticia Buckley MD [facility] DR [place] [address] Mili Klein APRN [facility] [place] [address] documented as of this encounter Visit Diagnoses Not on filedocumented in this encounter Care Teams Blacksmith Helper Relationship Specialty Start Date End Date Precious Nixon MD [address] [place] [address] PCP - General Family Medicine 06/07/17 documented as of this encounter
--- OUTSIDE RECORDS SUMMARY | 2024-10-12 12:02 | XMS_ITS | Encounter Summary ---
Author Organization [facility] [place] [address] Care Team Providers Care Entertainment Centre Manager Name Role Phone Precious Nixon MD Primary Care Provider [phone] Reason for Referral * Consultation (Routine) - Closed Specialty Diagnoses / Procedures Referred By Neil pate Referred To Contact Radiation Oncology Diagnoses Endometrial ca Procedures Simulation for Radiation Therapy Planning Brianna Flores MD [facility] [place] [address] [facility] Rad Onc Office [address] [place] [phone] Referral ID Status Reason Start Date Expiration Date V isits Requested Visits Authorized [id number] Closed Consult, Test & Treat 12/23/2021 12/23/2022 4 4 Reason for Visit * Reason Comments Radiation Consult * Consultation (Routine) - Closed Specialty Diagnoses / Procedures Referred By Neil pate Referred To Contact Radiation Oncology Diagnoses Endometrial cancer Jazz Johnson MD [facility] [place] [address] [facility] [address] Referral ID Status Reason Start Date Expiration Date V isits Requested Visits Authorized [id number] Closed Consult, Test & Treat 12/06/2021 12/06/2022 1 1 Encounter Details Date Type Department Care Team (Late st Contact Info) Description 12/23/2021 1:00 PM EST TH Visit (TeleHealth) [place] [address] Brianna Flores MD [facility] [place] [address] Endometrial ca Social History Tobacco Use Types [...] on file documented as of this encounter Patient Instructions * Patient Instructions* Brianna Flores MD - 12/23/2021 1:00 PM EST CTsimulation T., 01/04/22 @ [facility], [facility], @ 11:30, arrive by 11. Physical including pelvic exam prior to CTsim. documented in this encounter Progress Notes * Brianna Flores MD - 12/23/2021 1:00 PM EST Images from the original note were not included. TeleHealth Video encounter during Covid-19 pandemic. CC: Referred by Dr. Nixon for eval for xrt for endometrial ca. HPI: Hilary is a 61 y/o COL[employer] AR[employer] w/dx of CLL in 2014, being followed w/o tx, who presented w/postmenopausal bleeding. 10/11/21 endometrial bx/curettage: Endometrial adenoca, endometrioid type w/minor mucinous features, FIGO gr 1. Endometrial polyp w/involvement by adenoca also present. 10/11/21 path interp: Endometrioid carcinoma (FIGO grade 1) with foci of squamous and ? mucinous differentiation. Fragment of endometrial polyp. 10/14/21 transabdominal & transvaginal pelvic US: Abnormally thickened & heterogeneous endometrium. 11/09/21 robotic assisted total laparoscopic hys-BSO w/SNB & pelvic lymphadenectomy. Path: Endometrioid ca of endometrium, FIGO gr 1, 5.2 cm, 83% myometrial invasion (19 mm depth myometrial invasion w/23 mm myometrial thickness), +myoinvasive lower uterine segment involvement, 14 pelvic lymph nodes (6 R sentinel, 2 L sentinel, 6 L non-sentinel, 1 R sentinel +ITC by IHC, 2 L sentinel +ITC by IHC, all 14 lymph nodes involved by CLL), B tubes & ovaries neg, pT1b pN0(i+). 12/06/21 Dr. Johnson, rec for eval for intravag brachy. 12/08/21 Adjustment Clerk Onc TB: rec for vag brachy. Subjective: Recently w/fever 100 F w/headaches & fatigue, Covid test neg, being tx'd w/antibiotic for UTI. No vag disch/bleeding. No urinary symptom. Bowels working ok. Past Medical History: Diagnosis Date ??? Anxiety disorder ??? CLL (chronic lymphocytic leukemia) 2015 Diagnosed 2 years ago, never needed treatment, currently being monitored ??? Depression ??? Endometrial cancer, grade I 10/26/2021 ??? Hypertension ??? Obesity (BMI 35.0-39.9 without comorbidity) Past Surgical History: Procedure Laterality Date ??? CHOLECYSTECTOMY ??? PRO INTRAOP SENTINEL LYMPH ID W/DYE INJECTION N/A 11/09/2021 INTRAOPERATIVE ID (MAPPING) SENTINEL LYMPH NODE,INCLUDES INJECTION (WRVU 2.5) performed by Jazz Johnson MD at [facility] MAIN OR ??? PRO LAP, PELVIC LYMPHADENECTOMY/BX N/A 11/09/2021 LAPAROSCOPY,W\BILATERAL TOTAL PELVIC LYMPHADENECTOMY, PERIAORTIC LYMPH NODE SAMPLING, ROBOTIC (WRVU15.6) performed by Jazz Johnson MD at [facility] MAIN OR ? ? PRO LAPAROSCOPY W TOT HYSTERECTUTERUS <=250 GRAM W TUBE/OVARY N/A 11/09/2021 LAPAROSCOPY,TOTAL HYST, UTERUS<250GM, REM TUBE &/OR OVARY, ROBOTIC ASSIST (WRVU 15) performed by Jazz Johnson MD at [facility] MAIN OR ??? TOTAL KNEE ARTHROPLASTY Bilateral left was done 09/15/21 Your Medications Accurate as of December 23, 2021 11:59 PM. If you have any questions, ask [...] CAPSULE BY MOUTH EVERY DAY Refills: 1 FHx: Neg for ca. P&SHx: Smoked a little in her 20's. Decision Making/Plan: Intravag brachy recommended to increase likelihood of cure. Intravag brachy would be given in 3 fxs. Possible side effects/complications of xrt to pelvis discussed, w/acute/immediate side effects including: Diarrhea, increased frequency of urination, burning w/urination, vulvo-vaginal itchiness/irritation, tiredness. Late/prison side effects/complications discussed include: chronic diarrhea, increased vulnerability for stress urinary incontinence, vaginal shrinkage/narrowing, irradiation associated 2nd malignancy. Discussed use of vaginal dilator to minimize vaginal shrinkage/narrowing. Need for CTsim prior to intravag brachy xrt discussed. She would like to proceed w/intravag brachy. CTsim will be scheduled for 01/04/22, which will give time for her to recover from the UTI. Physical including pelvic exam 01/04/22, prior to CTsim. Patient verbally consents to this telephone visit and understands that this visit may be billed, similar to a clinic office visit. I provided care to the patient today via telephone call. The total time associated with this visit was 55 minutes. ? documented in this encounter Plan of Treatment Upcoming Encounters Date Type Department Care Team (Late st Contact Info) Description 12/18/2024 11:30 AM EST Office Visit Hematology/Oncology at [address] [phone] Leticia Buckley MD [facility] DR [place] [address] Mili Klein APRN [facility] [place] [address] Scheduled Orders Name Type Priority Associated Diagnoses Orde r Schedule Simulation for Radiation Therapy Planning Procedures Routine Endometrial ca Ordered: 12/23/2021 documented as of this encounter Visit Diagnoses Diagnosis Endometrial ca Malignant neoplasm of corpus uteri, except isthmus documented in this encounter Care Teams Entertainment Centre Manager Relationship Specialty Start Date End Date Precious Nxion MD [address] [place] [address] PCP - General Family Medicine 06/07/17 documented as of this encounter
--- OUTSIDE RECORDS SUMMARY | 2024-10-12 12:02 | XMS_ITS | Encounter Summary ---
[place] [address] Care Team Providers Care Picker And Sorter Load And Unload Name Role Phone Precious Nixon MD Primary Care Provider [phone] Encounter Details Date Type Department Care Team (Latest Contact Info) Description 10/14/2021 2:24 PM EST - 10/14/2021 11:59 PM EST Hospital [place] [phone] Discharge Disposition: Home Social History Tobacco Use Types Packs/Day Years Used Date Smoking Tobacco: Never Smokeless Tobacco: Never Alcohol Use Standard Drinks/Week Comments Yes 1 (1 standard drink = 0.6 oz pur e alcohol) 5 days per week Sex and Gender Information Value Date Recorded Sex Assigned at Not on file Gender Identity Not on file Sexual Orientation Not on file documented as of this encounter Medications at Time of Discharge Medication Sig Dispensed Refills Start Date End Date naproxen sodium (ANAPROX) 220 mg Tablet Take 440 mg by mouth daily as needed. amLODIPine (NORVASC) 10 mg Tablet Take 10 mg by mouth daily. losartan-hydrochlorothiazi de (HYZAAR) 100-25 mg Tablet Take 1 tablet by mouth daily. venlafaxine (EFFEXOR-XR) 150 mg Capsule, Sust. Release 24 hrIndications:CLL (chronic lymphocytic leukemia) TAKE ONE CAPSULE BY MOUTH EVERY DAY 1 07/02/2017 documented as of this encounter Plan of Treatment Upcoming Encounters Date Type Department Care Team (Late st Contact Info) Description 12/18/2024 11:30 AM EST Office Visit Hematology/Oncology at [address] [phone] Leticia Buckley MD [facility] [address] [place] [address] Mili Klein, KIMBERLI [facility] [place] [address] documented as of this encounter Procedures Procedure Name Priority Date/Time Associated Diagnosis Comments SURGICAL PATHOLOGY REPORT Routine 10/14/2021 2:25 PM EST documented in this encounter Results * Surgical Pathology Report (10/14/2021 2:25 PM EST) Final Diagnosis [id number] ? Location: [facility] The signing pathologist has (i) examined the relevant preparation(s) for the specimen(s) and (ii) rendered or confirmed the diagnosis(es). . ?Surgical Pathology DIAGNOSIS CONSULTATION CASE Outside slides labeled [id number], collection date 10/11/2021. A - Endometrium (biopsy): ??- Endometrioid carcinoma (FIGO grade 1) with foci of squamous and ?mucinous differentiation, see discussion. ??- Fragment of endometrial polyp. Electronically signed by: ?Wing BURNS, Suzie Ramachandran Verified: ??11/03/2021 16:03 ??Pathologist Performed at: ??-[facility] Dept. of [place]ology, [place], [place] DISCUSSION Select slides were available for review. Per report, the tumor shows retained expression of MLH1, PMS2, MSH2, and MSH6. SPECIMEN(S) SUBMITTED CONSULTATION CASE A - 5 slides labeled [id number], collection date 10/11/2021. [id number] Report to: [facility] Surgical Pathology Department [facility], [address], [address] Floor [address] [place] [address] CLINICAL INFORMATION PMB SPECIMEN PROCESSING [facility] ([facility]) pathology slide(s) are reviewed. ??Refer to Diagnosis and Specimen Submitted for specific case information. For the full text of the [facility] report(s) please refer to Non-DH Documentation Pathology in the electronic health record ( ?? eDH). 11/03/2021 4:03 PM EST [facility] Consult Case 10/14/2021 2:25 PM EST 10/14/2021 2:25 PM EST Jazz Johnson MD PATHOLOGY/CYTOLOGY O RDERAANASTASIIA Performing Organization Address City/State/[facility] Co de Phone Number [facility] [place] [place] [address] documented in this encounter Visit Diagnoses Not on filedocumented in this encounter Care Teams Picker And Sorter Load And Unload Relationship Specialty Start Date End Date Precious Nixon MD [address] [place] [address] PCP - General Family Medicine 06/07/17 documented as of this encounter
--- OUTSIDE RECORDS SUMMARY | 2024-10-12 12:02 | XMS_ITS | Encounter Summary ---
Author Organization [facility] Address [facility] [place] [address] Care Team Providers Care Risk Lead Name Role Phone Precious Nixon MD Primary Care Provider [phone] Encounter Details Date Type Department Care Team (Late Contact Info) Description 09/23/2019 Orders Only Hematology/Oncology at [address] [phone] Leticia Buckley MD [facility] HEMATOLOGY [place] [address] CLL (chronic lymphocytic leukemia) Social History Tobacco [...] 11:30 AM EST Office Visit Hematology/Oncology at [address] [phone] Leticia Buckley MD [facility] HEMATOLOGY [place] [address] Mili Klein APRN [facility] DR HEMATOLOGY [place] [address] documented as of this encounter Visit Diagnoses Diagnosis CLL (chronic lymphocytic leukemia) Chronic lymphoid leukemia, without mention of having achieved remission documented in this encounter Care Teams Risk Lead Relationship Specialty Start Date End Date Precious Nixon MD [address] [place] [address] PCP - General Family Medicine 06/07/17 documented as of this encounter
--- OUTSIDE RECORDS SUMMARY | 2024-10-12 12:02 | XMS_ITS | Encounter Summary ---
Author Organization [facility] [place] [address] Care Team Providers Care Chief Nurse Name Role Phone Precious Nixon MD Primary Care Provider Encounter Details Date Type Department Care Team (Late Contact Info) Description 01/04/2022 Telephone [place]iation [place] [address] Alycia Lopez Social History Tobacco Use Types Packs/Day Years [...] 11:30 AM EST Office Visit Hematology/Oncology at [address] [phone] Leticia Buckley MD [facility] DR [place] [address] Mili Klein, TANK OPERATOR [facility] [place] [address] documented as of this encounter Visit Diagnoses Not on filedocumented in this encounter Care Teams Chief Nurse Relationship Specialty Start Date End Date Precious Nixon MD [address] [place] [address] PCP - General Family Medicine 06/07/17 documented as of this encounter
--- OUTSIDE RECORDS SUMMARY | 2024-10-12 12:02 | XMS_ITS | Encounter Summary ---
Author Organization [facility] [place] [address] Care Team Providers Care Home Health Clinical Liaison Name Role Phone Precious Nixon MD Primary Care Provider Reason for Visit * Reason Comments Follow-up Encounter Details Date Type Department Care Team (Late st Contact Info) Description 03/14/2022 4:00 PM EDT Office Visit Radiation Oncology at [address] [phone] Brianna Flores MD [facility] [place] [address] Stress incontinence of urine; S/P radiotherapy Social History Tobacco Use Types [...] Sign Reading Time Taken Comments Blood Pressure 148/74 03/14/2022 4:12 PM EDT Pulse 77 03/14/2022 4:12 PM EDT Temperature 36 ??C (96.8 ??F) 03/14/2022 4:12 PM EDT Respiratory Rate 16 03/14/2022 4:12 PM EDT Oxygen Saturation 100% 03/14/2022 4:12 PM EDT Inhaled Oxygen Concentration - - Weight 110 kg (242 lb 6.4 oz) 03/14/2022 4:12 PM EDT Height - - Body Mass Index 35.8 03/09/2022 1:52 PM EDT documented in this encounter Patient Instructions * Patient Instructions* Brianna Flores MD - 03/14/2022 4:38 PM EDT Your exam is without worrisome finding. UA w/reflex urine culture ordered & will be faxed to [facility]. VAGINAL DILATOR What is a vaginal dilator? A vaginal dilator, also called an obturator, is a smooth plastic tube measuring four inches in length and one-half inch or one inch in circumference. Why do I need to use the dilator? A potential side effect of radiation treatment is the formation of scar tissue which can result in closure of the vagina. Over time radiation causes a decrease in blood supply to treated areas. Decreased blood supply shrinks or slows the growth of the cancer but can also lead to less elastic, drier feeder, tender tissues in the vagina. This can be prevented in two ways: by regularly using the dilator with a prescribed cream or jelly, or by having regular sexual intercourse. Use of the dilator or intercourse will keep the vagina open and the tissues more supple. This is important as it provides more comfort during pelvic exams. How do I use the dilator? 1. Wash the dilator with hot soapy water and rinse well before use. 2. Lie down with your knees bent and apart. 3. Put the cream your physician ordered on the rounded end of the dilator. Use K-Y Jelly or anotherwater-based lubricant if estrogen cream has not been prescribed for you. Do NOT use Vaseline, baby oil, or other oil based lubricants because they can irritate your vagina. 4. Separate your labia, and with firm gentle pressure, put the rounded end into your vagina as far as possible. 5. When you have the dilator inserted as far as possible, use continuous gentle pressure for 5 to 10 minutes to hold it in place. 6. Remove the dilator. Wash it with hot soapy water, rinse well and let dry. Start with the small vaginal dilator & if/when that comfortably fits into vagina, then change to medium. Goal of the dilation is to stretch vaginal fish to counteract tendency for scar cells to cause tightening &/or adhesions. When do I need to dilate my vagina? Use the dilator 2 times/week. Is bleeding or spotting normal? There may be spotting after dilator use. If you have heavy bleeding, notify me. Someone will contact you to schedule followup with me in 6 months. documented in this encounter Progress Notes * Brianna Flores MD - 03/14/2022 4:00 PM EDT Images from the original note were not included. CC: Sched'd followup s/p xrt completion. HPI: Hilary is a 62 y/o f who completed postop brachytherapy xrt to vaginal apex 1 mo ago (02/04/22) for endometrial ca, endometrioid type, FIGO gr1, s/p robotic assisted total laparoscopic hys-BSO w/SNB & pelvic lymphadenectomy, pT1b pN0(i+), tumor 5.2 cm, involves lower uterine segment. CLL dx'd2015, not tx'd, followed. Subjective: A little urinary incontinence when stands. No dysuria. No bowel problem. No nausea. No vag disch/bleeding. No swelling lower exts. Energy level good. Past Medical History: Diagnosis Date ??? Anxiety [...] 2.5) performed by Jazz Johnson MD at [facility] ??? PRO LAP, PELVIC LYMPHADENECTOMY/BX N/A 11/09/2021 LAPAROSCOPY,W\BILATERAL TOTAL PELVIC LYMPHADENECTOMY, PERIAORTIC LYMPH NODE SAMPLING, ROBOTIC (WRVU15.6) performed by Jazz Johnson MD at [facility] ? ? PRO LAPAROSCOPY W TOT HYSTERECTUTERUS <=250 GRAM W TUBE/OVARY N/A 11/09/2021 LAPAROSCOPY,TOTAL HYST, UTERUS<250GM, REM TUBE &/OR OVARY, ROBOTIC ASSIST (WRVU 15) performed by Jazz Johnson MD at [facility] OR ??? TOTAL KNEE ARTHROPLASTY Bilateral left was done 09/15/21 Your Medications Accurate as of March 14, 2022 11:59 PM. If you have any questions, [...] She is not in acute distress. Comments: BP 148/74 (Patient Position: Sitting) Pulse 77 Temp 36 ??C (96.8 ??F) (Temporal) Resp 16 Wt 110 kg (242 lb 6.4 oz) SpO2 100% BMI 35.80 kg/m?? HENT: Head: Normocephalic. Eyes: General: No scleral icterus. Right eye: No discharge. Left eye: No discharge. Extraocular Movements: Extraocular movements intact. Conjunctiva/sclera: Conjunctivae normal. Pulmonary: Effort: Pulmonary effort is normal. No respiratory distress. Breath sounds: Normal breath sounds. No stridor. No wheezing, rhonchi or rales. Chest: Breasts: Right: No supraclavicular adenopathy. Left: [...] Thought content normal. Judgment: Judgment normal. A: Healing well s/p brachtherapy xrt. Stress urinary incontinence which occurs when stands, should r/o UTI. P: UA w/reflex urine C&S. Vag dilator given, explained rationale & gave instructions. Rtc 6 mos. documented in this encounter Plan of Treatment Upcoming Encounters Date Type Department Care Team (Late st Contact Info) Description 12/18/2024 11:30 AM EST Office Visit Hematology/Oncology at [address] [phone] Leticia Buckley MD [facility] DR HEMATOLOGY [place] [address] Mili Klein APRN [facility] DR HEMATOLOGY [place] [address] documented as of this encounter Visit Diagnoses Diagnosis Stress incontinence of urine S/P radiotherapy Convalescence following radiotherapy documented in this encounter Care Teams Home Health Clinical Liaison Relationship Specialty Start Date End Date Precious Nixon MD [address] [place] [address] PCP - General Family Medicine 06/07/17 documented as of this encounter
--- OUTSIDE RECORDS SUMMARY | 2024-10-12 12:02 | XMS_ITS | Encounter Summary ---
Author Organization [facility] [place] [address] Care Team Providers Care Black Ash Burner Operator Name Role Phone Precious Nixon MD Primary Care Provider [phone] Encounter Details Date Type Department Care Team (Late st Contact Info) Description 05/02/2018 1:00 PM EDT Office Visit Hematology/Oncology at [address] [phone] Leticia Buckley MD [facility] DR HEMATOLOGY [place] [address] CLL (chronic lymphocytic leukemia) Social History Tobacco [...] Sign Reading Time Taken Comments Blood Pressure 186/102 05/02/2018 1:04 PM EDT Pulse 91 05/02/2018 1:04 PM EDT Temperature 36.3 ??C (97.3 ??F) 05/02/2018 1:04 PM ED T Respiratory Rate 16 05/02/2018 1:04 PM EDT Oxygen Saturation 100% 05/02/2018 1:04 PM EDT Inhaled Oxygen Concentration - - Weight 110.2 kg (243 lb) 05/02/2018 1:04 PM EDT Height 177 cm (5' 9.69) 05/02/2018 1:04 PM EDT Body Mass Index 35.18 05/02/2018 1:04 PM EDT documented in this encounter Progress Notes * Leticia Buckley MD - 05/02/2018 1:00 PM EDT [facility] [place] [address] HEMATOLOGY PATIENT EVALUATION PROBLEM LIST: Patient Active Problem List Diagnosis ??? Hypertension ??? Depression ??? Anxiety disorder ??? CLL (chronic lymphocytic leukemia) Diagnosed 2 years ago, never needed treatment, currently being monitored HISTORY OF PRESENT ILLNESS: It was my pleasure to meet Hilary Lowe today. Hilary oLwe is a 58 y.o. year old female being seen for evaluation of CLL. she is referred in consultaion from Dr. Elba Chi. 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 She has been doing well, and recently moved to [facility]. She received her care for CLL by Dr. Alycia Rodriguez from [facility]. According to the patient, she has been in stable condition and denied any B symptoms of fever, night sweats, orweight loss. The patient states she was diagnosed about 2 years ago with CLL after being noted to have a WBC count around 19,000 with lymphocytosis. Infection workup was negative and workup for CLL was positive. She did not require any therapy and has just been monitored every 6 months with blood work. Today, she has no complaints. Today with high blood pressure. Ongoing knee pain. Needs knee replacement. PMHX: Past Medical History: Diagnosis Date ??? [...] neg Mood: Normal Sleep: Difficulty sleeping MEDS: No outpatient prescriptions have been marked as taking for the 05/02/18 encounter (Office Visit) Leticia Carter MD. Allergies: No Known Allergies FAMILY HISTORY: Notable for heart disease in both paternal and maternal grandparents. Denies any family history of cancers. SOCIAL HISTORY Personal: live at home, by herself, has 4 children. Enid suggs graduated college and working with prisoner rehab. Emmanuel in recovery. Daughters in [facility] and [facility]. 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 Has taken courses on the history of culture in [place] and loves it there. ETOH: 1-2 glasses of wine, 5 times a week Smoking: Never PHYSICAL EXAM BP (!) 186/102 (Patient Position: Sitting) Pulse 91 Temp 36.3 ??C (97.3 ??F) (Oral) Resp 16 Ht 177 cm (5' 9.69) Wt 110.2 kg (243 lb) SpO2 100% BMI 35.18 kg/m2 Body surface area is 2.33 meters squared. GENERAL: Hilary Lowe appears well and is in no acute distress. ENT: Oral pharynx clear. EYES: DELANO NECK: Supple, positive right posterior cervical lymphadenopathy, mobile, non- tender, chronic, no changes. AXILLARY: no adenopathy OTHER LYMPH: no adenopathy CARDIAC: Regular rate and rhythm without S3,S4 or murmurs. LUNGS: Clear to auscultation./percussion ABDOMEN: Soft and non-tender without hepatosplenomegaly or masses. EXTREMITIES: No cyanosis, clubbing, edema or calf tenderness. SKIN: No bruises or petechiae. NEUROLOGICAL: Alert and oriented to person, place and time. MUSCULOSKELETAL: No spinal or chest wall tenderness. LABORATORY STUDIES No results found for this or any previous visit (from the past 72 hour(s)). WBC 19.8 hgb 13.3 Plt 155 ANC 5.0 ALC 13.8 Creat 0.8 LFT Normal LDH 206 RADIOLOGY STUDIES REVIEWED: None ASSESSMENT/PLAN: Ms. Lowe is a pleasant 57 y/o F w/ hx of CLL who presents to establish care with our Hematologyclinic for continued monitoring of her CLL. At this time, she has no B symptoms and no physical exam findings of hepatosplenomegaly. She was diagnosed with stage [address] Alycia Rodriguez from [facility] with follow up every 6 months [...] or thrombocytopenia) that warrant closer follow up Hypertension - 186/102. She reports some white coat syndrome but this is high. She will check at home and call PCP if remains elevated. Knee pain - needs bilateral knee replacements. She has seen ortho I discussed all of the above with [...] 11:30 AM EST Office Visit Hematology/Oncology at [address] [phone] Leticia Buckley MD [facility] HEMATOLOGY [place] [address] Mili Klein APRN [facility] HEMATOLOGY [place] [address] documented as of this encounter Visit Diagnoses Diagnosis CLL (chronic lymphocytic leukemia) Chronic lymphoid leukemia, without mention of having achieved remission documented in this encounter Care Teams Black Ash Burner Operator Relationship Specialty Start Date End Date Precious Nixon MD [address] [place] [address] PCP - General Family Medicine 06/07/17 documented as of this encounter
--- OUTSIDE RECORDS SUMMARY | 2024-10-12 12:02 | XMS_ITS | Encounter Summary ---
Author Organization [facility] [place] [address] Care Team Providers Care Camp Assistant Name Role Phone Precious Nixon MD Primary Care Provider [phone] Reason for Visit * Reason Comments Establish Care * Consultation (Routine) - Closed Specialty Diagnoses / Procedures Referred By Contac t Referred To Contact Gynecology Oncology Diagnoses Malignant neoplasm of endometrium Sonya Cuba MD [address] [place] [id number] [facility] Soda Clerk [address] [place] [phone] Referral ID Status Reason Start Date Expiration Date V isits Requested Visits Authorized [id number] Closed Consult, Test & Treat Connection Center PCP Updated and/or Approved 10/12/2021 10/12/2022 6 6 Encounter Details Date Type Department Care Team (Late st Contact Info) Description 10/26/2021 2:00 PM EST Office Visit [place] [phone] Graham De Los Santos MD [facility] [place] [address] Endometrial cancer, grade I Social History Tobacco [...] Sign Reading Time Taken Comments Blood Pressure 165/92 10/26/2021 1:54 PM EST Pulse 88 10/26/2021 1:54 PM EST Temperature 37.1 ??C (98.8 ??F) 10/26/2021 1:54 PM ES T Respiratory Rate 24 10/26/2021 1:54 PM EST Oxygen Saturation 98% 10/26/2021 1:54 PM EST Inhaled Oxygen Concentration - - Weight 112 kg (246 lb 14.6 oz) 10/26/2021 1:54 P M EST Height 172.7 cm (5' 7.99) 10/26/2021 1:54 PM ES T Body Mass Index 37.55 10/26/2021 1:54 PM EST documented in this encounter Progress Notes * Graham De Los Santos MD - 10/26/2021 2:00 PM EST Images from the original note were not included. Division of Gynecologic Oncology Latasha Mckeon MD [facility] Graham De Los Santos MD [facility] [place] [address] MD Hyacinth Murcia, [facility] New Outpatient Visit: Reason for visit: Hilary Lowe is being seen in the clinic today at the request of Sonya Jacobson Md [address] [place] [address] [place] [address] for the evaluation of endometrial cancer. I have reviewed the available records, interviewed and examined the patient. History of Present Illness: Hilary Lowe is a 61 y.o. female referred for evaluation of endometrial cancer. This came to be diagnosed when she started having about 5 months of spotting and this became heavier and so an evaluation was done and is as below: She has had no symptoms other than her bleeding. Medical History: Past Medical History: Diagnosis Date ??? Anxiety disorder ??? CLL (chronic lymphocytic leukemia) 2015 Diagnosed 2 years ago, never needed treatment, currently being monitored ??? Depression ??? Hypertension Surgical History: Past Surgical History: Procedure Laterality Date ??? CHOLECYSTECTOMY Medications: Current Outpatient Medications Medication Sig Dispense Refill ??? naproxen sodium (ANAPROX) 220 mg Tablet Take 440 mg by mouth daily as needed. ??? amLODIPine (NORVASC) 10 mg Tablet Take 10 mg by mouth daily. ??? losartan-hydrochlorothiazide (HYZAAR) 100-25 mg Tablet Take 1 tablet by mouth daily. ??? venlafaxine (EFFEXOR-XR) 150 mg Capsule, Sust. Release 24 hr TAKE ONE CAPSULE BY MOUTH EVERY DAY 1 No current facility-administered medications for this visit. Allergies: No Known Allergies Obstetric History: . x 4. Last was twins. Gynecologic History/Health Maintenance: Menarche at age 9. Menopause at age 48. . Denies HRT use. Recent postmenopausal bleeding/spotting. Denies STDs. Has had regular Pap smear screening and they have been normal. Mammograms are due this year. All have been normal. Last colonoscopy = last at age 50 and was normal. Family History: Family History Problem (# of Occurrences) Relation (Name,Age of Onset) Heart Disease (4) Maternal Grandmother, Maternal Grandfather, Paternal Grandmother, Paternal Grandfather Denies breast, ovarian, colon or uterine cancer. Social History: reports that she has never smoked. She has never used smokeless tobacco. She reports current alcohol use of about 1.0 - 2.0 standard drink of alcohol per week. She reports that she does not use drugs. She lives with her daughter. 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 She walks 15-20 mins per day. She is also doing a bike workout for her recent knee replacement. Physical Exam: Vitals: 10/26/21 1354 BP: (!) 165/92 Patient Position: Sitting Pulse: 88 Resp: 24 Temp: 37.1 ??C (98.8 ??F) TempSrc: Temporal SpO2: 98% Weight: 112 kg (246 lb 14.6 oz) Height: 172.7 cm (5' 7.99) Body mass index is 37.55 kg/m??. Body surface area is 2.32 meters squared. Physical Exam Constitutional: Appearance: Normal appearance. She is obese. She is not ill-appearing. Cardiovascular: Rate and Rhythm: Normal rate and regular rhythm. Heart sounds: Normal heart sounds. Pulmonary: Effort: Pulmonary effort is normal. Breath sounds: Normal breath sounds. Abdominal: General: There is no distension. Palpations: Abdomen is soft. There is no mass. Tenderness: There is no abdominal tenderness. Hernia: No hernia is present. Comments: Well healed ccy scars Musculoskeletal: Right lower leg: No edema. Left lower leg: No edema. Lymphadenopathy: Cervical: No cervical adenopathy. Skin: General: Skin is warm and dry. Coloration: Skin is not jaundiced or pale. Neurological: General: No focal deficit present. Mental Status: She is alert. Gait: Gait normal. Psychiatric: Mood and Affect: Mood normal. Behavior: Behavior normal. GOG Performance Status: 0 Pertinent Radiographic/Diagnostic Results: see HPI Impression/Plan: Hilary Lowe is a 61 y.o. with a biopsy revealing endometrial adenocarcinoma, FIGO grade 1. The pathology was not reviewed here at [facility]. Based on these findings, a decision was made to proceed with surgery for definitive treatment, specifically a robotic-assisted hysterectomy and bilateral salpingo-oophorectomy and sentinel lymph node dissection. I reviewed the natural course of endometrial cancer with the patient and the role that surgery plays in determining the stage of the cancer and it's subsequent treatment after surgery if indicated by the stage. I reassured Hilary Lowe that in the majority of endometrial cancer cases, they are diagnosed early and that the intent of therapy iscurative. I reviewed the surgical approach, need for general anesthesia, and the expected postoperative recovery. The patient was informed that patient's undergoing this procedure typically are safe to go homethe day of surgery. Additionally, I discussed the risks of the procedure including infection, bleeding, chronic leg swelling (lymphedema), DVT/PE, , damage to pelvic or abdominal structures suchas the bowel, bladder, ureters, blood vessels, nerves, and the possibility of needing to convert january open surgery. All of Hilary Lowe questions were answered to her satisfaction and she verbalized understanding of the plan of care. Surgical consent was obtained. Surgical date: November 09, 2021 Procedure: robotic assisted total laparoscopic hysterectomy, bilateral, sentinel lymphadenectomy Discharge: Same day Surgical site infection bundle to be followed Preop antibiotics: Ancef and Flagyl. VTE prophylaxis: SCDs, heparin 5000 units OCTOR Thank you for referring this mauro patient to [facility] for her cancer care. I will keep you apprised of her progress. GRAHAM DE LOS SANTOS MD documented in this encounter Plan of Treatment Upcoming Encounters Date Type Department Care Team (Late st Contact Info) Description 12/18/2024 11:30 AM EST Office Visit Hematology/Oncology at [address] [phone] Leticia Buckley MD [facility] [place] [address] Mili Klein APRN [facility] [place] [address] documented as of this encounter Visit Diagnoses Diagnosis Endometrial cancer, grade I documented in this encounter Care Teams Camp Assistant Relationship Specialty Start Date End Date Precious Nixon MD [address] [place] [address] PCP - General Family Medicine 06/07/17 documented as of this encounter
--- OUTSIDE RECORDS SUMMARY | 2024-10-12 12:02 | XMS_ITS | Encounter Summary ---
Author Organization [facility] [place] [address] Care Team Providers Care Beam Dyer Operator Name Role Phone Precious Nixon MD Primary Care Provider [phone] Encounter Details Date Type Department Care Team (Late Contact Info) Description 05/03/2018 External Results Hematology [place] [phone] Leticia Buckley MD [facility] DR [place]AT[place] [address] Social History Tobacco Use Types Packs/Day Years [...] AM EST Office Visit Hematology/Oncology at [address] [phone] Leticia Buckley MD [facility] [place]ATOLOGY [place] [address] Mili Klein, KIMBERLI [facility] DR [place] [address] documented as of this encounter Procedures Procedure Name Priority Date/Time Associated Diagnosis Comments CBC (WITH DIFF) Routine 05/01/2018 COMPREHENSIVE METABOLIC PANEL Routine 05/01/2018 documented in this encounter Results * Comprehensive metabolic panel (non-fasting) (05/01/2018) Glucose 93 Blood Urea Nitrogen 21 Creatinine 0.80 Sodium 140 Potassium 3.6 Chloride 102 Calcium 9.2 Protein, Total 7.6 Albumin 4.2 Bilirubin, Total 0.3 Alkaline Phosphatase 102 Aspartate Aminotransferase 32 Alanine Aminotransferase 67 Lactate Dehydrogenase 206 Blood specimen (specimen) 05/01/2018 Leticia Buckley MD CHEMISTRY ORDERA BLES * CBC (with Diff) (05/01/2018) White Blood Cell 19.83 Hemoglobin 13.3 Hematocrit 39.8 Platelet 155 Neutrophil Absolute (ANC) - Automated 5.08 Blood specimen (specimen) 05/01/2018 Leticia Buckley MD HEMATOLOGY ORDER MAI documented in this encounter Visit Diagnoses Not on filedocumented in this encounter Care Teams Beam Dyer Operator Relationship Specialty Start Date End Date Precious Nixon MD [address] [place] [address] PCP - General Family Medicine 06/07/17 documented as of this encounter
--- OUTSIDE RECORDS SUMMARY | 2024-10-12 12:02 | XMS_ITS | Encounter Summary ---
Author Organization [facility] Address [facility] [place] [address] Care Team Providers Care Special Education Math Teacher Name Role Phone Precious Nixon MD Primary Care Provider [phone] Reason for Visit * Consultation (Routine) - Closed Specialty Diagnoses / Procedures Referred By Neil pate Referred To Contact Radiation Oncology Diagnoses Endometrial ca Procedures Simulation for Radiation Therapy Planning Brianna Flores MD [facility] [place] [address] St Rad Onc Office [address] [place] [phone] Referral ID Status Reason Start Date Expiration Date V isits Requested Visits Authorized [id number] Closed Consult, Test & Treat 12/23/2021 12/23/2022 4 4 Encounter Details Date Type Department Care Team (Latest Contact Info) Description 01/18/2022 3:00 PM EST Ancillary Appointment Radiation Oncology at [address] [phone] Brianna Flores MD [facility] [place] [address] Endometrial ca Social History Tobacco Use Types [...] as of this encounter Progress Notes * Brianna Flores MD - 01/18/2022 3:00 PM EST Here for sim. Sim: Full bladder; 25 mm universal stump cylinder placed into vagina flush w/apex; 3D isodose brachytherapy planned. She tolerated sim well, w/o problem. Tx Plan: 3D isodose brachytherapy xrt. Start xrt 01/21/22. documented in this encounter Plan of Treatment Upcoming Encounters Date Type Department Care Team (Late st Contact Info) Description 12/18/2024 11:30 AM EST Office Visit Hematology/Oncology at [address] [phone] Leticia Buckley MD [facility] DR [place] [address] Mili Klein APRN [facility] DR [place] [address] Scheduled Orders Name Type Priority Associated Diagnoses Orde r Schedule Simulation for Radiation Therapy Planning Procedures Routine Endometrial ca Ordered: 12/23/2021 documented as of this encounter Visit Diagnoses Diagnosis Endometrial ca Malignant neoplasm of corpus uteri, except isthmus documented in this encounter Care Teams Special Education Math Teacher Relationship Specialty Start Date End Date Precious Nixon MD [address] [place] [address] PCP - General Family Medicine 06/07/17 documented as of this encounter
--- OUTSIDE RECORDS SUMMARY | 2024-10-12 12:02 | XMS_ITS | Encounter Summary ---
[place] [address] Care Team Providers Care Help Desk Representative Name Role Phone Precious Nixon MD Primary Care Provider [phone] Encounter Details Date Type Department Care Team (Latest Contact Info) Description 09/25/2020 8:52 PM EDT - 09/25/2020 11:59 PM EDT Hospital En[place] [id number] Discharge Disposition: Home Social History Tobacco Use [...] 11:30 AM EST Office Visit Hematology/Oncology at [address] [phone] Leticia Buckley MD [facility] [place] [address] Mili Klein APRN [facility] [place] [address] documented as of this encounter Procedures Procedure Name Priority Date/Time Associated Diagnosis Comments COVID-19 PCR Routine 09/25/2020 2:55 PM EDT documented in this encounter Results * COVID-19 PCR (09/25/2020 2:55 PM EDT) SARS-CoV-2 RNA Not Detected Not Detected [facility] Comment: This result should be interpreted in combination with the clinical observations, patient history and epidemiological information in making a final diagnosis. For testing of asymptomatic individuals, assay performance characteristics and clinical utility have not been evaluated. Testing for SARS-CoV-2 (Severe acute respiratory syndrome coronavirus 2, formerly known as 2019 novel coronavirus or 2019-nCoV) to aid in the diagnosis of COVID-19 is performed using the [employer] RealTime SARS-CoV-2 Assay as authorized by the FDA Emergency Use Authorization (EUA). This EUA assay is intended for In-vitro Diagnostic (IVD) use with respiratory specimens such as nasopharyngeal swabs collected from individuals during the acute phase of infection. This assay is performed based on the instructions for use provided by [employer] and additional guidance provided by CDC and FDA. Testing is performed in the [facility] within the Department of Pathology and Laboratory Medicine at [facility], certified under the Clinical Laboratory Improvement Amendments of 1988 (CLIA), 42 U.S.C. 263a, to perform high complexity tests. Assay performance has been verified according to clinical laboratory regulatory requirements for use with specimens collected from individuals suspected of COVID-19. Test results are provided above. A result of ? Not Detected? indicates that the viral RNA target is not present above the limit of detection, but does not preclude SARS-CoV-2 infection. False negative results may occur if a specimen is improperly collected, transported or handled; if amplification inhibitors are present; or if inadequate numbers of viral particles are present in the specimen. When a diagnostic test is negative, the possibility of a false negative result should be considered in the context of a patient? s recent exposures and the presence of clinical signs and symptoms consistent with COVID-19. A result of ? Detected? indicates that RNA from SARS-CoV-2 was detected and the patient is infected. As required or requested by public health authorities, positive specimens may be sent for additional testing. Positive and negative predictive values for this test are highly dependent on disease prevalence. A result of ? Invalid? indicates that neither the viral RNA targets nor the internal control target was detected. An invalid result suggests the presence of inhibitors. Recollection and re-testing is recommended in the case of an invalid result. CDC COVID-19 criteria for testing on human specimens and clinical management guidance information are available at the CDC Coronavirus Disease 2019 (COVID-19) webpage under ? Information for Healthcare Professionals? (https://www.cdc.gov/coronavirus/2019-ncov/hcp/index.html) Additional information about this and other EUA tests can be found in provider and patient fact sheets at the following FDA website: https://www.fda.gov/medical-devices/xypzucundgv-pukwvkf-9955-buqyp-69-btrksjhso- use-a mzblawjojhdlo-xqmtlbo-jfvzsxd/dqeor-silucampkbz-ckkr SARS-CoV-2 RNA Source [employer] Swab [facility] Nasopharyngeal swab (specimen) Other / Unknown 09/25/2020 2:55 PM EDT 09/26/2020 10:25 PM EDT Narrative Resulting Agency Comment Spec In Lab Marika Chacon MD MOLECULAR ORDERABLES [facility] [place] [address] documented in this encounter Visit Diagnoses Not on filedocumented in this encounter Care Teams Help Desk Representative Relationship Specialty Start Date End Date Precious Nixon MD [address] [place] [address] PCP - General Family Medicine 06/07/17 documented as of this encounter
--- OUTSIDE RECORDS SUMMARY | 2024-10-12 12:02 | XMS_ITS | Encounter Summary ---
Author Organization [facility] [place] [address] Care Team Providers Care Speech And Hearing Clinic Director Name Role Phone Precious Nixon MD Primary Care Provider [phone] Reason for Visit * Reason Onset Date Comments Other 03/09/2022 yoly Encounter Details Date Type Department Care Team (Late Contact Info) Description 03/09/2022 Telephone Hematology/Oncology at [address] [phone] Danielle Rendon RN Other (yoly) Social History Tobacco Use Types Packs/Day Years [...] Telephone Encounter - Danielle Rendon RN - 03/09/2022 4:12 PM EDT Yoly order requisition sent to [email or web address]. documented in this encounter Plan of Treatment Upcoming Encounters Date Type Department Care Team (Late Contact Info) Description 12/18/2024 11:30 AM EST Office Visit Hematology/Oncology at [address] [phone] Leticia Buckley MD [facility] DR HEMATOLOGY [place] [address] Mili Klein APRN [facility] HEMATOLOGY [place] [address] documented as of this encounter Visit Diagnoses Not on filedocumented in this encounter Care Teams Speech And Hearing Clinic Director Relationship Specialty Start Date End Date Precious Nixon MD [address] [place] [address] PCP - General Family Medicine 06/07/17 documented as of this encounter
--- OUTSIDE RECORDS SUMMARY | 2024-10-12 12:02 | XMS_ITS | Encounter Summary ---
Author Organization [facility] [place] [address] Care Team Providers Care Priming Mixture Carrier Name Role Phone Precious Nixon MD Primary Care Provider [phone] Encounter Details Date Type Department Care Team (Late Contact Info) Description 12/27/2021 Telephone [place] [address] Alycia Lopez Social History Tobacco Use Types [...] 11:30 AM EST Office Visit Hematology/Oncology at [address] [phone] Leticia Buckley MD [facility] [address] [place] [address] Mili Klein, AUTOMATIC TELLER MACHINE SERVICER [facility] [place] [address] documented as of this encounter Visit Diagnoses Not on filedocumented in this encounter Care Teams Priming Mixture Carrier Relationship Specialty Start Date End Date Precious Nixon MD [address] [place] [address] PCP - General Family Medicine 06/07/17 documented as of this encounter
--- OUTSIDE RECORDS SUMMARY | 2024-10-12 12:02 | XMS_ITS | Encounter Summary ---
Author Organization [facility] [place] [address] Care Team Providers Care Topstitcher Zigzag Name Role Phone Precious Nixon MD Primary Care Provider [phone] Reason for Visit * Reason Comments Follow-up Encounter Details Date Type Department Care Team (Late st Contact Info) Description 02/04/2022 11:00 AM EST Procedure visit [place] [address] [facility] [place] [address] Endometrial ca Social History Tobacco Use Types [...] Sign Reading Time Taken Comments Blood Pressure 124/54 02/04/2022 10:52 AM EST Pulse 77 02/04/2022 10:52 AM EST Temperature 36.5 ??C (97.7 ??F) 02/04/2022 10:[address] Respiratory Rate - - Oxygen Saturation 99% 02/04/2022 10:52 AM EST room air Inhaled Oxygen Concentration - - Weight - - Height - - Body Mass Index - - documented in this encounter Patient Instructions * Patient Instructions* Analy Nielsen RN - 02/04/2022 9:08 AM EST Follow Up Care (After High Dose Rate Brachytherapy) Urinary symptoms, diarrhea and fatigue can develop as side effects of this treatment. Urinary Symptoms: Please try to drink at least two liters of low acid liquids or water for the first two days after your treatment. This will minimize the possibility of developing any urinary symptoms. Urinary frequency/ urgency can be an expected side effect from your treatment. If you develop these symptoms and/or painful urination, please call the Radiation Oncology department . There may be a medication we can order to control these symptoms. Diarrhea:If you develop diarrhea, change to a low fiber diet. You can take one imodium after each loose stool up to four a day. Call if this does not help control your symptoms. Fatigue can develop after each treatment and linger for up to 4 weeks after treatment is completed.Pace you activities and take rest periods as needed. Practice regular sleep routines. Daily exercise such as walking of at least 30 mins/day is helpful to increase your energy level. Sexuality: [place] can be resumed as soon as desired. Some women experience vaginal dryness after pelvic radiation. Using water based lubricants such as KY jelly can assist with lubrication to make intercourse more comfortable. If these measures do not help, some women find using an estrogen cream can help. If you do not have intercourse, your doctor will recommend the use of a vaginal dilator to maintain the elasticity of your vagina. This will be given to you with instructions on your follow up appointment. Warning Signs: Spotting after your procedure is normal but you should not experience bleeding similar to a period. or vaginal bleeding.Foul smelling discharge from your vagina is not normal. Please call us if you experience any of these symptoms. For serious problems or concerns which include a fever, sharp, continuous pain in the pelvic area or heavy red vaginal bleeding please go to the nearest emergency room. Follow Up:You will be called about a follow up appointment. For non-emergency questions or concerns please phone the Radiation Oncology department: [phone]. If you need to contact your physician after normal clinic hours (8AM to 5PM) call [phone] and ask to have the Radiation Oncologist senior medical transcriptionist contacted documented in this encounter Progress Notes * Brianna Flores MD - 02/04/2022 11:00 AM EST Images from the original note were not included. DIAGNOSIS: Endometrial ca, endometrioid type, FIGO gr1, s/p robotic assisted total laparoscopic hys-BSO w/SNB & pelvic lymphadenectomy, pT1b pN0(i+), tumor 5.2 cm, involves lower uterine segment.CLL dx'd 2015, not tx'd, followed. Here for 3rd intravag brachy. CURRENT TREATMENT DOSE: 14 Gy (seen prior to brachy) ANTICIPATED TOTAL DOSE: 21 Gy Current # of xrt received: 2 (seen prior to brachy) Anticipated total # of xrt txs: 3 Evaluation of port verification films: Fluoro used to check cylinder position prior to today's brachy. For details, see electronic film record in [employer] [facility]. Changes in Medical Condition: A little tiredness & a little headachey. Pain?: Mild headaches Your Medications Accurate as of February 04, 2022 12:11 PM. If you have any questions, ask [...] EVERY DAY Refills: 1 Physical Exam: BP 124/54 (BP Location (NBP): Right arm, Patient Position: Sitting) Pulse 77 Temp 36.5 ??C (97.7 ??F) (Tympanic) SpO2 99% Comment: room air A&Ox3, NAD. No vulvovag abnlty. Imagin01/18/22 Dx'ic Rad Interp CTsim: Multifocal pelvic adenopathy. Performance Status: KPS 100% Response to xrt: As expected. Irradiation Related Symptoms: Tiredness. Treatment for Symptom Control: None needed. Pain Management: Not needed. Recommendation on Continuing Course of xrt: Continue. After drinking water to fill bladder, Hilary [...] treatment completed, physicist surveyed brachytherapy suite with [employer] co nfirming return of Ir-192 source into vault. Physician & nurse then re-entered treatment room. Cylinder removed. Patient informed of possible side effects from the treatment & given printout with instructions for managing side effects, plan for followup in 1 month & contact information.She tolerated procedure well, without adverse effect. The completed radiotherapy is summarized as follows: 01/21/22 - 02/04/22, 21 Gy/3 fxs to vaginal apexwith Ir-192 HDR using vaginal cylinder. documented in this encounter Plan of Treatment Upcoming Encounters Date Type Department Care Team (Late st Contact Info) Description 12/18/2024 11:30 AM EST Office Visit Hematology/Oncology at [address] [phone] [facility] [address] [place] [address] [facility] [place] [address] documented as of this encounter Visit Diagnoses Diagnosis Endometrial ca Malignant neoplasm of corpus uteri, except isthmus documented in this encounter Care Teams Topstitcher Zigzag Relationship Specialty Start Date End Date Precious Nixon MD [address] [place] [address] PCP - General Family Medicine 06/07/17 documented as of this encounter
--- OUTSIDE RECORDS SUMMARY | 2024-10-12 12:02 | XMS_ITS | Encounter Summary ---
Author Organization [facility] [place] [address] Care Team Providers Care Silk Screener Name Role Phone Precious Nixon MD Primary Care Provider [phone] Reason for Visit * Reason Onset Date Comments Follow-up 07/03/2020 Encounter Details Date Type Department Care Team (Late Contact Info) Description 07/03/2020 Telephone Hematology/Oncology at [address] [phone] Danielle Rendon RN Follow-up Social [...] Telephone Encounter - Danielle Rendon RN - 07/03/2020 10:23 AM EDT Left a couple of messages for Hilary on her identified voice mail that paper work she requested was done and she could picker and sorter load and unload at her request. Did not here back from her no mailed original to her and scanned copy into her chart. documented in this encounter Plan of Treatment Upcoming Encounters Date Type Department Care Team (Late Contact Info) Description 12/18/2024 11:30 AM EST Office Visit Hematology/Oncology at [address] [phone] Leticia Buckley MD [facility] [place] [address] Mili Klein APRN [facility] [place] [address] documented as of this encounter Visit Diagnoses Not on filedocumented in this encounter Care Teams Silk Screener Relationship Specialty Start Date End Date Precious Nixon MD [address] [place] [address] PCP - General Family Medicine 06/07/17 documented as of this encounter
--- OUTSIDE RECORDS SUMMARY | 2024-10-12 12:02 | XMS_ITS | Encounter Summary ---
Author Organization [facility] [place] [address] Care Team Providers Care Costume Rental Clerk Name Role Phone Precious Nixon MD Primary Care Provider [phone] Encounter Details Date Type Department Care Team (Latest Contact Info) Description 12/06/2021 3:00 PM EST TH Visit (TeleHealth) [place] [phone] Graham De Los Santos MD [facility] [place] [address] Endometrial cancer; Obesity (BMI 35.0-39.9 without comorbidity); CLL (chronic lymphocytic leukemia); Post-operative state Social History Tobacco Use Types Packs/Day Years [...] as of this encounter Progress Notes * Graham De Los Santos MD - 12/06/2021 3:00 PM EST Division [place] [address] Postoperative Visit: done via telehealth due to COVID pandemic Patient Active Problem List Diagnosis Code ??? CLL (chronic lymphocytic leukemia) C91.10 ??? Hypertension I10 ??? Depression F32.A ??? Anxiety disorder F41.9 ??? Obesity (BMI 35.0-39.9 without comorbidity) E66.9 ??? Endometrial cancer, grade I C54.1 Subjective: Hilary Lowe returns to the office today for her postoperative visit. On 11/09/21 she underwent a robotic hysterectomy/BSO with pelvic lymphadenectomy. Her postoperative course was uncomplicated. She has been doing well since surgery aside from some bowel irregularity. Her energy level is improving and she is eating well. She denies fevers, chills, dysuria, incisional concerns, abdominal pain,vaginal bleeding, nausea, or vomiting. She has already gone back to work part-time. Objective: There were no vitals filed for this visit. There is no height or weight on file to calculate BMI. There is no height or weight on file to calculate BSA. Physical Exam not done as this was a virtual visit. She did appear well and alert on the computer screen. Surgical Pathology: ?Addendum ADDENDUM DISCUSSION Immunohistochemistry Studies: Formalin-fixed, paraffin-embedded tissue sections are studied using the polymer ??technique with appropriate positive and negative controls. ?These IHC studies ??provide the pathologist with adjunctive diagnostic information. Antibody specificity ??has been verified by testing antibodies on a series of in-house tissues with known ??immunohistochemical performance characteristics. The clinical interpretation of ??any antibody positive staining or its absence is evaluated within the context of ??clinical presentation, morphology, histopathological criteria and other diagnostic ??tests. Block ? Antibody ?Result (Positive/Negative) A8 ?CKAE1/3 ? Positive in isolated tumor cells A19 ? CKAE1/3 ? Negative A25 ? CKAE1/3 ? Negative A26 ? CKAE1/3 ? Negative C3 ?CKAE1/3 ? Positive in isolated tumor cells C4 ?CKAE1/3 ? Positive in isolated tumor cells D10 ? CKAE1/3 ? Negative Electronically signed by: ?Lin BURNS, Kiya Reza Verified: ??12/06/2021 15:01 ??Pathologist Performed at: ??-[facility] [place] Dept. of Pathology, [place], [place] ? Surgical Pathology DIAGNOSIS A - Right pelvic sentinel lymph node, excision: - Four lymph nodes positive for known history of CLL. - Negative for metastatic endometrial carcinoma (0/4). (see Discussion) B - Additional right pelvic sentinel lymph node, excision: - Two lymph nodes positive for known history of CLL. - Negative for metastatic endometrial carcinoma (0/2). C - Left pelvic sentinel lymph node, excision: -??Two lymph nodes positive for known history of CLL. - Negative for metastatic endometrial carcinoma (0/2). (see Discussion) D - Left pelvic enlarged non-sentinel lymph node, excision: - Six lymph nodes positive for known history of CLL. - Negative for metastatic endometrial carcinoma (0/6). (see Discussion) E - Uterus, cervix, bilateral fallopian tubes and ovaries, hysterectomy and bilateral ??salpingo-oophorectomy: - Endometrioid adenocarcinoma with mucinous differentiation (FIGO grade I) (see ??Synoptic report below) - Bilateral fallopian tubes and ovaries negative for malignancy. SYNOPTIC Specimen Parts: ??A - E . SYNOPTIC Specimen ?Procedure: ??Total hysterectomy and bilateral salpingo-oophorectomy Tumor ?Tumor Site: ??Endometrium ?Tumor Size: ??5.2 Centimeters (cm) ?Histologic Type: ??Endometrioid carcinoma, NOS ?Histologic Grade: ??FIGO grade 1 ?Two-Tier Grading System: ??Low grade (encompassing FIGO 1 and 2) ?Myometrial Invasion: ??Present ? Depth of Myometrial Invasion: ??19 mm ? Myometrial Thickness: ??23 mm ? Percentage of Myometrial Invasion: ??83% ?Adenomyosis: ??Present, involved by carcinoma ?Uterine Serosa Involvement: ??Not identified ?Lower Uterine Segment Involvement: ??Present, myoinvasive ?Cervical Stromal Involvement: ??Not identified ?Other Tissue / Organ Involvement: ??Not identified ?Peritoneal / Ascitic Fluid: ??Not submitted / unknown ?Lymphovascular Invasion (LVI): ??Not identified ?Tumor Comment: ??MELF pattern of invasion is identified. Regional Lymph Nodes ?Regional Lymph Node Status: ??All regional lymph nodes negative for tumor ? cells ?Lymph Nodes Examined ?Total Number of Pelvic Nodes Examined: ??14 ? Number of Pelvic [place] Nodes Examined: ??8 ? Total Number of Para-aortic Nodes Examined: ??0 Pathologic Stage Classification (pTNM, AJCC 8th Edition) ?pT Category: ??pT1b ?pN Category: ??pN0 FIGO Stage ?FIGO Stage: ??IB Additional Findings ?Additional Findings: ??Lymph nodes with CLL Tumor Block(s): ??E18-21 Normal Block(s): ??E8 CAP eCC April 2021 Release DISCUSSION Immunostains for cytokeratin are pending for a few lymph node tissue blocks to ??evaluate for isolated tumor cells and will be reported in an addendum. ??No macro- or ??micrometastatic lymph node disease is identified on H&E sections. ADDITIONAL STUDIES Immunohistochemistry Studies: Formalin-fixed, paraffin-embedded tissue sections are studied using the polymer ??technique with appropriate positive and negative controls. ?These IHC studies ??provide the pathologist with adjunctive diagnostic information.??Antibody specificity ??has been verified by testing antibodies on a series of in-house tissues with known ??immunohistochemical performance characteristics. The clinical interpretation of ??any antibody positive staining or its absence is evaluated within the context of ??clinical presentation, morphology, histopathological criteria and other diagnostic ??tests. Block ? Antibody ?Result (Positive/Negative) A4 ? CD3 ?Positive, patchy A4 ? CD20 ? Positive, Diffuse E18 ?ER ? Positive ?CA ? Positive Block ? Antibody ? Result (Positive/Negative) E18 ?MLH1 ?Positive, intact nuclear staining ADDITIONAL STUDIES ?MSH2 ?Positive, intact nuclear staining ?MSH6 ?Positive, intact nuclear staining ?PMS2 ?Positive, intact nuclear staining Interpretation: Immunostains for MLH1, MSH2, MSH6 and PMS2 reveal intact nuclear staining in tumor ??cells. ??In a very small percentage of tumors, there may still be an underlying ??hereditary defect in these DNA mismatch repair genes despite intact nuclear ??expression of the protein in tumor cells ?? . Genetic counseling and/or additional ??workup is indicated in patients with a family history that meets current criteria ??for HNPCC screening. ?? Further testing for microsatellite instability in available ??in the [facility] ([facility]) if the ??clinical suspicion for Kerr syndrome remains high despite the intact mismatch ??repair protein expression. SPECIMEN(S) SUBMITTED A - Right Pelvic [place] Lymph Node, Right Pelvic Enlarged Lymph Node, excision (1) B - Additional Right Pelvic [place] Lymph Node, excision (1) C - Left Pelvic [place] Lymph Node, excision (1) D - Left Pelvic Enlarged Non-[place] Lymph Node, excision (1) E - Uterus, Cervix, Bilateral Fallopian Tubes and Ovaries, biopsy (1) CLINICAL INFORMATION Endometrial cancer SPECIMEN PROCESSING A - Labeled/Fixative: Right pelvic sentinel lymph node, right pelvic enlarged lymph ??node, fresh. Quantity/Size: Multiple, 8 x 5 x 2 cm. Tissue Description: Adipose tissue with multiple lymph nodes, up to 4.0 cm. Each ??lymph node demonstrates soft soliman-pink, grossly positive lymph nodes, the largest ??tumor deposit is 4.0 cm Sections/Processing: The lymph nodes are entirely submitted in 27 cassettes as follows: ? A1: ??Single lymph node; bisected and entirely submitted ? A2: ??Audit Clerk section from 2.5 cm lymph node ? A3: ??Audit Clerk section from 2.9 cm lymph node ? A4: ??Audit Clerk section from 3.1 cm lymph node ? A5: ??Audit Clerk section from 4.0 cm lymph node ? A6-A8: ??Remaining lymph node from A2 ? A9-A10: ??Remaining lymph node from A3 ? A11-A15: ??Remaining lymph node from A4 ? A16-A27: ??Remaining lymph node from A5 B - Labeled/Fixative: Additional right pelvic sentinel lymph node, fresh. Quantity/Size: Single, 1.3 x 0.6 x 0.5 cm. Tissue Description: Surgically disrupted firm, pink-white grossly positive with ??associated adipose tissue Sections/Processing: Entirely submitted in 1 cassette labeled B1. C - Labeled/Fixative: Left pelvic lymph node, fresh. Quantity/Size: Two, 1.0 x 0.8 x 0.6 cm and 4.2 x 1.5 x 1.0 cm. Tissue Description: Firm pink-soliman lymph nodes with associated adipose tissue. The cut ??surfaces are diffusely soft and pink-white cavity. The largest deposit is 1.0 cm in ??greatest dimension Sections/Processing: Entirely submitted in 5 cassettes as follows: SPECIMEN PROCESSING ? C1: ??Smaller lymph node; bisected and entirely submitted ? C2: ??Audit Clerk section from 1.0 cm ??lymph node ? C3-C5: ??Remaining tissue from lymph node in C2 D - Labeled/Fixative: Left pelvic enlarged non-sentinel lymph node, fresh. Quantity/Size: Single, 7.2 x 3.1 x 1.5 cm. Tissue Description: Adipose tissue with 6 diffusely positive lymph nodes ranging from ??0.5- 1.9 cm in greatest dimension Sections/Processing: The lymph nodes are entirely submitted in 11 cassettes as follows: ? D1: ??2 intact lymph nodes ? D2: ??Audit Clerk section from 1.4 cm lymph node ? D3: ??Audit Clerk section from 1.7 cm lymph node ? D4: ??Audit Clerk section from 1.7 cm lymph node ? D5: ??Audit Clerk section from 1.9 cm lymph node ? D6: ??Remaining lymph node from D2 ? D7: ??Remaining lymph node from D3 ? D8-D9: ??Remaining lymph node from D4 ? D10-D11: ??Remaining lymph node from D5 E - Labeled/Fixative: Uterus, cervix, bilateral fallopian tubes and ovaries, fresh. Quantity: Single Size: Cornu to cornu: 6.0 cm Anterior to posterior: 4.0 cm Dome to Cervix: 9.0 cm Weight (overall): 139 g Tissue Description: Intact, total hysterectomy. ENDOMETRIAL TUMOR Horizontal measurement: 5.2 cm Vertical measurement: 4.5 cm Qualitative Description: Exophytic and endophytic Location: Circumferential Lower Uterine Segment Involvement: Involved Myometrial Invasion: Outer half Cervical Lymphatic or Vascular invasion: Indeterminate UTERUS Endometrium: The endometrial cavity is 4.3 x 4.2 cm, with a scant, uninvolved 0.1 cm ??thick endometrium. Myometrium: Averaging 2.0 cm thick. Serosa: Glistening and pink-soliman. CERVIX Diameter: 2.6 cm. The anterior cervical margin is inked blue and the posterior ??cervical margin is inked black Os: 0.8 cm, slit-like RIGHT OVARY ?Size: 3.3 x 2.0 x 1.1 cm. ?Outer Surface: Soliman, cerebriform. ?Cut Surface: Heterogenous with no lesions. Right Fallopian Tube: 5.5 x 0.6 x 0.5 cm, fimbriated. LEFT OVARY ?Size: 2.8 x 2.0 x 1.4 cm. ?Outer Surface: Soliman, cerebriform. ?Cut Surface: Heterogenous with no lesions. Left Fallopian Tube: 5.0 x 0.5 x 0.5 cm, fimbriated. Sections/Processing: Audit Clerk sections in 21 cassettes as follows: ? E1: ??Audit Clerk right ovary ? E2: ??Right fallopian tube fimbria; longitudinally bisected and entirely submitted ? E3: ??Remaining right fallopian tube; serially cross-sectioned ? E4: ??Audit Clerk left ovary ? E5: ??Left fallopian tube fimbria; longitudinally bisected and entirely submitted ?in one cassette above SPECIMEN PROCESSING ? E6: ??Remaining left fallopian tube; serially cross-sectioned ? E7: ??Audit Clerk anterior cervix at 12 o'clock ? E8: ??Audit Clerk posterior cervix at 6 o'clock ? E9-E11: ??Longitudinal anterior lower uterine segment , cervical aspect inked red ? E12-E15: ??Longitudinal posterior lower uterine segment with lesion, cervical ?aspect inked red ? E16-E17: ??Full-thickness anterior endomyometrium ? E18-E21: ??Full-thickness posterior endomyometrium with lesion and deepest invasion ?(deepest in 18-19) Assessment and Plan: Hilary Lowe is a 61 y.o. with stage Ib grade 1 endometrioid endometrial adenocarcinoma. She is doing well postoperatively and is advised that she may resume full activities at 6 weeks postoperatively. I reviewed her pathology with her. She did have several lymph nodes removed as they were enlarged but this was all due to her known diagnosis of CLL. Given her diagnosis of intermediate endometrial cancer, she is at an overall low risk of recurrence, ~10-12% over the remainder of her lifetime and we reviewed adjuvant therapy options to reduce thatrisk further, specifically vaginal cuff brachytherapy. A referral will be placed for vaginal brachytherapy. The schedule, expectations, and usual side effects of this treatment were reviewed. Once she has completed treatment, recommendations for surveillance of intermediate risk disease (stage IA, grade 3, stage IB, stage II) include follow-up visits every 3 months for one year, every 6 months for years 2-5 and yearly thereafter. These visits will include pelvic exam with visualization of the vaginal apex as well as a bimanual/rectovaginal exam. [Current Society of Gynecologic Oncologists (SGO) Surveillance Guidelines: Posttreatment surveillance and diagnosis of recurrence in womenwith gynecologic malignancies: Society of Gynecologic Oncologists recommendations (Vignesh, et al; AJOG, April 2011)]. Lastly, we reviewed that this tumor showed no evidence of microsatellite instability or Kerr syndrome. As such, this is not a hereditary cancer and her family should not be at any increased risk. This encounter was primarily counseling-based (>50 % of total time), with total time of 15 minutes, unrelated to the surgical global period/procedures itself, to discuss a new cancer diagnosis andtreatment as described below, of which 10 minutes was spent with the patient/family discussing: * Diagnostic/test results and/or recommendations for additional diagnostic or confirmatory studies; * Prognosis - related of the diagnosis/stage of the disease and course of treatment; * Risks and benefits of pertinent management and treatment options; * Instructions for disease management and the importance of compliance with recommended treatment; * Risk factor reduction, including additional screening and/or surveillance studies, as well as recommended lifestyle modifications; * Patient and family education, answering questions/concerns. GRAHAM DE LOS SANTOS MD documented in this encounter Plan of Treatment Upcoming Encounters Date Type Department Care Team (Late st Contact Info) Description 12/18/2024 11:30 AM EST Office Visit Hematology/Oncology at [address] [phone] Leticia Buckley MD [facility] DR HEMATOLOGY [place] [address] Mili Klein APRN [facility] HEMATOLOGY [place] [address] documented as of this encounter Visit Diagnoses Diagnosis Endometrial cancer Malignant neoplasm of corpus uteri, except isthmus Obesity (BMI 35.0-39.9 without comorbidity) Obesity, unspecified CLL (chronic lymphocytic leukemia) Chronic lymphoid leukemia, without mention of having achieved remission Post-operative state Other postprocedural status documented in this encounter Care Teams Costume Rental Clerk Relationship Specialty Start Date End Date Precious Nixon MD [address] [place] [address] PCP - General Family Medicine 06/07/17 documented as of this encounter
--- OUTSIDE RECORDS SUMMARY | 2024-10-12 12:02 | XMS_ITS | Encounter Summary ---
Author Organization [facility] [place] [address] Care Team Providers Care Customer Solutions Architect Name Role Phone Precious Nixon MD Primary Care Provider [phone] Encounter Details Date Type Department Care Team (Late Contact Info) Description 10/14/2021 8:05 PM EST Ancillary Procedure Radiology Library at [facility] [place] [address] Jazz Johnson MD [facility] [place] [address] Social History Tobacco Use Types Packs/Day Years [...] 11:30 AM EST Office Visit Hematology/Oncology at [address] [phone] Leticia Buckley MD [facility] DR HEMATOLOGY [place] [address] Mili Klein APRN [facility] DR [place] [address] documented as of this encounter Procedures Procedure Name Priority Date/Time Associated Diagnosis Comments FILM LIBRARY STORAGE ONLY ULTRASOUND STUDY Routine 10/14/2021 8:04 PM EST documented in this encounter Results * Film Library- Storage Only Ultrasound Study (10/14/2021 8:04 PM EST) Narrative [facility] - 10/14/2021 8:04 PM EST This exam is auto-finalizing. It's purpose is for storage only. Jazz Johnson MD IMG FILM LIBRARY ORD ERABLES [place], [place] documented in this encounter Visit Diagnoses Not on filedocumented in this encounter Care Teams Customer Solutions Architect Relationship Specialty Start Date End Date Precious Nixon MD [address] [place] [address] PCP - General Family Medicine 06/07/17 documented as of this encounter
--- OUTSIDE RECORDS SUMMARY | 2024-10-12 12:02 | XMS_ITS | Encounter Summary ---
[place] [address] Care Team Providers Care Hammer Shop Supervisor Name Role Phone Precious Nixon MD Primary Care Provider [phone] Encounter Details Date Type Department Care Team (Late st Contact Info) Description 02/08/2022 Telephone [place] [phone] Janee Maya RN Social History Tobacco Use Types Packs/Day [...] encounter Miscellaneous Notes * Telephone Encounter - Janee Maya RN - 02/08/2022 1:58 PM EDT Received call from KITA King, with [employer] who does reviews for medical necessity for the patient's treatment. She is looking for the patient's Radiation Oncologist's name. Provided her with Brianna Flores' name. She denies any further questions at this time. * Telephone Encounter - Janee Maya RN - 02/08/2022 1:55 PM EDT ----- Message from Marlen Moncada sent at 02/08/2022 12:33 PM EDT ----- Regarding: Plan for Medical Necessity Caller's name: Christine ONC Nurse from [facility] Call back #: [phone] (Christine today) tomorrow Alycia at [phone] Patient's provider/team: Dr Johnson Reason for call: Plan for Medical Necessity? documented in this encounter Plan of Treatment Upcoming Encounters Date Type Department Care Team (Late st Contact Info) Description 12/18/2024 11:30 AM EST Office Visit Hematology/Oncology at [address] [phone] Leticia Buckley MD [facility] DR [place]AT[place] [address] Mili Klein APRN [facility] [place] [address] documented as of this encounter Visit Diagnoses Not on filedocumented in this encounter Care Teams Hammer Shop Supervisor Relationship Specialty Start Date End Date Precious Nixon MD [address] [place] [address] PCP - General Family Medicine 06/07/17 documented as of this encounter
--- OUTSIDE RECORDS SUMMARY | 2024-10-12 12:02 | XMS_ITS | Encounter Summary ---
Author Organization [facility] [place] [address] Care Team Providers Care Non Emergency Services Ambulance Driver Name Role Phone Precious Nixon MD Primary Care Provider [phone] Encounter Details Date Type Department Care Team (Late st Contact Info) Description 01/18/2022 Notes Only Radiation Oncology at [address] [phone] Precious Wilhelm, MACHINE SANDER OFFICE OF CARE MANAGEMENT Social History Tobacco Use Types Packs/Day Years [...] as of this encounter Progress Notes * Precious Wilhelm MSW - 01/18/2022 3:05 PM EST Reason for Referral: Brief assessment of social and emotional needs. Met with ptafter her sim todayto introduce myself and role of manager social services to assess/address barriers to getting to and through treatments; address support needs and connect with community services and resources as needed. Family/Social Supports: Pt identified her 3 daughters as her primary support. One daughter lives with pt and the other are in the state. Living Situation/Daily Activities/Transportation: Pt manages her daily chores and activities. She does not expect any issues with transportation. Her daughters will be driving her to her 3 [facility]. 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 She plans to work as she feels up to. She has [employer] for insurance. Advance Directives: Pt has not completed her advance directive. She has access to the documents. Utilization of Community Resources: None at this time. Adjustment to Illness/Mental Health Concerns: Pt indicated she is coping as best she can. She feelswell supported by her daughters. Her 2 year old granddaughter is her light in all of this. Offered support. Identified Needs: Pt did not identify any specific needs at this time. Referrals: None at this tie. Social Work Interventions: Brief assessment Supportive Counseling Plan: Informed pt of MACHINE SANDER availability and contact information. Will follow to assess/address psychosocial needs. LINDA Peguero, UNIVERSAL BRANCH CONSULTANT, OSW-C Clam Shucking Machine Tender [facility] documented in this encounter Plan of Treatment Upcoming Encounters Date Type Department Care Team (Late st Contact Info) Description 12/18/2024 11:30 AM EST Office Visit Hematology/Oncology at [address] [phone] Leticia Buckley MD [facility] DR HEMATOLOGY [place] [address] Mili Klein APRN [facility] HEMATOLOGY [place] [address] documented as of this encounter Visit Diagnoses Not on filedocumented in this encounter Care Teams Non Emergency Services Ambulance Driver Relationship Specialty Start Date End Date Precious Nixon MD [address] [place] [address] PCP - General Family Medicine 06/07/17 documented as of this encounter
--- OUTSIDE RECORDS SUMMARY | 2024-10-12 12:02 | XMS_ITS | Encounter Summary ---
Author Organization [facility] [place] [address] Care Team Providers Care Clerical Warehouseman Name Role Phone Precious Nixon MD Primary Care Provider [phone] Encounter Details Date Type Department Care Team (Late st Contact Info) Description 10/26/2021 3:30 PM EST Clinical [place] [phone] Social History Tobacco Use Types Packs/Day Years [...] as of this encounter Progress Notes * Latanya Mcpherson, RN - 10/26/2021 3:30 PM EST Abbreviate Anesthesia questionnaire reviewed with patient while in [facility]. Pt has tolerated anesthesia in the past. Pre-operative instruction booklet reviewed. Patient verbalizes agood understanding of all information reviewed. PLAN: Testing: none Special medication instructions: Procedure date: 11-09-21 Dr Johnson Pre Surgery Covid screening: Were you diagnosed with COVID 19 or had symptoms consistent with COVID19 within the last 3 months. No Blood pressure elevated today. Pt reports she checks it at home and reading are lower. Recommended pt bring copy of blood pressure reading with her on DOS. documented in this encounter Plan of Treatment Upcoming Encounters Date Type Department Care Team (Late st Contact Info) Description 12/18/2024 11:30 AM EST Office Visit Hematology/Oncology at [address] [phone] Leticia Buckley MD [facility] DR HEMATOLOGY [place] [address] Mili Klein APRN [facility] HEMATOLOGY [place] [address] documented as of this encounter Visit Diagnoses Not on filedocumented in this encounter Care Teams Clerical Warehouseman Relationship Specialty Start Date End Date Precious Nixon MD [address] [place] [address] PCP - General Family Medicine 06/07/17 documented as of this encounter
--- OUTSIDE RECORDS SUMMARY | 2024-10-12 12:02 | XMS_ITS | Encounter Summary ---
Author Organization [facility] [place] [address] Care Team Providers Care Lube Attendant Name Role Phone Precious Nixon MD Primary Care Provider [phone] Encounter Details Date Type Department Care Team (Late st Contact Info) Description 03/09/2022 2:00 PM EDT Office Visit Hematology/Oncology at [address] [phone] Leticia Buckley MD [facility] [address] [place] [address] CLL (chronic lymphocytic leukemia) Social History Tobacco [...] Sign Reading Time Taken Comments Blood Pressure 134/73 03/09/2022 1:52 PM EDT Pulse 89 03/09/2022 1:52 PM EDT Temperature 36 ??C (96.8 ??F) 03/09/2022 1:52 PM EDT Respiratory Rate 18 03/09/2022 1:52 PM EDT Oxygen Saturation 100% 03/09/2022 1:52 PM EDT Inhaled Oxygen Concentration - - Weight 107.1 kg (236 lb 3.2 oz) 03/09/2022 1:52 PM EDT Height 175.3 cm (5' 9) 03/09/2022 1:52 PM EDT Body Mass Index 34.88 03/09/2022 1:52 PM EDT documented in this encounter Progress Notes * Leticia Buckley MD - 03/09/2022 2:00 [place] [address] HEMATOLOGY PATIENT EVALUATION PROBLEM LIST: Patient Active Problem List Diagnosis ??? Endometrial cancer, grade I ??? Obesity (BMI 35.0-39.9 without comorbidity) ??? Hypertension ??? Depression ??? Anxiety disorder ??? CLL (chronic lymphocytic leukemia) Diagnosed 2014, never needed treatment, currently being monitored No cytopenias. WBC about 20-25k. HISTORY OF PRESENT ILLNESS: Hilary Lowe is a 62 y.o. year old female being seen for evaluation of CLL. she was referred in consultaion from Dr. Elba Chi. 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 . She previously received her care for CLL by Dr. Alycia Rodriguez from [facility]. According to the patient, she [...] months with blood work. Hilary developed abnormal bleeding and was ultimately diagnosed with endometrial cancer. She is status post hysterectomy. Since I last saw her she has been treated with brachytherapy radiation completed January 2022. First granddaughter Ana is turning 2! She now lives in [place]. All of her children are now in [place], no longer in [place]. Had R knee replacement; needs L TKR. No B symptoms. PMHX: Past Medical History: Diagnosis Date ??? Anxiety disorder ??? CLL (chronic lymphocytic leukemia) 2014 Diagnosed 2 years ago, never needed treatment, currently being monitored ??? Depression ??? Endometrial cancer, grade I 10/26/2021 ??? Hypertension ??? Obesity (BMI 35.0-39.9 without comorbidity) ROS Energy level:stable Pain: knee Appetite:good Fevers/chills/sweats:No [...] Outpatient Medications Marked as Taking for the 03/09/22 encounter (Office Visit) with Leticia Buckley MD [...] Emmanuel, son, of OD. Daughters were in [facility] and [facility] - now all in [place]. Marion in [place] is expecting a child - this is Hilary's first grandchild. 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 Has taken courses on the history of culture in [place] and loves it there. ETOH: 1-2 glasses of wine, 5 times a week Smoking: Never PHYSICAL EXAM BP 134/73 (Patient Position: Sitting) Pulse 89 Temp 36 ??C (96.8 ??F) (Temporal) Resp 18 Ht175.3 cm (5' 9) Wt 107.1 kg (236 lb 3.2 oz) SpO2 100% BMI 34.88 kg/m?? Body surface area is 2.28 meters squared. GENERAL: Hilary Lowe appears well [...] (with Diff) Result Value Ref Range WBC 11.06 Hemoglobin 12.6 Hematocrit 37.9 Platelets 191 Neutr Abs (ANC) 3.95 Creatinine 1 LDH 167 RADIOLOGY STUDIES REVIEWED: None ASSESSMENT/PLAN: Ms. Lowe is a pleasant 62 y.o. F w/ hx of CLL who presents for ongoing care with our Hematologyclinic for continued monitoring of her CLL. At this time, she has no B symptoms and no physical exam findings of hepatosplenomegaly. She was diagnosed with stage [address] Alycia Rodriguez from [facility] with follow up every 6 months with [...] or thrombocytopenia) that warrant closer follow up -Hilary has never had a staging CT. at the time of her diagnosis of endometrial cancer 2020, abdominal adenopathy was noted the largest lymph node being about 4 cm. Lymph nodes excised at the time of DORCAS, showed no evidence of endometrial cancer. This is encouraging. She did show signs of CLL, which is not surprising. The largest lymph node was 4 cm. I explainedto her that this is not surprising in CLL, as most cases involve bone marrow, peripheral blood, andadenopathy. Recommendations are to initiate treatment for CLL if the lymph nodes get greater than 10 cm. However, now that we know she does have adenopathy, we will follow- up with repeat imaging for surveillance on an intermittent basis. We will try to use this in few CAT scans as possible to keep an eye on her and keep her safe while still minimizing the radiation dose. I explained that anytime she is having a scan for Dr. Johnson, we will also try to add on a chest scan as well to minimize the number of CT scans she has. She was appreciative of this. Endometrial cancer -cared for by Dr. Johnson and Esa. Status post hysterectomy and brachytherapyradiation completed January 2022. Mild SFX. Some urinary leaking. Hypertension - . She reports some white coat syndrome but this is high. She will check at home. Sheis working with her PCP on this. Knee pain -status post right knee replacement. Needs left knee replacement COVID and CLL-vaccinated and boosted. It would be reasonable to check COVID spike antibody the nexttime she is at [facility] I also recommend 4th vaccine. If she is COVID ab spike neg then I would recommend evusheld. Plan: ?? [place] covid spike ab at [facility] - if neg - recommend Evusheld and then 4th vaccine after evusheld ?? If covid spike ab is Positive then just 4th vaccine (no Evusheld) ?? RTC in 6 mos with cbc, cmp, ldh RTC 6 mos with cbc, cmp, ldh. Check COVID spike antibody next time she is at [facility]. I discussed all of the above with the patient and all of her questions were answered. Support and counseling given as appropriate. Hilary Adelaida Lowe knows that she can call us any time with questions or concerns. I discussed the risks and benefits of Evusheld (tixagevimab/cilgavimab) with this patient, highlighting the following: ??? Evusheld was approved under Emergency Use Authorization in October 2021 for pre-exposure prophylaxis for COVID-19 in moderately to severely immunocompromised patients unlikely to have mounted a response to the COVID-19 vaccination, or are unable to receive the COVID-19 vaccination. ??? Evusheld consists of two monoclonal antibodies administered as two separate intramuscular injections. ??? Possible benefits of Evusheld include protection from COVID-19 for weeks to months. ??? Possible risks of Evusheld include rare but severe hypersensitivity for which the patient will be monitored for 1 hour after administration of the drug; localized pain at the injection site; headache, fatigue, and cough. Additionally, Evusheld has been associated with an increased number of card iovascular complications in a small proportion of patients. I counseled the patient to seek medicalattention immediately if they should develop chest pain or discomfort, shortness of breath, leg swelling, or any other signs or symptoms suggestive of a cardiac event. ??? This information reflects the content of the following fact sheet (https://www.fda.gov/media/447579/download) will be provided to the patient in the clinic. ??? The patient understood the risks and benefits of Evusheld described above and agrees to proceedwith the administration of this drug. ??? The patient understands that the treatment is voluntary and the alternative to receiving Evusheld is not to receive Evusheld. ??? The patient understands that they will sign a formal consent in the clinic. Copy Precious Nixon MD . documented in this encounter Plan of Treatment Upcoming Encounters Date Type Department Care Team (Late st Contact Info) Description 12/18/2024 11:30 AM EST Office Visit Hematology/Oncology at [address] [phone] Leticia Buckley MD [facility] [place] [address] Mili Klein APRN [facility] [place] [address] documented as of this encounter Procedures Procedure Name Priority Date/Time Associated Diagnosis Comments CBC (WITH DIFF) Routine 03/09/2022 documented in this encounter Results * COVID-19 Terence Antibody (03/19/2022 11:47 AM EDT) SARS-CoV-2 Terence Ab Detected [facility] Comment: This is a total [...] be due to a past infection with aal-IQHP-WkY-2 coronavirus strains, such as coronavirus HKU1, NL63, OC43, or 229E. This test was performed using the [employer] Lulu-EZSE-IkM-2 S total antibody assay on the Rebecca Aidan e801 analyzer. This serology test is available following FDA Emergency Use Authorization, however it has not been reviewed by the FDA, nor is it FDA cleared or approved. The performance characteristics of this test were determined by the Department of Pathology and Laboratory Medicine at [facility]. The laboratory is certified under [...] fact sheets at the following FDA website: https://www.fda.gov/medical-devices/fpytbdhljvq-uguafry-3085-zirpu-06-lqgdmbbzo- use-a fnhryaanlduoo-jvbyjdb-pekgivn/rphlr-rdzezdskzby-pwao Blood 03/19/2022 11:4 7 AM EDT 03/19/2022 12:55 PM EDT Leticia Buckley MD CHEMISTRY ORDERA BLES [facility] [place] [address] * CBC (with Diff) (03/09/2022) White Blood Cell 11.06 Hemoglobin 12.6 Hematocrit 37.9 Platelet 191 Neutrophil Absolute (ANC) - Automated 3.95 Creatinine 1 Lactate Dehydrogenase 167 Blood 03/09/2022 Historical Provider HEMATOLOGY ORDERA BLES documented in this encounter Visit Diagnoses Diagnosis CLL (chronic lymphocytic leukemia) Chronic lymphoid leukemia, without mention of having achieved remission documented in this encounter Care Teams Lube Attendant Relationship Specialty Start Date End Date Precious Nixon MD [address] [place] [address] PCP - General Family Medicine 06/07/17 documented as of this encounter
--- OUTSIDE RECORDS SUMMARY | 2024-10-12 12:02 | XMS_ITS | Encounter Summary ---
Author Organization [facility] [place] [address] Care Team Providers Care Inter Com Installer Name Role Phone Precious Nixon MD Primary Care Provider [phone] Encounter Details Date Type Department Care Team (Late st Contact Info) Description 11/22/2017 1:00 PM EST Office Visit Hematology/Oncology at [address] [phone] Leticia Buckley MD [facility] DR HEMATOLOGY [place] [address] CLL (chronic lymphocytic leukemia) Social History Tobacco [...] Sign Reading Time Taken Comments Blood Pressure 180/84 11/22/2017 12:55 PM EST Pulse 83 11/22/2017 12:55 PM EST Temperature 36.6 ??C (97.9 ??F) 11/22/2017 12:[address] Respiratory Rate 16 11/22/2017 12:55 PM EST Oxygen Saturation 100% 11/22/2017 12:55 PM EST Inhaled Oxygen Concentration - - Weight 105.2 kg (232 lb) 11/22/2017 12:55 PM EST Height 177 cm (5' 9.69) 11/22/2017 12:55 PM EST Body Mass Index 33.59 11/22/2017 12:55 PM EST documented in this encounter Progress Notes * Leticia Buckley MD - 11/22/2017 1:00 PM EST [place] [address] NEW PATIENT EVALUATION PROBLEM LIST: Patient Active Problem List Diagnosis ??? Hypertension ??? Depression ??? Anxiety disorder ??? CLL (chronic lymphocytic leukemia) Diagnosed 2 years ago, never needed treatment, currently being monitored HISTORY OF PRESENT ILLNESS: It was my pleasure to meet Jatin Lowe today. Jatin Lowe is a 57 y.o. year old female being seen for evaluation of CLL. she is referred in consultaion from Dr. Elba Chi. 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 She has been doing well, and recently moved to [facility]. She received her care for CLL [facility] [...] blood work. Today, she has no complaints. Children are home for the holidays, which she enjoys immensely. PMHX: Past Medical History: Diagnosis Date ??? Anxiety disorder ??? CLL (chronic lymphocytic leukemia) 2015 Diagnosed 2 years ago, never needed treatment, currently being monitored ??? Depression ??? Hypertension ROS Energy level:stable Pain: No Appetite:good Fevers/chills/sweats:No Bruising/bleeding/melena:No Recent infections:No Headaches:neg Vision:neg [...] Mood: Normal Sleep: Difficulty sleeping MEDS: Outpatient Prescriptions Marked as Taking for the 11/22/17 encounter (Office Visit) with Leticia Buckley MD Medication Sig Dispense Refill ??? celecoxib (CELEBREX) 100 mg Capsule Take 100 mg by mouth daily. ??? 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 Has taken courses on the history of culture in [place] and loves it there. ETOH: 1-2 glasses of wine, 5 times a week Smoking: Never PHYSICAL EXAM BP 180/84 (Patient Position: Sitting) Pulse 83 Temp 36.6 ??C (97.9 ??F) (Oral) Resp 16 Ht 177 cm (5' 9.69) Wt 105.2 kg (232 lb) SpO2 100% BMI 33.59 kg/m2 Body surface area is 2.27 meters squared. GENERAL: Jatin Lowe appears well [...] previous visit (from the past 72 hour(s)). Results for JATIN LOWE ( ) as of 11/22/2017 13:08 Ref. Range 07/17/2017 12:36 WBC Latest Ref Range: 4.0 - 9.5 x10(3)/mcL 20.6 (H) RBC Latest Ref Range: 4.00 - 5.21 x10(6)/mcL 4.28 Hemoglobin Latest Ref Range: 11.7 - 15.5 gm/dL 12.5 Hematocrit Latest Ref Range: 35.7 - 45.8 % 38.0 MCV Latest Ref Range: 82.6 - 94.4 fL 88.8 MCH Latest Ref Range: 27.1 - 32.0 pg 29.2 MCHC Latest Ref Range: 31.7 - 35.0 gm/dL 32.9 RDWSD Latest Ref Range: 37.0 - 46.0 fL 45.6 RDWCV Latest Ref Range: 11.5 - 14.1 % 14.2 (H) Platelets Latest Ref Range: 145 - 357 x10(3)/mcL 148 MPV Latest Ref Range: 7.6 - 12.9 fL 9.0 nRBC % Auto Latest Units: % 0.0 nRBC Abs Auto Latest Ref Range: 0.000 - 0.000 x10(3)/mcL 0.000 Neutr Abs (ANC) Latest Ref Range: 1.70 - 6.10 x10(3)/mcL 4.68 Neutrophils % Latest Units: % 22.8 Immature Gran % Latest Units: % 0.20 Lymphocytes % Latest Units: % 73.4 Monocytes % Latest Units: % 2.8 Eosinophils % Latest Units: % 0.6 Basophils % Latest Units: % 0.2 Radha Gran Abs Latest Ref Range: 0.00 - 0.04 x10(3)/mcL 0.05 (H) Lymphocytes Abs Latest Ref Range: 0.9 - 3.2 x10(3)/mcL 15.2 (H) Monocyte Abs Latest Ref Range: 0.3 - 0.9 x10(3)/mcL 0.6 Eosinophils Abs Latest Ref Range: 0.0 - 0.4 x10(3)/mcL 0.1 Basophils Abs Latest Ref Range: 0.0 - 0.1 x10(3)/mcL 0.0 Plat Estimate Unknown Normal RBC Morphology Unknown Abnormal Ovalocytes Latest Units: /HPF 1-5 Smudge Cells Unknown Present Giant Platelets Latest Units: /HPF Less than 1 Sodium Latest Ref Range: 135 - 145 mmol/L 143 Potassium Latest Ref Range: 3.5 - 5.0 mmol/L 4.8 Chloride Latest Ref Range: 98 - 107 mmol/L 105 CO2 Latest Ref Range: 22 - 31 mmol/L 24 Anion Gap Latest Ref Range: 5 - 15 mmol/L 14 BUN Latest Ref Range: 8 - 18 mg/dL 22 (H) Creatinine Latest Ref Range: 0.70 - 1.20 mg/dL 0.84 Estimated GFR Latest Ref Range: >=60 >60 Glucose Lvl Latest Ref Range: 65 - 199 mg/dL 102 Calcium Latest Ref Range: 8.5 - 10.5 mg/dL 9.6 Total Protein Latest Ref Range: 6.1 - 8.0 gm/dL 7.2 Albumin Latest Ref Range: 3.2 - 5.2 gm/dL 4.5 Total Bilirubin Latest Ref Range: 0.2 - 1.3 mg/dL 0.3 Alk Phos Latest Ref Range: 40 - 104 unit/L 91 AST Latest Ref Range: 0 - 30 unit/L 16 ALT Latest Ref Range: 0 - 30 unit/L 25 LDH Latest Ref Range: 110 - 220 unit/L 188 IgG Latest Ref Range: 700 - 1600 mg/dL 642 (L) IgA Latest Ref Range: 70 - 400 mg/dL 81 IgM Latest Ref Range: 40 - 230 mg/dL 46 RADIOLOGY STUDIES REVIEWED: None ASSESSMENT/PLAN: Ms. Lowe is a pleasant 57 y/o F w/ hx of CLL who presents to establish care with our Hematologyclinic for continued monitoring of her CLL. At this time, she has no B symptoms and no physical exam findings of hepatosplenomegaly. She was diagnosed with stage [address] Alycia Rodriguez from [facility] with follow up every 6 months with blood work. At this time we recommend the followin g: -obtain CBC, CMP, LDH, quantitative immunoglobulins in next few days - I will keep an eye out for them. -right sided posterior cervical lymphadenopathy appears chronic, possibly benign or related to CLL,will continue to monitor - labs were not obtained prior to her appt so will get those in next day or 2 -given indolent nature of her disease, we will continue to follow her with next visit in 6 months with routine blood work unless she develops B symptoms or lab abnormalities (such as anemia or thrombocytopenia) that warrant closer follow up Labs received: 12/08/17 Wbc 18.4 hgb 13.1 plt 175 ANC 6.2 Creat 0.93 LFT normal IgG 746 Copy Elba Chi MD . documented in this encounter Plan of Treatment Upcoming Encounters Date Type Department Care Team (Late st Contact Info) Description 12/18/2024 11:30 AM EST Office Visit Hematology/Oncology at [address] [phone] Leticia Buckley MD [facility] DR HEMATOLOGY [place] [address] Mili Klein APRN [facility] DR HEMATOLOGY [place] [address] documented as of this encounter Visit Diagnoses Diagnosis CLL (chronic lymphocytic leukemia) Chronic lymphoid leukemia, without mention of having achieved remission documented in this encounter Care Teams Inter Com Installer Relationship Specialty Start Date End Date Precious Nixon MD [address] [place] [address] PCP - General Family Medicine 06/07/17 documented as of this encounter
--- OUTSIDE RECORDS SUMMARY | 2024-10-12 12:02 | XMS_ITS | Encounter Summary ---
Author Organization [facility] [place] [address] Care Team Providers Care Librarian Specialist Name Role Phone Precious Nixon MD Primary Care Provider [phone] Encounter Details Date Type Department Care Team (Late Contact Info) Description 03/10/2022 Telephone Radiation Oncology at [address] [phone] Galina Ojeda Social History Tobacco Use Types Packs/Day Years [...] encounter Miscellaneous Notes * Telephone Encounter - Galina Torres - 03/10/2022 4:50 PM EDT Joceline, a ocular care technician from [email or web address], called to report that Hilary's three fractions ofbrachytherapy are covered under the following authorization number: [id number] documented in this encounter Plan of Treatment Upcoming Encounters Date Type Department Care Team (Late Contact Info) Description 12/18/2024 11:30 AM EST Office Visit Hematology/Oncology at [address] [phone] Leticia Buckley MD [facility] DR HEMATOLOG[place] [address] Mili Kelin APRN [facility] [place] [address] documented as of this encounter Visit Diagnoses Not on filedocumented in this encounter Care Teams Librarian Specialist Relationship Specialty Start Date End Date Precious Nixon MD [address] [place] [address] PCP - General Family Medicine 06/07/17 documented as of this encounter
--- OUTSIDE RECORDS SUMMARY | 2024-10-12 12:02 | XMS_ITS | Encounter Summary ---
Author Organization [facility] [place] [address] Care Team Providers Care Program Evaluator Name Role Phone Precious Nixon MD Primary Care Provider [phone] Encounter Details Date Type Department Care Team (Late st Contact Info) Description 12/30/2021 8:30 AM EST TH Visit (TeleHealth) [place]ology [place] [address] Leticia Buckley MD [facility] [address] HEMATOLOGY [place] [address] Leticia Avila APRN [facility] [address] HEMATOLOGY [place] [address] Endometrial cancer, grade I; CLL (chronic lymphocytic leukemia) Social History Tobacco [...] as of this encounter Progress Notes * Leticia Buckley MD - 12/30/2021 8:30 AM EST Telephone Encounter I confirmed with the patient that this was a telephone encounter in lieu of an office visit. Charges may be incurred. Patient agreed and gave me permission to proceed. It was a pleasure to talk to Hilary today. Unfortunately, Hilary pushed out her last appointment because of work conflicts. In the meantime she develeped abnormal vaginal bleeding underwent a biopsy and subsequent hysterectomy and has been diagnosed with endometrial cancer. She is still in the midst ofthat work-up. She requested a telephone visit today for support, information, and to discuss her next steps. Lymph nodes excised at the time of [...] scans she has. She was appreciative of this.. Her next step in the treatment of her endometrial cancer will be radiation. She has seen Dr. Goodrich radiation oncology. Hilary's primary concern today, was that she is now , and sexually active. She wants to better understand the rationale for the radiation therapy. She understands that this only decreases local recurrence, but it can also have group home side effects. She has been doing alot of reading on her own, and understands the pros and cons of radiation, but wants to be sure that she feels that the potential benefit is worth the risk. I suggested that perhaps a second opinion at [facility] or elsewhere, would help her. She might benefit from talking to a different provider, who may offer the same or different perspective. It may help answer any lingering concerns/hesitation that she has. She was appreciative of this idea. I suggested that is always best to be transparent with second opinions. We, as physicians, tend to encourage them and not describes them, as they only at to improved outcomes and better patient education. She will reach out to Dr. Johnson and Dr. See directly. I suggested that they would be the best people to direct her to the appropriate NEEDLE LOOM OPERATOR radiation administrative specialist in [place]. Hilary will need a follow-up PET scan at some point. Ideally I had like it at least 2 to 3 months after completion of her radiation therapy. I will check with Dr. Johnson and Dr. Crowley to determine the best timing in their minds. For the time being I will set her up for a return to clinic in about 2months, at which point we can then schedule follow-up scans 11/09/21 DIAGNOSIS A - Right pelvic sentinel lymph [...] fallopian tubes and ovaries negative for malignancy. I spent 20 min on this telehealth encounter including chart review, time with the patient and documentation. documented in this encounter Plan of Treatment Upcoming Encounters Date Type Department Care Team (Late st Contact Info) Description 12/18/2024 11:30 AM EST Office Visit Hematology/Oncology at [address] [phone] Leticia Buckley MD [facility] HEMATOLOGY [place] [address] Mili Klein APRN [facility] DR HEMATOLOGY [place] [address] documented as of this encounter Visit Diagnoses Diagnosis Endometrial cancer, grade I CLL (chronic lymphocytic leukemia) Chronic lymphoid leukemia, without mention of having achieved remission documented in this encounter Care Teams Program Evaluator Relationship Specialty Start Date End Date Precious Nixon MD [address] [place] [address] PCP - General Family Medicine 06/07/17 documented as of this encounter
--- OUTSIDE RECORDS SUMMARY | 2024-10-12 12:02 | XMS_ITS | Encounter Summary ---
Author Organization [facility] [place] [address] Care Team Providers Care Mine Equipment Design Engineer Name Role Phone Precious Nixon MD Primary Care Provider [phone] Encounter Details Date Type Department Care Team (Late st Contact Info) Description 01/13/2021 10:30 AM EST Office Visit Hematology/Oncology at [address] [phone] Leticia Buckley MD [facility] [address] [place] [address] Brianna Bennett APRN [facility] [place] [address] CLL (chronic lymphocytic leukemia) Social History Tobacco [...] Sign Reading Time Taken Comments Blood Pressure 181/87 01/13/2021 10:44 AM EST Pulse 81 01/13/2021 10:44 AM EST Temperature 35.5 ??C (95.9 ??F) 01/13/2021 1 0:44 AM EST Respiratory Rate 20 01/13/2021 10:4 4 AM EST Oxygen Saturation 100% 01/13/2021 10: 44 AM EST Inhaled Oxygen Concentration - - Weight 106.3 kg (234 lb 6.4 oz) 021 10:44 AM EST Height 172.7 cm (5' 8) 01/13/2021 10:4 4 AM EST Body Mass Index 35.64 01/13/2021 10:44 AM EST documented in this encounter Progress Notes * Brianna Bennett, HOISTING MACHINE OPERATOR - 01/13/2021 10:30 AM EST Subjective: Patient ID: Hilary Lowe is a 60 y.o. female here for f/u of CLL Patient Active Problem List Diagnosis ??? Hypertension ??? Depression ??? Anxiety disorder ??? CLL (chronic lymphocytic leukemia) Diagnosed 2014, never needed treatment, currently being monitored No cytopenias. WBC about 20-25k. HPI Review of Systems Constitutional: Negative. HENT: Negative. Eyes: Negative. Respiratory: Negative. Negative for cough and shortness of breath. Cardiovascular: Negative. Negative for chest pain, palpitations and leg swelling. Gastrointestinal: Negative. Negative for constipation, diarrhea, nausea and vomiting. Genitourinary: Negative. Musculoskeletal: Positive for arthralgias. Right knee pain - is in need of TKA Skin: Negative. Neurological: Negative. Negative for weakness and numbness. Hematological: Negative. Psychiatric/Behavioral: Negative. Objective: Physical Exam Constitutional: General: She is not in acute distress. Appearance: She is well-developed. HENT: Mouth/Throat: Pharynx: No oropharyngeal exudate. Eyes: Conjunctiva/sclera: Conjunctivae normal. Pupils: Pupils are equal, round, and reactive to light. Cardiovascular: Rate and Rhythm: Normal rate and regular rhythm. Heart sounds: Normal heart sounds. No murmur. Pulmonary: Effort: Pulmonary effort is normal. Breath sounds: Normal breath sounds. No wheezing or rales. Abdominal: General: Bowel sounds are normal. Palpations: Abdomen is soft. There is no mass. Tenderness: There is no guarding or rebound. Musculoskeletal: General: Normal range of motion. Cervical back: Normal range of motion and neck supple. Lymphadenopathy: Cervical: Cervical adenopathy present. Upper Body: Right upper body: No supraclavicular adenopathy. Left upper body: No supraclavicular adenopathy. Comments: 1 cm posterior cervical node- Hilary believes this is her baseline Skin: General: Skin is warm and dry. Neurological: Mental Status: She is alert and oriented to person, place, and time. Recent Results (from the past 72 hour(s)) CBC (with Diff) Result Value Ref Range WBC 19.56 Hemoglobin 13.3 Hematocrit 40.4 Platelets 197 Neutr Abs (ANC) 4.17 Comprehensive metabolic panel (non-fasting) Result Value Ref Range BUN 23 Creatinine 0.8 Immunoglobulins, Quantitative Result Value Ref Range IgG 652 IgA 74 IgM 36 Assessment and Plan: Assessment: CLL. Counts stable, No worrisome or symptomatic adenoapthy. No B symptoms, her ALC doubling time had been about 2 years however this has decreased over the past year. , No recurrent infections, no signs of AIHA or ITP. No concern for transformation. No indication for treatment at this time. Influenza = UTD Pneumococcal - UTD Varicella = due. She will work on this. Covid- Completed in November HTN- followed by PCP - within range at home, + white coat Plan: stage 0 CLL - no indication for treatment at this time. We will continue to monitor in hematology clinic. Reviewed CLL and indications for treatment. Hilary will return to hematology in 6 months.she will call if there are any problems before then. documented in this encounter Plan of Treatment Upcoming Encounters Date Type Department Care Team (Late st Contact Info) Description 12/18/2024 11:30 AM EST Office Visit Hematology/Oncology at [address] [phone] Leticia Buckley MD [facility] [place] [address] Mili Klein APRN [facility] [place] [address] documented as of this encounter Procedures Procedure Name Priority Date/Time Associated Diagnosis Comments IMMUNOGLOBULINS, QUANTITATIVE Routine 01/11/2021 CBC (WITH DIFF) Routine 01/11/2021 COMPREHENSIVE METABOLIC PANEL Routine 01/11/2021 documented in this encounter Results * Immunoglobulins, Quantitative (01/11/2021) Immunoglobulin G 652 IgA 74 IgM 36 Blood Brianna John Bennett HOISTING MACHINE OPERATOR CHEMISTRY ORDERABLES * Comprehensive metabolic panel (non-fasting) (01/11/2021) Blood Urea Nitrogen 23 Creatinine 0.8 Blood Brianna John Schadelon HOISTING MACHINE OPERATOR CHEMISTRY ORDERABLES * CBC (with Diff) (01/11/2021) White Blood Cell 19.56 Hemoglobin 13.3 Hematocrit 40.4 Platelet 197 Neutrophil Absolute (ANC) - Automated 4.17 Blood Brianna John Bennett HOISTING MACHINE OPERATOR HEMATOLOGY ORDERABLE S documented in this encounter Visit Diagnoses Diagnosis CLL (chronic lymphocytic leukemia) Chronic lymphoid leukemia, without mention of having achieved remission documented in this encounter Care Teams Mine Equipment Design Engineer Relationship Specialty Start Date End Date Precious Nixon MD [address] [place] [id number] PCP - General Family Medicine 06/07/17 documented as of this encounter
--- OUTSIDE RECORDS SUMMARY | 2024-10-12 12:02 | XMS_ITS | Encounter Summary ---
Author Organization [facility] [place] [address] Care Team Providers Care Maintenance Associate Name Role Phone Precious Nixon MD Primary Care Provider [phone] Reason for Visit * Reason Onset Date Comments Follow-up 12/25/2017 Encounter Details Date Type Department Care Team (Late Contact Info) Description 12/25/2017 Telephone Hematology/Oncology at [address] [phone] Danielle Rendon RN Follow-up Social History Tobacco [...] Telephone Encounter - Danielle Rendon RN - 12/25/2017 9:06 AM EST Left message for pt on her cell phone to call us when she gets her LDH and quantative immunoglobulins and then we can look for them. documented in this encounter Plan of Treatment Upcoming Encounters Date Type Department Care Team (Late Contact Info) Description 12/18/2024 11:30 AM EST Office Visit Hematology/Oncology at [address] [phone] Leticia Buckley MD [facility] DR HEMATOLOGY [place] [address] Mili Klein APRN [facility] HEMATOLOGY [place] [address] documented as of this encounter Visit Diagnoses Not on filedocumented in this encounter Care Teams Maintenance Associate Relationship Specialty Start Date End Date Precious Nixon MD [address] [place] [address] PCP - General Family Medicine 06/07/17 documented as of this encounter
--- OUTSIDE RECORDS SUMMARY | 2024-10-12 12:02 | XMS_ITS | Encounter Summary ---
Author Organization [facility] [place] [address] Care Team Providers Care Box Fabricator Name Role Phone Precious Nixon MD Primary Care Provider Reason for Visit * Auth/Cert Specialty Diagnoses / Procedures Referred By Neil pate Referred To Contact Diagnoses ENDOMETRIAL CANCER Procedures PRO LAPAROSCOPY W TOT HYSTERECTUTERUS <=250 GRAM W TUBE/OVARY PRO LAP, PELVIC LYMPHADENECTOMY/BX PRO INTRAOP SENTINEL LYMPH ID W/DYE INJECTION LAPAROSCOPY,TOTAL HYST, UTERUS<250GM, REM TUBE &/OR OVARY, ROBOTIC ASSIST (WRVU 15) LAPAROSCOPY,W\BILATERAL TOTAL PELVIC LYMPHADENECTOMY, PERIAORTIC LYMPH NODE SAMPLING, ROBOTIC (WRVU 15.6) INTRAOPERATIVE ID (MAPPING) SENTINEL LYMPH NODE,INCLUDES INJECTION (WRVU 2.5) MODIFIER ROBOT,KARLEEI XI Referral ID Status Reason Start Date Expiration Date Visits Re quested Visits Authorized [id number] 1 1 Encounter Details Date Type Department Care Team (Late st Contact Info) Description 11/09/2021 7:30 AM EST - 11/09/2021 11:10 AM EST [place] [address] [facility] [place] [address] ROBOTIC LAPAROSCOPY,TOTAL HYST, UTERUS<250GM, REM TUBE &/OR OVARY (WRVU 15) Social History Tobacco Use Types Packs/Day Years [...] Sign Reading Time Taken Comments Blood Pressure 124/75 11/09/2021 11:00 AM EST Pulse 54 11/09/2021 11:00 AM EST Temperature 36.8 ??C (98.2 ??F) 11/09/2021 10:[address] Respiratory Rate 16 11/09/2021 11:00 AM EST Oxygen Saturation 91% 11/09/2021 11:00 AM EST Inhaled Oxygen Concentration - - Weight - - Height - - Body Mass Index - - documented in this encounter Discharge Instructions * Patient Instructions* Virginie Castellon N - 11/09/2021 6:32 AM EST PATIENT DISCHARGE INSTRUCTIONS Gynecologic Oncology phone number: [phone]. After hours and on weekends please call hospital vacuum cleaner operator at [phone] and ask for Gynecologic Oncologist clin application specialist. Call your doctor if you develop: --A fever over 101 degrees --Severe pain --Increasing pain, redness, or discharge at any of your incisions --Heavy vaginal bleeding-soaking through a pad an hour --It is normal to have continuous or intermittent light spotting from the vagina for up to 6 weeks following hysterectomy Follow up: 12/06/[address] Johnosn via Telehealth Activity level: Let your body guide you- try to avoid grunting/groaning/straining for about 2 weeks. If you feel you did too much please listen to your body and back off. No sexual intercourse, no tampons, nothing in the vagina for 8 weeks. Diet: You may resume your regular diet. Be sure you drink plenty of fluids. Bowel Regimen: Please use raegan-colace (senna-S or docusate-senna) 1-2 tablets twice daily for the entire time that you are taking narcotic pain medication to keep your bowel movements soft and regular. You may consider using this post- operatively even if you are not using narcotic pain medication. You can increase this to up to 8 tablets a day (and may take 6-12 hours for effect). If you are constipated or have not had a bowel movement in 2 days, you may add in polyethylene glycol (Miralax) 17g(one capful) 1-2 times daily (may take 1-2 days for effect). If this is ineffective you may add Milk of Magnesia 30mL (2 Tablespoons) daily (may take 30minutes - 6 hours to work). The next step is to use Magnesium Citrate 1 bottle (295mL)- this usually produces a bowel movement in 30 minutes-3 hours. Please call if you have not had a bowel movement in 3-4 days. Driving: Do not drive until you are off of all narcotic medications and you are not feeling pain; usually between a couple of days to 2 weeks. Shower/Bath: Showering is fine. Short baths are okay but you should avoid having any abdominal incision submerged for more than 10-15 minutes for the next 2 weeks. Wound Care: Your incisions are closed with dissolvable stitches and surgical glue. The glue will dissolve on its own over time - do not pick at or rub the glue. The stitches do not need to be removed- they will dissolve on their own. Pain Control: For your post-operative pain please use ibuprofen, acetaminophen, heating pad, and narcotic pain medication (oxycodone) for your pain management. Your goal is to be able to take severalshort walks every day (increase the duration each day) and to be able to sleep at night. If you areunable to do these things using the ibuprofen and acetaminophen and heating pad then you will need to use the narcotic pain medication (oxycodone) for breakthrough pain. You should be able to use less oxycodone every couple days and require no breakthrough narcotic pain medication in about 1-4 days. 1. Please use ibuprofen (Advil/Motrin) 600mg every 6 hours around the clock (with food) for the next 5-7 days. After that, use as needed. If you are using ibuprofen please do NOT use your naproxen. If you prefer you can use your naproxen IN PLACE OF ibuprofen. Use naproxen 440mg every 12 hours as needed (do NOT exceed 1000mg in 24 hours). 2. Please use acetaminophen (Tylenol) 650mg every 6 hours as needed (or 1000mg every 8 hours as needed). Do not exceed 3000mg of acetaminophen from any source in 24 hours. 3. Please use oxycodone every 4-6 hours as needed for pain that ???breaks through?? the ibuprofen and acetaminophen. Please take your medication exactly as prescribed. Read all instructions that come with your medication. ?? Using narcotic pain medication (such as oxycodone, hydrocodone, hydromorphone [Dilaudid], morphine, fentanyl, or tramadol [Ultram]) may cause addiction. While addiction is more common in people with a personal or family history of addiction, it can occur in anyone. ?? Taking more than the prescribed amount of medication or using with alcohol or other drugs can cause you to stop breathing resulting in coma, brain damage, or . ?? Opioids (oxycodone, hydrocodone, hydromorphone [Dilaudid], morphine, fentanyl, tramadol [Ultram]) can slow reaction time, cause drowsiness, or cloud judgement. It is unsafe for you to drive or operate heavy machinery while taking this medication. ?? Opioids (oxycodone, hydrocodone, hydromorphone [Dilaudid], morphine, fentanyl, tramadol [Ultram]) are at risk of being diverted by anyone with access to your home. Opioids should be stored in a safe and secure place, such as a locked cabinet or safe. Unused opioids (oxycodone, hydrocodone, hydromorphone [Dilaudid], morphine, fentanyl, tramadol [Ultram]) should be disposed of according to the label or patient information. If there are no specific instructions, medications may be returned to a take-back location or mixed with a small amount of water and an undesirable waste substance such as coffee grounds or cat litter. documented in this encounter Medications at Time of Discharge Medication Sig Dispensed Refills Start Date End Date naproxen sodium (ANAPROX) 220 mg Tablet Take 440 mg by mouth daily as needed. amLODIPine (NORVASC) 10 mg Tablet Take 10 mg by mouth daily. losartan-hydrochlorothia zide (HYZAAR) 100-25 mg Tablet Take 1 tablet by mouth daily. venlafaxine (EFFEXOR-XR) 150 mg Capsule, Sust. Release 24 hrIndications:CLL (chronic lymphocytic leukemia) TAKE ONE CAPSULE BY MOUTH EVERY DAY 1 07/02/2017 oxyCODONE (Roxicodone) 5 mg Tablet Take 1 tablet by mouth every 4 hours as needed for Pain. 8 tablet 11/09/2021 12/06/2021 acetaminophen (Tylenol) 325 mg Tablet Take 2 tablets by mouth every 6 hours as needed for Pain. 30 tablet 1 11/09/2021 09/14/2022 ibuprofen (Advil) 600 mg Tablet Take 1 tablet by mouth every 6 hours as needed for Pain. 30 tablet 12 11/09/2021 08/14/2023 documented as of this encounter Progress Notes * Francisca Isaac RN - 11/09/2021 2:30 PM EST IV removed, site benign. My assessment remains unchanged from my previous assessment. No complaintsof chest pain or SOB. Discussed pain management. Patient has all belongings and has received discharge summary. Summary reviewed and all questions answered. Patient encouraged to call with any further questions or concerns. Pt passed voiding trial prior to d/c, Enid TOLENTINO aware of pt voiding 100cc x2 within thirty minutes after 300cc NS backfilled into bladder. Pt instructed to seek medical attention if she has any difficulty emptying bladder at home. Patient discharged to home with daughter. Pt demonstrated ability to ambulate prior to d/c. VSS. documented in this encounter H&P Notes * Virginie Castellon - 11/09/2021 6:32 AM EST Inpatient CRAB CATCHER - Admission Interval Note Patient name: Hilary Lowe Date of : 1960 Date of visit: 11/09/2021 I have reviewed the pre-procedure H&P completed by Dr. Johnson on 10/26. (X) Condition unchanged since H&P originally performed. Interval Note: Patient reports that her health has not changed since her preop visit. She denies any new illnesses, hospitalizations, or medications. Her allergies were reviewed and are as documented in the chart. The consent was reviewed and the patient agrees to it as signed. Ample time was given for the patient to ask questions about the procedure and all questions were answered to the patients satisfaction. The patient has tolerated acetominophen and ibuprofen in the past, as well as oxy Plan: Plan to proceed with scheduled procedure - RATLH/BSO/SLND ??? Antibiotics - 2g Ancef, 500mg Flagyl ??? DVT prophylaxis - SCDs, 5000u heparin ??? Patient's preferred pharmacy is [facility] in [facility] ??? Surgical consent reviewed ??? ORT and opioid consent completed today. ORT score 2 Virginie Castellon MD, PGY4 Obstetrics and Gynecology 11/09/2021 documented in this encounter Miscellaneous Notes * Op Note - Graham Johnson MD - 11/09/2021 8:26 AM EST [facility] Operative Note Patient Name: Hilary Lowe : [id number] MR#: [id number] Case Date: 11/09/2021 Surgeon: Surgeon(s) and Role: * Graham Johnson MD - Primary * Virginie Castellon MD - Resident Registered Nurse Contract Design Agent: Haylee Johnson RN Preoperative diagnosis: ENDOMETRIAL CANCER, FIGO grade 1 Postoperative diagnosis: ENDOMETRIAL CANCER, FIGO grade 1 Procedure(s) (LRB): LAPAROSCOPY,TOTAL HYST, UTERUS<250GM, REM TUBE &/OR OVARY, ROBOTIC ASSIST (WRVU 15) (N/A) LAPAROSCOPY,W\BILATERAL TOTAL PELVIC LYMPHADENECTOMY, PERIAORTIC LYMPH NODE SAMPLING, ROBOTIC (WRVU15.6) (N/A) INTRAOPERATIVE ID (MAPPING) SENTINEL LYMPH NODE,INCLUDES INJECTION (WRVU 2.5) (N/A) MODIFIER ROBOT,DAVINCI XI (N/A) Anesthesia: General Estimated Blood Loss: 20 mL Specimens removed during surgery: Order Name Source Comment Collection Info Order Time SPECIMEN TO PATHOLOGY Right Pelvic [place] Lymph Node, Right Pelvic Enlarged Lymph Node ENDOMETRIAL CANCER Right Pelvic [place] Lymph Node, Right Pelvic Enlarged Lymph Node excision No 11/09/2021 9:34 AM Time specimen removed from patient: 9:33 AM Number of tissue samples (in container) 1 Biospecimen to store? No SPECIMEN TO PATHOLOGY Additional Right Pelvic [place] Lymph Node ENDOMETRIAL CANCER Additional Right Pelvic [place] Lymph Node excision No 11/09/2021 9:34 AM Time specimen removed from patient: 9:34 AM Number of tissue samples (in container) 1 Biospecimen to store? No SPECIMEN TO PATHOLOGY Left Pelvic [place] Lymph Node ENDOMETRIAL CANCER Left Pelvic [place] Lymph Node excision No 11/09/2021 9:34 AM Time specimen removed from patient: 9:33 AM Number of tissue samples (in container) 1 Biospecimen to store? No SPECIMEN TO PATHOLOGY Left Pelvic Enlarged Non-[place] Lymph Node ENDOMETRIAL CANCER Left Pelvic Enlarged Non-[place] Lymph Node excision No 11/09/2021 9:34 AM Time specimen removed from patient: 9:33 AM Number of tissue samples (in container) 1 Biospecimen to store? No SPECIMEN TO PATHOLOGY Uterus, Cervix, Bilateral Fallopian Tubes and Ovaries ENDOMETRIAL CANCER Uterus, Cervix, Bilateral Fallopian Tubes and Ovaries biopsy No 11/09/2021 9:34 AM Time specimen removed from patient: 9:33 AM Number of tissue samples (in container) 1 Biospecimen to store? No Drains: * No LDAs found * Surgical Closure: Primary Closure - skin incision is completely closed without any wires, travis, drains or other devices Disposition: awakened from anesthesia, extubated and taken to the recovery room in a stable condition, having suffered no apparent untoward event. Condition: doing well without problems (Please see the Surgical Encounter Summary for any Implant and Specimen details pertinent to this patient.) HPI/Surgical Indications: Hilary Lowe is a 61 y.o. female with a preoperative biopsy in the setting of postmenopausal bleeding which revealed grade 1 endometrial cancer. She is here after informed consent for definitive surgical treatment. Procedure Description: The patient was identified and consent was reaffirmed. She was taken to the operating room and placed in low lithotomy position with yellowfin stirrups after induction of anesthesia. Her arms were tucked at her sides and padded with gelpads in a neurophysiologically neutral position. An exam was conducted and there was a small anteverted uterus. An antiseptic preparation of the abdomen, perineum, and vagina was performed and the patient was sterilely draped. A surgical pause was performed, correctly identifying the intended procedures, for this patient. A Gutierrez catheter was inserted into the bladder. Exam under anesthesia was conducted with unremarkable findings as above. Isocyanine green was injectedinto the cervix, 1 cc at 3:00 and 9:00 submucosally followed by 1 cc at the same locations 1 cm deep into the substance of the cervix. A [employer] uterine manipulator was placed without perforation. An 8-mm transverse incision was made at the umbilicus, through which a Veress needle was inserted and the abdomen was insufflated to tympany with carbon dioxide gas. An 8mm trocar was then inserted and the camera was placed, verifying a successful atraumatic entry. 3 additional 8-mm trocars and an 8-mm right upper quadrant special education assistant port were placed in the usual locations without difficulty, under direct visualization for a total of 5 ports. The patient was placed in steep Trendelenburg position. Using sharp and electrosurgical dissection, the round ligaments were desiccated and divided bilaterally. The retroperitoneum was opened and the ureters identified. The pelvic beryl basins were opened and the ureter, obturator nerve, superior vesicle artery, psoas muscle and iliac vessels delineated bilaterally. Using the Firefly technology, the sentinel lymph nodes were assessed. There were nodes enlarged in both pelvic beryl basins likely due to her h/o CLL but due to the cancer diagnosis, all enlarged nodes were resected as well as a sentinel node on each side. Next, the hysterectomy ensued.The ovarian vessels were identified and taking care not to injure the underlying ureter, a window was created in the pelvic sidewall peritoneum. The vessels were cauterized with bipolar cautery and divided. The mesosalpinx was then opened to the level of the uterine vessels. A bladder flap was developed to a point over the upper vagina with sharp and electrosurgical dissection advancing the bladder off of the lower uterine segment, cervix and upper vagina. The uterine vessels were skeletonized and then cauterized with bipolar cautery and divided bilaterally as were the uterosacral ligaments. The hysterectomy was completed by making a circumferential colpotomy incision over the VCare cup with monopolarcautery and then the specimen was withdrawn through the vagina. The vaginal cuff was closed in the usual fashion with 2-0 VLoc suture in a running fashion. The robot was undocked. The skin incisions were closed with 4-0 Vicryl. Dermaflex was applied to each site. The vagina was inspected and noted to be intact and hemostatic. The patient was returnedto a supine position as anesthesia was discontinued. She was then extubated and taken to the PACU in stable condition, and accompanied by the anesthesiologist and surgeons. Dr. Graham Johnson, the attending physician, was present for the entire procedure.vpc Sharp and sponge counts were correct x two. No surgical instrument counts were performed as per [facility] OR policy. Complications: None. DVT Prophylaxis: 5000 units of heparin subcutaneously and SCDs continuously applied to the lower extremities. Infection Bundle used? Yes Infection present at time of surgery?: No Chlorhexidine wipes in Same Day prior to surgery: Yes Expected bowel surgery? No. Fingerstick glucose checked in Same Day: Yes Chlorhexidine-alcohol skin prep: Yes Pre-op IV antibiotics: Cefazolin + Metronidazole Vaginal prep: Yes. Chlorhexidine Open case? No. Attestation: Case Date: 11/09/2021 I was present and I participated during the entire procedure (does not need to include opening and closing). GRAHAM JOHNSON MD 11/09/2021 documented in this encounter Plan of Treatment Upcoming Encounters Date Type Department Care Team (Late st Contact Info) Description 12/18/2024 11:30 AM EST Office Visit Hematology/Oncology at [address] [address] [facility] [place] [address] [facility] [place]AT[place] [address] documented as of this encounter Procedures Procedure Name Priority Date/Time Associated Diagnosis Comments SURGICAL PATHOLOGY REPORT Routine 11/09/2021 9:34 AM EST SPECIMEN TO PATHOLOGY Routine 11/09/2021 9:34 AM EST SPECIMEN TO PATHOLOGY Routine 11/09/2021 9:34 AM EST SPECIMEN TO PATHOLOGY Routine 11/09/2021 9:34 AM EST SPECIMEN TO PATHOLOGY Routine 11/09/2021 9:34 AM EST SPECIMEN TO PATHOLOGY Routine 11/09/2021 9:34 AM EST MODIFIER ROBOT,DAVINCI XI 11/09/2021 7:28 AM EST ENDOMETRIAL CANCER Intraop [place] Lymph Id W/Dye Injection ([id number]) 11/09/2021 7:28 AM EST ENDOMETRIAL CANCER Lap, Pelvic Lymphadenectomy/Bx ([id number]) 11/09/2021 7:28 AM EST ENDOMETRIAL CANCER Laparoscopy W Tot Hysterectuterus <=250 Gram W Tube/Ovary ([id number]) 11/09/2021 7:28 AM EST ENDOMETRIAL CANCER POCT GLUCOSE Routine 11/09/2021 6:30 AM EST documented in this encounter Results * Surgical Pathology Report (11/09/2021 9:34 AM EST) Final Diagnosis [id number] ? Location: [facility]; [facility]; A The signing pathologist has (i) examined the relevant preparation(s) for the specimen(s) and (ii) rendered or confirmed the diagnosis(es). . ? Addendum ADDENDUM DISCUSSION Immunohistochemistry Studies: Formalin-fixed, paraffin-embedded tissue sections are studied using the polymer technique with appropriate positive and negative controls. ?These IHC studies provide the pathologist with adjunctive diagnostic information. Antibody specificity has been verified by testing antibodies on a series of in-house tissues with known immunohistochemical performance characteristics. The clinical interpretation of any antibody positive staining or its absence is evaluated within the context of clinical presentation, morphology, histopathological criteria and other diagnostic tests. Block ? Antibody ?Result (Positive/Negative) A8 ?CKAE1/3 ? Positive in isolated tumor cells A19 ? CKAE1/3 ? Negative A25 ? CKAE1/3 ? Negative A26 ? CKAE1/3 ? Negative C3 ?CKAE1/3 ? Positive in isolated tumor cells C4 ?CKAE1/3 ? Positive in isolated tumor cells D10 ? CKAE1/3 ? Negative Electronically signed by: ?Lin BURNS, Kiya Reza Verified: ??12/06/2021 15:01 ??Pathologist Performed at: ??-[facility] Dept. of Pathology, [place], [place] ?Surgical Pathology DIAGNOSIS A - Right pelvic sentinel lymph node, excision: - Four lymph nodes positive for known history of CLL. - Negative for metastatic endometrial carcinoma (0/4). (see Discussion) B - Additional right pelvic sentinel lymph node, excision: - Two lymph nodes positive for known history of CLL. - Negative for metastatic endometrial carcinoma (0/2). 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 Electronically signed by: ?Lin BURNS, Kiya Reza Verified: ??11/23/2021 14:35 ??Pathologist Performed at: ??-[facility] Dept. of Pathology, [place], [place] SYNOPTIC Specimen Parts: ??A - E . SYNOPTIC Specimen ? Procedure: ??Total hysterectomy and bilateral salpingo-oophorectom y Tumor ? Tumor Site: ??Endometrium ? Tumor Size: ??5.2 Centimeters (cm) ? Histologic Type: ??Endometrioid carcinoma, NOS ? Histologic Grade: ??FIGO grade 1 ? Two-Tier Grading System: ??Low grade (encompassing FIGO 1 and 2) ? Myometrial Invasion: ??Present ?Depth of Myometrial Invasion: ??19 mm ?Myometrial Thickness: ??23 mm ?Percentage of Myometrial Invasion: ??83% ? Adenomyosis: ??Present, involved by carcinoma ? Uterine Serosa Involvement: ??Not identified ? Lower Uterine Segment Involvement: ??Present, myoinvasive ? Cervical Stromal Involvement: ??Not identified ? Other Tissue / Organ Involvement: ??Not identified ? Peritoneal / Ascitic Fluid: ??Not submitted / unknown ? Lymphovascular Invasion (LVI): ??Not identified ? Tumor Comment: ??MELF pattern of invasion is identified. Regional Lymph Nodes ? Regional Lymph Node Status: ??All regional lymph nodes negative for tumor ?cells ? Lymph Nodes Examined ?Total Number of Pelvic Nodes Examined: ??14 ?Number of Pelvic [place] Nodes Examined: ??8 ?Total Number of Para-aortic Nodes Examined: ??0 Pathologic Stage Classification (pTNM, AJCC 8th Edition) ? pT Category: ??pT1b ? pN Category: ??pN0 FIGO Stage ? FIGO Stage: ??IB Additional Findings ? Additional Findings: ??Lymph nodes with CLL Tumor Block(s): ??E18-21 Normal Block(s): ??E8 CAP eCC April 2021 Release DISCUSSION Immunostains for cytokeratin are pending for a few lymph node tissue blocks to evaluate for isolated tumor cells and will be reported in an addendum. ??No macro- or micrometastatic lymph node disease is identified on H&E sections. ADDITIONAL STUDIES Immunohistochemistry Studies: Formalin-fixed, paraffin-embedded tissue sections are studied using the polymer technique with appropriate positive and negative controls. ?These IHC studies provide the pathologist with adjunctive diagnostic information. Antibody specificity has been verified by testing antibodies on a series of in-house tissues with known immunohistochemical performance characteristics. The clinical interpretation of any antibody positive staining or its absence is evaluated within the context of clinical presentation, morphology, histopathological criteria and other diagnostic tests. Block ? Antibody ?Result (Positive/Negative) A4 ? CD3 ?Positive, patchy A4 ? CD20 ? Positive, Diffuse E18 ?ER ? Positive ? CT ? Positive Block ? Antibody ? Result (Positive/Negative) E18 ?MLH1 ?Positive, intact nuclear staining . ADDITIONAL STUDIES ? MSH2 ?Positive, intact nuclear staining ? MSH6 ?Positive, intact nuclear staining ? PMS2 ?Positive, intact nuclear staining Interpretation: Immunostains for MLH1, MSH2, MSH6 and PMS2 reveal intact nuclear staining in tumor cells. ??In a very small percentage of tumors, there may still be an underlying hereditary defect in these DNA mismatch repair genes despite intact nuclear expression of the protein in tumor cells ?? . Genetic counseling and/or additional workup is indicated in patients with a family history that meets current criteria for HNPCC screening. ?? Further testing for microsatellite instability in available in the [facility] ([facility]) if the clinical suspicion for Kerr syndrome remains high despite the intact mismatch repair protein expression. SPECIMEN(S) SUBMITTED A - Right Pelvic [place] Lymph Node, Right Pelvic Enlarged Lymph Node, excision (1) B - Additional Right Pelvic [place] Lymph Node, excision (1) C - Left Pelvic [place] Lymph Node, excision (1) D - Left Pelvic Enlarged Non-[place] Lymph Node, excision (1) E - Uterus, Cervix, Bilateral Fallopian Tubes and Ovaries, biopsy (1) CLINICAL INFORMATION Endometrial cancer SPECIMEN PROCESSING A - Labeled/Fixative: Right pelvic sentinel lymph node, right pelvic enlarged lymph node, fresh. Quantity/Size: Multiple, 8 x 5 x 2 cm. Tissue Description: Adipose tissue with multiple lymph nodes, up to 4.0 cm. Each lymph node demonstrates soft bo-pink, grossly positive lymph nodes, the largest tumor deposit is 4.0 cm Sections/Processing: The lymph nodes are entirely submitted in 27 cassettes as follows: ?A1: ??Single lymph node; bisected and entirely submitted ?A2: ??Lastex Operator section from 2.5 cm lymph node ?A3: ??Lastex Operator section from 2.9 cm lymph node ?A4: ??Lastex Operator section from 3.1 cm lymph node ?A5: ??Lastex Operator section from 4.0 cm lymph node ?A6-A8: ??Remaining lymph node from A2 ?A9-A10: ??Remaining lymph node from A3 ?A11-A15: ??Remaining lymph node from A4 ?A16-A27: ??Remaining lymph node from A5 B - Labeled/Fixative: Additional right pelvic sentinel lymph node, fresh. Quantity/Size: Single, 1.3 x 0.6 x 0.5 cm. Tissue Description: Surgically disrupted firm, pink-white grossly positive with associated adipose tissue Sections/Processing: Entirely submitted in 1 cassette labeled B1. C - Labeled/Fixative: Left pelvic lymph node, fresh. Quantity/Size: Two, 1.0 x 0.8 x 0.6 cm and 4.2 x 1.5 x 1.0 cm. Tissue Description: Firm pink-bo lymph nodes with associated adipose tissue. The cut surfaces are diffusely soft and pink-white cavity. The largest deposit is 1.0 cm in greatest dimension Sections/Processing: Entirely submitted in 5 cassettes as follows: . SPECIMEN PROCESSING ?C1: ??Smaller lymph node; bisected and entirely submitted ?C2: ??Lastex Operator section from 1.0 cm ??lymph node ?C3-C5: ??Remaining tissue from lymph node in C2 D - Labeled/Fixative: Left pelvic enlarged non-sentinel lymph node, fresh. Quantity/Size: Single, 7.2 x 3.1 x 1.5 cm. Tissue Description: Adipose tissue with 6 diffusely positive lymph nodes ranging from 0.5- 1.9 cm in greatest dimension Sections/Processing: The lymph nodes are entirely submitted in 11 cassettes as follows: ?D1: ??2 intact lymph nodes ?D2: ??Lastex Operator section from 1.4 cm lymph node ?D3: ??Lastex Operator section from 1.7 cm lymph node ?D4: ??Lastex Operator section from 1.7 cm lymph node ?D5: ??Lastex Operator section from 1.9 cm lymph node ?D6: ??Remaining lymph node from D2 ?D7: ??Remaining lymph node from D3 ?D8-D9: ??Remaining lymph node from D4 ?D10-D11: ??Remaining lymph node from D5 E - [...] cm, with a scant, uninvolved 0.1 cm thick endometrium. Myometrium: Averaging 2.0 cm thick. Serosa: Glistening and pink-bo. CERVIX Diameter: 2.6 cm. The anterior cervical margin is inked blue and the posterior cervical margin is inked black Os: 0.8 cm, slit-like RIGHT OVARY ?? Size: 3.3 x 2.0 x 1.1 cm. ?? Outer Surface: Bo, cerebriform. ?? Cut Surface: Heterogenous with no lesions. Right Fallopian Tube: 5.5 x 0.6 x 0.5 cm, fimbriated. LEFT OVARY ?? Size: 2.8 x 2.0 x 1.4 cm. ?? Outer Surface: Bo, cerebriform. ?? Cut Surface: Heterogenous with no lesions. Left Fallopian Tube: 5.0 x 0.5 x 0.5 cm, fimbriated. Sections/Processing: Lastex Operator sections in 21 cassettes as follows: ?E1: ??Lastex Operator right ovary ?E2: ??Right fallopian tube fimbria; longitudinally bisected and entirely submitted ?E3: ??Remaining right fallopian tube; serially cross-sectioned ?E4: ??Lastex Operator left ovary ?E5: ??Left fallopian tube fimbria; longitudinally bisected and entirely submitted ? in one cassette above . SPECIMEN PROCESSING ?E6: ??Remaining left fallopian tube; serially cross-sectioned ?E7: ??Lastex Operator anterior cervix at 12 o'clock ?E8: ??Lastex Operator posterior cervix at 6 o'clock ?E9-E11: ??Longitudinal anterior lower uterine segment , cervical aspect inked red ?E12-E15: ??Longitudinal posterior lower uterine segment with lesion, cervical ? aspect inked red ?E16-E17: ??Full-thickness anterior endomyometrium ?E18-E21: ??Full-thickness posterior endomyometrium with lesion and deepest invasion ? (deepest in 18-19) ??dawson 12/06/2021 3:01 PM EST [facility] SENTINEL LYMPH NODE / Unknown 11/09/2021 9:34 AM EST 11/09/2021 9:34 AM EST SENTINEL LYMPH NODE / Unknown 11/09/2021 9:34 AM EST 11/09/2021 9:34 AM EST SENTINEL LYMPH NODE / Unknown 11/09/2021 9:34 AM EST 11/09/2021 9:34 AM EST LYMPH NODE SPECIMEN / Unknown 11/09/2021 9:34 AM EST 11/09/2021 9:34 AM EST Uterine Corpus 11/09/2021 9: 34 AM EST 11/09/2021 9:34 AM EST Graham Johnson MD PATHOLOGY/CYTOLOGY O SALEEM Performing Organization Address City/[facility] Co de Phone Number [facility] [place] [address] * Specimen to Pathology (11/09/2021 9:34 AM EST) AP Specimen 11/09/2021 9:34 AM EST 11/09/2021 9:34 AM EST Narrative [facility] - 11/09/2021 9:34 AM EST Specimen requisition ordered. ??Separate Pathology report to follow Graham Johnson MD PATHOLOGY/CYTOLOGY O S[place] Performing Organization Address [facility] Co de Phone Number [facility] [place] [address] * Specimen to Pathology (11/09/2021 9:34 AM EST) AP Specimen 11/09/2021 9:34 AM EST 11/09/2021 9:34 AM EST Narrative [facility] - 11/09/2021 9:34 AM EST Specimen requisition ordered. ??Separate Pathology report to follow Graham Johnson MD PATHOLOGY/CYTOLOGY O RDABIMAEL Performing Organization Address [facility] [place] [address] * Specimen to Pathology (11/09/2021 9:34 AM EST) AP Specimen 11/09/2021 9:34 AM EST 11/09/2021 9:34 AM EST Narrative [facility] - 11/09/2021 9:34 AM EST Specimen requisition ordered. ??Separate Pathology report to follow Graham Johnson MD PATHOLOGY/CYTOLOGY O [place] Performing Organization Address [facility] [place] [address] * Specimen to Pathology (11/09/2021 9:34 AM EST) AP Specimen 11/09/2021 9:34 AM EST 11/09/2021 9:34 AM EST Narrative [facility] - 11/09/2021 9:34 AM EST Specimen requisition ordered. ??Separate Pathology report to follow Graham Johnson MD PATHOLOGY/CYTOLOGY O RDABIMAEL Performing Organization Address [facility] [place] [address] * Specimen to Pathology (11/09/2021 9:34 AM EST) AP Specimen 11/09/2021 9:34 AM EST 11/09/2021 9:34 AM EST Narrative [facility] - 11/09/2021 9:34 AM EST Specimen requisition ordered. ??Separate Pathology report to follow Graham Johnson MD PATHOLOGY/CYTOLOGY O RDERAANASTASIIA Performing Organization Address City/[facility]/ZIP Co de Phone Number [facility] [place] [address] * POCT Glucose (11/09/2021 6:30 AM EST) Glucose, POC 127 65 - 199 mg/dL [facility] Comment: Supplemental ranges: <140 mg/dL before meals <180 mg/dL all other times of the day Blood 11/09/2021 6:30 AM EST 11/09/2021 6:30 AM EST Graham Johnson MD POINT OF CARE TEST O RDERABLES Performing Organization Address [facility] Co de Phone Number [facility] [place] [address] documented in this encounter Visit Diagnoses Not on filedocumented in this encounter Administered Medications Inactive Administered Medications - up to 3 most recent administrations Medication Order MAR Action Action Date Dose Rate Site BUpivacaine (pf) (Marcaine) (5 mg/mL) 0.5% injection ONCE PRN, Starting on Mon11/09/21 at 0842, Until Mon11/09/21 at 1636, Intra-Operative (Intra-Procedure), Routine Given 11/09/2021 8:42 AM EST 14 mLs 19- Surgical Site heparin (porcine) (5,000 units/1 mL) subcutaneous injection 5,000 Units 5,000 Units, Subcutaneous, ONCE, 1 dose, On Mon11/09/21 at 0645, Day of Surgery (Day of Procedure), Routine Given 11/09/2021 6:50 AM EST 5,000 Units Left Lower Quadrant HYDROmorphone (Dilaudid) (0.2 mg/1 mL) injection syringe 0.4 mg 0.4 mg, Intravenous, EVERY 10 MIN PRN, Starting on Mon11/09/21 at 1030, Until Mon11/09/21 at 1429, Pain, For Mild to Moderate Pain (1-5 out of 10), Hold for respiratory rate less than 10 per minute. Maximum dose 4 mg over one hour including administrations in the OR. If multiple pain medications are ordered, start with HYDROmorphone or morphine and use fentaNYL for breakthrough pain, PACU Recovery, Routine Given 11/09/2021 11:15 AM EST 0.4 mg indocyanine green (Ic-Green) injection ONCE PRN, Starting on Mon11/09/21 at 0843, Until Mon11/09/21 at 1636, Intra-Operative (Intra-Procedure), Routine Given 11/09/2021 8:43 AM EST 6.25 mg 19- Surgical Site lactated ringers infusion 1,000 mL, at 100 mL/hr, Intravenous, CONTINUOUS, Starting on Mon11/09/21 at 0645, Until Mon11/09/21 at 1429, Day of Surgery (Day of Procedure) New Bag 11/09/2021 6:50 AM EST 1,000 mLs 100 mL/hr oxyCODONE (Roxicodone) tablet 5-10 mg 5-10 mg, Oral, EVERY 3 HOURS PRN, Starting on Mon11/09/21 at 1014, Until Mon11/09/21 at 1636, Pain, - If multiple pain medications ordered, use acetaminophen first. - If pain not relieved by acetaminophen first, administer oxycodone. - Initial dose 5 mg. - If pain control not adequate in 60 minutes, give additional 5 mg., Routine Given 11/09/2021 2:04 PM EST 5 mg prochlorperazine (Compazine) (5 mg/mL) injection 5 mg 5 mg, Intravenous, EVERY 30 MIN PRN, 2 doses, Starting on Mon11/09/21 at 1144, Until Mon11/09/21 at 1429, Nausea, Maximum total dose of 10 mg (including OR administration). If multiple antiemetics ordered, use ondansetron first and if ineffective use prochlorperazine second and if ineffective use promethazine, PACU Recovery, Routine Given 11/09/2021 11:54 AM EST 5 mg documented in this encounter Active and Recently Administered Medications Times are shown in EST. Scheduled Medication Order 11/07/2021 11/08/2021 11/09/2021 ceFAZolin (Ancef) 2 g in dextrose 5% 100 mL infusion (COMPLETED)(Linked Group 1) 2 g, Intravenous, ONCE, 1 dose, On Mon11/09/21 at 0645, Administer over 30 Minutes, Hammer Smith to OR Infuse over 30 minutes., Day of Surgery (Day of Procedure), Indication for (Active or Suspected): Prophylaxis 0745 (Given - Provid er: Maryan Gaines CRNA) heparin (porcine) (5,000 units/1 mL) subcutaneous injection 5,000 Units (COMPLETED) 5,000 Units, Subcutaneous, ONCE, 1 dose, On Mon11/09/21 at 0645, Day of Surgery (Day of Procedure), Routine 0650 (Given - Provid er: Hussein Sibley RN) metroNIDAZOLE (Flagyl) 500 mg in sodium chloride 0.9% 100 mL infusion (COMPLETED)(Linked Group 1) 500 mg, Intravenous, ONCE, 1 dose, On Mon11/09/21 at 0645, Administer over 30 Minutes, Hammer Smith to OR Infuse over 30 minutes., Day of Surgery (Day of Procedure), Indication for (Active or Suspected): Prophylaxis 0800 (Given - Provid er: Maryan Gaines CRNA) Continuous Medication Order 11/07/2021 11/08/2021 11/09/2021 lactated ringers infusion (CANCELED) 1,000 mL, at 100 mL/hr, Intravenous, CONTINUOUS, Starting on Mon11/09/21 at 0645, Until Mon11/09/21 at 1429, Day of Surgery (Day of Procedure) 0650 (New Bag - Prov ider: Hussein Sibley RN) lactated ringers infusion 1,000 mL, at 100 mL/hr, Intravenous, CONTINUOUS, Starting on Mon11/09/21 at 1045, Until Mon11/09/21 at 1636 1045 (Due) PRN Medication Order 11/07/2021 11/08/2021 11/09/2021 BUpivacaine (pf) (Marcaine) (5 mg/mL) 0.5% injection (CANCELED) ONCE PRN, Starting on Mon11/09/21 at 0842, Until Mon11/09/21 at 1636, Intra-Operative (Intra-Procedure), Routine 0842 (Given - Provid er: Graham Johnson MD) HYDROmorphone (Dilaudid) (0.2 mg/1 mL) injection syringe 0.4 mg (CANCELED)(Linked Group 2) 0.4 mg, Intravenous, EVERY 10 MIN PRN, Starting on Mon11/09/21 at 1030, Until Mon11/09/21 at 1429, Pain, For Mild to Moderate Pain (1-5 out of 10), Hold for respiratory rate less than 10 per minute. Maximum dose 4 mg over one hour including administrations in the OR. If multiple pain medications are ordered, start with HYDROmorphone or morphine and use fentaNYL for breakthrough pain, PACU Recovery, Routine 1115 (Given - Provid er: Francisca Isaac RN) HYDROmorphone (Dilaudid) (2 mg/mL) injection solution 0.2 mg 0.2 mg, Intravenous, ONCE PRN, 1 dose, Starting on Mon11/09/21 at 1014, Until Mon11/09/21 at 1636, Pain, Severe pain (7-10), - If not controled by oral pain medication., Routine indocyanine green (Ic-Green) injection (CANCELED) ONCE PRN, Starting on Mon11/09/21 at 0843, Until Mon11/09/21 at 1636, Intra-Operative (Intra-Procedure), Routine 0843 (Given - Provid er: Graham Johnson MD) oxyCODONE (Roxicodone) tablet 5-10 mg 5-10 mg, Oral, EVERY 3 HOURS PRN, Starting on Mon11/09/21 at 1014, Until Mon11/09/21 at 1636, Pain, - If multiple pain medications ordered, use acetaminophen first. - If pain not relieved by acetaminophen first, administer oxycodone. - Initial dose 5 mg. - If pain control not adequate in 60 minutes, give additional 5 mg., Routine 1404 (Given - Provid er: Francisca Isaac RN) prochlorperazine (Compazine) (5 mg/mL) injection 5 mg (CANCELED) 5 mg, Intravenous, EVERY 30 MIN PRN, 2 doses, Starting on Mon11/09/21 at 1144, Until Mon11/09/21 at 1429, Nausea, Maximum total dose of 10 mg (including OR administration). If multiple antiemetics ordered, use ondansetron first and if ineffective use prochlorperazine second and if ineffective use promethazine, PACU Recovery, Routine 1154 (Given - Provid er: Francisca Isaac RN) Linked Groups Order Group 1: ceFAZolin (Ancef) 2 g in dextrose 5% 100 mL infusion (COMPLETED)Jump to med 2 g, Intravenous, ONCE, 1 dose, On Mon11/09/21 at 0645, Administer over 30 Minutes, Hammer Smith to OR Infuse over 30 minutes., Day of Surgery (Day of Procedure), Indication for (Active or Suspected): Prophylaxis And metroNIDAZOLE (Flagyl) 500 mg in sodium chloride 0.9% 100 mL infusion (COMPLETED)Jump to med 500 mg, Intravenous, ONCE, 1 dose, On Mon11/09/21 at 0645, Administer over 30 Minutes, Hammer Smith to OR Infuse over 30 minutes., Day of Surgery (Day of Procedure), Indication for (Active or Suspected): Prophylaxis Group 2: HYDROmorphone (Dilaudid) (0.2 mg/1 mL) injection syringe 0.4 mg (CANCELED)Jump to med 0.4 mg, Intravenous, EVERY 10 MIN PRN, Starting on Mon11/09/21 at 1030, Until Mon11/09/21 at 1429, Pain, For Mild to Moderate Pain (1-5 out of 10), Hold for respiratory rate less than 10 per minute. Maximum dose 4 mg over one hour including administrations in the OR. If multiple pain medications are ordered, start with HYDROmorphone or morphine and use fentaNYL for breakthrough pain, PACU Recovery, Routine Or HYDROmorphone (Dilaudid) (0.2 mg/1 mL) injection syringe 0.6 mg (CANCELED) 0.6 mg, Intravenous, EVERY 10 MIN PRN, Starting on Mon11/09/21 at 1030, Until Mon11/09/21 at 1429, Pain, For Moderate to Severe Pain (6-10 out of 10), Hold for respiratory rate less than 10 per minute. Maximum dose 4 mg over one hour including administrations in the OR. If multiple pain medications are ordered, start with HYDROmorphone or morphine and use fentaNYL for breakthrough pain, PACU Recovery, Routine documented in this encounter Care Teams Box Fabricator Relationship Specialty Start Date End Date Precious Nixon MD [address] [place] [address] PCP - General Family Medicine 06/07/17 documented as of this encounter
--- OUTSIDE RECORDS SUMMARY | 2024-10-12 12:02 | XMS_ITS | Encounter Summary ---
Author Organization [facility] [place] [address] Care Team Providers Care Category Manager Name Role Phone Precious Nixon MD Primary Care Provider [phone] Encounter Details Date Type Department Care Team (Late Contact Info) Description 10/14/2021 External [place] [address] Provider, Scanning Social History Tobacco Use Types Packs/Day Years [...] 11:30 AM EST Office Visit Hematology/Oncology at [address] [phone] Leticia Buckley MD [facility] [address] [place] [address] Mili Klein, ROLL TRUCKER [facility] [place] [address] documented as of this encounter Procedures Procedure Name Priority Date/Time Associated Diagnosis Comments SURGICAL PATHOLOGY SCAN Routine 10/14/2021 documented in this encounter Results * Scan Doc: Surgical Pathology (10/14/2021) Historical Provider MD [facility] MGR SCAN EX T ORDR/RSLT documented in this encounter Visit Diagnoses Not on filedocumented in this encounter Care Teams Category Manager Relationship Specialty Start Date End Date Precious Nixon MD [address] [place] [id number] PCP - General Family Medicine 06/07/17 documented as of this encounter
--- OUTSIDE RECORDS SUMMARY | 2024-10-12 12:02 | XMS_ITS | Encounter Summary ---
Author Organization [facility] [place] [address] Care Team Providers Care Supervisor Cloth Winding Name Role Phone Precious Nixon MD Primary Care Provider [phone] Reason for Visit * Reason Onset Date Comments Labs Only 12/06/2017 Encounter Details Date Type Department Care Team (Late Contact Info) Description 12/06/2017 Telephone Hematology/Oncology at [address] [phone] Caroline Pablo, KITA Labs Only Social History Tobacco Use Types Packs/Day Years [...] encounter Miscellaneous Notes * Telephone Encounter - Caroline Pablo RN - 12/06/2017 10:32 AM EST Called Hilary Son Mynor and left message on cell [employer] to remind Pt she is due to get labs. Lab orders sent to [facility]. documented in this encounter Plan of Treatment Upcoming Encounters Date Type Department Care Team (Late Contact Info) Description 12/18/2024 11:30 AM EST Office Visit Hematology/Oncology at [address] [phone] Leticia Buckley MD [facility] DR HEMATOLOGY [place] [address] Mili Klein APRN [facility] HEMATOLOGY [place] [address] documented as of this encounter Visit Diagnoses Not on filedocumented in this encounter Care Teams Supervisor Cloth Winding Relationship Specialty Start Date End Date Precious iNxon MD [address] [place] [address] PCP - General Family Medicine 06/07/17 documented as of this encounter
--- OUTSIDE RECORDS SUMMARY | 2024-10-12 12:02 | XMS_ITS | Encounter Summary ---
Author Organization [facility] Address [facility] [place] [address] Care Team Providers Care Counting Machine Operator Name Role Phone Precious Nixon MD Primary Care Provider [phone] Reason for Visit * Auth/Cert Specialty Diagnoses [...] SENTINEL LYMPH NODE,INCLUDES INJECTION (WRVU 2.5) MODIFIER ROBOT,DAVINCI XI Referral ID Status Reason Start Date Expiration Date Visits Re quested Visits Authorized [id number] 1 1 Encounter Details Date Type Department Care Team (Latest Contact Info) Description 11/09/2021 6:06 AM EST - 11/09/2021 2:31 PM EST Hospital En[place] [address] Graham Johnson MD [facility] [place] [address] Endometrial cancer, grade I Discharge Disposition: Home Social History Tobacco Use [...] Sign Reading Time Taken Comments Blood Pressure 137/91 11/09/2021 1:47 PM EST Pulse 59 11/09/2021 12:45 PM EST Temperature 36.2 ??C (97.2 ??F) 11/09/2021 1:47 PM ES T Respiratory Rate 16 11/09/2021 1:47 PM EST Oxygen Saturation 97% 11/09/2021 1:50 PM EST Inhaled Oxygen Concentration - - Weight - - Height - - Body Mass Index - - documented in this encounter Discharge Instructions * Patient Instructions* Virginie Castellon N - 11/09/2021 6:32 AM EST PATIENT DISCHARGE INSTRUCTIONS Gynecologic Oncology phone number: [phone]. After hours and on weekends please call hospital kapok machine operator at [phone] and ask for Gynecologic Oncologist software applications engineer. Call your doctor if you develop: --A fever over 101 degrees --Severe pain --Increasing pain, redness, or discharge at any of your incisions --Heavy vaginal bleeding-soaking through a pad an hour --It is normal to have continuous or intermittent light spotting from the vagina for up to 6 weeks following hysterectomy Follow up: 12/06/[address] Johnson via Telehealth Activity level: Let your body [...] Castellon - 11/09/2021 6:32 AM EST Inpatient APPLICATION CHEMIST - Admission Interval Note Patient name: Hilary [...] 5000u heparin ??? Patient's preferred pharmacy is [facility] ??? Surgical consent reviewed ??? ORT and opioid consent completed today. ORT score 2 Virginie Castellon MD, PGY4 Obstetrics and Gynecology 11/09/2021 documented in this encounter Miscellaneous Notes * Op Note - Graham Johnson MD - 11/09/2021 8:26 AM EST [facility] Operative Note Patient Name: Hilary Lowe : [id number] MR#: [id number] Case Date: 11/09/2021 Surgeon: Surgeon(s) and Role: * Graham Johnson MD - Primary * Virginie Castellon MD - Resident Registered Nurse Reversal Print Inspector: Haylee Johnson RN Preoperative diagnosis: ENDOMETRIAL CANCER, FIGO grade 1 Postoperative diagnosis: ENDOMETRIAL CANCER, FIGO grade 1 Procedure(s) (LRB): LAPAROSCOPY,TOTAL HYST, UTERUS<250GM, REM TUBE &/OR OVARY, ROBOTIC ASSIST (WRVU 15) (N/A) LAPAROSCOPY,W\BILATERAL TOTAL PELVIC LYMPHADENECTOMY, PERIAORTIC LYMPH NODE SAMPLING, ROBOTIC (WRVU15.6) (N/A) INTRAOPERATIVE ID (MAPPING) SENTINEL LYMPH NODE,INCLUDES INJECTION (WRVU 2.5) (N/A) MODIFIER ROBOT,TAVARES XI (N/A) Anesthesia: General Estimated Blood Loss: 20 mL Specimens removed during surgery: Order Name Source Comment Collection Info Order Time SPECIMEN TO PATHOLOGY Right Pelvic [place] Lymph Node, Right Pelvic Enlarged Lymph Node ENDOMETRIAL CANCER Right Pelvic [place] Lymph Node, Right Pelvic Enlarged Lymph Node excision No 11/09/2021 9:34 AM Time specimen removed from patient: 9:33 AM Number of tissue samples (in container) 1 Biospecimen to store? No SPECIMEN TO PATHOLOGY Additional Right Pelvic [place] Lymph Node ENDOMETRIAL CANCER Additional Right Pelvic [place] Lymph Node excision No 11/09/2021 9:34 AM Time specimen removed from patient: 9:34 AM Number of tissue samples (in container) 1 Biospecimen to store? No SPECIMEN TO PATHOLOGY Left Pelvic [place] Lymph Node ENDOMETRIAL CANCER Left Pelvic [place] Lymph Node excision No 11/09/2021 9:34 AM Time specimen removed from patient: 9:33 AM Number of tissue samples (in container) 1 Biospecimen to store? No SPECIMEN TO PATHOLOGY Left Pelvic Enlarged Non-[place] Lymph Node ENDOMETRIAL CANCER Left Pelvic Enlarged Non-[place] Lymph Node excision No 11/09/2021 9:34 AM [...] into the substance of the cervix. A Partly [employer] uterine manipulator was placed without perforation. An 8-mm transverse incision was made at the umbilicus, through which a Veress needle was inserted and the abdomen was insufflated to tympany with carbon dioxide gas. An 8mm trocar was then inserted and the camera was placed, verifying a successful atraumatic entry. 3 additional 8-mm trocars and an 8-mm right upper quadrant insurance legal assistant port were placed in the usual [...] attending physician, was present for the entire procedure.c Sharp and sponge counts were correct x two. No surgical instrument counts were performed as per [facility] OR policy. Complications: None. DVT Prophylaxis: 5000 [...] 11:30 AM EST Office Visit Hematology/Oncology at [address] [phone] Leticia Buckley MD [facility] HEMATOLOGY [place] [address] Mili Klein APRN [facility] HEMATOLOGY [place] [address] documented as of this encounter Procedures Procedure [...] 11/09/2021 7:28 AM EST ENDOMETRIAL CANCER Intraop [place] Lymph Id W/Dye Injection (90814) 11/09/2021 7:28 AM EST ENDOMETRIAL CANCER Lap, Pelvic Lymphadenectomy/Bx (68509) 11/09/2021 7:28 AM EST ENDOMETRIAL CANCER Laparoscopy W Tot Hysterectuterus <=250 Gram W Tube/Ovary (39923) 11/09/2021 7:28 AM EST ENDOMETRIAL CANCER POCT GLUCOSE Routine 11/09/2021 6:30 AM EST documented in this encounter Results * Surgical Pathology Report (11/09/2021 9:34 AM EST) Final Diagnosis [id number] ? Location: [facility]; [facility]; The signing pathologist has (i) examined the [...] Reza Verified: ??12/06/2021 15:01 ??Pathologist Performed at: ??-[facility] Dept. of Pathology, [place], [place] ?Surgical Pathology DIAGNOSIS A - Right [...] ovaries negative for malignancy. Electronically signed by: ?Kiya Ceballos MD Verified: ??11/23/2021 14:35 ??Pathologist Performed at: ??-[facility] Dept. of Pathology, [place], [place] SYNOPTIC Specimen Parts: ??A - E [...] Pelvic Nodes Examined: ??14 ?Number of Pelvic [place] Nodes Examined: ??8 ?Total Number of Para-aortic [...] Positive, Diffuse E18 ?ER ? Positive ? ND ? Positive Block ? Antibody ? Result [...] expression. SPECIMEN(S) SUBMITTED A - Right Pelvic [place] Lymph Node, Right Pelvic Enlarged Lymph Node, excision (1) B - Additional Right Pelvic [place] Lymph Node, excision (1) C - Left Pelvic [place] Lymph Node, excision (1) D - Left Pelvic Enlarged Non-[place] Lymph Node, excision (1) E - Uterus, [...] lymph node; bisected and entirely submitted ?A2: ??Can Slider section from 2.5 cm lymph node ?A3: ??Can Slider section from 2.9 cm lymph node ?A4: ??Can Slider section from 3.1 cm lymph node ?A5: ??Can Slider section from 4.0 cm lymph node ?A6-A8: [...] lymph node; bisected and entirely submitted ?C2: ??Can Slider section from 1.0 cm ??lymph node ?C3-C5: [...] follows: ?D1: ??2 intact lymph nodes ?D2: ??Can Slider section from 1.4 cm lymph node ?D3: ??Can Slider section from 1.7 cm lymph node ?D4: ??Can Slider section from 1.7 cm lymph node ?D5: ??Can Slider section from 1.9 cm lymph node ?D6: [...] x 0.5 x 0.5 cm, fimbriated. Sections/Processing: Can Slider sections in 21 cassettes as follows: ?E1: ??Can Slider right ovary ?E2: ??Right fallopian tube fimbria; longitudinally bisected and entirely submitted ?E3: ??Remaining right fallopian tube; serially cross-sectioned ?E4: ??Can Slider left ovary ?E5: ??Left fallopian tube fimbria; longitudinally bisected and entirely submitted ? in one cassette above . SPECIMEN PROCESSING ?E6: ??Remaining left fallopian tube; serially cross-sectioned ?E7: ??Can Slider anterior cervix at 12 o'clock ?E8: ??Can Slider posterior cervix at 6 o'clock ?E9-E11: ??Longitudinal anterior lower uterine segment , cervical aspect inked red ?E12-E15: ??Longitudinal posterior lower uterine segment with lesion, cervical ? aspect inked red ?E16-E17: ??Full-thickness anterior endomyometrium ?E18-E21: ??Full-thickness posterior endomyometrium with lesion and deepest invasion ? (deepest in 18-19) ??dawson 12/06/2021 3:01 PM EST [facility] SENTINEL LYMPH NODE / Unknown 11/09/2021 [...] MD PATHOLOGY/CYTOLOGY O [place] Performing Organization Address City/[facility] Co de Phone Number [facility] [place] [address] * Specimen to Pathology (11/09/2021 9:34 AM EST) AP Specimen 11/09/2021 9:34 AM EST 11/09/2021 9:34 AM EST Narrative [facility] - 11/09/2021 9:34 AM EST Specimen requisition ordered. ??Separate Pathology report to follow Graham Johnson MD PATHOLOGY/CYTOLOGY O [place] Performing Organization Address City/[facility]/ZIP Co de Phone Number [facility] [place] [address] * Specimen to Pathology (11/09/2021 9:34 AM EST) AP Specimen 11/09/2021 9:34 AM EST 11/09/2021 9:34 AM EST Narrative [facility] - 11/09/2021 9:34 AM EST Specimen requisition ordered. ??Separate Pathology report to follow Graham Johnson MD PATHOLOGY/[place] [address] * Specimen to Pathology (11/09/2021 9:34 AM EST) AP Specimen 11/09/2021 9:34 AM EST 11/09/2021 9:34 AM EST Narrative [facility] - 11/09/2021 9:34 AM EST Specimen requisition ordered. ??Separate Pathology report to follow Graham Johnson MD PATHOLOGY/CYTOLOGY O [place] Performing Organization Address [facility] [place] [address] * Specimen to Pathology (11/09/2021 9:34 AM EST) AP Specimen 11/09/2021 9:34 AM EST 11/09/2021 9:34 AM EST Narrative [facility] - 11/09/2021 9:34 AM EST Specimen requisition ordered. ??Separate Pathology report to follow Graham Johnson MD PATHOLOGY/CYTOLOGY O [place] Performing Organization Address City/[facility]/[place] [address] * Specimen to Pathology (11/09/2021 9:34 AM EST) AP Specimen 11/09/2021 9:34 AM EST 11/09/2021 9:34 AM EST Narrative [facility] - 11/09/2021 9:34 AM EST Specimen requisition ordered. ??Separate Pathology report to follow Graham Johnson MD PATHOLOGY/CYTOLOGY O [place] Performing Organization Address City/[facility]/ZIP Co de Phone Number [facility] [place] [address] * POCT Glucose (11/09/2021 6:30 AM EST) Glucose, POC 127 65 - 199 mg/dL [facility] Comment: Supplemental ranges: <140 mg/dL before meals <180 mg/dL all other times of the day Blood 11/09/2021 6:30 AM EST 11/09/2021 6:30 AM EST Graham Johnson MD POINT OF CARE TEST O RDERABLES [facility] [place] [address] documented in this encounter Visit Diagnoses Diagnosis Endometrial cancer, grade I documented in this encounter Administered Medications Inactive Administered Medications - up to 3 most recent administrations Medication Order MAR Action Action Date Dose Rate Site heparin (porcine) (5,000 units/1 mL) subcutaneous [...] Given 11/09/2021 11:15 AM EST 0.4 mg lactated ringers infusion 1,000 mL, at 100 [...] Mon11/09/21 at 0645, Administer over 30 Minutes, Outdoor Adventure Instructor to OR Infuse over 30 minutes., Day [...] Mon11/09/21 at 0645, Administer over 30 Minutes, Outdoor Adventure Instructor to OR Infuse over 30 minutes., Day [...] Mon11/09/21 at 0645, Administer over 30 Minutes, Outdoor Adventure Instructor to OR Infuse over 30 minutes., Day of Surgery (Day of Procedure), Indication for (Active or Suspected): Prophylaxis And metroNIDAZOLE (Flagyl) 500 mg in sodium chloride 0.9% 100 mL infusion (COMPLETED)Jump to med 500 mg, Intravenous, ONCE, 1 dose, On Mon11/09/21 at 0645, Administer over 30 Minutes, Outdoor Adventure Instructor to OR Infuse over 30 minutes., Day [...] Routine documented in this encounter Care Teams Counting Machine Operator Relationship Specialty Start Date End Date Precious Nixon MD [address] [place] [address] PCP - General Family Medicine 06/07/17 documented as of this encounter
--- OUTSIDE RECORDS SUMMARY | 2024-10-12 12:02 | XMS_ITS | Encounter Summary ---
Author Organization [facility] [place] [address] Care Team Providers Care J2Ee Consultant Name Role Phone Precious Nixon MD Primary Care Provider [phone] Reason for Visit * Reason Comments Follow-up Encounter Details Date Type Department Care Team (Late st Contact Info) Description 01/28/2022 11:30 AM EST Procedure visit [place] [address] Brianna Flores MD [facility] [place] [address] Endometrial ca Social History Tobacco Use Types [...] * Patient Instructions* Brianna Flores MD - 01/28/2022 12:15 PM EST Drink lots of water over the next 48 hours. If you develop bladder irritation, sometimes drinking cranberry juice will help. You could also try otc AZO for burning sensation in bladder. If you develop diarrhea, cut back on fresh fruits & veges, foods with fiber/roughage & greasy food. Otc imodium can be used for diarrhea. For questions/concerns during clinic hours, call Radiation Oncology clinic @ [phone]. When theclinic is closed (nights, weekends), call the [facility] hospital film casting operator @ [phone] & ask for the Radiation Oncologist beverage inspection machine tender. documented in this encounter Progress Notes * Brianna Flores MD - 01/28/2022 11:30 AM EST Images from the original note were not included. DIAGNOSIS: Endometrial ca, endometrioid type, FIGO gr1, s/p robotic assisted total laparoscopic hys-BSO w/SNB & pelvic lymphadenectomy, pT1b pN0(i+), tumor 5.2 cm, involves lower uterine segment.CLL dx'd 2014, not tx'd, followed. Here for 2nd intravag brachy. CURRENT TREATMENT DOSE: 7 Gy (seen prior to brachy) ANTICIPATED TOTAL DOSE: 21 Gy Current # of xrt received: 1 (seen prior to brachy) Anticipated total # of xrt txs: 3 Evaluation of port verification films: Fluoro used to check cylinder position prior to today's brachy. For details, see electronic film record in [employer] System. Changes in Medical Condition: A little tiredness, had a headache. Pain?: No Your Medications Accurate as of January 28, 2022 12:11 PM. If you have any [...] MOUTH EVERY DAY Refills: 1 Physical Exam: 240 lbs 81 140/88 A&Ox3, NAD. No vulvovag abnlty. Imagin01/18/22 Dx'ic [...] treatment completed, physicist surveyed brachytherapy suite with [employer], co nfirming return of Ir-192 source into [...] 11:30 AM EST Office Visit Hematology/Oncology at [address] [address] Leticia Buckley MD [facility] [place] [address] Mili Klein APRN [facility] [address] [place] [address] documented as of this encounter Visit Diagnoses Diagnosis Endometrial ca Malignant neoplasm of corpus uteri, except isthmus documented in this encounter Care Teams J2Ee Consultant Relationship Specialty Start Date End Date Precious Nixon MD [address] [place] [id number] PCP - General Family Medicine 06/07/17 documented as of this encounter
--- OUTSIDE RECORDS SUMMARY | 2024-10-12 12:02 | XMS_ITS | Encounter Summary ---
Author Organization [facility] [place] [address] Care Team Providers Care Traffic Survey Technician Name Role Phone Precious Nixon MD Primary Care Provider [phone] Encounter Details Date Type Department Care Team (Latest Contact Info) Description 07/17/2017 12:31 PM EDT - 07/17/2017 11:59 PM EDT Hospital Encounter [place] [phone] CLL (chronic lymphocytic leukemia) Discharge Disposition: Home Social History Tobacco Use [...] Sig Dispensed Refills Start Date End Date venlafaxine (EFFEXOR-XR) 150 mg Capsule, Sust. Release 24 hrIndications:CLL (chronic lymphocytic leukemia) TAKE ONE CAPSULE BY MOUTH EVERY DAY 1 07/02/2017 losartan (COZAAR) 50 mg TabletIndications:CLL (chronic lymphocytic leukemia) TAKE ONE TABLET BY MOUTH EVERY DAY 1 05/01/2017 11/22/2017 hydroCHLOROthiazide (HYDRODIURIL) 25 mg TabletIndications:CLL (chronic lymphocytic leukemia) Take 25 mg by mouth daily. 11/22/2017 documented as of this encounter Plan of Treatment Upcoming Encounters Date Type Department Care Team (Late st Contact Info) Description 12/18/2024 11:30 AM EST Office Visit Hematology/Oncology at [address] [phone] Leticia Buckley MD [facility] [place] [address] Mili Klein APRN [facility] [place] [address] documented as of this encounter Procedures Procedure Name Priority Date/Time Associated Diagnosis Comments IMMUNOGLOBULINS, QUANTITATIVE Routine 07/17/2017 12:36 PM EDT CLL (chronic lymphocytic leukemia) SCAN, PERIPHERAL BLOOD Routine 7 12:36 PM EDT HEMOGRAM Routine 07/17/2017 12:36 PM EDT CLL (chronic lymphocytic leukemia) DIFFERENTIAL, AUTOMATED Routine 07/17/2017 12:36 PM EDT CLL (chronic lymphocytic leukemia) CBC (WITH DIFF) Routine 07/17/2017 12:36 PM EDT CLL (chronic lymphocytic leukemia) LACTATE DEHYDROGENASE Routine 07/17/2017 12:36 PM EDT CLL (chronic lymphocytic leukemia) COMPREHENSIVE METABOLIC PANEL Routine 07/17/2017 12:36 PM EDT CLL (chronic lymphocytic leukemia) documented in this encounter Results * Scan, Peripheral Blood (07/17/2017 12:36 PM EDT) Plat estimate Normal [facility] RBC Morphology Abnormal [facility] Ovalocytes 1-5 /HPF [facility] Smudge cell Present [facility] Plat, Giant Less than 1 /HPF [facility] Blood specimen (specimen) 07/17/2017 12:36 PM EDT 07/17/2017 12:45 PM EDT Narrative Resulting Agency Comment Spec In Lab Leticia Buckley MD HEMATOLOGY ORDER MAI [facility] [place] [address] * (ABNORMAL) Differential, Automated (07/17/2017 12:36 PM EDT) Neutrophil % 22.8 % [facility] Neutrophil Absolute 4.68 1.70 - 6.10 x10(3)/ L [facility] Lymph % 73.4 % [facility] Lymphocytes Abs 15.2(H) 0.9 - 3.2 x10(3)/ L [facility] Monocyte % 2.8 % [facility] Monocyte Abs 0.6 0.3 - 0.9 x10(3)/[facility] Eos % 0.6 % [facility] Eosinophils Abs 0.1 0.0 - 0.4 x10(3)/[facility] Basophil % 0.2 % [facility] Baso Absolute 0.0 0.0 - 0.1 x10(3)/ L [facility] Immature Gran % 0.20 % [facility] Comment: Immature granulocytes(IG's)percentage and absolute count will include metamyelocytes, myelocytes, and promyelocytes. Blood smears from CBCs yielding IG's will be scanned manually for concordance. If this scan disagrees with the automated IG or if promyelocytes are noted, a manual differential will be performed. Immature Gran Absolute 0.05(H) 0.00 - 0.04 x10(3)/ L [facility] Blood specimen (specimen) 07/17/2017 12:36 PM EDT 07/17/2017 12:45 PM EDT Narrative Resulting Agency Comment Spec In Lab Leticia Buckley MD HEMATOLOGY ORDER MAI Performing Organization Address City/[facility]/ZIP Co de Phone Number [facility] [place] [address] * (ABNORMAL) Hemogram (07/17/2017 12:36 PM EDT) White Blood Cell 20.6(H) 4.0 - 9.5 x10(3)/mc L [facility] Red Blood Cell 4.28 4.00 - 5.21 x10(6)/mc L [facility] Hemoglobin 12.5 11.7 - 15.5 gm/dL [facility] Hematocrit 38.0 35.7 - 45.8 % [facility] Mean Cell Volume 88.8 82.6 - 94.4 fL [facility] Mean Cell Hemoglobin 29.2 27.1 - 32.0 pg [facility] Mean Cell Hemoglobin Concentration 32.9 31.7 - 35.0 gm/dL [facility] Platelet 148 145 - 357 x10(3)/mc L [facility] RDW Standard Deviation 45.6 37.0 - 46.0 fL [facility] RDW coefficient of variation 14.2(H) 11.5 - 14.1 % [facility] Mean Platelet Volume 9.0 7.6 - 12.9 fL [facility] NRBC% auto 0.0 % [facility] NRBC Absolute 0.000 0.000 - 0.000 x10(3)/mc L [facility] Blood specimen (specimen) 07/17/2017 12:36 PM EDT 07/17/2017 12:45 PM EDT Narrative Resulting Agency Comment Spec In Lab Leticia Buckley MD HEMATOLOGY ORDER MAI Performing Organization Address City/[facility]/ZIP Co de Phone Number [facility] [place] [address] * (ABNORMAL) Immunoglobulins, Quantitative (07/17/2017 12:36 PM EDT) Immunoglobulin G 642(L) 700 - 1,600 mg/dL [facility] IgA 81 70 - 400 mg/dL [facility] IgM 46 40 - 230 mg/dL [facility] Blood specimen (specimen) 07/17/2017 12:36 PM EDT 07/17/2017 12:45 PM EDT Narrative Resulting Agency Comment Spec In Lab Leticia Buckley MD CHEMISTRY ORDERA BLES Performing Organization Address [facility]/ZIP Co de Phone Number [facility] [place] [address] * Lactate Dehydrogenase (07/17/2017 12:36 PM EDT) Pathologist [facility] Lactate Dehydrogenase 188 110 - 220 unit/L [facility] Blood specimen (specimen) 07/17/2017 12:36 PM EDT 07/17/2017 12:45 PM EDT Narrative Resulting Agency Comment Spec In Lab Leticia Buckley MD CHEMISTRY ORDERA BLES Performing Organization Address City/[facility]/ZIP Co de Phone Number [facility] [place] [address] * (ABNORMAL) Comprehensive metabolic panel (non-fasting) (07/17/2017 12:36 PM EDT) Pathologist [facility] Glucose 102 65 - 199 mg/dL [facility] Comment:Diabetes: >=200 mg/d L plus symptoms Blood Urea Nitrogen 22(H) 8 - 18 mg/dL [facility] Creatinine 0.84 0.70 - 1.20 mg/dL [facility] Comment: Please note that the pediatric reference intervals supplied above were not validated at [facility]. Results from pediatric patients should be interpreted in conjunction to the patient's age, height and muscle mass. Sodium 143 135 - 145 mmol/L [facility] Potassium 4.8 3.5 - 5.0 mmol/L [facility] Comment: Please note: ??Patients with WBC >100,000 may have falsely elevated Potassium levels. ??For accurate Potassium quantification in these patients send serum separator tube (gold top) for subsequent determinations. ??Contact the Clinical Chemistry Laboratory if there are any questions. Chloride 105 98 - 107 mmol/L [facility] Carbon Dioxide 24 22 - 31 mmol/L [facility] Anion Gap 14 5 - 15 mmol/L [facility] Calcium 9.6 8.5 - 10.5 mg/dL [facility] Protein, Total 7.2 6.1 - 8.0 gm/dL [facility] Albumin 4.5 3.2 - 5.2 gm/dL [facility] Aspartate Aminotransferase 16 0 - 30 unit/L [facility] Alanine Aminotransferase 25 0 - 30 unit/L [facility] Alkaline Phosphatase 91 40 - 104 unit/L [facility] Bilirubin, Total 0.3 0.2 - 1.3 mg/dL [facility] Est Glomerular Filtration Rate >60 >=60 [facility] Comment: This estimated GFR (eGFR) value was calculated using the MDRD equation which has been validated on patients between the ages of 18 and 70. The MDRD should not be used to assess kidney function in patients < 18 years of age or in patients with extremes of body mass, or in patients with acute kidney failure. This value should be multiplied by 1.2 for patients. For further information please copy and paste the following links into your internet browser. [email or web address] Blood specimen (specimen) 07/17/2017 12:36 PM EDT 07/17/2017 12:45 PM EDT Narrative Resulting Agency Comment Spec In Lab Leticia Buckley MD CHEMISTRY ORDERA BLES [facility] [place] [address] documented in this encounter Visit Diagnoses Diagnosis CLL (chronic lymphocytic leukemia) Chronic lymphoid leukemia, without mention of having achieved remission documented in this encounter Care Teams Traffic Survey Technician Relationship Specialty Start Date End Date Precious Nixon MD [address] [place] [address] PCP - General Family Medicine 06/07/17 documented as of this encounter
--- OUTSIDE RECORDS SUMMARY | 2024-10-12 12:02 | XMS_ITS | Encounter Summary ---
Author Organization [facility] [place] [address] Care Team Providers Care Church Communications Administrator Name Role Phone Precious Nixon MD Primary Care Provider [phone] Encounter Details Date Type Department Care Team (Late Contact Info) Description 12/06/2017 Orders Only Hematology/Oncology at [address] [phone] Caroline Pablo RN CLL (chronic lymphocytic leukemia) Social History Tobacco [...] 11:30 AM EST Office Visit Hematology/Oncology at [address] [phone] Leticia Buckley MD [facility] [address] [place] [address] Mili Klein, PERSONAL FITNESS MANAGER [facility] [place] [address] documented as of this encounter Visit Diagnoses Diagnosis CLL (chronic lymphocytic leukemia) Chronic lymphoid leukemia, without mention of having achieved remission documented in this encounter Care Teams Church Communications Administrator Relationship Specialty Start Date End Date Precious Nixon MD [address] [place] [address] PCP - General Family Medicine 06/07/17 documented as of this encounter
--- OUTSIDE RECORDS SUMMARY | 2024-10-12 12:02 | XMS_ITS | Encounter Summary ---
Author Organization [facility] Address [facility] [place] [address] Care Team Providers Care Data Processing Control Clerk Name Role Phone Precious Nixon MD Primary Care Provider [phone] Reason for Referral * Consultation (Routine) - Closed Specialty Diagnoses / Procedures Referred By Neil pate Referred To Contact Diagnoses Endometrial ca Brianna Flores MD [facility] [place] [address] Referral ID Status Reason Start Date Expiration Date V isits Requested Visits Authorized [id number] Closed Consult, Test & Treat 01/03/2022 07/02/2022 1 1 Encounter Details Date Type Department Care Team (Late st Contact Info) Description 01/03/2022 Orders Only Radiation Oncology at [address] [phone] Brianna Flores MD [facility] [place] [address] Endometrial ca Social History Tobacco Use Types [...] 11:30 AM EST Office Visit Hematology/Oncology at [address] [phone] Leticia Buckley MD [facility] [address] [place] [address] Mili Klein APRN [facility] [place] [address] Scheduled Referrals Name Type Priority Associated Diagnoses Orde r Schedule Referral to Radiation Oncology Outpatient Referral Routine Endometrial ca Ordered: 01/03/2022 documented as of this encounter Visit Diagnoses Diagnosis Endometrial ca Malignant neoplasm of corpus uteri, except isthmus documented in this encounter Care Teams Data Processing Control Clerk Relationship Specialty Start Date End Date Precious Nixon MD [address] [place] [address] PCP - General Family Medicine 06/07/17 documented as of this encounter
--- OUTSIDE RECORDS SUMMARY | 2024-10-12 12:02 | XMS_ITS | Encounter Summary ---
Author Organization [facility] [place] [address] Care Team Providers Care Rod Drawer Name Role Phone Precious Nixon MD Primary Care Provider [phone] Encounter Details Date Type Department Care Team (Late st Contact Info) Description 10/06/2021 11:30 AM EST Office Visit Hematology/Oncology at [address] [phone] Leticia Buckley MD [facility] [address] [place] [address] Brianna Bennett APRN [facility] [address] [place] [address] CLL (chronic lymphocytic leukemia) Social History Tobacco [...] Sign Reading Time Taken Comments Blood Pressure 178/86 10/06/2021 11:34 AM EST Pulse 92 10/06/2021 11:34 AM EST Temperature 36.9 ??C (98.4 ??F) 10/06/2021 1 1:34 AM EST Respiratory Rate 20 10/06/2021 11:3 4 AM EST Oxygen Saturation 99% 10/06/2021 11: 34 AM EST Inhaled Oxygen Concentration - - Weight 111.2 kg (245 lb 3.2 oz) 021 11:34 AM EST Height 172.7 cm (5' 7.99) 10/06/2021 1 1:34 AM EST Body Mass Index 37.29 10/06/2021 11:34 AM EST documented in this encounter Progress Notes * Brianna Bennett, HEAD OF PHYSICS - 10/06/2021 11:30 AM EST Subjective: Patient ID: Hilary Lowe is a 61 y.o. female here for f/u of CLL Patient Active Problem List Diagnosis ??? Hypertension ??? Depression ??? Anxiety disorder ??? CLL (chronic lymphocytic leukemia) Diagnosed 2014, never needed treatment, currently being monitored No cytopenias. WBC about 20-25k. HPI Hilary is doing well -she had her left knee replacement done 3 weeks ago - she is recovering well from this. She otherwise has been healthy. No recent infections. NO night sweats. No new lumps or bumps. Review of Systems Constitutional: Negative. HENT: Negative. Eyes: Negative. Respiratory: Negative. Negative for cough and shortness of breath. Cardiovascular: Negative. Negative for chest pain, palpitations and leg swelling. Gastrointestinal: Negative. Negative for constipation, diarrhea, nausea and vomiting. Genitourinary: Negative. Musculoskeletal: Positive for arthralgias. Knee is already feeling better post op 3 weeks Skin: Negative. Neurological: Negative. Negative for weakness and numbness. Hematological: Negative. Psychiatric/Behavioral: Negative. Objective: Physical Exam Constitutional: General: She is not in acute distress. Appearance: She is well-developed. HENT: Mouth/Throat: Pharynx: No oropharyngeal exudate. Eyes: Conjunctiva/sclera: Conjunctivae normal. Pupils: Pupils are equal, round, and reactive to light. Cardiovascular: Rate and Rhythm: Normal rate and regular rhythm. Heart sounds: Normal heart sounds. No murmur heard. Pulmonary: Effort: Pulmonary effort is normal. Breath sounds: Normal breath sounds. No wheezing or rales. Chest: Breasts: Right: No supraclavicular adenopathy. Left: No supraclavicular adenopathy. Abdominal: General: Bowel sounds are normal. Palpations: Abdomen is soft. There is no mass. Tenderness: There is no guarding or rebound. Musculoskeletal: General: Normal range of motion. Cervical back: Normal range of motion and neck supple. Comments: Slight antalgic gait post op - no assistance required. Lymphadenopathy: Cervical: No cervical adenopathy. Upper Body: Right upper body: No supraclavicular adenopathy. Left upper body: No supraclavicular adenopathy. Comments: Shoddy right posterior cervical node <1cm Skin: General: Skin is warm and dry. Neurological: Mental Status: She is alert and oriented to person, place, and time. Lab Results Component Value Date WBC 18.09 07/05/2021 HGB 13.4 07/05/2021 HCT 40.5 07/05/2021 MCV 86.7 07/05/2021 PLATELET 186 07/05/2021 Chemistry Component Value Date/Time NA 140 05/01/2018 0000 K 3.0 06/30/2020 0000 CL 102 05/01/2018 0000 CO2 24 07/17/2017 1236 BUN 21 07/05/2021 0000 CREATININE 0.9 07/05/2021 0000 Component Value Date/Time CALCIUM 9.2 05/01/2018 0000 ALKPHOS 102 05/01/2018 0000 AST 43 06/30/2020 0000 ALT 89 06/30/2020 0000 BILITOT 0.3 05/01/2018 0000 BP 178/86 (Patient Position: Sitting) Pulse 92 Temp 36.9 ??C (98.4 ??F) (Temporal) Resp 20 Ht 172.7 cm (5' 7.99) Wt 111.2 kg (245 lb 3.2 oz) SpO2 99% BMI 37.29 kg/m?? Assessment and Plan: Assessment: CLL.stage 0 - diagnosed 2014- no treatment to date. Counts stable, No worrisome or symptomatic adenoapthy. No B symptoms, No recurrent infections, no signs of AIHA or ITP. No concern for transformation. No indication for treatment at this time. Reviewed CLL and indications for therapy, Also reviewed inherent increase risk for infection. Influenza = UTD Pneumococcal - UTD Covid Vaccine0 UTD Shingells- UTD Plan: We will continue to monitor in hematology clinic. Reviewed CLL and indications for treatment.Hilary will return to hematology in 1 year. she will call if there are any problems before then. documented in this encounter Plan of Treatment Upcoming Encounters Date Type Department Care Team (Late st Contact Info) Description 12/18/2024 11:30 AM EST Office Visit Hematology/Oncology at [address] [phone] Leticia Buckley MD [facility] [address] [place] [address] Mili Klein APRN [facility] [address] [place] [address] documented as of this encounter Visit Diagnoses Diagnosis CLL (chronic lymphocytic leukemia) Chronic lymphoid leukemia, without mention of having achieved remission documented in this encounter Care Teams Rod Drawer Relationship Specialty Start Date End Date Precious Nixon MD [address] [place] [address] PCP - General Family Medicine 06/07/17 documented as of this encounter
--- OUTSIDE RECORDS SUMMARY | 2024-10-12 12:02 | XMS_ITS | Encounter Summary ---
Author Organization [facility] [place] [address] Care Team Providers Care General Milling Superintendent Name Role Phone Precious Nixon MD Primary Care Provider [phone] Reason for Visit * Reason Onset Date Comments Other 12/20/2017 Encounter Details Date Type Department Care Team (Late Contact Info) Description 12/20/2017 Telephone Hematology/Oncology at [address] [phone] Caroline Pablo RN Other Social History Tobacco Use Types Packs/Day Years [...] Telephone Encounter - Caroline Pablo RN - 12/20/2017 12:00 PM EST Left message to remind Pt to get labs done at [facility]. Confirmed labs were sent to Pt via mail and faxed to [facility]. documented in this encounter Plan of Treatment Upcoming Encounters Date Type Department Care Team ([facility] Contact Info) Description 12/18/2024 11:30 AM EST Office Visit Hematology/Oncology at [address] [phone] Leticia Buckley MD [facility] DR HEMATOLOGY [place] [address] Mili Klein APRN [facility] [place] [address] documented as of this encounter Visit Diagnoses Not on filedocumented in this encounter Care Teams General Milling Superintendent Relationship Specialty Start Date End Date Precious Nixon MD [address] [place] [address] PCP - General Family Medicine 06/07/17 documented as of this encounter
--- OUTSIDE RECORDS SUMMARY | 2024-10-12 12:02 | XMS_ITS | Encounter Summary ---
Author Organization [facility] [place] [address] Care Team Providers Care Transplant Rn Name Role Phone Precious Nixon MD Primary Care Provider [phone] Encounter Details Date Type Department Care Team (Late st Contact Info) Description 12/04/2019 11:30 AM EST Office Visit Hematology/Oncology at [address] [phone] Leticia Buckley MD [facility] [place] [address] CLL (chronic lymphocytic leukemia) Social History Tobacco [...] Sign Reading Time Taken Comments Blood Pressure 179/89 12/04/2019 11:32 AM EST Pulse 103 12/04/2019 11:32 AM EST Temperature 36.9 ??C (98.4 ??F) 12/04/2019 11:[address] Respiratory Rate 16 12/04/2019 11:32 AM EST Oxygen Saturation 99% 12/04/2019 11:32 AM EST Inhaled Oxygen Concentration - - Weight 112 kg (247 lb) 12/04/2019 11:32 AM EST Height 177 cm (5' 9.69) 12/04/2019 11:32 AM EST Body Mass Index 35.76 12/04/2019 11:32 AM EST documented in this encounter Progress Notes * Leticia Buckley MD - 12/04/2019 11:30 AM EST [facility] [place] [address] HEMATOLOGY PATIENT EVALUATION PROBLEM LIST: Patient Active Problem List Diagnosis ??? Hypertension ??? Depression ??? Anxiety disorder ??? CLL (chronic lymphocytic leukemia) Diagnosed 2014, never needed treatment, currently being monitored No cytopenias. WBC about 20-25k. HISTORY OF PRESENT ILLNESS: It was my pleasure to meet Hilary Lowe today. Hilary Lowe is a 59 y.o. year old female being seen for evaluation of CLL. she is referred in consultaion from Dr. Elba Chi. 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 She has been doing well, and recently moved to [facility] after [facility]. She received her care for CLL by Dr. Alycia Rodriguez from [facility]. According to the patient, she has [...] no complaints. Today with high blood pressure. Had R knee replacement; needs L TKR. [...] Outpatient Medications Marked as Taking for the 12/04/19 encounter (Office Visit) with Leticia Buckley MD Medication Sig Dispense Refill ??? naproxen sodium (ANAPROX) 220 mg Tablet Take 440 mg by mouth daily. ??? amLODIPine (NORVASC) 10 mg Tablet Take [...] doing OK right now. . Daughters in [facility] and [facility].[place] in [place] is expecting a child - this is Hilary's first grandchild. 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 Has taken courses on the history of culture in [place] and loves it there. ETOH: 1-2 glasses of wine, 5 times a week Smoking: Never PHYSICAL EXAM BP 179/89 (Patient Position: Sitting) Pulse (!) 103 Temp 36.9 ??C (98.4 ??F) (Oral) Resp 16 Ht 177 cm (5' 9.69) Wt 112 kg (247 lb) SpO2 99% BMI 35.76 kg/m?? Body surface area is 2.35 meters squared. GENERAL: Hilary Lowe appears well [...] previous visit (from the past 72 hour(s)). Labs dated 11/28/2019 White count 26.3, hemoglobin 12.8, platelets 236. ANC 4.9 ALC 20,000. Creatinine 0.82, LFTs normal RADIOLOGY STUDIES REVIEWED: None ASSESSMENT/PLAN: Ms. Lowe is a pleasant 59 y.o. F w/ hx of CLL who presents for ongoing care with our Hematologyclinic for continued monitoring of her CLL. At this time, she has no B symptoms and no physical exam findings of hepatosplenomegaly. She was diagnosed with stage [address] Alycia Rodriguez from [facility] with follow up every 6 months [...] -Hilary has never had a staging CT. She has minimal adenopathy on exam (only right posterior cervical) but we may want to do a staging CT of chest abdomen and pelvis sometime in 2020 or 2021, or as symptoms warrant. Hypertension - . She reports some white [...] AM EST Office Visit Hematology/Oncology at [address] [phone] Leticia Buckley MD [facility] [place] [address] Mili Klein APRN [facility] [place] [address] documented as of this encounter Procedures Procedure Name Priority Date/Time Associated Diagnosis Comments CBC (WITH DIFF) Routine 11/28/2019 documented in this encounter Results * CBC (with Diff) (11/28/2019) White Blood Cell 26.32 Hemoglobin 12.8 Hematocrit 38.8 Platelet 236 Neutrophil Absolute (ANC) - Automated 4.95 Creatinine 0.82 Blood specimen (specimen) 11/28/2019 Historical Provider HEMATOLOGY ORDERA BLES documented in this encounter Visit Diagnoses Diagnosis CLL (chronic lymphocytic leukemia) Chronic lymphoid leukemia, without mention of having achieved remission documented in this encounter Care Teams Transplant Rn Relationship Specialty Start Date End Date Precious Nixon MD [address] [place] [address] PCP - General Family Medicine 06/07/17 documented as of this encounter
--- OUTSIDE RECORDS SUMMARY | 2024-10-12 12:02 | XMS_ITS | Encounter Summary ---
[place] [address] Care Team Providers Care Injection Molding Machine Setter Name Role Phone Precious Nixon MD Primary Care Provider [phone] Encounter Details Date Type Department Care Team (Late st Contact Info) Description 11/12/2021 Telephone [place] [phone] Janee Maya RN Social History Tobacco Use [...] Telephone Encounter - Janee Maya RN - 11/12/2021 3:07 PM EST Informed patient that pathology results have been taking about 3 weeks. She denies any questions orconcerns at this time. * Telephone Encounter - Janee Maya RN - 11/12/2021 3:06 PM EST ----- Message from Ruby Holt sent at 11/12/2021 2:20 PM EST ----- Regarding: Patient is wondering when she might here about her pathology results please call her back. documented in this encounter Plan of Treatment Upcoming Encounters Date Type Department Care Team (Late st Contact Info) Description 12/18/2024 11:30 AM EST Office Visit Hematology/Oncology at [address] [phone] Leticia Buckley MD [facility] [address] [place] [address] Mili Klein APRN [facility] [address] [place] [address] documented as of this encounter Visit Diagnoses Not on filedocumented in this encounter Care Teams Injection Molding Machine Setter Relationship Specialty Start Date End Date Precious Nixon MD [address] [place] [address] PCP - General Family Medicine 06/07/17 documented as of this encounter
--- OUTSIDE RECORDS SUMMARY | 2024-10-12 12:02 | XMS_ITS | Encounter Summary ---
Author Organization [facility] [place] [address] Care Team Providers Care Pipe Fitter Gas Pipe Name Role Phone Precious Nixon MD Primary Care Provider [phone] Reason for Visit * Auth/Cert Specialty Diagnoses [...] Expiration Date Visits Re quested Visits Authorized [id number] 1 1 Encounter Details Date Type Department Care Team (Late st Contact Info) Description 11/09/2021 7:29 AM EST Anesthesia Event [place] [phone] Khadar Concepcion MD [facility] [place] [address] Maryan Gaines CRNA [facility] [place] [address] Anesthesia Record Procedure Summary Procedure Name Responsible Anesthesiologist Anesthesia Start Time Anesthesia Stop Time ROBOTIC LAPAROSCOPY,TOTAL HYST, UTERUS<250GM, REM TUBE &/OR OVARY (WRVU 15) (Uterus) Khadar Concepcion MD 11/09/21 0729 11/09/21 1022 Events Date Time Event Comment 11/09/2021 0647 0729 AN Verify 0729 Start 0729 An Start Data 0735 An Induction 0739 An Intubation 0745 Anesthesia Ready 0822 Procedure Start 0827 Quick Note Insufflation 0838 Quick Note Pt positioned i n steep trendelenburg 0850 Break/Relief In I assumed ca re for Break Relief before which we: 1. Identified the patient 2. Identified the responsible provider(s) 3. Reviewed the pertinent medical history 4. Discussed the surgical plan and course 5. Reviewed intra-op anesthesia management and issues during anesthesia 6. Set expectations for the relief (and/or post-procedure) period 7. Allowed opportunity for questions and acknowledgement of understanding KYLE ARCEO CRNA 0900 Break/Relief Out 1011 Procedure Stop 1012 Extubation/LMA Out 1017 an stop data 1019 Recovery or ICU Handoff Aide ent care was transferred to the destination unit staff after review of the patient's medical history, current anesthetic/surgical status and plan, according to the Provider Handoff Checklist. 1022 Stop Meds Name Total Midazolam 2 mg fentaNYL 125 mcg IV Lidocaine 100 mg Propofol 300 mg Rocuronium 100 mg PHENYLephrine 160 mcg ePHEDrine 35 mg Ondansetron 8 mg Dexamethasone 8 mg Neostigmine 5 mg Glycopyrrolate 1 mg Propofol INF 589.12 mg ceFAZolin (Ancef) 2 g in dextrose 5% 100 mL infusion 2 g metroNIDAZOLE (Flagyl) 500 mg in sodium chloride 0.9% 100 mL infusion 500 mg PHENYLephrine INF 420 mcg acetaminophen IV 1,000 mg Dexmedetomidine 20 mcg ketorolac (Toradol) (30 mg/mL) injection 15 mg Lactated Ringers 700 mL Lactated Ringers 300 mL * Agents Name O2 Air N2O Sevoflurane (et) * Blood No blood administrations on file. Lines, Drains, and Airways Type Details Placement Removal Incision 11/09/21; 09; lowe r quadrant; laparoscopic punctures (specify); 5 laparoscopic punctures created 11/09/21 0923 by Leopoldo Benoit RN (RETIRED) Peripheral IV Line - Single Lumen 11/09/21; 0644; median cubital vein (antecubital fossa), left; [id number] catheter system; Anatomical Landmarks; US Not Used; 20 gauge, 1 in length; Triny Lundy RN; distraction, intradermal injection, tolerated well; 0; 11/09/21; 1355 11/09/21 0644 by Hussein Sibley RN 11/09/21 1355 by Francisca Isaac RN ETT Mask Ventilation: Ea sy (1); ETT Type: Cuffed, Oral; ETT Size: 7 mm; Mac Blade: 3; Notes: Asleep, Pre-O2, Cricoid Pressure, Stylette; Attempts: 1; Laryngoscopy Grade: 2; ETT Placement Verified By: Auscultation, Capnometry, Visual; Secured at Teeth: 22 cm; Inserted by: Maryan Gaines CRNA; Removal Date: 11/09/21; Removal Time: 1017 11/09/21 0739 by Maryan Gaines, JULIANNE 11/09/21 1017 by Maryan Gaines CRNA (RETIRED) Peripheral IV Line - Single Lumen 11/09/21; 0742; dorsal arch vein (top of hand), right; [id number]-pkm-[id number] catheter system; Anatomical Landmarks; 18 gauge; Maryan Gaines NUMERICAL CONTROL MACHINE TOOL OPERATOR; 11/09/21; 1355 11/09/21 0742 by Maryan Gaines CRNA 11/09/21 1355 by Francisca Isaac RN Arterial Line 11/09/21; 0742; radi al artery, left; 20 gauge; Anatomical Landmarks; continuous blood pressure monitoring; Khadar Concepcion MD; Sterile Prep, Sterile Gloves; 11/09/21; 1023 11/09/21 0742 by Maryan Gaines, NUMERICAL CONTROL MACHINE TOOL OPERATOR 11/09/21 1023 by Maryan Gaines CRNA NG/OG Tube 11/09/21; 0745; orogastric; 18 Fr; mouth; LCWS; 11/09/21; 1004 11/09/21 0745 by Maryan Gaines CRNA 11/09/21 1004 by Maryan Gaines NUMERICAL CONTROL MACHINE TOOL OPERATOR Urethral Catheter 11/09/21; 0840; Abdominal surgery; indwelling single lumen catheter; 14; 1; 10; 10; none; 11/09/21; 1311 11/09/21 0840 by Leopoldo Benoit RN 11/09/21 1311 by Francisca Isaac RN documented in this encounter Social History Tobacco Use Types Packs/Day Years Used Date Smoking Tobacco: Never Smokeless Tobacco: Never Alcohol Use Standard Drinks/Week Comments Yes 0 (1 standard drink = 0.6 oz pur e alcohol) 7-10 per week Sex and Gender Information Value Date Recorded Sex Assigned at Not on file Gender Identity Not on file Sexual Orientation Not on file documented as of this encounter OR Notes * Anesthesia Postprocedure Evaluation - Khadar Concepcion MD - 11/09/2021 11:46 AM EST Department of Anesthesiology Post-procedure Note Patient: Hilary Lowe Procedure Summary Date: 11/09/21 Room / Location: [facility] OR [facility] MAIN OR Anesthesia Start: 728 Anesthesia Stop: 1021 Procedures: LAPAROSCOPY,TOTAL HYST, UTERUS<250GM, REM TUBE &/OR OVARY, ROBOTIC ASSIST (WRVU 15) (N/A Uterus) LAPAROSCOPY,W\BILATERAL TOTAL PELVIC LYMPHADENECTOMY, PERIAORTIC LYMPH NODE SAMPLING, ROBOTIC (WRVU15.6) (N/A Uterus) INTRAOPERATIVE ID (MAPPING) SENTINEL LYMPH NODE,INCLUDES INJECTION (WRVU 2.5) (N/A ) MODIFIER ROBOT,KARLEEI XI (N/A ) Diagnosis: (ENDOMETRIAL CANCER) Surgeons: Jazz Johnson MD Responsible Provider: Khadar Concepcion MD Anesthesia Type: general ASA Status: 3 All Anesthesia Providers: Anesthesiologist: Khadar Concepcion MD NUMERICAL CONTROL MACHINE TOOL OPERATOR: Maryan Gaines CRNA Vitals Value Taken Time BP 111/70 11/09/21 1131 Temp Pulse 55 11/09/21 1145 Resp 16 11/09/21 1131 SpO2 94 % 11/09/21 1145 Pain Level 7 11/09/21 1115 Vitals shown include unvalidated device data. Patient Location: PACU/SDP Level of Consciousness: Conscious but Sleepy Pain Management: Pain Being Addressed PONV: PONV Resolved with Rx Cardiovascular Status: Hemodynamically Stable Respiratory Status: Stable Respiratory Status Postoperative Fluid Status: Intravascular EUvolemia Possible Anesthetic Complications: NONE apparent at time of evaluation Final Primary Anesthesia Type: General (The anesthetic type performed was the same as planned.) Comments: * Anesthesia Preprocedure Evaluation - Khadar Concepcion MD - 11/09/2021 6:44 AM EST Pre-Anesthesia Evaluation for: Hilary Lowe a 61 y.o. female. Procedure(s): LAPAROSCOPY,TOTAL HYST, UTERUS<250GM, REM TUBE &/OR OVARY, ROBOTIC ASSIST (WRVU 15) LAPAROSCOPY,W\BILATERAL TOTAL PELVIC LYMPHADENECTOMY, PERIAORTIC LYMPH NODE SAMPLING, ROBOTIC (WRVU15.6) INTRAOPERATIVE ID (MAPPING) SENTINEL LYMPH NODE,INCLUDES INJECTION (WRVU 2.5) MODIFIER ROBOT,DAVINCI XI Patient Active Problem List Diagnosis ??? Endometrial cancer, grade I ??? Obesity (BMI 35.0-39.9 without comorbidity) ??? Hypertension ??? Depression ??? Anxiety disorder ??? CLL (chronic lymphocytic leukemia) Diagnosed 2014, never needed treatment, currently being monitored No cytopenias. WBC about 20-25k. Past Medical History: Diagnosis Date ??? Anxiety disorder ??? CLL (chronic lymphocytic leukemia) 2015 Diagnosed 2 years ago, never needed treatment, currently being monitored ??? Depression ??? Endometrial cancer, grade I 10/26/2021 ??? Hypertension ??? Obesity (BMI 35.0-39.9 without comorbidity) Past Surgical History: Procedure Laterality Date ??? CHOLECYSTECTOMY ??? TOTAL KNEE ARTHROPLASTY Bilateral left was done 09/15/21 Social History Tobacco Use ??? Smoking status: Never Smoker ??? Smokeless tobacco: Never Used Substance Use Topics ??? Alcohol use: Yes Comment: 7-10 per week Social History Substance and Sexual Activity Drug Use Yes ??? Types: Marijuana Comment: edibles couple nights per week No Known Allergies Medications: MAR and/or home medications have been reviewed. Physical Exam: Preprocedure Vitals Current as of 11/09/21 0644 BP: 201/95 Pulse: 86 Resp: 18 SpO2: 99 Temp: 37.1 ??C (98.8 ??F) Height: Weight: BMI: IBW: Last edited 11/09/21 06 by AA Currently displaying vitals information from multiple entries within 90 minutes of most recent vitals. Airway Assessment: Mallampati: II TM distance: >3 FB Neck ROM: full Cardiovascular Assessment: system normal Pulmonary Assessment: pulmonary exam normal Dental Assessment: - normal exam Misc Assessment: IV access: Peripheral line Last Filed Perioperative Cognitive Screening None Anesthesia Plan: ASA 3 general, with a(n) intravenous induction Delightful 61 year-old female for a laparoscopic DORCAS/BSO and aortic node sampling. She has good functional tolerance baseline, denies cardiopulmonary disease, recent URI's and anticoagulation. She has occasional GERD that is diet related. She has NKDA and is appropriately NPO. She has depression and a history of CLLL. GA with ETT and second IV +/- arterial line Region - Other Informed Consent: Anesthetic plan and risks discussed with patient and daughter/son. Plan discussed with NUMERICAL CONTROL MACHINE TOOL OPERATOR. Anesthesia Screening documented in this encounter Plan of Treatment Upcoming Encounters Date Type Department Care Team (Late st Contact Info) Description 12/18/2024 11:30 AM EST Office Visit Hematology/Oncology at [address] [phone] Leticia Buckley MD [facility] DR HEMATOLOGY [place] [address] Mili Klein APRN [facility] DR HEMATOLOGY [place] [address] documented as of this encounter Visit Diagnoses Not on filedocumented in this encounter Administered Medications Inactive Administered Medications - up to 3 most recent administrations Medication Order MAR Action Action Date Dose Rate Site acetaminophen (Ofirmev) (1000 mg/100 mL) infusion Intravenous, Administer over 15 Minutes, PRN, Starting on Mon11/09/21 at 0805, Until Mon11/09/21 at 1023, Anesthesia Intra-op, Routine Given 11/09/2021 8:05 AM EST 1,000 mg ceFAZolin (Ancef) 2 g in dextrose 5% 100 mL infusion 2 g, Intravenous, ONCE, 1 dose, On Mon11/09/21 at 0645, Administer over 30 Minutes, Sterilization Specialist to OR Infuse over 30 minutes., Day of Surgery (Day of Procedure), Indication for (Active or Suspected): Prophylaxis Given 11/09/2021 7:45 AM EST 2 g dexamethasone (Decadron) injection Intravenous, PRN, Starting on Mon11/09/21 at 0745, Until Mon11/09/21 at 1023, Anesthesia Intra-op, Routine Given 11/09/2021 7:45 AM EST 8 mg dexmedetomidine (Precedex) (4 mcg/mL) bolus injection (Anesthsia) Intravenous, PRN, Starting on Mon11/09/21 at 0735, Until Mon11/09/21 at 1023, Anesthesia Intra-op, Routine Given 11/09/2021 7:35 AM EST 20 mcg ePHEDrine sulfate (5 mg/mL) multi-dose injection Intravenous, PRN, Starting on Mon11/09/21 at 0750, Until Mon11/09/21 at 1023, Anesthesia Intra-op, Routine Given 11/09/2021 8:47 AM EST 10 mg Given 11/09/2021 8:01 AM EST 10 mg Given 11/09/2021 7:55 AM EST 10 mg fentaNYL (pf) (50 mcg/mL) multi-dose injection Intravenous, PRN, Starting on Mon11/09/21 at 0741, Until Mon11/09/21 at 1023, Anesthesia Intra-op, Routine Given 11/09/2021 10:01 AM EST 25 mcg Given 11/09/2021 8:39 AM EST 50 mcg Given 11/09/2021 7:41 AM EST 50 mcg glycopyrrolate (Robinul) (0.2 mg/mL) multi-dose injection Intravenous, PRN, Starting on Mon11/09/21 at 1000, Until Mon11/09/21 at 1023, Anesthesia Intra-op, Routine Given 11/09/2021 10:00 AM EST 1 mg ketorolac (Toradol) (30 mg/mL) injection Intravenous, PRN, Starting on Mon11/09/21 at 1001, Until Mon11/09/21 at 1023, Anesthesia Intra-op, Routine Given 11/09/2021 10:01 AM EST 15 mg lactated ringers infusion Intravenous, CONTINUOUS PRN, Starting on Mon11/09/21 at 0729, Until Mon11/09/21 at 1023, Anesthesia Intra-op New Bag 11/09/2021 7:29 AM EST lactated ringers infusion Intravenous, CONTINUOUS PRN, Starting on Mon11/09/21 at 0745, Until Mon11/09/21 at 1023, Anesthesia Intra-op New Bag 11/09/2021 7:45 AM EST lidocaine (pf) (Xylocaine) (20 mg/mL) 2% injection syringe Intravenous, PRN, Starting on Mon11/09/21 at 0735, Until Mon11/09/21 at 1023, Anesthesia Intra-op, Routine Given 11/09/2021 7:35 AM EST 100 mg metroNIDAZOLE (Flagyl) 500 mg in sodium chloride 0.9% 100 mL infusion 500 mg, Intravenous, ONCE, 1 dose, On Mon11/09/21 at 0645, Administer over 30 Minutes, Sterilization Specialist to OR Infuse over 30 minutes., Day of Surgery (Day of Procedure), Indication for (Active or Suspected): Prophylaxis Given 11/09/2021 8:00 AM EST 500 mg midazolam (pf) (Versed) (1 mg/mL) multi-dose injection Intravenous, PRN, Starting on Mon11/09/21 at 0729, Until Mon11/09/21 at 1023, Anesthesia Intra-op, Routine Given 11/09/2021 7:29 AM EST 2 mg neostigmine (Bloxiver) (1 mg/mL) injection Intravenous, PRN, Starting on Mon11/09/21 at 0959, Until Mon11/09/21 at 1023, Anesthesia Intra-op, Routine Given 11/09/2021 9:59 AM EST 5 mg ondansetron (pf) (Zofran) (2 mg/mL) injection Intravenous, PRN, Starting on Mon11/09/21 at 0745, Until Mon11/09/21 at 1023, Anesthesia Intra-op, Routine Given 11/09/2021 9:56 AM EST 4 mg Given 11/09/2021 7:45 AM EST 4 mg PHENYLephrine (Marv-Synephrine) (80 mcg/mL) in sodium chloride 0.9% 250 mL infusion Intravenous, CONTINUOUS PRN, Starting on Mon11/09/21 at 0803, Until Mon11/09/21 at 1023, Anesthesia Intra-op, Routine New Bag 11/09/2021 8:03 AM EST 20 mcg/min 15 mL/hr PHENYLephrine in NS (PF) (MARV-SYNEPHRINE) 0.8 mg/10 mL (80 mcg/mL) multi-dose injection Syrg Intravenous, PRN, Starting on Mon11/09/21 at 0757, Until Mon11/09/21 at 1023, Anesthesia Intra-op, Routine Given 11/09/2021 8:06 AM EST 80 mcg Given 11/09/2021 7:57 AM EST 80 mcg propofoL (Diprivan) (10 mg/mL) infusion Intravenous, CONTINUOUS PRN, Starting on Mon11/09/21 at 0745, Until Mon11/09/21 at 1023, Anesthesia Intra-op, Routine Rate/Dose Change 11/09/2021 9:36 AM EST 30 mcg/kg/min 20.16 mL/hr Rate/Dose Change 11/09/2021 8:28 AM EST 50 mcg/kg/min 33.6 mL/hr New Bag 11/09/2021 7:45 AM EST 30 mcg/kg/min 20.16 mL/h r propofoL (Diprivan) 10 mg/mL bolus injection (Anesthesia) Intravenous, PRN, Starting on Mon11/09/21 at 0735, Until Mon11/09/21 at 1023, Anesthesia Intra-op Given 11/09/2021 7:37 AM EST 100 mg Given 11/09/2021 7:35 AM EST 200 mg rocuronium (Zemuron) (10 mg/mL) multi-dose injection Intravenous, PRN, Starting on Mon11/09/21 at 0738, Until Mon11/09/21 at 1023, Anesthesia Intra-op, Routine Given 11/09/2021 9:14 AM EST 10 mg Given 11/09/2021 8:27 AM EST 20 mg Given 11/09/2021 8:00 AM EST 20 mg documented in this encounter Care Teams Pipe Fitter Gas Pipe Relationship Specialty Start Date End Date Precious Nixon MD [address] [place] [address] PCP - General Family Medicine 06/07/17 documented as of this encounter
--- OUTSIDE RECORDS SUMMARY | 2024-10-12 12:02 | XMS_ITS | Encounter Summary ---
[place] [address] Care Team Providers Care Marketing Communications Leader Name Role Phone Precious Nixon MD Primary Care Provider [phone] Reason for Visit * Reason Onset Date Comments Letter/Form 12/29/2021 Request for docu mentation - assist with coordination & arrangement of services Encounter Details Date Type Department Care Team (Late st Contact Info) Description 12/29/2021 Telephone [place] [phone] Vijaya Moran RN Letter/Form (Request for documentation - assist with coordination & arrangement of services) Social History Tobacco Use Types Packs/Day Years [...] encounter Miscellaneous Notes * Telephone Encounter - Vijaya Moran RN - 12/29/2021 2:02 PM EST Request for documentation received by fax from [facility] - Insurance Provider MARY KATE Carlson, strapper - Request for most recent office visit progress notes, medication list and date of next appointment completed, printed and faxed to MARY KATE Carlson, RN documented in this encounter Plan of Treatment Upcoming Encounters Date Type Department Care Team (Late st Contact Info) Description 12/18/2024 11:30 AM EST Office Visit Hematology/Oncology at [address] [phone] Leticia Buckley MD [facility] [place] [address] Mili Klein APRN [facility] [place] [address] documented as of this encounter Visit Diagnoses Not on filedocumented in this encounter Care Teams Marketing Communications Leader Relationship Specialty Start Date End Date Precious Nixon MD [address] [place] [address] PCP - General Family Medicine 06/07/17 documented as of this encounter
--- OUTSIDE RECORDS SUMMARY | 2024-10-12 12:03 | XMS_ITS | Encounter Summary ---
Author Organization [facility] Address [address] [place] [address] Care Team Providers Care Slide Machine Tender Name Role Phone Gemma Kahn GUSSET STITCHER Primary Care Provider Encounter Details Date Type Department Care Team (Late st Contact Info) Description 10/11/2021 Lab Requisition [facility] Pathology & Laboratory Medicine - [facility] [address] [place] [address] Sonya Cuba MD [address] [place] [phone] Encounter for other general examination Social History Tobacco Use Types Packs/Day Years Used Date Smoking Tobacco: Never Alcohol Use Standard Drinks/Week Comments Yes 5 (1 standard drink = 0.6 oz pur e alcohol) Comments No Sex and Gender Information Value Date Recorded Sex Assigned at Not on file Legal Sex Female 18:04 EST Gender Identity Not on file Sexual Orientation Not on file documented as of this encounter Plan of Treatment Not on file documented as of this encounter Procedures Procedure Name Priority Date/Time Associated Diagnosis Comments SURGICAL PATHOLOGY Today 10/11/2021 11 :30 EST Encounter for other general examination documented in this encounter Results * SURGICAL PATHOLOGY (10/11/2021 11:30 EST) Ancillary Studies Addendum RESULTS OF IMMUNOHISTOCHEMICAL STAINING: Retained expression of MLH1, PMS2, MSH2 and MSH6 TISSUE SUBMITTED: Formalin fixed paraffin embedded tissue block labelled ([id number]), block (A3) TUMOR TYPE: Endometrial adenocarcinoma INTERPRETATION: These results are indicative of normal DNA mismatch repair function within the tumor. This patient most likely does not have Kerr syndrome. However, it is important to note that 3-10% of Kerr syndrome patients may reveal retained expression of mismatch repair proteins due to mutation in other genes. Hence these findings should be interpreted in the context of family and clinical history. If results do not match clinicopathologic findings, molecular testing (specifically microsatellite instability by PCR) can be ordered upon obtaining preauthorization or an advanced beneficiary notice. ANTIBODY (CLONE) (BLOCK): RESULT MLH1 (M1, [place]) (block A3): Retained expression in tumor PMS2 (A16-4, [place]) (block A3): Retained expression in tumor MSH2 ([id number], [place]) (block A3): Retained expression in tumor MSH6 (SP93, [place]) (block A3): Retained expression in tumor Internal controls: Adequate NOTE: One or more of the reagents used in immunohistochemical testing in this case may not have been cleared or approved by the U.S. Food and Drug Administration (FDA). The FDA has determined that such clearance or approval is not necessary. These tests are used for clinical purposes. They should not be regarded as investigational or for research. These reagents' performance characteristics have been determined by [facility] and/or by the referring laboratory. The positive and negative controls worked appropriately. This laboratory is certified under the Clinical Laboratory Improvement Amendments of 1988 (CLIA-88) as qualified to perform high complexity clinical laboratory testing. 10/13/2021 9:19 [facility] Addendum electronically signed by Ethan Lopez MD on 10/13/2021 at 0919 Note to Patient The following pathology results have been interpreted by your pathologist and may be available to you before your health provider has had the opportunity to review them. Please allow time for your provider to receive these results and explore management options, if applicable. 10/13/2021 9:19 [facility] Final Diagnosis A. ENDOMETRIUM, BIOPSY/CURETTAGE: - Endometrial adenocarcinoma, endometrioid type with minor mucinous features, FIGO Grade 1. - Endometrial polyp, with involvement by adenocarcinoma, also present. - See Comment. 10/13/2021 9:19 [facility] Diagnosis Comment Risk Assessor slides of this case were reviewed at the intradepartmental consultation conference. Immunohistochemical staining for mismatch repair (MMR) proteins for [place] Screening has been ordered on block A3. The results of this test will be issued as an addendum to this report. 10/13/2021 9:19 [facility] Attestation By the signature below, the attending physician certifies that they have 1) personally conducted a gross and/or microscopic examination of the described specimen(s), and/or personally interpreted the results of laboratory testing of the described specimen(s), and 2) personally rendered or confirmed the above diagnosis. 10/13/2021 9:19 [facility] at 0932 Clinical History PMB 10/13/2021 9:19 [facility] Gross Description A. Received in formalin labelled with proper patient identification (initials P, R) and endometrial is an aggregate of pink-white soft tissue admixed with dark red blood clot and pink cloudy mucus (2.0 x 2.0 x 0.4 cm). Entirely submitted in A1-A4. Jay Kerr 10/11/2021 16:08 10/13/2021 9:19 [facility] Performing Lab [facility] 10/13/2021 9:19 [facility] Scanned Images 10/13/2021 9:19 [facility] Tissue ENTIRE ENDOMETRIUM / Unknown 10/11/2021 11:30 EST 10/11/2021 15:55 EST us Sonya Cuba MD PATHOLOGY ORDERABLES Edited Result - Final [facility] [address] [place] [address] documented in this encounter Visit Diagnoses Diagnosis Encounter for other general examination documented in this encounter Care Teams Slide Machine Tender Relationship Specialty Start Date End Date Gemma Kahn NP [address] [place] [address] PCP - General 10/10/14 documented as of this encounter
--- OUTSIDE RECORDS SUMMARY | 2024-10-12 12:03 | XMS_ITS | Encounter Summary ---
Author Organization [facility] Address [address] [place] [address] Care Team Providers Care Fabricating Machine Operator Name Role Phone Unavailable Primary Care Provider Unavailabl e Encounter Details Date Type Department Care Team (Late st Contact Info) Description 04/04/2012 Results Only [facility] Laboratory Services - [facility] [address] [place] [address] Gemma Kahn NP [address] [place], [place] [phone] Social History Tobacco Use Types Packs/Day Years Used Date Smoking Tobacco: Never Assessed Comments Unknown Sex and Gender Information Value Date Recorded Sex Assigned at Not on file Legal Sex Female 18:04 EST Gender Identity Not on file Sexual Orientation Not on file documented as of this encounter Plan of Treatment Not on file documented as of this encounter Procedures Procedure Name Priority Date/Time Associated Diagnosis Comments BACTERIAL CULTURE, URINE Routine 04/04/2012 9:41 EDT documented in this encounter Results * BACTERIAL CULTURE, URINE (04/04/2012 9:41 EDT) Specimen Description Urine [facility] Result Greater than 100,000 CFU/ml ESCHERICHIA COLI [facility] Result Less than 10,000 CFU/ml Gram positive organism [facility] Report Status 04/06/2012 Final [facility] ORGANISM ESCHERICHIA COLI [facility] Urine specimen (specimen) 04/04/2012 9:41 EDT 04/04/2012 12:15 EDT Narrative Organism Antibiotic Method Susceptibility Escherichia coli Ampicillin SUSCEPTIBILITY ([place]) >=32: Resistant Escherichia coli Cefazolin SUSCEPTIBILITY ([place]) <=4: Susceptible Escherichia coli Gentamicin SUSCEPTIBILITY ([place]) <=1: Susceptible Escherichia coli Trimethoprim-Sulfame th oxazole SUSCEPTIBILITY ([place]) >=320: Resistant Escherichia coli Nitrofurantoin SUSCEPTIBILITY ([place]) <=16: Susceptible Escherichia coli Tobramycin SUSCEPTIBILITY ([place]) <=1: Susceptible Escherichia coli Amikacin SUSCEPTIBILITY ([place]) <=2: Susceptible Escherichia coli Piperacillin SUSCEPTIBILITY ([place]) >=128: Resistant Escherichia coli Ceftriaxone SUSCEPTIBILITY ([place]) <=1: Susceptible Escherichia coli Ciprofloxacin SUSCEPTIBILITY ([place]) <=0.25: Susceptible Escherichia coli Meropenem SUSCEPTIBILITY ([place]) <=0.25: Susceptible Comment:Greater than 100,000 CFU/ml ESCHERICHIA COLI us Gemma Kahn NP MICROBIOLOGY - GENERAL ORDER MAI Final Result [facility] [address] [place] [address] documented in this encounter Visit Diagnoses Not on filedocumented in this encounter
--- OUTSIDE RECORDS SUMMARY | 2024-10-12 12:03 | XMS_ITS | Encounter Summary ---
Author Organization [facility] Address [address] [place] [address] Care Team Providers Care Nutrition Intern Name Role Phone Unavailable Primary Care Provider Unavailabl e Encounter Details Date Type Department Care Team (Late st Contact Info) Description 10/18/2005 Results Only [facility] Gastroenterology - [facility] [address] [place] [address] Bryant Colon MD [address] [place] [phone] Social History Tobacco Use Types Packs/Day Years [...] Priority Date/Time Associated Diagnosis Comments SURGICAL PATHOLOGY Routine 10/18/2005 0:00 EST documented in this encounter Results * SURGICAL PATHOLOGY (10/18/2005 0:00 EST) Pathology Report: SURGICAL PATHOLOGY REPORT Reports generated via electronic interface contain original data; however they are lacking the format of the original report. Caution should be taken when reading/interpreti ng unformatted reports. Name: ? POLISHUK, JATIN M ? Accession #: ? [id number] ? : ? 1960 (Age: 45) ??F ? Collect Date: ? 10/18/2005 ? Location: ? B006 ? Receive Date: ? 10/18/2005 ? Provider: BRYANT COLON MD Copy to: EUSEBIA STANTON MD ? Final Pathologic Diagnosis: ? Gallbladder, cholecystectomy: 1. ?Cholelithiasis. 2. ?Mild chronic cholecystitis. Document reviewed and electronically signed by: JELANI GOTTI MD Report ??Date: 10/21/2005 15:30 By the signature above, the attending physician certifies that he/she has personally conducted a gross and/or microscopic examination of the described specimens and rendered or confirmed the above diagnosis. Specimen(s) Received: ? Gallbladder Clinical History: ? Cholelithiasis Gross Description: ? Received in formalin labelled [place] and gallbladder is an opened 9.5 x 3.0 x 0.8 cm gallbladder with a stapled 0.5 x 0.4 cm cystic duct. ??No cystic duct is appreciated. ??Also separately received in the same container are three mulberry type yellow hard choleliths which average in size 1.5 x 1.5 x 1.5 cm. The gallbladder serosal surface is bo-pink, smooth and glistening. ??The mucosal surface is bo-red, hemorrhagic, glistening and velvety. ??The wall thickness averages 0.1 cm. ??Manager Visual sections of fundus, neck and cystic duct are submitted entirely in one cassette. ??(Dr. Isaacs)/tmg End of Report [facility] 10/18/2005 10/18/2005 15: 02 EST us Bryant Colon MD PATHOLOGY ORDERABLES Final Result [facility] [address] [place] [address] documented in this encounter Visit Diagnoses Not on filedocumented in this encounter
--- OUTSIDE RECORDS SUMMARY | 2024-10-12 12:03 | XMS_ITS | Encounter Summary ---
Author Organization [facility] Address [address] [place] [address] Care Team Providers Care Lockstitch Lining Maker Name Role Phone Gemma Mcmanus MD Primary Care Provide r Encounter Details Date Type Department Care Team (Latest Contact Info) Description 09/17/2014 10:11 EDT - 09/17/2014 10:13 EDT Hospital Encounter [facility] - [address] [address] Gemma Kahn, IDALMIS [address] [place] [id number] Discharge Disposition: Home or Self Care Social History Tobacco Use Types Packs/Day Years Used Date Smoking Tobacco: Never Alcohol Use Standard Drinks/Week Comments Yes 5 (1 standard drink = 0.6 oz pur e alcohol) Comments Unknown Sex and Gender Information Value Date Recorded Sex Assigned at Not on file Legal Sex Female 18:04 EST Gender Identity Not on file Sexual Orientation Not on file documented as of this encounter Discharge Diagnoses Diagnosis 401.9 HYPERTENSION NOS[ICD-9-CM] documented in this encounter Medications at Time of Discharge venlafaxine (EFFEXOR-XR) 150 mg XR capsule Take 150 mg by mouth daily. documented as of this encounter Discharge Disposition Disposition Code Departure Means Destination Home or Self Care documented in this encounter Plan of Treatment Not on file documented as of this encounter Visit Diagnoses Not on filedocumented in this encounter Care Teams Lockstitch Lining Maker Relationship Specialty Start Date End Date Gemma Mcmanus MD [address] [place] [phone] PCP - General 04/09/12 10/09/14 documented as of this encounter
--- OUTSIDE RECORDS SUMMARY | 2024-10-12 12:03 | XMS_ITS | Encounter Summary ---
Author Organization [facility] Address [address] [place] [address] Care Team Providers Care Aoc Operations Intelligence Chief Name Role Phone Unavailable Primary Care Provider Unavailabl e Encounter Details Date Type Department Care Team (Late st Contact Info) Description 08/26/2005 10:37 EDT - 08/26/2005 11:59 EDT Hospital Encounter [facility] [address] [place] [address] Gemma Mcmanus MD [address] [place] [phone] Discharge Disposition: Auto Discharge Social History Tobacco Use Types Packs/Day Years Used Date Smoking Tobacco: Never Assessed Comments Unknown Sex and Gender Information Value Date Recorded Sex Assigned at Not on file Legal Sex Female 18:04 EST Gender Identity Not on file Sexual Orientation Not on file documented as of this encounter Discharge Disposition Disposition Code Departure Means Destination Auto Discharge documented in this encounter Plan of Treatment Not on file documented as of this encounter Procedures Procedure Name Priority Date/Time Associated Diagnosis Comments RAD US ABDOMEN ONE ORGAN/QUADRANT 08/26/2005 11:31 EDT documented in this encounter Results * RAD US ABDOMEN ONE ORGAN/QUADRANT (08/26/2005 11:31 EDT) Anatomical Region Laterality Modality Other 08/26/2005 11:3 1 EDT Narrative 06/26/2009 2:57 EDT RIGHT UPPER QUADRANT PAIN RIGHT UPPER QUADRANT ULTRASOUND 08/26/05 CLINICAL HISTORY: right upper quadrant pain for 6 months, vomiting and nausea. FINDINGS: Right upper quadrant ultrasound was performed. The liver is enlarged measuring 20cm longitudinally and is diffusely hypoechoic with echogenic portal triads. This appearance could be suggestive of hepatitis or possibly vascular congestion. There is no evidence of right pleural effusion. There is no intra and extrahepatic biliary dilatation. Multiple shadowing mobile stones are seen within the gallbladder. ??There is no gallbladder wall thickening or pericholecystic fluid and the patient is not tender over the gallbladder during the examination. The pancreas is grossly unremarkable. There is no free fluid in the right upper quadrant. The right kidney measures 11.0cm longitudinally and is grossly unremarkable. The abdominal aorta is within normal limits. IMPRESSION: ? 1. ?? Cholelithiasis with no sonographic evidence of cholecystitis. ? 2. ?? Enlarged liver with a diffuse starry audrey appearance which could be suggestive of hepatitis. Recommend clinical correlation. ?Other causes of infiltration of the liver (i.e. edema, leukemia, etc.) ?would not be excluded. D 08/26/05 T 08/26/05 /luther Procedure Note Hanna Thomason MD - 06/26/2009 RIGHT UPPER QUADRANT PAIN RIGHT UPPER QUADRANT ULTRASOUND 08/26/05 CLINICAL HISTORY: right upper quadrant pain for 6 months, vomiting and nausea. FINDINGS: Right upper quadrant ultrasound was performed. The liver is enlarged measuring 20cm longitudinally and is diffusely hypoechoic with echogenic portal triads. This appearance could be suggestive of hepatitis or possibly vascular congestion. There is no evidence of right pleural effusion. There is no intra and extrahepatic biliary dilatation. Multiple shadowing mobile stones are seen within the gallbladder. There is no gallbladder wall thickening or pericholecystic fluid and the patient is not tender over the gallbladder during the examination. The pancreas is grossly unremarkable. There is no free fluid in the right upper quadrant. The right kidney measures 11.0cm longitudinally and is grossly unremarkable. The abdominal aorta is within normal limits. IMPRESSION: 1. Cholelithiasis with no sonographic evidence of cholecystitis. 2. Enlarged liver with a diffuse starry audrey appearance which could be suggestive of hepatitis. Recommend clinical correlation. Other causes of infiltration of the liver (i.e. edema, leukemia, etc.) would not be excluded. D 08/26/05 T 08/26/05 /luther us Gemma Mcmanus MD IMG US ORDERABLES Fin al Result documented in this encounter Visit Diagnoses Not on filedocumented in this encounter
--- OUTSIDE RECORDS SUMMARY | 2024-10-12 12:03 | XMS_ITS | Encounter Summary ---
Author Organization [facility] Address [address] [place] [address] Care Team Providers Care Brake [address] Freight Name Role Phone Gemma Mcmanus MD Primary Care Provide r Reason for Visit * Reason Comments Travel Consult Encounter Details Date Type Department Care Team (Late st Contact Info) Description 03/15/2013 10:30 EDT Office Visit [facility] - [address] [phone] Antonietta Pires FNP [facility] [address] [place] [phone] Other specified counseling (Primary Dx) Social History Tobacco Use Types [...] Sign Reading Time Taken Comments Blood Pressure 148/72 03/15/2013 1034 EDT Pulse - - Temperature 36.9 ??C (98.4 ??F) 03/15/2013 1034 EDT Respiratory Rate - - Oxygen Saturation - - Inhaled Oxygen Concentration - - Weight - - Height - - Body Mass Index - - documented in this encounter Ordered Prescriptions Prescription Sig Dispense Quantity Refills Last Filled Start Date End Date levofloxacin (LEVAQUIN) 500 mg tabletIndications: Other specified counseling Take 1 Tab by mouth daily as needed (for severe diarrhea) for 7 days. 7 Tab 0 03/15/2013 3 atovaquone-proguan il (MALARONE) 250-100 mg per tabletIndications: Other specified counseling Take 1 Tab by mouth daily for 23 days. Starting 2 days before travel to [facility] 23 Tab 0 03/15/2013 3 documented in this encounter Progress Notes * Polina Hyman RN - 03/15/2013 1153 EDT Typhium and Meningococcal vaccines given as ordered and without incident. I was directly supervised by Marichuy CARLSON who was in the suite and immediately available for the entire time the service was provided. * Antonietta Pires - 03/15/2013 1055 EDT Travel Health Service Department of Medicine Progress Notes Travel: Where: [facility] How Lon weeks When:03/16/13 Purpose: visiting a school Previous:[facility] No Known Allergies Current Outpatient Prescriptions on File Prior to Visit Medication Sig Dispense Refill ??? venlafaxine (EFFEXOR-XR) 150 mg XR capsule Take 150 mg by mouth daily. Past Medical History Diagnosis Date ??? Mental disorder depression No LMP recorded. Patient is postmenopausal. Immunodeficiency: none Immunization History Administered Date(s) Administered ??? Hepatitis A 11/14/2005, 10/27/2006 ??? PolioVirus Vaccine IPV SQ 11/14/2005 ??? Td 11/14/2005 ? ? Tdap Vaccine =>7YO IM 08/27/2012 ??? Typhoid Vaccine Oral 10/24/2007 ??? Yellow Fever Vaccine SQ 11/14/2005 Risk/Benefit Review: Yellow Fever and malaria risk reviewed, Is going to a [place] area. She is up to date on Yellow Fever vaccine. We discussed Mefloquine vs. Malarone. She would like Malarone. We also discussed Hepatitis A, polio, meningococcal and typhoid vaccines. She is up to date on Hepatitis A and polio vaccines and will receive Meningococcal and typhoid vaccines Today. She will receive postexposure vaccine for rabies if necessary. Patient Education Topic: freshwater swimming, future shots, insect-borne illnesses, malaria, MVA safety, rabies, safe food/water, safe sex, traveler's diarrhea, website/handouts for more information,what to do if ill upon return, what to do if ill while there and Yellow Fever Method: Handout and Verbal Taught to: Patient Barriers: None Outcomes: independent Physical Exam: BP 148/72 Temp(Src) 36.9 ??C (98.4 ??F) (Tympanic) Immunizations ordered:Menomune and Typhim Total visit time: 20 minutes. Time spent on counseling by provider: 15 minutes. I spent 15 minutes with the patient and /or family members including unit time. Over 50% of the total time was spent counseling and /or in coordination of care activities as described above. Cc: documented in this encounter Plan of Treatment Not on file documented as of this encounter Visit Diagnoses Diagnosis Other specified counseling- Primary documented in this encounter Orders Immunization/Injection Count Last Ordered Date First Ordered Date MENINGOCOCCAL POLYSACCHARIDE (MENOMUNE) VACCINE SQ 1 03/15/2013 TYPHOID VICPS (TYPHIM ) VACCINE IM 02/25 documented in this encounter Care Teams Brake [address] Freight Relationship Specialty Start Date End Date Gemma Mcmanus MD [address] [place] [address], [address] [phone] PCP - General 04/09/12 10/09/14 documented as of this encounter
--- OUTSIDE RECORDS SUMMARY | 2024-10-12 12:03 | XMS_ITS | Encounter Summary ---
Author Organization [facility] Address [address] [place] [address] Care Team Providers Care Coating Mixer Tender Name Role Phone Gemma Kahn OAKES MACHINE OPERATOR Primary Care Provider [phone] Encounter Details Date Type Department Care Team (Latest Contact Info) Description 12/10/2014 7:50 EST - 12/10/2014 7:51 EST Hospital Encounter [facility] - [address] [address] Gemma Kahn, OAKES MACHINE OPERATOR [address] [place] [address] Discharge Disposition: Home or Self Care Social [...] capsule Take 150 mg by mouth daily. lisinopril (PRINIVIL, ZESTRIL) 10 mg tablet Take 10 mg by mouth daily. 05/04/2015 documented as of this encounter Discharge Disposition Disposition Code Departure Means Destination Home or Self Care documented in this encounter Plan of Treatment Not on file documented as of this encounter Visit Diagnoses Not on filedocumented in this encounter Care Teams Coating Mixer Tender Relationship Specialty Start Date End Date Gemma Kahn NP [address] [place] [address] PCP - General 10/10/14 documented as of this encounter
--- OUTSIDE RECORDS SUMMARY | 2024-10-12 12:03 | XMS_ITS | Encounter Summary ---
Author Organization [facility] Address [address] [place] [address] Care Team Providers Care Warehouse Shipper Name Role Phone Gemma Mcmanus MD Primary Care Provide r Encounter Details Date Type Department Care Team (Late st Contact Info) Description 04/09/2012 Results Only Imaging [facility] [phone] Gemma Mcmanus MD [address] [phone] Social History Tobacco Use Types Packs/Day Years [...] Procedure Name Priority Date/Time Associated Diagnosis Comments MA MAMMO SCREENING DIGITAL 04/11/2012 11:12 EDT documented in this encounter Results * MA MAMMO SCREENING DIGITAL (04/11/2012 11:12 EDT) Anatomical Region Laterality Modality Other 04/11/2012 11:1 2 EDT 04/12/2012 17:02 EDT Narrative 04/12/2012 17:02 EDT Comparison has been made to previous images. Bilateral Breast Findings: (Routine digital views with CAD) There are scattered fibroglandular densities (25% - 50% fibroglandular). No significant masses, calcifications or other abnormalities are seen. IMPRESSION: BILATERAL BREASTS: Negative, no evidence of malignancy. Normal interval follow-up is recommended in 12 months. OVERALL ASSESSMENT - CATEGORY 1 - NEGATIVE END OF IMPRESSION The patient will be notified of her/his breast imaging results via a lay letter from Radiology. Radiology will contact the patient directly regarding any findings which require additional imaging (Category 0) at this time. Procedure Note 04/12/2012 Comparison has been made to previous images. Bilateral Breast Findings: (Routine digital views with CAD) There are scattered fibroglandular densities (25% - 50% fibroglandular). No significant masses, calcifications or other abnormalities are seen. IMPRESSION: BILATERAL BREASTS: Negative, no evidence of malignancy. Normal interval follow-up is recommended in 12 months. OVERALL ASSESSMENT - CATEGORY 1 - NEGATIVE END OF IMPRESSION The patient will be notified of her/his breast imaging results via a lay letter from Radiology. Radiology will contact the patient directly regarding any findings which require additional imaging (Category 0) at this time. us Gemma Mcmanus MD IMG MAMMOGRAPHY ORDER MAI Final Result documented in this encounter Visit Diagnoses Not on filedocumented in this encounter Care Teams Warehouse Shipper Relationship Specialty Start Date End Date Gemma Mcmanus MD [address] [place] [phone] PCP - General 04/09/12 10/09/14 documented as of this encounter
--- OUTSIDE RECORDS SUMMARY | 2024-10-12 12:03 | XMS_ITS | Encounter Summary ---
Author Organization [facility] Address [address] [place] [address] Care Team Providers Care Casino Controller Name Role Phone Gemma Kahn NP Primary Care Provider Reason for Visit * Reason Onset Date Comments Labs Only 06/07/2016 Encounter Details Date Type Department Care Team (Late st Contact Info) Description 06/07/2016 Orders Only [facility] Hematology & Oncology - [facility] [address] [place] [address] Aida March, KITA [address] [place] [address] CLL (chronic lymphocytic leukemia) (CMS-HCC) ([facility]) (Primary Dx) Social History Tobacco Use Types [...] Visit Diagnoses Diagnosis CLL (chronic lymphocytic leukemia) ([facility])- Primary Chronic lymphoid leukemia, without mention of having achieved remission documented in this encounter Care Teams Casino Controller Relationship Specialty Start Date End Date Gemma Kahn NP [address] [place], [place] [address] PCP - General 10/10/14 documented as of this encounter
--- OUTSIDE RECORDS SUMMARY | 2024-10-12 12:03 | XMS_ITS | Encounter Summary ---
Author Organization [facility] Address [address] [place] [address] Care Team Providers Care Cash Controller Name Role Phone Gemma Kahn PUBLIC RELATIONS MANAGER Primary Care Provider [phone] Encounter Details Date Type Department Care Team (Latest Contact Info) Description 04/07/2015 14:14 EDT - 04/07/2015 23:59 EDT Hospital Encounter [address] [address] Unknown, Provider, Alycia Cruz MD Discharge Disposition: Auto Discharge Social History Tobacco [...] as of this encounter Discharge Diagnoses Diagnosis 204.10 CHRONIC LYMPH LEUK WITHOUT MENTION OF HAVING ACHIEVED REMISSION[ICD-9-CM] documented in this encounter Medications at Time of Discharge venlafaxine (EFFEXOR-XR) 150 mg XR capsule Take 150 mg by mouth daily. atovaquone-progu lula (MALARONE) 250-100 mg per tablet Take 1 Tab by mouth daily Start 2 days before entering risk area, daily while there, and for 7 days after leaving.. 33 Tab 0 12/31/2014 05/04/2015 lisinopril (PRINIVIL, ZESTRIL) 10 mg tablet Take 10 mg by mouth daily. 05/04/2015 documented as of this encounter Discharge Disposition Disposition Code Departure Means Destination Auto Discharge Home documented in this encounter Plan of Treatment Not on file documented as of this encounter Visit Diagnoses Not on filedocumented in this encounter Care Teams Cash Controller Relationship Specialty Start Date End Date Gemma Kahn NP [address] [facility] [place] [address] PCP - General 10/10/14 documented as of this encounter
--- OUTSIDE RECORDS SUMMARY | 2024-10-12 12:03 | XMS_ITS | Encounter Summary ---
Author Organization [facility] Address [address] [place] [address] Care Team Providers Care Religion Instructor Name Role Phone Unavailable Primary Care Provider Unavailabl e Encounter Details Date Type Department Care Team (Latest Contact Info) Description 10/18/2005 9:08 EST - 10/19/2005 11:59 EST Hospital Encounter [facility] General Surgery Unit [address] [place] [address] Micha Colon MD [address] [place] [phone] Discharge Disposition: Home or Self Care Social [...] or Self Care documented in this encounter OR Notes * OR Surgeon - Micha Colon MD - 10/18/2005 0000 EST PROCEDURE REPORT PT TYPE: IP PT LOC: [id number] SERVICE DATE: 10/18/2005 SURGEON: Tangela Colon, Ruthy Colon, Ruthy Colon MD CLEANER WINDOW: Terence Carranza MD PREOPERATIVE DIAGNOSIS: Cholelithiasis with biliary colic. POSTOPERATIVE DIAGNOSIS: Cholelithiasis with biliary colic. PROCEDURE: Laparoscopic cholecystectomy and cystic duct cholangiogram. ANESTHESIA: General endotracheal. INDICATIONS: A 45-year-old woman who has had an approximately eight-month history of recurrent biliary colic with several attacks. These were quite typical and consistent with biliary colic. She was worked up with ultrasound which showed cholelithiasisand liver function tests which were normal. Allthe alternatives to surgery and the indications and risks of surgery were carefullyand fully discussed with the patient, completely understood by her, and she elected to go ahead. FINDINGS: The patient was found to have a long chronically inflamed gallbladder with adhesions of the greater omentum to the gallbladder.It contained three stones, two of which measured approximately1.5 to 2 cm, and a third which measured approximately 1.5 cm. There were no mucosal lesions seen inthe gallbladder we opened it at the end of the case. A cystic duct cholangiogram was carried out which showed no evidence of filling defects and rapid filling into the duodenum.The duct tapered nicely into the duodenum. The anatomy seen on the cholangiogram correlated with that seen at surgery. On the cholangiogram, it appeared that the cystic duct was coming off the right hepatic duct.Inspectionof the abdomen revealed a normal-appearing liver, stomach; portions of the duodenum, small bowel, and colon that were seen were normal. The peritoneal surfaces were normal. There was no evidence of any pathology in the pelvis, though the uterus and the ovaries could not be seen. NARRATIVE: The patient was identified in the outpatient admitting area and the fact that she was tohave a laparoscopic cholecystwas confirmed with her. All of her questions were answered. She was brought to the operating room, where she was identified, given 2 g of cefotetan intravenously, placed in the supine position, and administered a satisfacgeneral anesthetic by endotracheal tube. An orogastric tube was placed by the anesthesiologist and a Gutierrez catheter placed by the circulating nurse. The abdomen was prepped with DuraPrep and draped in the usual sterile fashion, including anIoban drape. Open laparoscopy was carried out through a transverse infraumbilical incision, exposing the peritoneum under direct vision. Traction sutures placed on the fascia consisting of #0 Vicryl. The peritoneum was opened under direct vision without injury to underlying structures. An 11-mm Shanell trocar was then placed in the peritoneal cavity under direct vision. The abdomen was inspected with a telescope after pneumoperitoneum was established with carbon dioxide to a patient pressure of 15. Accessorytrocars were then placed, with an 11-mm trocar one-third the distance from the xiphoid to the umbilicus, just to the right of the falciform. A 5-mm trocar two fingerbreadths below the right costal margin in the midline, and a 5-mm trocar three fingerbreadths below the right costal margin in the anterior axillary line. All placed under direct vision without injury to underlying structures. The gallbladder was identified, traction was placed on the top of the gallbladder, and peritoneum was then dissected off the gallbladder. The gallbladder and right lobe of the liverwere retracted toward the right shoulder. The greater omentum was then freed off of the gallbladder and freed up down to the level of the cystic duct and the cystic artery. The area of cystic duct was completely cleared and the junction with the gallbladder was clearly identified. The area where the cystic duct toward the common bile duct was identified. A good length of cystic duct was obtained. The cystic artery was completely dissected and found to be going onto the gallbladder and was freed up. It was doubly clipped proximally and singly clipped on the gallbladder and incised. cystic duct was milked toward the gallbladder and a clip was placed on the gallbladder side. An opening was then made in the cystic duct close to the gallbladder. A 4-Ukrainian Arrow balloon catheter was then placed into the abdomen through a separate trocar stab wound made under direct vision. The catheter was easily placed into the cystic duct and with fluoroscopy control, a cystic duct cholangiogram carried out with the findings as noted above. As noted, the anatomy seen on the cholangiogram correlated with that seen at surgery. It was apparent based on the cholangiogram that the cystic duct came off the right hepatic duct.The ductal system filled well. There was no evidence of any filling defects or leaks. The tapering duct into the duodenum was seen; the common duct, the common hepatic, right and left hepatic ducts filled nicely. We interpreted the cholangiogram as being normal. catheter was then removed and the cystic duct was doubly clipped, taking care to stay well away from the common bile duct. The gallbladder was then dissected from the gallbladder bed, removing it entirely and placing it inthe Endobag. It was retrieved through the umbilical port.The gallbladder bed was found to be dry atthe conclusion of the procedure. There was no evidence of any bleeding and no evidence of any bile leak. All trocars were then inspected and there was no evidence of any bleeding. The upper midline fasciawas closed with a #0 PDS and there was no bleeding. All other trocars were removed. The umbilical fascia was closed with interrupted nziayt-tv-skrph sutures of #0 PDS. All wounds were irrigated. Then, the wounds were injected with 0.5% Marcaine with epinephrine. The wounds were closed with and running sutures of 4-0 Monocryl. Steri-Strips and gauze Tegaderm dressings were applied. There were no operative complications. The patient tolerated the procedure well and was returned tothe recovery room in good condition. Sponge, needle, and instrument counts were correct. I, Dr. Colon, was present, scrubbed, and participated in the entire surgical procedure from the time the patient was discharged from the operating room to the recovery room. Signed by Micha Colon MD 10/25/2005 07:03 Ruthy Dickerson MD Micha Colon MD - Micha Colon MD A - lr Job ID: [id number] Document ID: [id number] cc: MD Terence Cabrera MD Patricia G Whitney, MD documented in this encounter Plan of Treatment Not on file documented as of this encounter Procedures Procedure Name Priority Date/Time Associated Diagnosis Comments INTRAOP CHOLANGIOGRAM 10/18/2005 12:50 EST documented in this encounter Results * INTRAOP CHOLANGIOGRAM (10/18/2005 12:50 EST) Anatomical Region Laterality Modality Other 10/18/2005 12:5 0 EST Narrative 06/13/2009 12:09 EDT CALCULUS OF GALLBLADDER S/P CHOLANGIOGRAM R/O BILIARY STONES INTRAOP CHOLANGIOGRAM: ??10/18/05 @ 1250 HISTORY: Calculus in gallbladder s/p cholangio. ??Rule out biliary stones. FINDINGS: We have four spot films taken in the Operating Room with portable technique. ??The exam shows good filling of the common and intrahepatic ducts. ??No evidence of filling defect is seen. ??There is free passage of contrast into the duodenum without obstruction. ??Some narrowing of the distal common duct is probably related to spasm. IMPRESSION: Intraoperative cholangiogram is within normal limits. D: ??10/18/05 T: ?? 10/19/05 Procedure Note Chandler Rich MD - 06/13/2009 CALCULUS OF GALLBLADDER S/P CHOLANGIOGRAM R/O BILIARY STONES INTRAOP CHOLANGIOGRAM: 10/18/05 @ 1250 HISTORY: Calculus in gallbladder s/p cholangio. Rule out biliary stones. FINDINGS: We have four spot films taken in the Operating Room with portable technique. The exam shows good filling of the common and intrahepatic ducts. No evidence of filling defect is seen. There is free passage of contrast into the duodenum without obstruction. Some narrowing of the distal common duct is probably related to spasm. IMPRESSION: Intraoperative cholangiogram is within normal limits. us Micha Colon MD IMG DIAGNOSTIC IMAGIN G ORDERABLES Final Result documented in this encounter Visit Diagnoses Not on filedocumented in this encounter
--- OUTSIDE RECORDS SUMMARY | 2024-10-12 12:03 | XMS_ITS | Encounter Summary ---
Author Organization [facility] Address [address] [place] [address] Care Team Providers Care Rf Microwave Engineer Name Role Phone Gemma Mcmanus MD Primary Care Provide r Encounter Details Date Type Department Care Team (Late st Contact Info) Description 09/17/2014 Results Only [facility] Laboratory Services - [facility] ([facility] [address] [place], [place] [address] Gemma Kahn, TECH INTERN [address] [place], [place] [address] Social History Tobacco Use Types Packs/Day Years [...] Procedure Name Priority Date/Time Associated Diagnosis Comments T4 FREE Routine 09/17/2014 10:50 EDT documented in this encounter Results * T4 FREE (09/17/2014 10:50 EDT) Free T4 1.3 0.8 - 1.8 ng/dl [facility] 09/17/2014 10:5 0 EDT 09/17/2014 19:39 EDT Gemma Kahn TECH INTERN CHEMISTRY & BLOOD GAS ORDERA BLES Final Result [facility] [address] [place] [address] documented in this encounter Visit Diagnoses Not on filedocumented in this encounter Care Teams Rf Microwave Engineer Relationship Specialty Start Date End Date Gemma Mcmanus MD [address] [facility], [address] [phone] PCP - General 04/09/12 10/09/14 documented as of this encounter
--- OUTSIDE RECORDS SUMMARY | 2024-10-12 12:03 | XMS_ITS | Encounter Summary ---
Author Organization [facility] Address [address] [place] [address] Care Team Providers Care Conveyor System Operator Name Role Phone Gemma Kahn NP Primary Care Provider [phone] Encounter Details Date Type Department Care Team (Late st Contact Info) Description 02/03/2015 Orders Only [facility] [place] - [address] [address] Ivonne Rodrigues RN Social History Tobacco Use Types Packs/Day [...] on filedocumented in this encounter Care Teams Conveyor System Operator Relationship Specialty Start Date End Date Gemma Kahn NP [address] [place] [id number] PCP - General 10/10/14 documented as of this encounter
--- OUTSIDE RECORDS SUMMARY | 2024-10-12 12:03 | XMS_ITS | Encounter Summary ---
Author Organization [facility] Address [address] [place] [address] Care Team Providers Care Scheduling Representative Name Role Phone Gemma Kahn CONVALESCENT SITTER Primary Care Provider [phone] Encounter Details Date Type Department Care Team (Late st Contact Info) Description 05/12/2016 Results Only [facility] [phone] Gemma Kahn, CONVALESCENT SITTER [address] [place], [place] [phone] Social History Tobacco Use Types Packs/Day Years [...] Procedure Name Priority Date/Time Associated Diagnosis Comments COMPLETE BLOOD COUNT AND DIFFERENTIAL Routine 05/12/2016 9:56 EDT documented in this encounter Results * (ABNORMAL) HEMAGRAM AND DIFFERENTIAL (05/12/2016 9:56 EDT) WBC 20.48(H) 4.0 - 12.4 K/cmm 05/12/2016 16:01 [facility] RBC 4.36 3.86 - 5.04 M/cmm 05/12/2016 16:01 [facility] Hemoglobin 12.6 11.6 - 15.2 gm/dl 05/12/2016 16:01 [facility] HCT 38.6 34.9 - 44.4 % 05/12/2016 16:01 [facility] MCV 89 81 - 98 fl 05/12/2016 16:01 [facility] MCH 28.9 26.7 - 33.3 pg 05/12/2016 16:01 [facility] MCHC 32.6 32.1 - 35.9 gm/dl 05/12/2016 16:01 [facility] RDW-CV 13.5 11.7 - 14.6 % 05/12/2016 16:01 [facility] RDW-SD 43.9 37.6 - 50.3 fl 05/12/2016 16:01 [facility] PLT 210 141 - 377 K/cmm 05/12/2016 16:01 [facility] MPV 9.6 9.5 - 12.7 fl 05/12/2016 16:01 [facility] Neutrophils 24.0 % 05/12/2016 16:26 [facility] Lymphocytes 74.0 % 05/12/2016 16:26 [facility] Monocytes 2.0 % 05/12/2016 16:26 [facility] ABS Neutrophils 4.92 2.20 - 8.85 K/cmm 05/12/2016 16:26 [facility] ABS Lymphs 15.15(H) 1.09 - 3.30 K/cmm 05/12/2016 16:26 [facility] ABS Monocytes 0.41 0.1 - 0.8 K/cmm 05/12/2016 16:26 [facility] Smudge Cells Present 05/12/2016 16:26 [facility] Type of Diff: Manual 05/12/2016 16:26 [facility] BLOOD SPECIMEN / Unknown 05/12/2016 9:56 EDT 05/12/2016 15:25 EDT us Gemma Kahn CONVALESCENT SITTER PACKAGES & DNA PROBE ORDERAB LES Final Result [facility] [address] [place] [address] documented in this encounter Visit Diagnoses Not on filedocumented in this encounter Care Teams Scheduling Representative Relationship Specialty Start Date End Date Gemma Kahn NP [address] [place] [address] PCP - General 10/10/14 documented as of this encounter
--- OUTSIDE RECORDS SUMMARY | 2024-10-12 12:03 | XMS_ITS | Encounter Summary ---
Author Organization [facility] Address [address] [place] [address] Care Team Providers Care Gas Welder Name Role Phone Gemma Mcmanus MD Primary Care Provide r Encounter Details Date Type Department Care Team (Late st Contact Info) Description 06/21/2012 9:37 EDT - 06/21/2012 12:35 EDT Hospital Encounter [facility] [address] [place] [address] Kp Alvarez MD [address] [place] [phone] Jamar Nelson MD [address] [place] [address] [address] [place] [address] Discharge Disposition: Home or Self Care Social [...] Sign Reading Time Taken Comments Blood Pressure 133/77 06/21/2012 1134 EDT Pulse - - Temperature 36.4 ??C (97.5 ??F) 06/21/2012 1000 EDT Respiratory Rate 16 06/21/2012 1134 EDT Oxygen Saturation 96% 06/21/2012 1134 EDT Inhaled Oxygen Concentration - - Weight 104.3 kg (230 lb) 06/21/2012 0958 EDT Height 177.8 cm (5' 10) 06/21/2012 0958 EDT Body Mass Index 33 06/21/2012 0958 EDT documented in this encounter Medications at Time of Discharge venlafaxine (EFFEXOR-XR) 150 mg XR capsule Take 150 mg by mouth daily. documented as of this encounter Discharge Disposition Disposition Code Departure Means Destination Home or Self Care documented in this encounter H&P Notes * Jamar Nelson MD - 06/21/2012 1022 EDT Sedation for Procedure History & Physical Date: 06/21/2012 Time: 10:22 Location: [address] Planned Procedure: Colonoscopy Chief Complaint/Indications for Procedure: screen History Previous Complication with Sedation and/or Anesthesia? No Allergies: No Known Allergies Current Medications: (Not in a hospital admission) Past Medical History: Past Medical History Diagnosis Date ??? Mental disorder depression Social History: Past Surgical History Procedure Date ??? Cholecystectomy History Substance Use Topics ??? Smoking status: Never Smoker ??? Smokeless tobacco: Not on file ??? Alcohol Use: 0.0 oz/week 5-7 Glasses of wine per week Family History: Family History Problem Relation Age of Onset ??? Heart Disease Mother ??? High Blood Pressure Mother ??? Heart Disease Father ??? Diabetes Brother ??? Heart Disease Maternal Grandmother ??? Heart Disease Maternal Grandfather ??? Heart Disease Paternal Grandmother ??? Heart Disease Paternal Grandfather Review of Systems as pertinent: Physical Exam Vital Signs: BP 151/90 Temp 36.4 ??C (97.5 ??F) Resp 16 Ht 177.8 cm (70) Wt 104.327 kg (230 lb) BMI 33.00 kg/m2 SpO2 99% Heart Examination: Cardiac Regularity: Regular Respiratory Examination: Respiratory Pattern: Regular Breath Sounds Right: Clear Breath Sounds Left: Clear Additional physical exam related to the proposed procedure, patient activity, disease state and treatment as pertinent: Assessment Previous complications with sedation or anesthesia?: No Airway Concerns: None Anesthesia Classification: ASA 1 Fasting Time: Time of last liquid intake: 744 Date of Last Liquid Intake: 06/21/12 Time of last solid intake: 1899 Date of last solid intake: 06/19/12 Patient Appropriate Candidate for Planned Sedation?: Yes documented in this encounter Procedure Notes * PRESS TOOL MAKER, SCAN 2 - 06/22/2012 0500 EDTAssociated Order(s): PROCEDURE REPORTS - SCANNED documented in this encounter Miscellaneous Notes * Scanned Note-Null - PRESS TOOL MAKER, SCAN 2 - 06/22/2012 0818 EDT * Scanned Note-Null - PRESS TOOL MAKER, SCAN 2 - 06/22/2012 0818 EDT documented in this encounter Plan of Treatment Not on file documented as of this encounter Procedures Procedure Name Priority Date/Time Associated Diagnosis Comments PROCEDURE REPORTS - SCANNED 06/22/2012 5:00 EDT documented in this encounter Results * PROCEDURE REPORTS - SCANNED (06/22/2012 5:00 EDT) 06/22/2012 5:00 EDT Narrative Transcriptions PRESS TOOL MAKER, SCAN 2 - 06/22/2012 5:00 EDT Scan 2 Certified Welding Inspector PROCEDURE/MINOR SURGICAL OR DERABLES Final Result documented in this encounter Visit Diagnoses Not on filedocumented in this encounter Administered Medications Inactive Administered Medications - up to 3 most recent administrations Medication Order MAR Action Action Date Dose Rate Site fentanyl citrate (PF) 50 mcg/mL injection 100-250 mcg 100-250 mcg, intravenous, ONCE PRN, 1 dose, Starting on Sariah 06/21/12 at 0953, Until Sariah 06/21/12 at 1050, Other, sedation, Routine, Intraprocedure Given 06/21/2012 10:50 EDT 250 mcg midazolam (VERSED) injection 1-10 mg 1-10 mg, intravenous, ONCE PRN, 1 dose, Starting on Sariah 06/21/12 at 0953, Until Sariah 06/21/12 at 1050, Sedation, Routine, Intraprocedure Given 06/21/2012 10:50 EDT 5 mg sodium chloride 0.9 % (NS) infusion 30 mL/hr, intravenous, CONTINUOUS, Starting on Sariah 06/21/12 at 1015, Until Sariah 06/21/12 at 1438, Routine, Preprocedure New Bag 06/21/2012 10:12 EDT 30 mL/hr 30 mL/hr documented in this encounter Historical Medications * This list may reflect changes made after this encounter. venlafaxine (EFFEXOR-XR) 150 mg XR capsule Take 150 mg by mouth daily. added in this encounter Orders Medications Ordered That Alex ht Not Have Been Administered Count Last Ordered Date First Ordered Date ondansetron (PF) (ZOFRAN) injection 2-4 mg 1 06/21/2012 Transfer Count Last Ordered Date First Orde red Date NOTIFY PPS OF DISCHARGE COMPLETE 1 06/21/20 12 Discharge Count Last Ordered Date First Orde red Date DISCHARGE PATIENT 1 06/21/2012 documented in this encounter Care Teams Gas Welder Relationship Specialty Start Date End Date Gemma Mcmanus MD [address] [place] [phone] PCP - General 04/09/12 10/09/14 documented as of this encounter
--- OUTSIDE RECORDS SUMMARY | 2024-10-12 12:03 | XMS_ITS | Encounter Summary ---
Author Organization [facility] Address [address] [place] [address] Care Team Providers Care Division Chief Name Role Phone Unavailable Primary Care Provider Unavailabl e Encounter Details Date Type Department Care Team (Latest Contact Info) Description 03/09/2000 7:57 EDT - 03/26/2000 11:59 EDT Hospital Encounter [address] [address] Art Alexis Discharge Disposition: Auto Discharge Social History Tobacco [...] Procedure Name Priority Date/Time Associated Diagnosis Comments NORTRIPTYLINE Routine 03/14/2000 11:36 EDT documented in this encounter Results * (ABNORMAL) NORTRIPTYLINE (03/14/2000 11:36 EDT) Nortriptyline 155(H) 50 - 150 ng/ml [facility] 03/14/2000 11:3 6 EDT 03/14/2000 11:40 EDT us Aime Yanes MD HISTORICAL LAB FOR SQ L OAD Final Result [facility] [address] [place] [address] documented in this encounter Visit Diagnoses Not on filedocumented in this encounter
--- OUTSIDE RECORDS SUMMARY | 2024-10-12 12:03 | XMS_ITS | Encounter Summary ---
Author Organization [facility] Address [address] [place] [address] Care Team Providers Care Tamale Maker Name Role Phone Gemma Mcmanus MD Primary Care Provide r Reason for Visit * Reason Onset Date Comments Returning Call 09/30/2014 LMOM for patient , she wanted to know how long the appointment was going to take, I told her that it was scheduled for an hour. Encounter Details Date Type Department Care Team (Late st Contact Info) Description 09/30/2014 Telephone [facility] Cancer Center Hematology & Oncology - [facility] [address] [place], [place] [id number] Alycia Rodriguez MD Returning Call (LMOM for patient, she wanted to know how long the appointment was going to take, I told her that it was scheduled for an hour.) Social History Tobacco Use Types Packs/Day Years [...] encounter Miscellaneous Notes * Telephone Encounter - Kiya Fernandes - 10/03/2014 0074 EST LMOM for patient, she wanted to know how long the appointment was going to take, I told her that itwas scheduled for an hour. documented in this encounter Plan of Treatment Not on file documented as of this encounter Visit Diagnoses Not on filedocumented in this encounter Care Teams Tamale Maker Relationship Specialty Start Date End Date Gemma Mcmanus MD [address] [phone] PCP - General 04/09/12 10/09/14 documented as of this encounter
--- OUTSIDE RECORDS SUMMARY | 2024-10-12 12:03 | XMS_ITS | Encounter Summary ---
Author Organization [facility] Address [address] [place] [address] Care Team Providers Care General Supervisor Name Role Phone Unavailable Primary Care Provider Unavailabl e Encounter Details Date Type Department Care Team (Latest Contact Info) Description 04/04/2012 19:40 EDT - 04/04/2012 19:42 EDT Hospital Encounter [address] [address] Gemma Kahn, MANAGER OF TAX [address] [place] [address] Discharge Disposition: Home or Self Care Social [...]
--- OUTSIDE RECORDS SUMMARY | 2024-10-12 12:03 | XMS_ITS | Encounter Summary ---
Author Organization [facility] Address [address] [place] [address] Care Team Providers Care Special Education Associate Name Role Phone Gemma Kahn CRITICAL CARE CNS Primary Care Provider [phone] Reason for Visit * Reason Onset Date Comments Appointment Related 04/10/2015 BUMPED APPOI NTMENT Encounter Details Date Type Department Care Team (Late st Contact Info) Description 04/10/[address] [facility] Cancer Center Hematology & Oncology - [facility] [address] [place], [place] [phone] Alycia Rodriguez MD Appointment Related (BUMPED APPOINTMENT) Social History Tobacco Use Types Packs/Day Years [...] encounter Miscellaneous Notes * Telephone Encounter - Lyndsay Barron - 04/10/[address] Rodriguez will be out of the office today (04/10/15) she is now rescheduled to 04/17/15 at 4:00 documented in this encounter Plan of Treatment Not on file documented as of this encounter Visit Diagnoses Not on filedocumented in this encounter Care Teams Special Education Associate Relationship Specialty Start Date End Date Gemma Kahn NP [address] [facility] [place] [address] PCP - General 10/10/14 documented as of this encounter
--- OUTSIDE RECORDS SUMMARY | 2024-10-12 12:03 | XMS_ITS | Encounter Summary ---
Author Organization [facility] Address [address] [place] [address] Care Team Providers Care Design Coordinator Name Role Phone Unavailable Primary Care Provider Unavailabl e Encounter Details Date Type Department Care Team (Late st Contact Info) Description 04/16/2008 9:57 EDT - 04/16/2008 11:59 EDT Hospital Encounter [facility] - Other [address] [place] [address] Gemma Mcmanus MD [address] [phone] Discharge Disposition: Auto Discharge Social History [...]
--- OUTSIDE RECORDS SUMMARY | 2024-10-12 12:03 | XMS_ITS | Encounter Summary ---
Author Organization [facility] Address [address] [place] [address] Care Team Providers Care Senior Radiation Protection Technician Name Role Phone Unavailable Primary Care Provider Unavailabl e Encounter Details Date Type Department Care Team (Late st Contact Info) Description 11/14/2005 10:21 EST Hospital Encounter [facility] [address] [place] [address] Antonietta Pires FNP [facility] [address] [place] [address] Social History Tobacco Use Types Packs/Day Years [...]
--- OUTSIDE RECORDS SUMMARY | 2024-10-12 12:03 | XMS_ITS | Encounter Summary ---
Author Organization [facility] Address [address] [place] [address] Care Team Providers Care Build Engineer Name Role Phone Gemma Kahn ELIGIBILITY CONSULTANT Primary Care Provider [phone] Encounter Details Date Type Department Care Team (Late st Contact Info) Description 05/14/2024 Lab Requisition [facility] Pathology & Laboratory Medicine - [facility] [address] [place] [address] Outr Resulting Lab, Provider Social History Tobacco Use Types Packs/Day Years [...] Procedure Name Priority Date/Time Associated Diagnosis Comments IGG Routine 05/14/2024 10:57 EDT documented in this encounter Results * IGG (05/14/2024 10:57 EDT) IgG 670 610 - 1,616 mg/dL 05/15/2024 8:14 EDT [facility] Blood VENOUS BLOOD / Unknown 05/14/2024 10:57 EDT 05/14/2024 17:03 EDT us Provider Outr Resulting Lab CHEMISTRY & BLOOD GA S ORDERABLES Final Result [facility] [address] [place] [address] documented in this encounter Visit Diagnoses Not on filedocumented in this encounter Care Teams Build Engineer Relationship Specialty Start Date End Date Gemma Kahn NP [address] [place] [address] PCP - General 10/10/14 documented as of this encounter
--- OUTSIDE RECORDS SUMMARY | 2024-10-12 12:03 | XMS_ITS | Encounter Summary ---
Author Organization [facility] Address [address] [place] [address] Care Team Providers Care Superintendent Of Schools Name Role Phone Gemma Kahn MANAGER [employer] Primary Care Provider [phone] Reason for Visit * Reason Onset Date Comments Travel Medication 01/23/2018 Update 01/23/2018 Encounter Details Date Type Department Care Team (Late st Contact Info) Description 01/23/2018 Telephone [facility] Infectious Disease - [facility] [address] [place] [address] Gemma Kahn, MANAGER [employer] [address] [place], [place] [phone] Travel Medication; Update Social History Tobacco Use Types Packs/Day Years [...] encounter Miscellaneous Notes * Telephone Encounter - Suzie Godoy - 01/23/2018 1336 EST Reason for Call: Travel Medication and Update Summary/Symptoms: Patient was needing sooner than what appeals writer had opened. She is calling other clinics to see what they have. Signing encounter Suzie Godoy 01/23/2018 13:36 * Telephone Encounter - Suzie Carranza RN - 01/23/2018 1225 EST Left message for patient. She has not been seen by a provider since 2012 and will need a provider appointment for travel. Suzie Carranza RN * Telephone Encounter - Sari Cordoba - 01/23/2018 1101 EST Reason for Call: Travel Medication Summary/Symptoms: Pt called in preparation for travel to [facility]. She will be traveling for 25 days. She was last seen by Marichuy Pires NP on 03/15/13. Her past travel includes [place]. Patient asking if shewill need to Make a new Patient appt and is leaving Mid January. Please advise Sari Cordoba 01/23/2018 11:02 documented in this encounter Plan of Treatment Not on file documented as of this encounter Visit Diagnoses Not on filedocumented in this encounter Care Teams Superintendent Of Schools Relationship Specialty Start Date End Date Gemma Kahn NP [address] [place] [address] PCP - General 10/10/14 documented as of this encounter
--- OUTSIDE RECORDS SUMMARY | 2024-10-12 12:03 | XMS_ITS | Clinical Summary ---
Author Organization [facility] Address [address] [place] [address] Care Team Providers Care Experimental Technician Name Role Phone FemiGemma shannon Paula NURSE CLINICIAN Primary Care Provider [phone] Allergies No known active allergies Medications venlafaxine (EFFEXOR-XR) 150 mg XR capsule Take 150 mg by mouth daily. Active losartan (COZAAR) 25 mg tablet Take 25 mg by mouth daily Active Active Problems Problem Noted Date Diagnosed Date CLL (chronic lymphocytic leukemia) ([facility]) Immunizations Name Administration Dates Next Due Hepatitis A 10/27/2006,11/14/2005 Meningococcal Polysaccharide (Menomune) Vaccine SQ 03/15/2013 Poliovirus Vaccine IPV IM OR SQ 11/14/2005 Td 11/14/2005 Tdap Vaccine =>7YO IM 08/27/2012 Typhoid Vaccine Oral 10/24/2007 Typhoid ViCPs (TYPHIM Vi) Vaccine IM 03/15/2013 Yellow Fever Vaccine SQ 11/14/2005 Surgical History Surgery Date Site/Laterality Comments CHOLECYSTECTOMY Medical History Medical History Date Comments Mental disorder depression Family History Medical History Relation Comments Diabetes Brother Heart Disease Father Heart Disease Maternal Grandfather Heart Disease Maternal Grandmother Heart Disease Mother High Blood Pressure Mother Heart Disease Paternal Grandfather Heart Disease Paternal Grandmother Relation Status Comments Brother Father Maternal Grandfather Maternal Grandmother Mother Paternal Grandfather Paternal Grandmother Social History Tobacco Use Types Packs/Day Years Used Date Smoking Tobacco: Never Alcohol Use Standard Drinks/Week Comments Yes 5 (1 standard drink = 0.6 oz pur e alcohol) Comments No Sex and Gender Information Value Date Recorded Sex Assigned at Not on file Legal Sex Female 18:04 EST Gender Identity Not on file Sexual Orientation Not on file Obstetrics History Last Filed Vital Signs Vital Sign Reading Time Taken Comments Blood Pressure 168/85 05/01/2015 1614 EDT Pulse 80 05/01/2015 1614 EDT Temperature 36.9 ??C (98.4 ??F) 05/01/2015 1614 EDT Respiratory Rate 16 05/01/2015 1614 EDT Oxygen Saturation 98% 05/01/2015 1614 EDT Inhaled Oxygen Concentration - - Weight 109.5 kg (241 lb 6.4 oz) 05/01/2015 1614 EDT Height 175.1 cm (5' 8.94) 05/01/2015 1614 EDT Body Mass Index 35.71 05/01/2015 1614 EDT Plan of Treatment Health Maintenance Due Date Last Done Comments Fall Risk Screening 2023 COVID-19 Vaccine (2023- season) 2024 RSV Immunization ( o r 60+ Years) (1 - 1-dose 75+ series) 2033 Hepatitis C Screen Completed 09/13/2005 Procedures Procedure Name Priority Date/Time Associated Diagnosis Comments HEPATITIS C AB W REFLEX TO HCV RNA BY PCR Routine 09/13/2005 11:00 EDT from Last 3 Months or Most Recently Relevant to Health Maintenance Results * HEPATITIS C ANTIBODY (09/13/2005 11:00 EDT) Hepatitis C Ab Neg [facility] 09/13/2005 11:0 0 EDT 09/13/2005 22:02 EDT us Gemma Mcmanus MD CHEMISTRY & BLOOD GAS ORDERABLES Final Result [facility] [address] [place] [address] from Last 3 Months or Most Recently Relevant to Health Maintenance Care Teams Experimental Technician Relationship Specialty Start Date End Date Gemma Kahn NP [address] [facility] [place] [address] [facility] - General 10/10/14
--- OUTSIDE RECORDS SUMMARY | 2024-10-12 12:03 | XMS_ITS | Encounter Summary ---
Author Organization [facility] Address [address] [place] [address] Care Team Providers Care Evp Name Role Phone Gemma Kahn EXPANDER Primary Care Provider [phone] Encounter Details Date Type Department Care Team (Late st Contact Info) Description 01/01/2016 Phlebotomy Only [facility] [address] [place] [address] Professor Of Vegetable Science, Outpatient CLL (chronic lymphocytic leukemia) ([facility]) ([facility]) (Primary Dx) Social History Tobacco Use Types [...] Comments COMPLETE BLOOD COUNT AND DIFFERENTIAL Routine 01/01/2016 13:20 EST CLL (chronic lymphocytic leukemia) ([facility]) ([facility]) documented in this encounter Results * (ABNORMAL) HEMAGRAM AND DIFFERENTIAL (01/01/2016 13:20 EST) WBC 23.32(H) 4.0 - 12.4 K/cmm 01/01/2016 16:02 [facility] RBC 4.44 3.86 - 5.04 M/cmm 01/01/2016 16:02 [facility] Hemoglobin 12.6 11.6 - 15.2 gm/dl 01/01/2016 16:02 [facility] HCT 38.8 34.9 - 44.4 % 01/01/2016 16:02 [facility] MCV 87 81 - 98 fl 01/01/2016 16:02 [facility] MCH 28.4 26.7 - 33.3 pg 01/01/2016 16:02 [facility] MCHC 32.5 32.1 - 35.9 gm/dl 01/01/2016 16:02 [facility] RDW-CV 13.6 11.7 - 14.6 % 01/01/2016 16:02 [facility] RDW-SD 42.9 37.6 - 50.3 fl 01/01/2016 16:02 [facility] PLT 169 141 - 377 K/[facility] 01/01/2016 16:02 [facility] Comment:Note new reference r shanta effective 12/07/15 MPV 9.3(L) 9.5 - 12.7 fl 01/01/2016 16:02 [facility] Comment:Note new reference r shanta effective 12/07/15 Neutrophils 10.0 % 01/01/2016 16:54 [facility] Lymphocytes 86.0 % 01/01/2016 16:54 [facility] Monocytes 3.0 % 01/01/2016 16:54 [facility] Basophils 1.0 % 01/01/2016 16:54 [facility] ABS Neutrophils 2.33 2.20 - 8.85 K/cmm 01/01/2016 16:54 [facility] ABS Lymphs 20.06(H) 1.09 - 3.30 K/cmm 01/01/2016 16:54 [facility] ABS Monocytes 0.70 0.1 - 0.8 K/cmm 01/01/2016 16:54 [facility] ABS Basophils 0.23(H) 0.01 - 0.11 K/cmm 01/01/2016 16:54 EST [facility] Smudge Cells Present 01/01/2016 16:54 EST [facility] Type of Diff: Manual 01/01/2016 16:54 EST [facility] Blood specimen (specimen) BLOOD SPECIMEN / Unknown 01/01/2016 13:20 EST 01/01/2016 15:37 EST us Alycia Rodriguez MD PACKAGES & DNA PROBE ORDERABLES Final Result [facility] [address] [place] [address] documented in this encounter Visit Diagnoses Diagnosis CLL (chronic lymphocytic leukemia) ([facility])- Primary Chronic lymphoid leukemia, without mention of having achieved remission documented in this encounter Care Teams Evp Relationship Specialty Start Date End Date Gemma Kahn NP [address] [place] [address] PCP - General 10/10/14 documented as of this encounter
--- OUTSIDE RECORDS SUMMARY | 2024-10-12 12:03 | XMS_ITS | Encounter Summary ---
Author Organization [facility] Address [address] [place] [address] Care Team Providers Care Bagman/Woman Name Role Phone Unavailable Primary Care Provider Unavailabl e Encounter Details Date Type Department Care Team (Latest Contact Info) Description 09/23/2005 12:30 EDT Hospital Encounter [address] [address] Micha Colon MD [address] [place] [phone] Discharge Disposition: Auto Discharge Social History Tobacco [...] Date/Time Associated Diagnosis Comments COMPLETE BLOOD COUNT Routine 09/23/2005 12:27 EDT HEPATIC FUNCTION PANEL (ALB,ALK PHOS,ALT,AST,DBIL,T OT KRYSTLE,TOT PROT) Routine 09/23/2005 12:27 EDT documented in this encounter Results * LIVER FUNCTION TESTS (09/23/2005 12:27 EDT) Albumin 4.1 3.4 - 4.9 g/dl [facility] Total Protein 7.5 6.5 - 8.3 g/dl [facility] Total Alkaline Phosphatase 73 38 - 126 U/L [facility] ALT 25 9 - 52 U/L [facility] AST 18 15 - 46 U/L [facility] Unconjugated Bilirubin 0.5 0.1 - 1.1 mg/dl [facility] Conjugated Bilirubin 0.0 0.0 - 0.3 mg/dl [facility] Bilirubin, Total <0.5 0.2 - 1.3 mg/dl [facility] Comment:Performed at [place], [place] 09/23/2005 12:2 7 EDT 09/23/2005 12:29 EDT Micha Colon MD CHEMISTRY & BLOOD GAS ORDERABLES Final Result [facility] [address] [place] [address] * HEMAGRAM (09/23/2005 12:27 EDT) WBC 7.40 4.0 - 12.4 K/cmm [facility] RBC 4.37 3.86 - 5.04 M/cmm [facility] Hemoglobin 12.6 11.6 - 15.2 gm/dl [facility] HCT 36.8 34.9 - 44.4 % [facility] MCV 84 81 - 98 fl [facility] MCH 28.8 26.7 - 33.3 pg [facility] MCHC 34.2 32.1 - 35.9 gm/dl [facility] PLT 248 141 - 320 K/cmm [facility] RDW-CV 12.5 11.7 - 14.6 % [facility] Comment:Performed at [place], [place] 09/23/2005 12:2 7 EDT 09/23/2005 12:29 EDT us Micha Colon MD HEMATOLOGY & PF4 [facility]AN[facility] Final Result Performing Organization Address City/State/[place] Co de Phone Number [facility] [address] [address] documented in this encounter Visit Diagnoses Not on filedocumented in this encounter
--- OUTSIDE RECORDS SUMMARY | 2024-10-12 12:03 | XMS_ITS | Encounter Summary ---
Author Organization [facility] Address [address] [place] [address] Care Team Providers Care Set Up And Charger Name Role Phone Gemma Mcmanus MD Primary Care Provide r Encounter Details Date Type Department Care Team (Latest Contact Info) Description 09/24/2014 10:40 EDT - 09/24/2014 10:[address] [facility] - [address] [address] Gemma Kahn, IDALMIS [address] [place] [address] Discharge Disposition: Home or Self Care Social [...] as of this encounter Discharge Diagnoses Diagnosis 288.60 LEUKOCYTOSIS, UNSPECIFIED[ICD-9-CM] documented in this encounter Medications at Time of Discharge venlafaxine (EFFEXOR-XR) 150 mg XR capsule Take 150 mg by mouth daily. documented as of this encounter Discharge Disposition Disposition Code Departure Means Destination Home or Self Care documented in this encounter Plan of Treatment Not on file documented as of this encounter Visit Diagnoses Not on filedocumented in this encounter Care Teams Set Up And Charger Relationship Specialty Start Date End Date Gemma Mcmanus MD [address] [address] PCP - General 04/09/12 10/09/14 documented as of this encounter
--- OUTSIDE RECORDS SUMMARY | 2024-10-12 12:03 | XMS_ITS | Encounter Summary ---
Author Organization [facility] Address [address] [place] [address] Care Team Providers Care Computational Biologist Name Role Phone Gemma Kahn NP Primary Care Provider [phone] Encounter Details Date Type Department Care Team (Latest Contact Info) Description 05/12/2016 14:45 EDT - 05/12/2016 14:46 EDT Hospital Encounter [facility] - [address] [address] Gemma Kahn, IDALMIS [address] [place] [address] Discharge Disposition: Home or Self Care Social [...] as of this encounter Discharge Diagnoses Diagnosis C91.12 Chronic lymphocytic leukemia of B-cell type in relapse-C91.12[ICD-10-CM] documented in this encounter Medications at Time of Discharge losartan (COZAAR) 25 mg tablet Take 25 mg by mouth daily venlafaxine (EFFEXOR-XR) 150 mg XR capsule Take 150 mg by mouth daily. documented as of this encounter Discharge Disposition Disposition Code Departure Means Destination Home or Self Care documented in this encounter Plan of Treatment Not on file documented as of this encounter Visit Diagnoses Not on filedocumented in this encounter Care Teams Computational Biologist Relationship Specialty Start Date End Date Gemma Kahn NP [address] [place] [address] PCP - General 10/10/14 documented as of this encounter
--- OUTSIDE RECORDS SUMMARY | 2024-10-12 12:03 | XMS_ITS | Encounter Summary ---
Author Organization [facility] Address [facility] [place] [address] Care Team Providers Care Mental Retardation Nurse Name Role Phone Precious Nixon MD Primary Care Provider [phone] Reason for Visit * Reason Comments Advice Only * Consultation (Routine) - Closed Specialty Diagnoses / Procedures Referred By Contac t Referred To Contact Hematology and Oncology Diagnoses CLL Elba Chi MD [address] [place] [address] [facility] [address] [place] [address] Referral ID Status Reason Start Date Expiration Date V isits Requested Visits Authorized [id number] Closed Consult, Test & Treat [facility] 06/07/2017 06/07/2018 1 1 Encounter Details Date Type Department Care Team (Late st Contact Info) Description 07/17/2017 11:00 AM EDT Office Visit Hematology [place] [address] Leticia Buckley MD [facility] [address] [place] [address] Alexandra Harris MD [facility] [address] HEMATOLOGY/[place] [address] CLL (chronic lymphocytic leukemia) Social History Tobacco [...] Sign Reading Time Taken Comments Blood Pressure 166/86 07/17/2017 11:00 AM EDT Pulse 79 07/17/2017 11:00 AM EDT Temperature 36.8 ??C (98.2 ??F) 07/17/2017 1 1:00 AM EDT Respiratory Rate 17 07/17/2017 11:0 0 AM EDT Oxygen Saturation 99% 07/17/2017 11: 00 AM EDT Inhaled Oxygen Concentration - - Weight 106.7 kg (235 lb 3.2 oz) 017 11:00 AM EDT Height 177 cm (5' 9.69) 07/17/2017 11: 00 AM EDT Body Mass Index 34.05 07/17/2017 11:00 AM EDT documented in this encounter Progress Notes * Alexandra Harris - 07/17/2017 11:00 [place] [address] NEW PATIENT EVALUATION PROBLEM LIST: Patient Active Problem List Diagnosis ??? Hypertension ??? Depression ??? Anxiety disorder ??? CLL (chronic lymphocytic leukemia) Diagnosed 2 years ago, never needed treatment, currently being monitored HISTORY OF PRESENT ILLNESS: It was my pleasure to meet Hilary Lowe today. Hilary Lowe is a 57 y.o. year old female being seen for evaluation of CLL. she is referred in consultaion from Dr. Elba Chi. 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 She has been doing well, and recently moved to [facility] after [facility]. She received her care for CLL by Dr. Alycia Rodriguez from [facility]. According to the patient, [...] with blood work. Today, she has no complaints, only mentioned some easy bruising on her right and left forearms after her recent move. PMHX: Past Medical History: Diagnosis Date ??? [...] Outpatient Prescriptions Marked as Taking for the 07/17/17 encounter (Office Visit) with Leticia Buckley MD Medication Sig Dispense Refill ??? venlafaxine (EFFEXOR-XR) 150 mg Capsule, Sust. Release 24 hr TAKE ONE CAPSULE BY MOUTH EVERY DAY 1 ??? losartan (COZAAR) 50 mg Tablet TAKE ONE TABLET BY MOUTH EVERY DAY 1 ??? hydroCHLOROthiazide (HYDRODIURIL) 25 mg Tablet Take 25 mg by mouth daily. Allergies: No Known Allergies FAMILY HISTORY: Notable for heart disease in both paternal and maternal grandparents. Denies any family history of cancers. 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 GENERAL: Hilary Lowe appears well [...] previous visit (from the past 72 hour(s)). RADIOLOGY STUDIES REVIEWED: None ASSESSMENT/PLAN: Ms. Lowe is a pleasant 57 y/o F w/ hx of CLL who presents to establish care with our Hematologyclinic for continued monitoring of her CLL. At this time, she has no B symptoms and no physical exam findings of hepatosplenomegaly. She was diagnosed with stage [address] Alycia Rodriguez from [facility] with follow up every 6 months with blood work. At this time we recommend the followin g: -obtain CBC, CMP, LDH, quantitative immunoglobulins today -obtain records from Dr. Alycia Allison's office prior to the next visit, which will be done at [facility] -right sided posterior cervical lymphadenopathy appears chronic, possibly benign or related to CLL,will continue to monitor -her bruises on her forearm are most likely related to trauma in the setting of her recent move, but we will check the CBC for thrombocytopenia -given indolent nature of her disease, we will continue to follow her with next visit in 4 months with routine blood work unless she develops B symptoms or lab abnormalities (such as anemia or thrombocytopenia) that warrant closer follow up Copy Elba Chi MD . * Leticia Buckley MD - 07/17/2017 11:00 AM EDT ++++++++++++++++++++++++++++++++++++++++++++++++++++++++++++++++ Attending Addendum: I personally saw, examined and interviewed the patient. I agree with the history, physical, assessment and plan in the note by Dr Harris of the same date. I have reviewed all pertinent laboratory and radiographic findings. We discussed the patient in detail and formulated the assessment andplan together. Was my pleasure to meet this very pleasant 57-year-old female previously diagnosed with stage 0 CLL. She was followed by Dr. Pires at [facility]. 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 She is very happy in her new work practice and also in hernew life in [place]. She presents today to transfer her care due to her move and change in physical locality. Ms Lowe was previously but , and unfortunately lost her recently when he from an aortic aneurysm while skiing. She has 4 children. 3 daughters and 1 son. Many of them live in [place]. She recently bought a house in [place] is enjoying her new life and community very much. She is also very happy in her medical practice. Unfortunately, we did not receive any records from Dr. Rodriguez's office. We will obtain these. Given that the patient is a nurse practitioner she did have some information. She knew that she was stage 0and has never required treatment. She is unclear if prognostic markers including ZAP70, CD38 and FISH studies have ever been drawn. We will obtain the records. Ms Lowe remains asymptomatic. On exam she has one right is teary her 1.5 cm lymph node which she states is been stable for a very long time. No other palpable adenopathy is appreciated. No splenomegaly is appreciated. We will obtain the records from 's office. I called my confidential secretary in [place] requested that she pursue these. I will see the patient back in 4 months. If she is stable after that she can probably be followed every 6 months. CBC, CMP, LDH, quantitative immune comments will be drawn following her appointment today. No results found for this or any previous visit (from the past 72 hour(s)). documented in this encounter Plan of Treatment Upcoming Encounters Date Type Department Care Team (Late st Contact Info) Description 12/18/2024 11:30 AM EST Office Visit Hematology/Oncology at [address] [address] Leticia Buckley MD [facility] [address] [place] [address] Mili Klein APRN [facility] [address] [place] [address] documented as of this encounter Results * (ABNORMAL) Immunoglobulins, Quantitative (07/17/2017 12:36 PM EDT) Immunoglobulin G 642(L) 700 - 1,600 mg/dL [facility] IgA 81 70 - 400 mg/dL [facility] IgM 46 40 - 230 mg/dL [facility] Blood specimen (specimen) 07/17/2017 12:36 PM EDT 07/17/2017 12:45 PM EDT Narrative Resulting Agency Comment Spec In Lab Leticia Buckley MD CHEMISTRY ORDERA BLES [facility] [place] [address] * Lactate Dehydrogenase (07/17/2017 12:36 PM EDT) Lactate Dehydrogenase 188 110 - 220 unit/L [facility] Blood specimen (specimen) 07/17/2017 12:36 PM EDT 07/17/2017 12:45 PM EDT Narrative Resulting Agency Comment Spec In Lab Leticia Buckley MD CHEMISTRY ORDERA BLES [facility] [place] [address] * (ABNORMAL) Comprehensive metabolic panel (non-fasting) (07/17/2017 12:36 PM EDT) Glucose 102 65 - 199 mg/dL [facility] Comment:Diabetes: >=200 mg/d L plus symptoms Blood Urea Nitrogen 22(H) 8 - 18 mg/dL [facility] Creatinine 0.84 0.70 - 1.20 mg/dL [facility] Comment: Please note that the pediatric reference intervals supplied above were not validated at [facility]. Results from pediatric patients should be interpreted in conjunction to the patient's age, height and muscle mass. Sodium 143 135 - 145 mmol/L [facility] Potassium 4.8 3.5 - 5.0 mmol/L [facility] Comment: Please note: ??Patients with WBC >100,000 may have falsely elevated Potassium levels. ??For accurate Potassium quantification in these patients send serum separator tube (gold top) for subsequent determinations. ??Contact the Clinical Chemistry Laboratory if there are any questions. Chloride 105 98 - 107 mmol/L [facility] Carbon Dioxide 24 22 - 31 mmol/L [facility] Anion Gap 14 5 - 15 mmol/L [facility] Calcium 9.6 8.5 - 10.5 mg/dL [facility] Protein, Total 7.2 6.1 - 8.0 gm/dL [facility] Albumin 4.5 3.2 - 5.2 gm/dL [facility] Aspartate Aminotransferase 16 0 - 30 unit/L [facility] Alanine Aminotransferase 25 0 - 30 unit/L [facility] Alkaline Phosphatase 91 40 - 104 unit/L [facility] Bilirubin, Total 0.3 0.2 - 1.3 mg/dL [facility] Est Glomerular Filtration Rate >60 [...] the following links into your internet browser. [email or web address] Blood specimen (specimen) 07/17/2017 12:36 PM EDT 07/17/2017 12:45 PM EDT Narrative Resulting Agency Comment Spec In Lab Leticia Buckley MD CHEMISTRY ORDERA BLES [facility] [place] [address] documented in this encounter Visit Diagnoses Diagnosis CLL (chronic lymphocytic leukemia) Chronic lymphoid leukemia, without mention of having achieved remission documented in this encounter Care Teams Mental Retardation Nurse Relationship Specialty Start Date End Date Precious Nixon MD [address] [place] [address] PCP - General Family Medicine 06/07/17 documented as of this encounter
--- OUTSIDE RECORDS SUMMARY | 2024-10-12 12:03 | XMS_ITS | Encounter Summary ---
Author Organization [facility] Address [address] [place] [address] Care Team Providers Care Burn Table Operator Name Role Phone Gemma Kahn HEARING IMPAIRED TEACHER Primary Care Provider [phone] Encounter Details Date Type Department Care Team (Late st Contact Info) Description 11/17/2020 Lab Requisition [facility] - [address] [address] Outr Resulting Lab, Provider Social History Tobacco [...] Procedure Name Priority Date/Time Associated Diagnosis Comments DO NOT ORDER STANDALONE - BROAD COVID TEST Today 11/17/2020 12:00 EST COVID-19 TESTING Routine 11/17/2020 12:0 0 EST documented in this encounter Results * DO NOT ORDER STANDALONE - BROAD COVID TEST (11/17/2020 12:00 EST) COVID-19 rt-PCR Result NEGATIVE Negative 11/18/2020 21:[address] [facility] Comment: 2019-novel Coronavirus (2019-nCoV) not detected by the qRT-PCR assay. Consider testing for other respiratory viruses or re-collecting for 2019-nCoV testing. Note: Optimum timing for peak viral levels during infections caused by 2019-nCoV have not been determined. Collection of multiple specimens from the same patient may be necessary to detect the virus. Limitations Positive results are indicative of active infection with SARS-CoV-2 but do not rule out bacterial infection or co-infection with other viruses. The agent detected may not be the definite cause of disease. In addition, detection of viral RNA may not indicate the presence of infectious virus or that SARS-CoV-2 is the causative agent for clinical symptoms. Negative results do not preclude SARS-CoV-2 infection and should not be used as the sole basis for patient management decisions. Negative results must be combined with clinical observations, patient history, and epidemiological information. False negative results may also occur if amplification inhibitors are present in the specimen or if inadequate numbers of organisms are present in the specimen. Optimum specimen types and timing for peak viral levels during infections caused by SARS-CoV-2 have not been fully determined. Collection of multiple specimens (types and time points) from the same patient may be necessary to detect the virus. The test was validated for use with upper respiratory specimens obtained via nasopharyngeal or oropharyngeal swabs in VTM, UTM, M4, M5, M6, saline, and MTM media. The performance of this test has not been established for other specimens. Specimens collected using other FDA recommended Specimen Collection Materials listed in the FDA COVID-19 [employer] communication (February 20, 2020) are processed with the caveat that they were not all validated for use with this test and the result must be interpreted in this context. Furthermore, a false negative results may occur if a specimen is improperly collected, transported or handled. If the virus mutates in the RT-PCR target region, SARS-CoV-2 may not be detected or may be detected less predictably. Inhibitors or other types of interference may produce a false negative result. An interference study evaluating the effect of common cold medications was not performed. This test is not FDA-cleared but its performance characteristics were established by our CLIA-certified, CAP-accredited, high complexity laboratory in accordance with CLIA regulations, [employer] (CAP) guidelines (Feb 13, 2020), and FDA guidance (Jan 25, 2020). This test is only for use under the Food and Drug Administration's Emergency Use Authorization. Swab ENTIRE NASOPHARYNX / Unknown 11/17/2020 12:00 EST 11/17/2020 20:52 EST us Provider Outr Resulting Lab MICROBIOLOGY - GENER AL ORDERABLES Final Result [place], [place] * COVID-19 TESTING (11/17/2020 12:00 EST) COVID-19 rt-PCR Result NEGATIVE Negative 11/19/2020 0:15 EST [facility] Comment: 2019-novel Coronavirus (2019-nCoV) not detected by the qRT-PCR assay. Consider testing for other respiratory viruses or re-collecting for 2019-nCoV testing. Note: Optimum timing for peak viral levels during infections caused by 2019-nCoV have not been determined. Collection of multiple specimens from the same patient may be necessary to detect the virus. Limitations Positive results are indicative of active infection with SARS-CoV-2 but do not rule out bacterial infection or co-infection with other viruses. The agent detected may not be the definite cause of disease. In addition, detection of viral RNA may not indicate the presence of infectious virus or that SARS-CoV-2 is the causative agent for clinical symptoms. Negative results do not preclude SARS-CoV-2 infection and should not be used as the sole basis for patient management decisions. Negative results must be combined with clinical observations, patient history, and epidemiological information. False negative results may also occur if amplification inhibitors are present in the specimen or if inadequate numbers of organisms are present in the specimen. Optimum specimen types and timing for peak viral levels during infections caused by SARS-CoV-2 have not been fully determined. Collection of multiple specimens (types and time points) from the same patient may be necessary to detect the virus. The test was validated for use with upper respiratory specimens obtained via nasopharyngeal or oropharyngeal swabs in VTM, UTM, M4, M5, M6, saline, and MTM media. The performance of this test has not been established for other specimens. Specimens collected using other FDA recommended Specimen Collection Materials listed in the FDA COVID-19 [employer] communication (February 20, 2020) are processed with the caveat that they were not all validated for use with this test and the result must be interpreted in this context. Furthermore, a false negative results may occur if a specimen is improperly collected, transported or handled. If the virus mutates in the RT-PCR target region, SARS-CoV-2 may not be detected or may be detected less predictably. Inhibitors or other types of interference may produce a false negative result. An interference study evaluating the effect of common cold medications was not performed. This test is not FDA-cleared but its performance characteristics were established by our CLIA-certified, CAP-accredited, high complexity laboratory in accordance with CLIA regulations, [employer] (CAP) guidelines (Feb 13, 2020), and FDA guidance (Jan 25, 2020). This test is only for use under the Food and Drug Administration's Emergency Use Authorization. Performing Lab [facility] 11/19/2020 0:15 EST [facility] Swab 11/17/2020 12:0 0 EST 11/17/2020 20:52 EST us Provider Outr Resulting Lab MICROBIOLOGY - GENER AL ORDERABLES Final Result [facility] [address] [place] [address] [facility] [place] documented in this encounter Visit Diagnoses Not on filedocumented in this encounter Care Teams Burn Table Operator Relationship Specialty Start Date End Date Gemma Kahn NP [address] [place] [address] PCP - General 10/10/14 documented as of this encounter
--- OUTSIDE RECORDS SUMMARY | 2024-10-12 12:03 | XMS_ITS | Encounter Summary ---
Author Organization [facility] Address [address] [place] [address] Care Team Providers Care Dean Of Students Name Role Phone Gemma Kahn BASKETBALL COACH Primary Care Provider Encounter Details Date Type Department Care Team (Late st Contact Info) Description 02/03/2015 Phlebotomy Only [address] [address] Replenishment Buyer, Outpatient Screening examination for pulmonary tuberculosis (Primary Dx) Social History Tobacco Use Types [...] Procedure Name Priority Date/Time Associated Diagnosis Comments QUANTIFERON TB GOLD PLUS Routine 02/03/2015 10:24 EDT Screening examination for pulmonary tuberculosis documented in this encounter Results * TB BY QUANTIFERON, B (02/03/2015 10:24 EDT) TB Interpretation Negative 015 16:52 EDT [facility] Comment:Reference Range: Neg ative TB Antigen Value 0.00 IU/mL 02/06/20 15 16:52 EDT [facility] Comment: This is a qualitative test. ??The TB antigen IU/mL value is required for documentation on certain government reporting forms (e.g., Form I-693), but the magnitude of this value cannot be correlated to stage or degree of infection, level of immune responsiveness, or likelihood for progression to active disease. ?? Diagnosing or excluding tuberculosis disease, and assessing the probability of LTBI, requires a combination of epidemiological, historical, medical, and diagnostic findings that should be taken into account when interpreting QuantiFERON-TB results. Blood specimen (specimen) BLOOD SPECIMEN / Unknown 02/03/2015 10:24 EDT 02/03/2015 10:59 EDT us Juventino Villatoro MD CHEMISTRY & BLOOD GAS O RDERABLES Final Result [facility] [address] [place] [address] documented in this encounter Visit Diagnoses Diagnosis Screening examination for pulmonary tuberculosis- Primary documented in this encounter Care Teams Dean Of Students Relationship Specialty Start Date End Date Gemma Kahn NP [address] [place] [address] PCP - General 10/10/14 documented as of this encounter
--- OUTSIDE RECORDS SUMMARY | 2024-10-12 12:03 | XMS_ITS | Encounter Summary ---
Author Organization [facility] Address [address] [place] [address] Care Team Providers Care Gun Repair Clerk Name Role Phone Gemma Kahn PUMP SERVICER Primary Care Provider [phone] Reason for Visit * Reason Onset Date Comments Travel Medication 12/30/2014 Travel Medication 12/31/2014 Encounter Details Date Type Department Care Team (Late st Contact Info) Description 12/30/2014 Telephone [facility] Infectious Disease - [facility] [address] [place], [place] [id number] Antonietta Pires FNP [facility] [address] [place] [address] [id number] Travel Medication; Travel Medication Social History Tobacco Use Types Packs/Day Years Used Date Smoking Tobacco: Never Alcohol Use Standard Drinks/Week Comments Yes 5 (1 standard drink = 0.6 oz pur e alcohol) Comments No Sex and Gender Information Value Date Recorded Sex Assigned at Not on file Legal Sex Female 18:04 EST Gender Identity Not on file Sexual Orientation Not on file documented as of this encounter Ordered Prescriptions Prescription Sig Dispense Quantity Refills Last Filled Start Date End Date atovaquone-proguan il (MALARONE) 250-100 mg per tablet Take 1 Tab by mouth daily Start 2 days before entering risk area, daily while there, and for 7 days after leaving.. 33 Tab 0 12/31/2014 5 documented in this encounter Miscellaneous Notes * Telephone Encounter - Polina Hyman RN - 12/31/2014 1408 EST Pt called in preparation for travel to [facility]. She will be traveling for 25 days. She was last seen by Marichuy Pires PUMP SERVICER on 03/15/13. Her past travel includes [facility]. Immunization History Administered Date(s) Administered ??? Hepatitis A 11/14/2005, 10/27/2006 ??? Meningococcal Polysaccharide (Menomune) Vaccine SQ 03/15/2013 ??? PolioVirus Vaccine IPV SQ 11/14/2005 ??? Td 11/14/2005 ? ? Tdap Vaccine =>7YO IM 08/27/2012 ??? Typhoid Vaccine Oral 10/24/2007 ??? Typhoid ViCPs (Typhim Vi) Vaccine IM 03/15/2013 ??? Yellow Fever Vaccine SQ 11/14/2005 Current Outpatient Prescriptions on File Prior to Visit Medication Sig Dispense Refill ??? lisinopril (PRINIVIL, ZESTRIL) 10 mg tablet Take 10 mg by mouth daily. ??? venlafaxine (EFFEXOR-XR) 150 mg XR capsule Take 150 mg by mouth daily. No current facility-administered medications on file prior to visit. No Known Allergies Changes in medical history - none Food and water safety reviewed. Insect precautions discussed- malaria maps reviewed. Recommendations: Vaccines- UP TO DATE Malaria- Malarone 2+24+7=33 tabs Pt understands and is agreeable with plan. No barriers to learning. I agree with the nursing assessment and plan ALDO Menchaca * Telephone Encounter - Angie Kang - 12/31/2014 0948 EST Pt calling again regarding Malarone for her 01/05-01/30 trip to [facility]. Made aware of call back time. Please call. * Telephone Encounter - Bria Monique V. - 12/30/2014 1117 EST Patient last seen in February 2013 traveling back to [facility]. Would like to have script for Malarone Leaving 2.9.15 returning 3.6.15 documented in this encounter Plan of Treatment Not on file documented as of this encounter Visit Diagnoses Not on filedocumented in this encounter Care Teams Gun Repair Clerk Relationship Specialty Start Date End Date Gemma Kahn NP [address] [place] [address] PCP - General 10/10/14 documented as of this encounter
--- OUTSIDE RECORDS SUMMARY | 2024-10-12 12:03 | XMS_ITS | Encounter Summary ---
Author Organization [facility] Address [address] [place] [address] Care Team Providers Care Tab Cutter Name Role Phone Gemma Kahn ROLL OR TAPE EDGE MACHINE OPERATOR Primary Care Provider [phone] Encounter Details Date Type Department Care Team (Late st Contact Info) Description 06/25/2020 Lab Requisition [facility] Pathology & Laboratory Medicine - [address] [address] Outr Resulting Lab, Provider Social History Tobacco [...] Procedure Name Priority Date/Time Associated Diagnosis Comments IMMUNOGLOBULINS Routine 06/24/2020 16:20 EDT documented in this encounter Results * (ABNORMAL) IMMUNOGLOBULINS (06/24/2020 16:20 EDT) IgG 634 610-1,616 mg/dL 06/26/2020 10:08 EDT [facility] IgA 84(L) 85 - 499 mg/dL 06/26/2020 10:08 EDT [facility] IgM 39 35 - 242 mg/dL 06/26/2020 10:08 EDT [facility] Blood VENOUS BLOOD / Unknown 06/24/2020 16:20 EDT 06/25/2020 16:35 EDT us Provider Outr Resulting Lab CHEMISTRY & BLOOD GA S ORDERABLES Final Result Performing Organization Address City/State/[facility] Co de Phone Number [facility] [address] [place] [address] documented in this encounter Visit Diagnoses Not on filedocumented in this encounter Care Teams Tab Cutter Relationship Specialty Start Date End Date Gemma Kahn NP [address] [place] [address] PCP - General 10/10/14 documented as of this encounter
--- OUTSIDE RECORDS SUMMARY | 2024-10-12 12:03 | XMS_ITS | Encounter Summary ---
Author Organization [facility] Address [address] [place] [address] Care Team Providers Care Consumer Safety Inspector Name Role Phone Gemma Kahn BLEACH CHLORINATOR Primary Care Provider Encounter Details Date Type Department Care Team (Late st Contact Info) Description 05/04/2015 Orders Only [facility] Hematology & Oncology - [facility] [address] [place], [place] [phone] Alycia Rodriguez MD CLL (chronic lymphocytic leukemia) ([facility]) ([facility]) (Primary Dx) Social History Tobacco Use [...] on file documented as of this encounter Results * (ABNORMAL) HEMAGRAM AND DIFFERENTIAL (01/01/2016 13:20 EST) WBC 23.32(H) 4.0 - 12.4 K/cmm 01/01/2016 16:02 EST [facility] RBC 4.44 3.86 - 5.04 M/cmm 01/01/2016 16:02 [facility] Hemoglobin 12.6 11.6 - 15.2 gm/dl 01/01/2016 16:02 [facility] HCT 38.8 34.9 - 44.4 % 01/01/2016 16:02 [facility] MCV 87 81 - 98 fl 01/01/2016 16:02 [facility] MCH 28.4 26.7 - 33.3 pg 01/01/2016 16:02 [facility] MCHC 32.5 32.1 - 35.9 gm/dl 01/01/2016 16:02 [facility] RDW-CV 13.6 11.7 - 14.6 % 01/01/2016 16:02 [facility] RDW-SD 42.9 37.6 - 50.3 fl 01/01/2016 16:02 [facility] PLT 169 141 - 377 K/cmm 01/01/2016 16:02 [facility] Comment:Note new reference r shanta effective 12/07/15 MPV 9.3(L) 9.5 - 12.7 fl 01/01/2016 16:02 [facility] Comment:Note new reference r shanta effective 12/07/15 Neutrophils 10.0 % 01/01/2016 16:54 [facility] Lymphocytes 86.0 % 01/01/2016 16:54 [facility] Monocytes 3.0 % 01/01/2016 16:54 [facility] Basophils 1.0 % 01/01/2016 16:54 [facility] ABS Neutrophils 2.33 2.20 - 8.85 K/cmm 01/01/2016 16:54 [facility] ABS Lymphs 20.06(H) 1.09 - 3.30 K/cmm 01/01/2016 16:54 [facility] ABS Monocytes 0.70 0.1 - 0.8 K/cmm 01/01/2016 16:54 [facility] ABS Basophils 0.23(H) 0.01 - 0.11 K/cmm 01/01/2016 16:54 [facility] Smudge Cells Present 01/01/2016 16:54 EST [facility] Type of Diff: Manual 01/01/2016 16:54 EST [facility] Blood specimen (specimen) BLOOD SPECIMEN / Unknown 01/01/2016 13:20 EST 01/01/2016 15:37 EST us Alycia Rodriguez MD PACKAGES & DNA PROBE ORDERABLES Final Result [facility] [address] [place] [address] documented in this encounter Visit Diagnoses Diagnosis CLL (chronic lymphocytic leukemia) ([facility])- Primary Chronic lymphoid leukemia, without mention of having achieved remission documented in this encounter Care Teams Consumer Safety Inspector Relationship Specialty Start Date End Date Gemma Kahn NP [address] [place] [address] PCP - General 10/10/14 documented as of this encounter
--- OUTSIDE RECORDS SUMMARY | 2024-10-12 12:03 | XMS_ITS | Encounter Summary ---
Author Organization [facility] Address [address] [place] [address] Care Team Providers Care Manufacturing Plant Controller Name Role Phone Gemma Kahn PRINT DEVELOPER AUTOMATIC Primary Care Provider [phone] Reason for Visit * Reason Comments Follow-up Encounter Details Date Type Department Care Team (Late st Contact Info) Description 05/01/2015 16:00 EDT Office Visit [facility] Cancer [facility] Hematology & Oncology - [address] [address] Alycia Bowman MD CLL (chronic lymphocytic leukemia) ([facility]-HCC) ([facility]) (Primary Dx) Social History Tobacco Use Types [...] Body Mass Index 35.71 05/01/2015 1614 EDT documented in this encounter Progress Notes * Alycia Bowman MD - 05/04/2015 1009 EDT 05/01/2015 Outpt Heme/Onc Clinic Pt was seen and examined. She completed an onc clinic sx report form by herself. I reviewed her medlist and a verbal ROS questioning with her as well. CC: I am here about CLL. S: I am feeling really quite well. She has mild MINER that has not changed. A lengthy ROS questioning is negative. She denies: APPIAH, MS changes, palpation of any new lumps or bumps, cough, orthopnea, CP, N/V, abd pain, obvious bleeding from any sites, LE edema, fatigue, new bony pain, rash, changes in B/B habits, F/C, NS anorexia or wt loss. Soc Hx: , lives in [place]. 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 Nonsmoker. PMedHx: overweight, HTN, and depression. Med changed from lisinopril to cozaar. Clinically asymptomatic CLL dx 08/2014 via peripheral blood flow cytometry. O: 168/85 80 16 36.9 PS 0 Wt = 109.5 kg O2 sat = 98% on RA at rest no facial pallor, white sclera no left neck, SC or axillary LAD; there is a firm, nontender right mid neck node that measures about 1.5 cm Lungs clear to aus/perc CV with RRR Abd soft, obese, nontender without obvious HSM or masses LE without rash, edema or bruising Alert, Ox3, well groomed, nl gait Today's CBC [facility] diff shows: WBC 25.43, ANC 5.34, L 77%, hgb 14.6, plt 218K IgG 883 A: 1) Hernandez stage 0 CLL dx 08/2014 via peripheral blood flow cytometry, remains clinically asymptomatic 2) Leukocytosis and lymphocytosis secondary to #1, overall stable P: 1) I gave pt a copy of her 08/2014 and current labs 2) Reperat CBC with diff in 6 months. I placed orders in [facility]. 3) I will see again in 1 year () along with repeat labs of a CBC with diff, IgG and CMP. 4) We reviewed sxs/signs to call me about. We reviewed indications for initiation of therapy in CLL. Libia BOWMAN MD documented in this encounter Plan of Treatment Not on file documented as of this encounter Visit Diagnoses Diagnosis CLL (chronic lymphocytic leukemia) ([facility])- Primary Chronic lymphoid leukemia, without mention of having achieved remission documented in this encounter Discontinued Medications Medication Sig Discontinue Reason Start Date End Da te atovaquone-proguanil (MALARONE) 250-100 mg per tablet Take 1 Tab by mouth daily Start 2 days before entering risk area, daily while there, and for 7 days after leaving.. Patient Stopped Taking 12/31/2014 05/04/2015 lisinopril (PRINIVIL, ZESTRIL) 10 mg tablet Take 10 mg by mouth daily. Patient Stopped Taking 05/04/2015 documented as of this encounter Historical Medications * This list may reflect changes made after this encounter. losartan (COZAAR) 25 mg tablet Take 25 mg by mouth daily added in this encounter Care Teams Manufacturing Plant Controller Relationship Specialty Start Date End Date Gemma Kahn NP [address] [place] [address] PCP - General 10/10/14 documented as of this encounter
--- OUTSIDE RECORDS SUMMARY | 2024-10-12 12:03 | XMS_ITS | Referral Summary ---
Author Organization [facility] Address [address] [place] [address] Care Team Providers Care Head Bucker Name Role Phone Gemma Kahn WINDOWS SERVER SPECIALIST Primary Care Provider Allergies No known active allergies Medications venlafaxine (EFFEXOR-XR) 150 mg XR capsule Take 150 mg by mouth daily. Active losartan (COZAAR) 25 mg tablet Take 25 mg by mouth daily Active Active Problems Problem Noted Date Diagnosed Date CLL (chronic lymphocytic leukemia) ([facility]) Immunizations Name Administration Dates Next Due Hepatitis A 10/27/2006,11/14/2005 Meningococcal Polysaccharide (Menomune) Vaccine SQ 03/15/2013 Poliovirus Vaccine IPV IM OR SQ 11/14/2005 Td 11/14/2005 Tdap Vaccine =>7YO IM 08/27/2012 Typhoid Vaccine Oral 10/24/2007 Typhoid ViCPs (TYPHIM Vi) Vaccine IM 03/15/2013 Yellow Fever Vaccine SQ 11/14/2005 Social History Tobacco Use Types Packs/Day Years [...] 35.71 05/01/2015 1614 EDT Plan of Treatment Not on file Procedures Procedure Name Priority Date/Time Associated Diagnosis [...] ORDERABLES Final Result [facility] [address] [place] [address] from Last 3 Months or Most Recently Relevant to Health Maintenance Care Teams Head Bucker Relationship Specialty Start Date End Date Gemma Kahn NP [address] [place] [address] PCP - General 10/10/14
--- OUTSIDE RECORDS SUMMARY | 2024-10-12 12:03 | XMS_ITS | Encounter Summary ---
Author Organization [facility] Address [address] [place] [address] Care Team Providers Care Bacon Skin Lifter Name Role Phone Gemma Kahn Paula CLINICAL TRIAL COORDINATOR Primary Care Provider Reason for Referral * Referral (Routine/Next Available) - Receiving Office to Obtain Authorization Specialty Diagnoses / Procedures Referred By Neil pate Referred To Contact Diagnoses Special screening for malignant neoplasms, colon Procedures COLONOSCOPY Precious Nixon MD [address] [place] [phone] Phone: tel: fax: [address] [address] Phone: tel: fax: Referral ID Status Reason Start Date Expiration Date Visits Requested Visits Authorized [id number] Receiving Office to Obtain Authorization 04/10/2024 1 1 Encounter Details Date Type Department Care Team (Latest Contact Info) Description 04/10/2024 Transcribe Orders [facility] [id number] Precious Nixon MD [address] [place] [phone] Special screening for malignant neoplasms, colon (Primary Dx) Social History Tobacco Use Types [...] as of this encounter Plan of Treatment Scheduled Orders Name Type Priority Associated Diagnoses Orde r Schedule COLONOSCOPY GI Routine Special screening for malignant neoplasms, colon Expected: 04/10/2024 (Approximate), Expires: 10/11/2025 documented as of this encounter Visit Diagnoses Diagnosis Special screening for malignant neoplasms, colon- Primary documented in this encounter Care Teams Bacon Skin Lifter Relationship Specialty Start Date End Date Gemma Kahn NP [address] [place] [address] PCP - General 10/10/14 documented as of this encounter
--- OUTSIDE RECORDS SUMMARY | 2024-10-12 12:03 | XMS_ITS | Encounter Summary ---
Author Organization [facility] Address [address] [place] [address] Care Team Providers Care Miter Cutter Name Role Phone Unavailable Primary Care Provider Unavailabl e Reason for Visit * Reason Onset Date Comments Travel Medication 05/02/2011 Encounter Details Date Type Department Care Team (Late st Contact Info) Description 05/02/2011 Telephone [facility] Infectious Disease - [address] [address] Antonietta Pires FNP [facility] [address] [place] [phone] Travel Medication Social History Tobacco Use Types [...] tablet Take 1 Tab by mouth daily for 59 days. Starting 2 days before travel to [facility] 59 Tab 0 05/22/2011 1 documented in this encounter Miscellaneous Notes * Telephone Encounter - Antonietta Pires - 05/02/2011 3393 EDT Going to [place] again, up to date on Yellow Fever, Hepatitis A, polio and typhoid vaccines. 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 * Telephone Encounter - Olive Roth - 05/02/2011 1035 EDT Repeat travel. Now going to [facility] end of April. Call on cell: [phone] documented in this encounter Plan of Treatment Not on file documented as of this encounter Visit Diagnoses Not on filedocumented in this encounter
--- OUTSIDE RECORDS SUMMARY | 2024-10-12 12:03 | XMS_ITS | Encounter Summary ---
Author Organization [facility] Address [address] [place] [address] Care Team Providers Care Caramel Cutter Helper Name Role Phone Gemma Kahn AUTOMATION SOFTWARE ENGINEER Primary Care Provider [phone] Encounter Details Date Type Department Care Team (Late st Contact Info) Description 07/05/2021 Lab Requisition [facility] Pathology & Laboratory Medicine - [facility] [address] [place] [address] Outr Resulting Lab, Provider Social History Tobacco [...] Priority Date/Time Associated Diagnosis Comments IMMUNOGLOBULINS Routine 07/05/2021 13:28 EDT documented in this encounter Results * IMMUNOGLOBULINS (07/05/2021 13:28 EDT) IgG 695 610-1,616 mg/dL 07/06/2021 9:55 EDT [facility] IgA 87 85 - 499 mg/dL 07/06/2021 9:55 EDT [facility] IgM 46 35 - 242 mg/dL 07/06/2021 9:55 EDT [facility] Blood VENOUS BLOOD / Unknown 07/05/2021 13:28 EDT 07/05/2021 20:32 EDT us Provider Outr Resulting Lab CHEMISTRY & BLOOD GA S ORDERABLES Final Result Performing Organization Address City/State/[facility] Co de Phone Number [facility] [address] [place] [address] documented in this encounter Visit Diagnoses Not on filedocumented in this encounter Care Teams Caramel Cutter Helper Relationship Specialty Start Date End Date Gemma Kahn NP [address] [place] [address] PCP - General 10/10/14 documented as of this encounter
--- OUTSIDE RECORDS SUMMARY | 2024-10-12 12:03 | XMS_ITS | Encounter Summary ---
Author Organization [facility] Address [address] [place] [address] Care Team Providers Care Forensic Manager Name Role Phone Gemma Kahn LANDSCAPE ARCHITECTURE PROFESSOR Primary Care Provider [phone] Encounter Details Date Type Department Care Team (Late st Contact Info) Description 01/11/2021 Lab Requisition [facility] Pathology & Laboratory Medicine - [facility] [address] [place] [address] Outr Resulting Lab, Provider Social History Tobacco [...] Priority Date/Time Associated Diagnosis Comments IMMUNOGLOBULINS Routine 01/11/2021 13:03 EST documented in this encounter Results * (ABNORMAL) IMMUNOGLOBULINS (01/11/2021 13:03 EST) IgG 652 610-1,616 mg/dL 01/12/2021 11:36 EST [facility] IgA 74(L) 85 - 499 mg/dL 01/12/2021 11:36 EST [facility] IgM 36 35 - 242 mg/dL 01/12/2021 11:36 EST [facility] Blood VENOUS BLOOD / Unknown 01/11/2021 13:03 EST 01/11/2021 21:10 EST us Provider Outr Resulting Lab CHEMISTRY & BLOOD GA S ORDERABLES Final Result Performing Organization Address City/State/[facility] Co de Phone Number [facility] [address] [place] [address] documented in this encounter Visit Diagnoses Not on filedocumented in this encounter Care Teams Forensic Manager Relationship Specialty Start Date End Date Gemma Kahn NP [address] [place] [address] PCP - General 10/10/14 documented as of this encounter
--- OUTSIDE RECORDS SUMMARY | 2024-10-12 12:03 | XMS_ITS | Encounter Summary ---
Author Organization [facility] Address [address] [place] [address] Care Team Providers Care Global Sales Executive Name Role Phone Gemma Kahn SCOOP FILLER Primary Care Provider [phone] Encounter Details Date Type Department Care Team (Late st Contact Info) Description 04/07/2015 Phlebotomy Only [facility] [address] [place] [address] Quality Assurance Supervisor Chassis, Outpatient CLL (chronic lymphocytic leukemia) ([facility]) ([facility]) (Primary Dx) Social History Tobacco Use Types [...] Comments COMPLETE BLOOD COUNT AND DIFFERENTIAL Routine 04/07/2015 14:16 EDT CLL (chronic lymphocytic leukemia) ([facility]) ([facility]) IGG Routine 04/07/2015 14:16 EDT CLL (chronic lymphocytic leukemia) ([facility]) ([facility]) documented in this encounter Results * IGG (04/07/2015 14:16 EDT) IgG 883 751 - 1,560 mg/dl 04/08/2015 11:06 [facility] Blood specimen (specimen) BLOOD SPECIMEN / Unknown 04/07/2015 14:16 EDT 04/07/2015 18:15 EDT us Alycia Rodriguez MD CHEMISTRY & BLOOD GAS ORDERABLES Final Result [facility] [address] [place] [address] * (ABNORMAL) HEMAGRAM AND DIFFERENTIAL (04/07/2015 14:16 EDT) WBC 25.43(H) 4.0 - 12.4 K/cmm 04/07/2015 18:36 [facility] RBC 4.42 3.86 - 5.04 M/cmm 04/07/2015 18:36 [facility] Hemoglobin 12.5 11.6 - 15.2 gm/dl 04/07/2015 18:36 [facility] HCT 38.1 34.9 - 44.4 % 04/07/2015 18:36 [facility] MCV 86 81 - 98 fl 04/07/2015 18:36 [facility] MCH 28.3 26.7 - 33.3 pg 04/07/2015 18:36 [facility] MCHC 32.9 32.1 - 35.9 gm/dl 04/07/2015 18:36 [facility] RDW-CV 14.6 11.7 - 14.6 % 04/07/2015 18:36 [facility] RDW-SD 43.3 37.6 - 50.3 fl 04/07/2015 18:36 [facility] PLT 218 141 - 320 K/cmm 04/07/2015 18:36 [facility] MPV 7.7 7.5 - 11.2 fl 04/07/2015 18:36 [facility] Neutrophils 21.0(L) 45.5 - 79.7 % 04/07/2015 19:39 T [facility] Lymphocytes 77.0(H) 15.0 - 46.8 % 04/07/2015 19:39 T [facility] Monocytes 2.0 1.8 - 12.0 % 04/07/2015 19:39 [facility] ABS Neutrophils 5.34 2.20 - 8.85 K/cmm 04/07/2015 19:39 [facility] ABS Lymphs 19.58(H) 1.09 - 3.30 K/cmm 04/07/2015 19:39 [facility] ABS Monocytes 0.51 0.1 - 0.8 K/cm 04/07/2015 19:39 [facility] Smudge Cells Present 04/07/2015 19:39 [facility] Type of Diff: Manual 04/07/2015 19:39 [facility] Blood specimen (specimen) BLOOD SPECIMEN / Unknown 04/07/2015 14:16 EDT 04/07/2015 18:15 EDT us Alycia Rodriguez MD PACKAGES & DNA PROBE ORDERABLES Final Result [facility] [address] [place] [address] documented in this encounter Visit Diagnoses Diagnosis CLL (chronic lymphocytic leukemia) ([facility])- Primary Chronic lymphoid leukemia, without mention of having achieved remission documented in this encounter Care Teams Global Sales Executive Relationship Specialty Start Date End Date Gemma Kahn NP [address] [place] [address] PCP - General 10/10/14 documented as of this encounter
--- OUTSIDE RECORDS SUMMARY | 2024-10-12 12:03 | XMS_ITS | Encounter Summary ---
Author Organization [facility] Address [address] [place] [address] Care Team Providers Care Auto Service Instructor Name Role Phone Gemma Mcmanus MD Primary Care Provide r Encounter Details Date Type Department Care Team (Late st Contact Info) Description 04/11/2012 10:52 EDT - 04/11/2012 23:59 EDT Hospital Encounter [address] [address] Gemma Mcmanus MD [address] [place] [phone] Discharge Disposition: Home or Self Care Social [...] Code Departure Means Destination Home or Self [facility] documented in this encounter Plan of Treatment Not on file documented as of this encounter Visit Diagnoses Not on filedocumented in this encounter Care Teams Auto Service Instructor Relationship Specialty Start Date End Date Gemma Mcmanus MD [address] [place] [phone] PCP - General 04/09/12 10/09/14 documented as of this encounter
--- OUTSIDE RECORDS SUMMARY | 2024-10-12 12:03 | XMS_ITS | Encounter Summary ---
Author Organization [facility] Address [address] [place] [address] Care Team Providers Care Staff Internist Office Based Only Name Role Phone Gemma Kahn LARGE ANIMAL HUSBANDRY TECHNICIAN Primary Care Provider Encounter Details Date Type Department Care Team (Late st Contact Info) Description 12/10/2014 Results Only [facility] - [facility] [place] [address] [place], [place] [address] Gemma Kahn, LARGE ANIMAL HUSBANDRY TECHNICIAN [address] [place], [place] [address] Social History Tobacco Use Types Packs/Day Years [...] Associated Diagnosis Comments BACTERIAL CULTURE, URINE Routine 12/10/2014 14:14 EST documented in this encounter Results * BACTERIAL CULTURE, URINE (12/10/2014 14:14 EST) Result 10,000 to 100,000 CFU/ml ESCHERICHIA COLI 12/12/2014 10:48 EST [facility] Result Less than 10,000 CFU/ml Usual urogenital lexus. 12/12/2014 10:48 EST [facility] URINE / Unknown 12/10/2014 1 4:14 EST 12/10/2014 20:22 EST Narrative Organism Antibiotic Method Susceptibility 10,000 to 100,000 cfu/ml escherichia coli Ampicillin SUSCEPTIBILITY (EVERETT) 4: Susceptible 10,000 to 100,000 cfu/ml escherichia coli Gentamicin SUSCEPTIBILITY (EVERETT) <=1: Susceptible 10,000 to 100,000 cfu/ml escherichia coli Trimethoprim-Sulfameth oxazole SUSCEPTIBILITY (EVERETT) <=20: Susceptible 10,000 to 100,000 cfu/ml escherichia coli Nitrofurantoin SUSCEPTIBILITY (EVERETT) 32: Susceptible 10,000 to 100,000 cfu/ml escherichia coli Tobramycin SUSCEPTIBILITY (EVERETT) <=1: Susceptible 10,000 to 100,000 cfu/ml escherichia coli Amikacin SUSCEPTIBILITY (EVERETT) <=2: Susceptible 10,000 to 100,000 cfu/ml escherichia coli Ceftriaxone SUSCEPTIBILITY (EVERETT) <=1: Susceptible 10,000 to 100,000 cfu/ml escherichia coli Ciprofloxacin SUSCEPTIBILITY (EVERETT) 0.5: Susceptible 10,000 to 100,000 cfu/ml escherichia coli Piperacillin Tazobactam SUSCEPTIBILITY (EVERETT) <=4: Susceptible 10,000 to 100,000 cfu/ml escherichia coli Meropenem SUSCEPTIBILITY (EVERETT) <=0.25: Susceptible 10,000 to 100,000 cfu/ml escherichia coli Ertapenem SUSCEPTIBILITY (EVERETT) <=0.5: Susceptible Gemma Kahn NP MICROBIOLOGY - GENERAL ORDER MAI Final Result [facility] [address] [place] [address] documented in this encounter Visit Diagnoses Not on filedocumented in this encounter Care Teams Staff Internist Office Based Only Relationship Specialty Start Date End Date Gemma Kahn NP [address] [place] [address] PCP - General 10/10/14 documented as of this encounter
--- OUTSIDE RECORDS SUMMARY | 2024-10-12 12:03 | XMS_ITS | Encounter Summary ---
Author Organization [facility] Address [address] [place] [address] Care Team Providers Care Data Center Project Manager Name Role Phone Gemma Kahn IP [place] Primary Care Provider [phone] Encounter Details Date Type Department Care Team (Latest Contact Info) Description 01/01/2016 12:26 EST - 01/01/2016 23:59 EST Hospital Encounter [address] [address] Unknown, Provider, MD Discharge Disposition: Home or Self Care Social [...] Code Departure Means Destination Home or Self Group Home documented in this encounter Plan of Treatment Not on file documented as of this encounter Procedures Procedure Name Priority Date/Time Associated Diagnosis Comments HOLD SST Routine 01/01/2016 13:20 EST HOLD GREEN TOP Routine 01/01/2016 13:20 EST documented in this encounter Results * HOLD SST (01/01/2016 13:20 EST) Hold SST Hold for further testing. Specimen will be held for 5 days. 01/01/2016 13:20 EST [facility] BLOOD SPECIMEN / Unknown 01/01/2016 13:20 EST 01/01/2016 15:37 EST Alycia Rodriguez MD LAB INFO SERVICE AND SUPPORT & P CECE RESULT Final Result Performing Organization Address City/[facility]/ZIP Co de Phone Number [facility] [address] [place] [address] * HOLD GREEN TOP (01/01/2016 13:20 EST) Hold Green Top Hold for further testing. Specimen will be held for 5 days. 01/01/2016 13:20 EST [facility] BLOOD SPECIMEN / Unknown 01/01/2016 13:20 EST 01/01/2016 15:37 EST Alycia Rodriguez MD LAB INFO SERVICE AND SUPPORT & P CECE RESULT Final Result Performing Organization Address City/[facility] Co de Phone Number [facility] [address] [place] [address] documented in this encounter Visit Diagnoses Not on filedocumented in this encounter Care Teams Data Center Project Manager Relationship Specialty Start Date End Date Gemma Kahn NP [address] [place] [address] PCP - General 10/10/14 documented as of this encounter
--- OUTSIDE RECORDS SUMMARY | 2024-10-12 12:03 | XMS_ITS | Encounter Summary ---
Author Organization [facility] Address [address] [place] [address] Care Team Providers Care Machine Plaster Mixer Name Role Phone Unavailable Primary Care Provider Unavailabl e Encounter Details Date Type Department Care Team (Late st Contact Info) Description 04/16/2008 9:57 EDT - 04/16/2008 11:59 EDT Hospital Encounter [facility] - Other [address] [place] [address] Gemma Mcmanus MD [address] [phone] Discharge Disposition: Auto Discharge Social [...] Priority Date/Time Associated Diagnosis Comments RAD US AV BREAST BILATERAL - TWO BREASTS 04/16/2008 11:55 EDT [place] MAMMO DIAG DIGITAL BILATERAL ADDED VIEWS 04/16/2008 10:21 EDT documented in this encounter Results * RAD US AV BREAST BILATERAL - TWO BREASTS (04/16/2008 11:55 EDT) Anatomical Region Laterality Modality Other 04/16/2008 11:5 5 EDT Narrative 05/10/2009 12:49 EDT bilateral av and right u/s.Left maoo density medial. Procedure: Bilateral digital mammographic additional views and bilateral breast ultrasound: ??04/16/2008 Comparison: 04/09/2008. Right breast findings: Magnified CC, XCCL and true lateral views were obtained, as well as ultrasound. A focal asymmetry in the 12 o'clock position nearly completely effaces, and one more posterolateral to that does completely efface on the additional views. There are scattered fibroglandular densities. The entire upper breast was scanned. A normal intramammary node is identified at 9:00, 9.5 cm from the nipple. At 12:00, 6.5 cm from the nipple, there is a deep layer of hyperechoic normal glandular tissue, which corresponds with the mammographic finding. The upper inner quadrant was entirely negative. Left breast findings: Repeat CC view with CAD, as well as magnified CC and true lateral views and ultrasound were performed. There is a rounded persistent nodule in the medial breast, mammographically measuring about 8mm. This is thought to be in the superior breast on the recent screening MLO view, but the magnified true lateral view today does not show any definite masses. The entire medial breast was examined by ultrasound. The lower inner quadrant is entirely negative. At 10:30 to 11:00, 7.5 cm from the nipple, there is a fibrocystic nodule which is almost entirely cystic, measuring 9 x 3 x 7 mm. One of the cystic foci measures 4 mm and appears round. This corresponds to the mammographic finding. This was also confirmed while scanning the patient while she was sitting upright. The upper inner quadrant is otherwise unremarkable. Impression right breast: Bi-Rads category 1-negative. Normal additional views and ultrasound. Yearly screening mammography is recommended. Impression left breast: Bi-Rads category 2-benign. 1. Nodular density in the medial breast corresponds with a fibrocystic nodule. Yearly screening mammography is recommended. 2. ??Results and recommendations were discussed with the patient by the sugar cane planter at the time of the examination. Overall assessment: Benign. The patient will be notified of her/his breast imaging results via a lay letter from Radiology. Radiology will contact the patient directly regarding any findings which require additional imaging (Category 0) at this time. Procedure Note Eliana Mays MD - 05/10/2009 bilateral av and right u/s.Left maoo density medial. Procedure: Bilateral digital mammographic additional views and bilateral breast ultrasound: 04/16/2008 Comparison: 04/09/2008. Right breast findings: Magnified CC, XCCL and true lateral views were obtained, as well as ultrasound. A focal asymmetry in the 12 o'clock position nearly completely effaces, and one more posterolateral to that does completely efface on the additional views. There are scattered fibroglandular densities. The entire upper breast was scanned. A normal intramammary node is identified at 9:00, 9.5 cm from the nipple. At 12:00, 6.5 cm from the nipple, there is a deep layer of hyperechoic normal glandular tissue, which corresponds with the mammographic finding. The upper inner quadrant was entirely negative. Left breast findings: Repeat CC view with CAD, as well as magnified CC and true lateral views and ultrasound were performed. There is a rounded persistent nodule in the medial breast, mammographically measuring about 8mm. This is thought to be in the superior breast on the recent screening MLO view, but the magnified true lateral view today does not show any definite masses. The entire medial breast was examined by ultrasound. The lower inner quadrant is entirely negative. At 10:30 to 11:00, 7.5 cm from the nipple, there is a fibrocystic nodule which is almost entirely cystic, measuring 9 x 3 x 7 mm. One of the cystic foci measures 4 mm and appears round. This corresponds to the mammographic finding. This was also confirmed while scanning the patient while she was sitting upright. The upper inner quadrant is otherwise unremarkable. Impression right breast: Bi-Rads category 1-negative. Normal additional views and ultrasound. Yearly screening mammography is recommended. Impression left breast: Bi-Rads category 2-benign. 1. Nodular density in the medial breast corresponds with a fibrocystic nodule. Yearly screening mammography is recommended. 2. Results and recommendations were discussed with the patient by the sugar cane planter at the time of the examination. Overall assessment: Benign. The patient will be notified of her/his breast imaging results via a lay letter from Radiology. Radiology will contact the patient directly regarding any findings which require additional imaging (Category 0) at this time. us Gemma Mcmanus MD IMG US ORDERABLES Fin al Result * MA MAMMO DIAG DIGITAL BILATERAL ADDED VIEWS (04/16/2008 10:21 EDT) Anatomical Region Laterality Modality Other 04/16/2008 10:2 1 EDT Narrative 05/10/2009 12:49 EDT bilateral av and right u/s Procedure: Bilateral digital mammographic additional views and bilateral breast ultrasound: ??04/16/2008 Comparison: 04/09/2008. Right breast findings: Magnified CC, XCCL and true lateral views were obtained, as well as ultrasound. A focal asymmetry in the 12 o'clock position nearly completely effaces, and one more posterolateral to that does completely efface on the additional views. There are scattered fibroglandular densities. The entire upper breast was scanned. A normal intramammary node is identified at 9:00, 9.5 cm from the nipple. At 12:00, 6.5 cm from the nipple, there is a deep layer of hyperechoic normal glandular tissue, which corresponds with the mammographic finding. The upper inner quadrant was entirely negative. Left breast findings: Repeat CC view with CAD, as well as magnified CC and true lateral views and ultrasound were performed. There is a rounded persistent nodule in the medial breast, mammographically measuring about 8mm. This is thought to be in the superior breast on the recent screening MLO view, but the magnified true lateral view today does not show any definite masses. The entire medial breast was examined by ultrasound. The lower inner quadrant is entirely negative. At 10:30 to 11:00, 7.5 cm from the nipple, there is a fibrocystic nodule which is almost entirely cystic, measuring 9 x 3 x 7 mm. One of the cystic foci measures 4 mm and appears round. This corresponds to the mammographic finding. This was also confirmed while scanning the patient while she was sitting upright. The upper inner quadrant is otherwise unremarkable. Impression right breast: Bi-Rads category 1-negative. Normal additional views and ultrasound. Yearly screening mammography is recommended. Impression left breast: Bi-Rads category 2-benign. 1. Nodular density in the medial breast corresponds with a fibrocystic nodule. Yearly screening mammography is recommended. 2. ??Results and recommendations were discussed with the patient by the sugar cane planter at the time of the examination. Overall assessment: Benign. The patient will be notified of her/his breast imaging results via a lay letter from Radiology. Radiology will contact the patient directly regarding any findings which require additional imaging (Category 0) at this time. Procedure Note Eliana Mays MD - 05/10/2009 bilateral av and right u/s Procedure: Bilateral digital mammographic additional views and bilateral breast ultrasound: 04/16/2008 Comparison: 04/09/2008. Right breast findings: Magnified CC, XCCL and true lateral views were obtained, as well as ultrasound. A focal asymmetry in the 12 o'clock position nearly completely effaces, and one more posterolateral to that does completely efface on the additional views. There are scattered fibroglandular densities. The entire upper breast was scanned. A normal intramammary node is identified at 9:00, 9.5 cm from the nipple. At 12:00, 6.5 cm from the nipple, there is a deep layer of hyperechoic normal glandular tissue, which corresponds with the mammographic finding. The upper inner quadrant was entirely negative. Left breast findings: Repeat CC view with CAD, as well as magnified CC and true lateral views and ultrasound were performed. There is a rounded persistent nodule in the medial breast, mammographically measuring about 8mm. This is thought to be in the superior breast on the recent screening MLO view, but the magnified true lateral view today does not show any definite masses. The entire medial breast was examined by ultrasound. The lower inner quadrant is entirely negative. At 10:30 to 11:00, 7.5 cm from the nipple, there is a fibrocystic nodule which is almost entirely cystic, measuring 9 x 3 x 7 mm. One of the cystic foci measures 4 mm and appears round. This corresponds to the mammographic finding. This was also confirmed while scanning the patient while she was sitting upright. The upper inner quadrant is otherwise unremarkable. Impression right breast: Bi-Rads category 1-negative. Normal additional views and ultrasound. Yearly screening mammography is recommended. Impression left breast: Bi-Rads category 2-benign. 1. Nodular density in the medial breast corresponds with a fibrocystic nodule. Yearly screening mammography is recommended. 2. Results and recommendations were discussed with the patient by the sugar cane planter at the time of the examination. Overall assessment: Benign. The patient will be notified of her/his breast imaging results via a lay letter from Radiology. Radiology will contact the patient directly regarding any findings which require additional imaging (Category 0) at this time. us Gemma Mcmanus MD IMG MAMMOGRAPHY ORDER MAI Final Result documented in this encounter Visit Diagnoses Not on filedocumented in this encounter
--- OUTSIDE RECORDS SUMMARY | 2024-10-12 12:03 | XMS_ITS | Encounter Summary ---
Author Organization [facility] Address [address] [place] [address] Care Team Providers Care Director Process Name Role Phone Gemma Kahn TELEPHONE REPAIRER Primary Care Provider Encounter Details Date Type Department Care Team (Late st Contact Info) Description 02/03/2015 10:11 EDT - 02/03/2015 23:59 EDT Hospital Encounter [facility] - [address] [address] Juventino Villatoro MD [address] [facility] [place] [address] [place] [phone] Discharge Disposition: Home or Self Care Social [...] Code Departure Means Destination Home or Self Intermediate documented in this encounter Plan of Treatment Not on file documented as of this encounter Visit Diagnoses Not on filedocumented in this encounter Care Teams Director Process Relationship Specialty Start Date End Date Gemma Kahn NP [address] [place] [address] PCP - General 10/10/14 documented as of this encounter
--- OUTSIDE RECORDS SUMMARY | 2024-10-12 12:03 | XMS_ITS | Encounter Summary ---
Author Organization [facility] Address [address] [place] [address] Care Team Providers Care Bench Press Operator Name Role Phone Gemma Kahn INBOUND SALES REPRESENTATIVE Primary Care Provider Encounter Details Date Type Department Care Team (Late st Contact Info) Description 02/02/2015 Orders Only [facility] - [address] [address] Ekaterina Koroma, RN VNA [address] [place], [place] [id number] Antibody response examination (Primary Dx); Screening examination for pulmonary tuberculosis Social History Tobacco Use Types Packs/Day Years [...] documented as of this encounter Results * TB BY QUANTIFERON, B (02/03/2015 10:24 EDT) TB Interpretation Negative 015 16:52 EDT [facility] Comment:Reference Range: Neg ative TB Antigen Value 0.00 IU/mL 02/06/20 15 16:52 EDT [facility] Comment: This is a [...] & BLOOD GAS O RDERABLES Final Result [facility] [address] [place] [address] documented in this encounter Visit Diagnoses Diagnosis Antibody response examination- Primary Screening examination for pulmonary tuberculosis documented in this encounter Care Teams Bench Press Operator Relationship Specialty Start Date End Date Gemma Kahn NP [address] [place] [address] PCP - General 10/10/14 documented as of this encounter
--- OUTSIDE RECORDS SUMMARY | 2024-10-12 12:03 | XMS_ITS | Encounter Summary ---
Author Organization [facility] Address [address] [place] [address] Care Team Providers Care Water Service Dispatcher Name Role Phone Gemma Mcmanus MD Primary Care Provide r Reason for Visit * Reason Onset Date Comments New Patient Visit 09/26/2014 elevated WBC New Patient Visit 09/29/2014 Referral mary lou barton will triage with polysomnographic technician. New Patient Visit 09/30/2014 LMOM for dex irby stating that she is set up to see Dr. Alycia Rodriguez on Friday, October 10, 2014 at 9:15 am. I also gave her my direct line for questions/concerns/reschedule. Encounter Details Date Type Department Care Team (Late st Contact Info) Description 09/26/2014 Telephone [facility] Cancer Center Hematology & Oncology - [facility] [address] [place], [place] [id number] Gemma Kahn NP [address] [place], [place] [address] New Patient Visit (elevated WBC ); New Patient Visit (Referral received will triage with polysomnographic technician.); New Patient Visit (LMOM for patient stating that she is set up to see Dr. Alycia Rodriguez on Friday, October 10, 2014 at 9:15 am. I also gave her my direct line for questions/concerns/res chedule.) Social History Tobacco Use Types Packs/Day Years [...] * Telephone Encounter - Kiya Fernandes - 09/30/2014 1500 EST LMOM for patient stating that she is set up to see Dr. Alycia Rodriguez on Monday, October 10, 2014 at 9:15 am. I also gave her my direct line for questions/concerns/reschedule. * Telephone Encounter - Kiya Fernandes - 09/30/2014 0744 EST Referral received will triage with polysomnographic technician. * Telephone Encounter - Angie Kang - 09/26/2014 1447 EDT [place] from [facility] calling to schedule NPV. Notes being faxed. Reason for referral elevated WBC with no symptoms of infection. Please call pt directly with appt information. documented in this encounter Plan of Treatment Not on file documented as of this encounter Visit Diagnoses Not on filedocumented in this encounter Care Teams Water Service Dispatcher Relationship Specialty Start Date End Date Gemma Mcmanus MD [address] [place] [address], [address] [phone] PCP - General 04/09/12 10/09/14 documented as of this encounter
--- OUTSIDE RECORDS SUMMARY | 2024-10-12 12:03 | XMS_ITS | Encounter Summary ---
Author Organization [facility] Address [address] [place] [address] Care Team Providers Care Academic Tutor Name Role Phone Gemma Mcmanus MD Primary Care Provide r Encounter Details Date Type Department Care Team (Late st Contact Info) Description 09/29/2014 Orders Only [facility] Cancer Center Hematology & Oncology - [facility] [address] [place] [address] Vivi Perez LICSW [address] [place] [address] Leukocytosis, unspecified (Primary Dx) Social History Tobacco Use Types [...] as of this encounter Visit Diagnoses Diagnosis Leukocytosis, unspecified- Primary documented in this encounter Care Teams Academic Tutor Relationship Specialty Start Date End Date Gemma Mcmanus MD [address] [facility], [address] [phone] PCP - General 04/09/12 10/09/14 documented as of this encounter
--- OUTSIDE RECORDS SUMMARY | 2024-10-12 12:03 | XMS_ITS | Encounter Summary ---
Author Organization [facility] Address [address] [place] [address] Care Team Providers Care Supervising Appraiser Name Role Phone Gemma Kahn WOODWORKER Primary Care Provider [phone] Reason for Visit * Reason Onset Date Comments Appointment Related 04/13/2015 Encounter Details Date Type Department Care Team (Late st Contact Info) Description 04/13/2015 Telephone [facility] Cancer Center Hematology & Oncology - [facility] [address] [place], [place] [id number] Alycia Rodriguez MD Appointment Related Social History Tobacco Use Types Packs/Day Years [...] * Telephone Encounter - Lyndsay Barron - 04/15/2015 0910 EDT Spoke with Hilary and rescheduled her appointment to 05/01/15 at 4:00 * Telephone Encounter - Mariajose Carpenter - 04/13/2015 1012 EDT Reason for Call: Appointment Related Summary/Symptoms : Pt will need to reschedule the 04/17/15 to 04/27/15 morning. Onset and Duration? Urgent? Mariajose Carpenter 04/13/2015 10:12 documented in this encounter Plan of Treatment Not on file documented as of this encounter Visit Diagnoses Not on filedocumented in this encounter Care Teams Supervising Appraiser Relationship Specialty Start Date End Date Gemma Kahn NP [address] [place] [address] PCP - General 10/10/14 documented as of this encounter
--- OUTSIDE RECORDS SUMMARY | 2024-10-12 12:03 | XMS_ITS | Encounter Summary ---
Author Organization [facility] Address [address] [place] [address] Care Team Providers Care Long Line Teamster Name Role Phone Unavailable Primary Care Provider Unavailabl e Encounter Details Date Type Department Care Team (Late st Contact Info) Description 09/13/2005 18:16 EDT Hospital Encounter [facility] - Other [address] [place] [address] Gemma Mcmanus MD 111 [facility], [address] [phone] Social History Tobacco Use Types [...] RNA BY PCR Routine 09/13/2005 11:00 EDT HEPATITIS B SURFACE ANTIBODY Routine 09/13/2005 11:00 EDT HEPATITIS B SURFACE ANTIGEN Routine 09/13/2005 11:00 EDT documented in this encounter Results * HEPATITIS C ANTIBODY (09/13/2005 11:00 EDT) Hepatitis C Ab Neg [facility] 09/13/2005 11:0 0 EDT 09/13/2005 22:02 EDT us Gemam Mcmanus MD CHEMISTRY & BLOOD GAS ORDERABLES Final Result Performing Organization Address [facility] de Phone Number [facility] [address] [place] [address] * HEPATITIS B SURFACE ANTIGEN (09/13/2005 11:00 EDT) Hepatitis B Surface Ag Neg [facility] 09/13/2005 11:0 0 EDT 09/13/2005 22:02 EDT us Gemma Mcmanus MD CHEMISTRY & BLOOD GAS ORDERABLES Final Result Performing Organization Address [facility] Phone Number [facility] [address] [place] [address] * HEPATITIS B SURFACE ANTIBODY (09/13/2005 11:00 EDT) Hepatitis B Surface Ab Neg [facility] 09/13/2005 11:0 0 EDT 09/13/2005 22:02 EDT us Gemma Mcmanus MD CHEMISTRY & BLOOD GAS ORDERABLES Final Result Performing Organization Address [facility] de Phone Number [facility] [address] [place] [address] documented in this encounter Visit Diagnoses Not on filedocumented in this encounter
--- OUTSIDE RECORDS SUMMARY | 2024-10-12 12:03 | XMS_ITS | Encounter Summary ---
Author Organization [facility] Address [address] [place] [address] Care Team Providers Care Level Vial Inspector Name Role Phone Unavailable Primary Care Provider Unavailabl e Encounter Details Date Type Department Care Team (Late st Contact Info) Description 10/24/2007 13:56 EST Hospital Encounter [facility] [address] [place] [address] Dustin Delgadillo MD [address] [place] [address] Social History Tobacco Use Types Packs/Day [...]
--- OUTSIDE RECORDS SUMMARY | 2024-10-12 12:03 | XMS_ITS | Encounter Summary ---
Author Organization [facility] Address [address] [place] [address] Care Team Providers Care Diver Tender Name Role Phone Unavailable Primary Care Provider Unavailabl e Encounter Details Date Type Department Care Team (Late st Contact Info) Description 10/24/2007 Before PRISM Converted Visit (Maple) [facility] - Maple conversion [address] [place] [address] Dustin Delgadillo MD [address] [place] [address] Social History Tobacco Use Types Packs/Day Years Used Date Smoking Tobacco: Never Assessed Comments Unknown Sex and Gender Information Value Date Recorded Sex Assigned at Not on file Legal Sex Female 18:04 EST Gender Identity Not on file Sexual Orientation Not on file documented as of this encounter Consult Notes * Dustin Delgadillo MD - 10/04/2009 0210 EST CONSULTATION - 10/24/2007 October 24, 2007 Gemma Mcmanus M.D. [address] Mcmanus, [facility]. She plans to spend 2 months traveling through [place], departing December 2007. She is already well immunized, having completed tetanus, polio, yellow fever and 2 doses of hepatitis A virus vaccine series recently. Her typhim Vi typhoid vaccinehas . We opted to give her a prescription for oral typhoid vaccine and Malarone for malaria chemoprophylaxis. Additionally, she was given a prescription for ciprofloxacin should she develop severe, watery diarrhea. Thank you for allowing me to see this patient. If you have any questions, please feel free to contact me at any time. Sincerely, Signed by Dustin Delgadillo MD 11/01/2007 13:18 Dustin Delgadillo MD Division of Pediatric Infectious Disease - Dustin Delgadillo MD A - severo Job ID: [id number] Doc ID: [id number] cc: Gemma Mcmanus MD documented in this encounter Plan of Treatment Not on file documented as of this encounter Visit Diagnoses Not on filedocumented in this encounter
--- OUTSIDE RECORDS SUMMARY | 2024-10-12 12:03 | XMS_ITS | Encounter Summary ---
Author Organization Health system Address [address] [place] [address] Care Team Providers Care Pipe Changer Name Role Phone Gemma Kahn PRE SCHOOL TEACHER Primary Care Provider [phone] Reason for Visit * Reason Comments Other Encounter Details Date Type Department Care Team (Late st Contact Info) Description 10/09/2015 Refill [facility] Infectious Disease - [facility] [address] [place] [address] Antonietta Pires FNP [facility] [address] [place] [phone] Other Social History Tobacco Use Types Packs/Day [...] encounter Miscellaneous Notes * Telephone Encounter - Martina Curry RN - 10/15/2015 0997 EST Patient called and explained she did not request a malarone refill. She doesn't have travel plans. Called [facility] and explained the request for malarone for this patient isn't correct . Request for this medication is deleted . MARTINA RAY, RN documented in this encounter Plan of Treatment Not on file documented as of this encounter Visit Diagnoses Not on filedocumented in this encounter Care Teams Pipe Changer Relationship Specialty Start Date End Date Gemma Kahn NP [address] [place] [address] PCP - General 10/10/14 documented as of this encounter
--- OUTSIDE RECORDS SUMMARY | 2024-10-12 12:03 | XMS_ITS | Encounter Summary ---
Author Organization [facility] Address [address] [place] [address] Care Team Providers Care Independent Freight Agent Name Role Phone Gemma Kahn BOARDING ROOM FIXER Primary Care Provider [phone] Encounter Details Date Type Department Care Team (Late st Contact Info) Description 07/05/2017 Results Only [facility]- [facility] [phone] Albert Nixon MD [address] [place] [phone] Social History Tobacco Use Types Packs/Day Years [...] Procedure Name Priority Date/Time Associated Diagnosis Comments PAP TEST- RESULT ONLY Routine 07/05/2017 0:00 EDT documented in this encounter Results * PAP TEST- RESULT ONLY (07/05/2017 0:00 EDT) Pathology Report: CYTOPATHOLOGY REPORT Reports generated via electronic interface contain original data; however they are lacking the format of the original report. Caution should be taken when reading/interpreti ng unformatted reports. Name: ? JATIN HANDLEY ? Accession #: ? [id number] ? : ? 1960 (Age: 57) ??F ?Collect Date: ? 07/05/2017 ? Location: ? [facility] ? Receive Date: ? 07/10/2017 ? Provider: ALBERT NIXON MD Copy to: ? Final Report SPECIMEN ADEQUACY ? Satisfactory for Evaluation - transformation zone component present GENERAL CATEGORIZATION ? Negative for Intraepithelial Lesion or Malignancy INTERPRETATION ? Shift in lexus present suggestive of bacterial vaginosis. Hormonal/Contracep tive status: None Specimen/Source: ??Pap Test, Cervix/Endocervix, ThinPrep Imaging System with manual evaluation Document reviewed and electronically signed by: ? Nury Ko, [facility](ASCP) ? Report ??Date: 07/17/2017 15:44 HPV with Pap Test ? Date Ordered: ? 07/17/2017 ? Status: ?? Signed Out ?Date Complete: ? 07/18/2017 ? By: ??System Interface ? Date Reported: ? 07/18/2017 ? Interpretation RESULT: Negative for HPV. No E6 or E7 mRNA is detected from HPV types 16,18,31,33,35, 39,45,51,52,56,58, 59,66, and 68 by clerical grader mediated amplification. Comments Document reviewed and electronically signed by: ? System Interface ? Report date: 07/18/2017 By the signature above, the attending physician certifies that he/she has personally conducted a gross and/or microscopic examination of the described specimens and rendered or confirmed the above diagnosis. End of Report [facility] 07/05/2017 07/10/2017 us Albert Nixon MD PATHOLOGY ORDERABLES Final Res ult [facility] [address] [place] [address] documented in this encounter Visit Diagnoses Not on filedocumented in this encounter Care Teams Independent Freight Agent Relationship Specialty Start Date End Date Gemma Kahn NP [address] [place] [address] PCP - General 10/10/14 documented as of this encounter
--- OUTSIDE RECORDS SUMMARY | 2024-10-12 12:03 | XMS_ITS | Encounter Summary ---
Author Organization [facility] Address [address] [place] [address] Care Team Providers Care Railroad Operating Engineer Name Role Phone Unavailable Primary Care Provider Unavailabl e Encounter Details Date Type Department Care Team (Late st Contact Info) Description 04/09/2008 9:46 EDT - 04/09/2008 11:59 EDT Hospital Encounter [facility] [address] [place] [address] Gemma Mcmanus MD 111 [facility], [address] [address] Discharge Disposition: Auto Discharge Social [...] Associated Diagnosis Comments MA MAMMO SCREENING DIGITAL 04/09/2008 10:17 EDT documented in this encounter Results * MA MAMMO SCREENING DIGITAL (04/09/2008 10:17 EDT) Anatomical Region Laterality Modality Other 04/09/2008 10:1 7 EDT Narrative 05/10/2009 10:56 EDT baseline This is the patient's baseline exam. Left Breast Findings: (CAD used to interpret routine digital): There are scattered fibroglandular densities. A focal asymmetric density is present and is seen only in the CC view medially. Right Breast Findings: (CAD used to interpret routine digital): There are scattered fibroglandular densities. A focal asymmetric density is present at 12 o'clock. A focal asymmetric density is present and is seen only in the CC view laterally. IMPRESSION: LEFT BREAST - CATEGORY 0 Focal asymmetric density. Additional projections are recommended at this time in the CC view. RIGHT BREAST - CATEGORY 0 Focal asymmetric density at 12 o'clock. Ultrasound and spot magnification view(s) are recommended at this time in the CC and ML view. Focal asymmetric density. Additional projections are recommended at this time in the CC and XCCL view. OVERALL ASSESSMENT - INCOMPLETE: NEED ADDITIONAL IMAGING EVALUATION END OF IMPRESSION The patient will be notified of her/his breast imaging results via a lay letter from Radiology. ??Radiology will contact the patient directly regarding any findings which require additional imaging (Category 0) at this time. Procedure Note Polina Ho MD - 05/10/2009 baseline This is the patient's baseline exam. Left Breast Findings: (CAD used to interpret routine digital): There are scattered fibroglandular densities. A focal asymmetric density is present and is seen only in the CC view medially. Right Breast Findings: (CAD used to interpret routine digital): There are scattered fibroglandular densities. A focal asymmetric density is present at 12 o'clock. A focal asymmetric density is present and is seen only in the CC view laterally. IMPRESSION: LEFT BREAST - CATEGORY 0 Focal asymmetric density. Additional projections are recommended at this time in the CC view. RIGHT BREAST - CATEGORY 0 Focal asymmetric density at 12 o'clock. Ultrasound and spot magnification view(s) are recommended at this time in the CC and ML view. Focal asymmetric density. Additional projections are recommended at this time in the CC and XCCL view. OVERALL ASSESSMENT - INCOMPLETE: NEED ADDITIONAL IMAGING EVALUATION END OF IMPRESSION The patient will be notified of her/his breast imaging results via a lay letter from Radiology. Radiology will contact the patient directly regarding any findings which require additional imaging (Category 0) at this time. us eGmma Mcmanus MD IMG MAMMOGRAPHY ORDER MAI Final Result documented in this encounter Visit Diagnoses Not on filedocumented in this encounter
--- OUTSIDE RECORDS SUMMARY | 2024-10-12 12:04 | XMS_ITS | Encounter Summary ---
Author Organization [facility] Address [address] [place] [address] Care Team Providers Care Fruit Preserver Name Role Phone Unavailable Primary Care Provider Unavailabl e Encounter Details Date Type Department Care Team (Latest Contact Info) Description 11/15/1999 17:55 EST Hospital Encounter [facility] Emergency Department - [facility] [address] [place] [address] Emergency, Default, MD Discharge Disposition: Home or Self Care [...] Procedure Name Priority Date/Time Associated Diagnosis Comments HAND 3 OR MORE VIEWS Routine 11/15/1999 19:10 EST documented in this encounter Results * HAND 3 OR MORE VIEWS (11/15/1999 19:10 EST) Anatomical Region Laterality Modality Other 11/15/1999 19:1 0 EST Impressions 10/06/2009 12:50 EST IMPRESSION: 1. Fractures, comminuted. /rlj Narrative 10/06/2009 12:50 EST DOG BITE R/O FX LEFT HAND 11/15/1999 19:05 HISTORY: Dog bite. Rule out fracture. DESCRIPTION: There is a near amputation of the ungual tuft with multiple fragments around the distal phalanx and soft tissue disruption of the fourth ray. In addition, there is a comminuted fracture of the distal shaft of the right fifth metacarpal with some shortening. Three views obtained. Procedure Note Omid Rutledge MD - 10/06/2009 DOG BITE R/O FX LEFT HAND 11/15/1999 19:05 HISTORY: Dog bite. Rule out fracture. DESCRIPTION: There is a near amputation of the ungual tuft with multiple fragments around the distal phalanx and soft tissue disruption of the fourth ray. In addition, there is a comminuted fracture of the distal shaft of the right fifth metacarpal with some shortening. Three views obtained. IMPRESSION IMPRESSION: 1. Fractures, comminuted. /travis Donal Ramon MD IMG DIAGNOSTIC IMAGING MONSTER MAJANO Final Result documented in this encounter Visit Diagnoses Not on filedocumented in this encounter
--- OUTSIDE RECORDS SUMMARY | 2024-10-12 12:04 | XMS_ITS | Encounter Summary ---
Author Organization [facility] Address [address] [place] [address] Care Team Providers Care Banana Ripening Room Supervisor Name Role Phone Unavailable Primary Care Provider Unavailabl e Encounter Details Date Type Department Care Team ([facility] Contact Info) Description 11/16/1999 16:39 EST Hospital Encounter [address] [address] Art Alexis Social History Tobacco Use Types Packs/Day Years [...] Name Priority Date/Time Associated Diagnosis Comments HAND 2 VIEWS Routine 12/02/1999 11:53 EST documented in this encounter Results * HAND 2 VIEWS (12/02/1999 11:53 EST) Anatomical Region Laterality Modality Other 12/02/1999 11:5 3 EST Impressions 10/06/2009 9:09 EST IMPRESSION: 1. Interval healing of the left fifth metacarpal fracture. The attending radiologist has reviewed the images and concurs with the findings described above. /law Narrative 10/06/2009 9:09 EST LEFT 5TH MC FX, ASSESS ALIGNMENT/HEALING TWO VIEWS OF THE LEFT HAND 12/02/1999 12:00 COMPARISON: 11/15/1999 HISTORY: Assess alignment and healing. FINDINGS: AP and lateral views of the left hand show a non-angulated, comminuted fracture of the head of the fifth metacarpal. There is a slight, 2-3 mm, medial displacement of one of the fracture fragments, which is unchanged from the previous examination. Interval healing with new bone formation is present. Procedure Note Cas Hawkins MD / Jaxon Chin MD - 10/06/2009 LEFT 5TH MC FX, ASSESS ALIGNMENT/HEALING TWO VIEWS OF THE LEFT HAND 12/02/1999 12:00 COMPARISON: 11/15/1999 HISTORY: Assess alignment and healing. FINDINGS: AP and lateral views of the left hand show a non-angulated, comminuted fracture of the head of the fifth metacarpal. There is a slight, 2-3 mm, medial displacement of one of the fracture fragments, which is unchanged from the previous examination. Interval healing with new bone formation is present. IMPRESSION IMPRESSION: 1. Interval healing of the left fifth metacarpal fracture. The attending radiologist has reviewed the images and concurs with the findings described above. /law us Art Alexis IMG DIAGNOSTIC IMAGING ORDERAB LES Final Result documented in this encounter Visit Diagnoses Not on filedocumented in this encounter
--- OUTSIDE RECORDS SUMMARY | 2024-10-12 12:04 | XMS_ITS | Encounter Summary ---
Author Organization [facility] Address [address] [place] [address] Care Team Providers Care Digital Court Reporter Name Role Phone Unavailable Primary Care Provider Unavailabl e Encounter Details Date Type Department Care Team (Late st Contact Info) Description 12/30/1999 8:20 EST Hospital Encounter [address] [address] Art Alexis Social History Tobacco Use Types [...]
--- OUTSIDE RECORDS SUMMARY | 2024-10-12 12:04 | XMS_ITS | Encounter Summary ---
Author Organization [facility] Address [address] [place] [address] Care Team Providers Care Biomass Plant Technician Name Role Phone Unavailable Primary Care Provider Unavailabl e Encounter Details Date Type Department Care Team (Latest Contact Info) Description 12/02/1999 12:14 EST - 12/27/1999 11:59 EST Hospital Encounter [facility] - [address] [address] Art Alexis Discharge Disposition: Auto Discharge Social [...]
--- NOTE | 2024-10-12 12:20 | DI.RAD_ITS ---
Exam(s) XR CHEST 2V PA LATERAL EXAM: XR CHEST 2V PA LATERAL CLINICAL HISTORY: COUGH TECHNIQUE: 2D digital imaging was performed. Two views. COMPARISON: None FINDINGS: HEART: Normal size. Aorta: Not dilated. PULMONARY VASCULATURE: Normal. MEDIASTINUM: Unremarkable. LUNGS: Clear. 10 millimeter circumscribed nodule seen on the PA view in the mid right lung field. PLEURAL SPACE: No pleural effusion or pneumothorax. BONE:Unremarkable for age. SOFT TISSUES: Unremarkable. IMPRESSION: 10 millimeter nodule right mid lung field. Findings likely represent a granuloma. Comparison with p rior exams recommended if available. If not, chest CT could be performed for further evaluation. Unexpected findings DATA REPOSITORY: RADIATION DOSE DELIVERED:
--- NOTE | 2024-10-12 13:06 | DI.VRAD_ITS ---
PROCEDURE INFORMATION: Exam: XR Chest Exam date and time: 10/12/2024 12:20 PM Age: 64 years old Clinical indication: Pain; Other: Cough TECHNIQUE: Imaging protocol: Radiologic exam of the chest. Views: 2 views. COMPARISON: No relevant prior studies available. FINDINGS: Lungs: There is a right mid lung zone nodular airspace opacity. Pleural spaces: Unremarkable. No pleural effusion. No pneumothorax. Heart/Mediastinum: Unremarkable. No cardiomegaly. Bones/joints: Unremarkable. IMPRESSION: Nodular right mid lung zone airspace opacity. Dictated and Authenticated by: Goran Quiroz MD. Ordering:ALICIA Garibay MD
== END 2024-10-12 12:18 ==
PROVIDERS: PCP Family Medicine; Visit Provider Physician Assistant Medical
DX: R91.8 Other nonspecific abnormal finding of lung field (principal)
CPT/HCPCS: 71046

== ENCOUNTER 2025-04-02 01:58 | Outpatient (CLI) | payer MEDICARE, SELFPAY ==
[2025-04-02 10:27] LABS: Abs Immature Grans 0.02 10^3/uL (0.0-0.06); Absolute Eosinophil Count 0.21 10^3/uL (0.0-0.7); Absolute Monocyte Count 0.49 10^3/uL (0.1-0.8); Basophils % 0.5 %; Eosinophils % 1.4 %; HGB 13.5 g/dL (11.2-15.7); Immature Grans % 0.1 %; Lymphocytes % 70.4 %; MCH 29.9 pg (27.0-33.0); MCHC 33.8 % (32.0-36.0); MCV 89 fL (80-95); MPV 8.6 fL (8.0-11.0); Monocytes % 3.3 %; Neutrophils % 24.3 %; Platelet Count 164 10^3/uL (130-400); RBC 4.51 10^6/uL (3.93-5.22); RDW 14.2 % (11.7-14.6); RDW-SD 45.7 fL; WBC 14.81 10^3/uL (4.4-10.8)
[2025-04-02 10:28] LABS: Absolute Basophil Count 0.07 10^3/uL (0.0-0.2); Absolute Lymphocyte Count 10.43 10^3/uL (1.2-3.4)
[2025-04-02 10:46] LABS: ALT 65 U/L (14-59); AST 33 U/L (15-37); Albumin 3.8 g/dL (3.4-5.0); Alkaline Phosphatase 111 U/L (46-116); Anion Gap 11.1 mmol/L (3-11); BUN 18 mg/dL (7-18); Bilirubin, Total 0.5 mg/dL (0.2-1.0); CO2 24.9 mmol/L (21.0-32.0); Calcium 9.3 mg/dL (8.5-10.1); Chloride 105 mmol/L (98-107); Estimated GFR 61.75 (mL/min/1.73m2); Glucose 144 mg/dL (74-106); LDH 155 U/L (81-234); Potassium 4.2 mmol/L (3.5-5.1); Sodium 141 mmol/L (136-145); Total Protein 7.3 g/dL (6.4-8.2)
[2025-04-03 09:34] LABS: IgG 726 mg/dL (610-1616)
== END 2025-04-02 01:59 | disposition home or self-care (01) ==
PROVIDERS: PCP Family Medicine; Visit Provider Internal Medicine Hematology & Oncology
DX: C91.10 Chronic lymphocytic leukemia of B-cell type not having achieved remission (principal)
CPT/HCPCS: 36415; 80053; 82784; 83615; 85025

== ENCOUNTER 2025-07-21 09:51 | Outpatient (CLI) | payer MEDICARE, SELFPAY | END 2025-07-21 09:52 | disposition home or self-care (01) | PROVIDERS: PCP Family Medicine; Visit Provider Family Medicine | DX: I49.9 Cardiac arrhythmia, unspecified (principal) | CPT/HCPCS: 93246 ==

== ENCOUNTER 2025-08-12 07:54 | Outpatient (CLI) | payer MEDICARE, SELFPAY ==
--- NOTE | 2025-08-12 09:34 | W.CARDEVENT ---
Date of service: 08/12/25 Time of Service: 09:34 Cardiac Event Recorder Referring Provider:: Precious Nixon Indications:: Palpitations. Cardiac Event Note: This is a cardiac event monitor. Patient was monitored for 9 days and 2 hours Rhythm throughout was sinus with an average heart rate of 61. Minimum was 41, maximum 144 There were rare ventricular ectopic beats. There was 1 ventricular triplet There were rare atrial premature beats. Self-limited atrial runs occurred. The majority were less than 5 beats in duration. Longest lasted 14 seconds There was no atrial fibrillation. Strip labeled atrial fibrillation was sinus with premature atrial contractions. There was no high-grade AV block, no pauses greater than 3 seconds Symptoms were reported which correlated both with sinus rhythm and with atrial and ventricular ectopy
== END 2025-08-12 07:55 | disposition home or self-care (01) ==
LOC: CARDOPNVT 07:54
PROVIDERS: PCP Family Medicine; Visit Provider Internal Medicine Cardiovascular Disease
DX: R00.2 Palpitations (principal); I49.3 Ventricular premature depolarization; I49.1 Atrial premature depolarization
CPT/HCPCS: 93248

== ENCOUNTER 2025-08-20 08:16 | Outpatient (CLI) | payer MEDICARE, SELFPAY ==
--- NOTE | 2025-08-20 08:15 | RT.EKG_ITS ---
APPROVED REPORT Exam: Resting ECG Reason for Exam: palpitations Patient Location: O HR:76 bpm ECG Measurements Heart Rate 76 AXIS GA 166 P 52 QRSd 100 QRS -47 QT 412 T 66 QTc 464 Conclusion Sinus rhythm...normal P axis, V-rate 50- 99 Left anterior fascicular block...axis(240,-40), init forces inf
== END 2025-08-20 08:17 | disposition home or self-care (01) ==
LOC: DI.CARD 08:17
PROVIDERS: PCP Family Medicine; Visit Provider Registered Nurse
DX: R00.2 Palpitations (principal); I44.4 Left anterior fascicular block
CPT/HCPCS: 93010

== ENCOUNTER → 2025-08-20 12:56 | Outpatient (BNVA) | payer MEDICARE, SELFPAY | PROVIDERS: PCP Family Medicine; Referring Provider Family Medicine; Visit Provider Registered Nurse | DX: R00.2 Palpitations (principal); Z79.899 Other long term (current) drug therapy | CPT/HCPCS: 99203; 93005 ==